=== PATIENT | female | born 1935 | race Caucasian/White ===

== ENCOUNTER → 2018-02-06 16:15 | Outpatient (CLI) | payer MEDICARE, SELFPAY | PROVIDERS: Family Provider Family Medicine; PCP Family Medicine; Visit Provider Dermatology | DX: L60.9 Nail disorder, unspecified (principal) | CPT/HCPCS: 87101; 87106 ==

== ENCOUNTER 2018-04-18 08:30 | Outpatient (RCR) | payer OTHER, SELFPAY ==
--- NOTE | 2018-03-10 08:10 | HP.OTEVAL ---
Patient's Visit Information SYEDA CHILD is a 82 year old F, referred to Occupational Therapy by Out of Town Doctor, with a diagnosis of Rupture of extensor tendon of right hand. Date of Evaluation: 03/09/18 Occupational Therapist: Brianda Miguel, OTR/Chavo, CHT - Subjective Subjective: This 82 year old female was seen for OT eval with dx of Rupture of extensor tendon fo right MF. PT states while in her living room she took a fall while sitting down on her recliner 2016. Pt states she worked with splinting her finger straight for over 12 weeks. with no correction of the tear. sx for DIP pinning was on January 25, 2018. And had pin removed on March 07, 2018. pt states she is wearing stack splint at night and with driving- - Pain right MF 7 Pain Intensity Range: 6, 9 - ROM PIP: Right MF 0/40 ROM Comments: all other digits right - Strength Strength Comments: deferred at this time. - Edema PIP: right MF 7.5 left MF 7.0 - Sensation Sensation Comments: denies - DASH-Disabilities of Arm, Shoulder& Hand DASH Sum: 99 - Goals Goal:100% adherence to protocol: Yes Goal:Daily scar massage when approriate: Yes Goal:ROM equal to unaffected hand: Yes Goal:Casino Operations Supervisor/Pinch strength at least 75% of unaffected hand: Yes Goal:No pain with affected hand use: Yes Goal:PIP Circumferences equal to unaffected hand: Yes Goal:Full use of affected hand in daily activities including: Yes - Rehabilitation General Assessment: Pt S/P right MF DIP pinning 01/25/17 with removal on 03/07/18. pt presents with mallet orthosis for daily use when out of her home. pt demo with sight swelling in MF and limited ROM limiting pts ind. with her basic ADLs and IADLS. pt would benefit from skilled OTR/L, CHT services 2x week for 4-6 weeks to assist pt in returning to her PLOF. Rehabilitation Potential: Good - Anticipated Interventions Anticipated Interventions: A/AAROM/PROM, Strengthening, Edema Control, Scar Care, Desensitization, Sensory Retraining, Modalities - Visit Plan Frequency: 2x /Week Duration: 4-6 Weeks TEXT: Thank you for the opportunity to evaluate your patient. For Medicare and Medicare HMO plans, please review the plan of care and approve it. It will need to be FAXED BACK to us at [phone] for Medicare purposes. Please let me know if there are questions or concerns regarding this plan of care. Physician Signature: Date:
--- NOTE | 2018-03-31 09:36 | HP.OTREVAL ---
Out of Town Doctor, It has been my pleasure to treat SYEDA CHILD over the last 7 visits for Rupture of extensor tendon of right hand. Please see the progress note below for an update on the occupational therapy plan of care! Subjective: pt states she is wearing her orthosis most of the time- and taking it off during ex. pt has concerns with her DIP not being straight- therapist ed. pt to not perfrom a forced fist at this time to cont working on ext. ex to gain increase motion- Objective/Function: -15 degrees of DIP ext a improvment from -20. *pt can active ext by 5 degrees -. pt has been ed- to use reverse blocking to increase ext- and use orthosis to decrease ext lag- and not to be performing a forced flex of DIP at this time- pt does need reinforcement with ex. pt has been given ex handout and pics with her own hand of positions of ex. pt demo ex well in session. Please re-eval pts ext. lag and advise as you feel therapy should progress Plan Frequency: 2x /Week Duration: 3 Weeks - 5 more visits approved via c9 Visits in this POC: pt has 5 more visits approved via C9 Plan: NO forced flex of DIP. reverse blocking to increase DIP ext- pt demo 5 degrees of active ext at DIP. passive to 0 Anticipated Interventions Anticipated Interventions: A/AAROM/PROM, Strengthening, Edema Control, Scar Care, Desensitization, Sensory Retraining, Modalities Please do not hesitate to contact me at [phone] by phone or if you have questions or concerns regarding this new plan of care! Sincerely, rBianda Miguel, OTR/L, CHT
--- NOTE | 2018-03-31 09:41 | OTREVAL_ITS ---
Out of Town Doctor, It has been my pleasure to treat SYEDA CHILD over the last 7 visits for Rupture of extensor tendon of right hand. Please see the progress note below for an update on the occupational therapy plan of care! Subjective: pt states she is wearing her orthosis most of the time- and taking it off during ex. pt has concerns with her DIP not being straight- therapist ed. pt to not perfrom a forced fist at this time to cont working on ext. ex to gain increase motion- Objective/Function: -15 degrees of DIP ext a improvment from -20. *pt can active ext by 5 degrees -. pt has been ed- to use reverse blocking to increase ext- and use orthosis to decrease ext lag- and not to be performing a forced flex of DIP at this time- pt does need reinforcement with ex. pt has been given ex handout and pics with her own hand of positions of ex. pt demo ex well in session. Please re-eval pts ext. lag and advise as you feel therapy should progress Plan Frequency: 2x /Week Duration: 3 Weeks - 5 more visits approved via c9 Visits in this POC: pt has 5 more visits approved via C9 Plan: NO forced flex of DIP. reverse blocking to increase DIP ext- pt demo 5 degrees of active ext at DIP. passive to 0 Anticipated Interventions Anticipated Interventions: A/AAROM/PROM, Strengthening, Edema Control, Scar Care , Desensitization, Sensory Retraining, Modalities Please do not hesitate to contact me at [phone] by phone or Fax: if you have questions or concerns regarding this new plan of care! Sincerely, Brianda Miguel, OTR/L, CHT
--- NOTE | 2018-04-13 08:00 | DT_ITS ---
This patient was seen during an EMR downtime April 10, 2018 - April 17, 2018. This patient may have a combination of paper and electronic documentation or all paper documentation. All documentation is viewable within the e-chart portion of [facility] for each patient visit.
--- NOTE | 2018-04-18 10:01 | HP.OTREVAL ---
Out of Town Doctor, It has been my pleasure to treat SYEDA CHILD over the last 12 visits for Rupture of extensor tendon of right hand. Please see the progress note below for an update on the occupational therapy plan of care! Subjective: pts visit 10 and 11 doc on paper due to electronic downtime procedure, the information from April through the April 16, 2018 was electronically scanned into the medical records. - pt states she is doing good- but does not like that her finger does not straighten - pt reports she is doing most all her BADLS ind. Therapist ed. pt on the risk of tendon repairs and ed. pt on the integrity of the tendon does affect healing and strength of the repair. pt did admit she did start gardening as soon as her pin was removed and following that she noticed her finger would not straighten all the way. Pt was compliant in using orthosis to provide support of DIP during gardening. pt demo understanding of flex ex and states she is back to playing her piano some. Objective/Function: PIP 0/90. DIP -20/55 this DIP lag has fluctuated from -10/-25 during the course of pts therapy- Pt was ed that with gains in flex she may have loss of the ext. pt demo understanding. pt demo with limited ability to extend DIP- follwoing extensor tendon repair- therapist rec'd K-tape to support DIP during functional use but pt does not want to use tape due as the adhesive pulls her skin-. ed. pt that even with tendon repairs. Plan Visits in this POC: 10/18 visits used- no further approved visits Plan: pt returns to for further evaluation Anticipated Interventions Anticipated Interventions: A/AAROM/PROM, Strengthening, Edema Control, Scar Care, Desensitization, Sensory Retraining, Modalities Please do not hesitate to contact me at [phone] by phone or if you have questions or concerns regarding this new plan of care! Sincerely, Brianda Miguel OTR/L, CHT
--- NOTE | 2018-04-18 10:12 | OTREVAL_ITS ---
Out of Town Doctor, It has been my pleasure to treat SYEDA CHILD over the last 12 visits for Rupture of extensor tendon of right hand. Please see the progress note below for an update on the occupational therapy plan of care! Subjective: pts visit 10 and 11 doc on paper due to electronic downtime procedure, the information from April through the April 16, 2018 was electronically scanned into the medical records. - pt states she is doing good- but does not like that her finger does not straighten - pt reports she is doing most all her BADLS ind. Therapist ed. pt on the risk of tendon repairs and ed. pt on the integrity of the tendon does affect healing and strength of the repair. pt did admit she did start gardening as soon as her pin was removed and following that she noticed her finger would not straighten all the way. Pt was compliant in using orthosis to provide support of DIP during gardening. pt demo understanding of flex ex and states she is back to playing her piano some. Objective/Function: PIP 0/90. DIP -20/55 this DIP lag has fluctuated from -10/ -25 during the course of pts therapy- Pt was ed that with gains in flex she may have loss of the ext. pt demo understanding. pt demo with limited ability to extend DIP- follwoing extensor tendon repair- therapist rec'd K-tape to support DIP during functional use but pt does not want to use tape due as the adhesive pulls her skin-. ed. pt that even with tendon repairs. Plan Visits in this POC: 10/18 visits used- no further approved visits Plan: pt returns to for further evaluation Anticipated Interventions Anticipated Interventions: A/AAROM/PROM, Strengthening, Edema Control, Scar Care , Desensitization, Sensory Retraining, Modalities Please do not hesitate to contact me at [phone] by phone or Fax: if you have questions or concerns regarding this new plan of care! Sincerely, Brianda Miguel OTR/L, CHT
--- NOTE | 2018-05-04 13:32 | HP.OTDCSUM_ITS ---
HP - OT D/C Summary It has been my pleasure to treat SYEDA CHILD under orders from Out of Town Doctor, for the diagnosis of Rupture of extensor tendon of right hand for a total of 12 visit(s). Please see the following information for a summary of their discharge status. - Overall Improvement % Improvement: 75 - Objective Objective/Function: PIP 0/90. DIP -20/55 this DIP lag has fluctuated from -10/ -25 during the course of pts therapy- Pt was ed that with gains in flex she may have loss of the ext. pt demo understanding. pt demo with limited ability to extend DIP- follwoing extensor tendon repair- therapist rec'd K-tape to support DIP during functional use but pt does not want to use tape due as the adhesive pulls her skin-. ed. pt that even with tendon repairs she will have scar tissue and possible limited ROM. pt demo understanding. - Goals Patient Goals: Regain Mobility, Decrease Pain, Improve Fine Motor Skills, Use Hand/Wrist/Arm Normally Again, Be More Independent in ADLS, Decrease Sensitivity Goal:100% adherence to protocol: Yes Goal:Daily scar massage when approriate: Yes Goal:ROM equal to unaffected hand: Yes Goal:Corporate Planner/Pinch strength at least 75% of unaffected hand: Yes Goal:No pain with affected hand use: Yes Goal:PIP Circumferences equal to unaffected hand: Yes Goal:Full use of affected hand in daily activities including: Yes - Plan Plan: pt returns to for further evaluation - D/C Information If there are questions or concerns regarding this patient's occupational therapy , please fell free to call me at [phone]. Thank you for the referral of this patient. Sincerely, Brianda Miguel, OTR/L, CHT
== END 2018-04-18 19:00 | disposition home or self-care (01) ==
LOC: OT 08:30
PROVIDERS: Family Provider Family Medicine; PCP Family Medicine
DX: S66.811D Strain of other specified muscles, fascia and tendons at wrist and hand level, right hand, subsequent encounter (principal)
CPT/HCPCS: 97110; 97140; 97166; 97168; 97530; 97762; 97763

== ENCOUNTER 2018-10-06 08:00 | Outpatient (RCR) | payer OTHER, MEDICARE, SELFPAY ==
--- NOTE | 2018-08-31 10:07 | HP.OTEVAL ---
Patient's Visit Information SYEDA CHILD is a 83 year old F, referred to Occupational Therapy by MARGUERITE GRIFFITH, with a diagnosis of Mallet finger of R finger. Date of Evaluation: 08/30/18 Occupational Therapist: Brianda Miguel, OTR/Chavo, CHT - Subjective Subjective: pt. arrives with mallet finger that developed from falling down in recliner after ankles gave out on her. Recently pt. retore tendon in 3rd digit and is still presenting with mallet finger. Pt has been seen in this facility for injury in the past- was D/C in April to return to her [employer] ex group. pt states she has not returned yet- due to pain in her knees- therapist encouraged to to start and utilize chair as needed to perform seated Ex for UB/LB- pt stated she needs to do so- pt c/o decrease easy writing, open jar lids, gardening tasks. - Pain R hand 0 - Objective Objective/Observation: mallet finger of R 3rd finger - ROM PIP: 0/90 DIP: -29/45 - Strength Shoulder: right 4/5 left 4+/5 Elbow: Right 4+/5 left 4+/5 Agricultural Lender: Right 25# left 15# Lateral Pinch: Right 12 # left 10# Tripod Pinch: Right 8# Left 9# Strength Comments: pt demo weak left environmental sciences professor /pinch more than right- this could be due to lack of use of bilateral hands for BADLs, meal prep tasks. therapist will encurage pt with HEP for increase functional strength- - Sensation Sensation Comments: patient demo difficulty with sensation, pt. able to feel 3.22 on R hand and 2.44 on L hand - DASH-Disabilities of Arm, Shoulder& Hand DASH Sum: 81 - Goals Goal:100% adherence to protocol: Yes Comment: Mallet finger Goal:ROM equal to unaffected hand: Yes Goal:No pain with affected hand use: Yes Goal:PIP Circumferences equal to unaffected hand: Yes Goal:Full use of affected hand in daily activities including: Yes Goal:Improvement in sensation documented by [place]-Soco: Yes Other Goal: pt will demo a increase in functional environmental sciences professor strength by 10# to increase pts ind with meal prep, and opening of jar lids by d/c - Rehabilitation General Assessment: Patient presents with mallet finger of R finger after recent over working of the R 3rd digit causing pt. to present with decreased strength, ROM, increased pain, decreased sensation, and decreased ability to complete BADL's and IADL's. Patient will benefit from OT services 2x/wk for 6 wks. Today OT provided PB to pt. to increase circulation and ROM and decrease pain. Following the PB, OT provided place and hold stretches at end range to increase ROM at PIP joint. OT provided green theraputty (moderate resistance) and handout to pt. and educated and instructed pt. about strengthening exercises that the pt. can complete at home. Rehabilitation Potential: Good - Anticipated Interventions Anticipated Interventions: A/AAROM/PROM, Strengthening, Triggerpoint Release, Modalities, Joint Protection/Energy Conservation, Ergonomic Education, Fine Motor Coord/Carlos, ADL Training, Education re Self Massage Techniques, Home Program - Visit Plan Frequency: 2x /Week Duration: 6 Weeks TEXT: Thank you for the opportunity to evaluate your patient. For Medicare and Medicare HMO plans, please review the plan of care and approve it. It will need to be FAXED BACK to us at [phone] for Medicare purposes. Please let me know if there are questions or concerns regarding this plan of care. Physician Signature: Date:
--- NOTE | 2018-08-31 10:16 | HP.OTEVAL ---
Patient's Visit Information SYEDA CHILD is a 83 year old F, referred to Occupational Therapy by MARGUERITE GRIFFITH, with a diagnosis of Mallet finger of R finger. Date of Evaluation: 08/30/18 Occupational Therapist: Brianda Miguel, OTR/Chavo, CHT - Subjective Subjective: pt. arrives with mallet finger that developed from falling down in recliner after ankles gave out on her. Recently pt. retore tendon in 3rd digit and is still presenting with mallet finger. Pt has been seen in this facility for injury in the past- was D/C in April to return to her [employer] ex group. pt states she has not returned yet- due to pain in her knees- therapist encouraged to to start and utilize chair as needed to perform seated Ex for UB/LB- pt stated she needs to do so- pt c/o decrease easy writing, open jar lids, gardening tasks. - Pain R hand 0 - Objective Objective/Observation: mallet finger of R 3rd finger - ROM PIP: 0/90 DIP: -29/45 - Strength Shoulder: right 4/5 left 4+/5 Elbow: Right 4+/5 left 4+/5 On Site Services Specialist: Right 25# left 15# Lateral Pinch: Right 12 # left 10# Tripod Pinch: Right 8# Left 9# Strength Comments: pt demo weak left filler shredder helper /pinch more than right- this could be due to lack of use of bilateral hands for BADLs, meal prep tasks. Therapist will encourage pt with HEP for increase functional strength- - Sensation Sensation Comments: patient demo difficulty with sensation, pt. able to feel 3.22 on R hand and 2.44 on L hand - DASH-Disabilities of Arm, Shoulder& Hand DASH Sum: 81 - Goals Goal:100% adherence to protocol: Yes Comment: Mallet finger Goal:ROM equal to unaffected hand: Yes Goal:No pain with affected hand use: Yes Goal:PIP Circumferences equal to unaffected hand: Yes Goal:Full use of affected hand in daily activities including: Yes Goal:Improvement in sensation documented by [place]-Soco: Yes Other Goal: pt will demo a increase in functional filler shredder helper strength by 10# to increase pts ind with meal prep, and opening of jar lids by d/c - Rehabilitation General Assessment: Patient presents with mallet finger of R finger after recent over working of the R 3rd digit causing pt. to present with decreased strength, ROM, increased pain, decreased sensation, and decreased ability to complete BADL's and IADL's. Patient will benefit from OT services 2x/wk for 6 wks. Today OT provided PB to pt. to increase circulation and ROM and decrease pain. Following the PB, OT provided place and hold stretches at end range to increase ROM at PIP joint. OT provided green theraputty (moderate resistance) and handout to pt. and educated and instructed pt. about strengthening exercises that the pt. can complete at home. Rehabilitation Potential: Good - Anticipated Interventions Anticipated Interventions: A/AAROM/PROM, Strengthening, Triggerpoint Release, Modalities, Joint Protection/Energy Conservation, Ergonomic Education, Fine Motor Coord/Carlos, ADL Training, Education re Self Massage Techniques, Home Program - Visit Plan Frequency: 2x /Week Duration: 6 Weeks TEXT: Thank you for the opportunity to evaluate your patient. For Medicare and Medicare HMO plans, please review the plan of care and approve it. It will need to be FAXED BACK to us at [phone] for Medicare purposes. Please let me know if there are questions or concerns regarding this plan of care. Physician Signature: Date:
--- NOTE | 2018-10-03 09:21 | HP.OTREVAL ---
MARGUERITE GRIFFITH, It has been my pleasure to treat SYEDA CHILD over the last 11 visits for Mallet finger of R finger. Please see the progress note below for an update on the occupational therapy plan of care! Subjective: pt. arrives with bruise on R hand and reports that she is going to MD later this week. pt. reports that overall she is feeling much better. Objective/Function: scientific diver strength 30# in R and 22# in L. lateral 14# in R and 9# in L. ROM 0/98 in PIP and -45/70 in DIP. Pt demo with incrase in both scientific diver strength- noted left , the unaffected hand is weaker than right. Pt doing well and reports increase strength. Pt demo good writing ability. pt ed. on use of gripper on pen with writing. pt indicated she does not have the patience to tolerate using it. Pt to be D/C at next visit Tuesday10/06/18 with HEP to cont. with PRE/ silver sneakers. ROM 0/98 in PIP and -45/70 in DIP. pt. reports that overall she is feeling better. Treatment supervised directly by Brianda Miguel OTR/L, CHT and doc. approved. Plan Visits in this POC: 12 Plan: cont BTE. paraffin. MT. End range stretching. UE strengthening Goals - Goals Other Goal: pt will demo a increase in functional scientific diver strength by 10# to increase pts ind with meal prep, and opening of jar lids by d/c Anticipated Interventions Anticipated Interventions: A/AAROM/PROM, Strengthening, Triggerpoint Release, Modalities, Joint Protection/Energy Conservation, Ergonomic Education, Fine Motor Coord/Carlos, ADL Training, Education re Self Massage Techniques, Home Program Please do not hesitate to contact me at [phone] by phone or if you have questions or concerns regarding this new plan of care! Sincerely, Brianda Miguel, OTR/L, CHT
--- NOTE | 2018-10-03 09:24 | OTREVAL_ITS ---
MARGUERITE GRIFFITH, It has been my pleasure to treat SYEDA CHILD over the last 11 visits for Mallet finger of R finger. Please see the progress note below for an update on the occupational therapy plan of care! Subjective: pt. arrives with bruise on R hand and reports that she is going to MD later this week. pt. reports that overall she is feeling much better. Objective/Function: title i director strength 30# in R and 22# in L. lateral 14# in R and 9# in L. ROM 0/98 in PIP and -45/70 in DIP. Pt demo with incrase in both title i director strength- noted left , the unaffected hand is weaker than right. Pt doing well and reports increase strength. Pt demo good writing ability. pt ed. on use of gripper on pen with writing. pt indicated she does not have the patience to tolerate using it. Pt to be D/C at next visit Tuesday10/06/18 with HEP to cont. with PRE/ silver sneakers. ROM 0/98 in PIP and -45/70 in DIP. pt. reports that overall she is feeling better. Treatment supervised directly by Brianda Miguel OTR/L, CHT and doc. approved. Plan Visits in this POC: 12 Plan: cont BTE. paraffin. MT. End range stretching. UE strengthening Goals - Goals Other Goal: pt will demo a increase in functional title i director strength by 10# to increase pts ind with meal prep, and opening of jar lids by d/c Anticipated Interventions Anticipated Interventions: A/AAROM/PROM, Strengthening, Triggerpoint Release, Modalities, Joint Protection/Energy Conservation, Ergonomic Education, Fine Motor Coord/Carlos, ADL Training, Education re Self Massage Techniques, Home Program Please do not hesitate to contact me at [phone] by phone or if you have questions or concerns regarding this new plan of care! Sincerely, Brianda Miguel, OTR/L, CHT
--- NOTE | 2018-10-06 10:46 | HP.OTDCSUM ---
HP - OT D/C Summary It has been my pleasure to treat SYEDA CHILD under orders from MARGUERITE GRIFFITH, for the diagnosis of Mallet finger of R finger for a total of 12 visit(s). Please see the following information for a summary of their discharge status. - Objective Objective/Function: camp housekeeper 21# in L and 30# in R. lateral 9# in L and 12# in R. tripod 9# in L and 10# in R. ROM. 0/90 in PIP. -40/61 in DIP. Treatment supervised directly by Brianda Miguel OTR/L, CHT and doc. approved. - Goals Patient Goals: Regain Strength, Decrease Pain, Use Hand/Wrist/Arm Normally Again, Increase ROM, Be More Independent in ADLS, Resume Hobbies Goal:100% adherence to protocol: Yes Goal:ROM equal to unaffected hand: Yes Goal:No pain with affected hand use: Yes Goal:PIP Circumferences equal to unaffected hand: Yes Goal:Full use of affected hand in daily activities including: Yes Goal:Improvement in sensation documented by [place]-Soco: Yes Other Goal: pt will demo a increase in functional camp housekeeper strength by 10# to increase pts ind with meal prep, and opening of jar lids by d/c - Plan Plan: cont BTE. paraffin. MT. End range stretching. UE strengthening - D/C Information Discharge Comments: Patient made progress throughout therapy process. pt. ROM and strength improved and pt. reported that she was able to complete more functional tasks. pt. does still have decreased ROM in the DIP joint, however, pt. is still able to complete functional tasks with this limitation. pt. educated about HEP and d/c with no further concerns at this time. If there are questions or concerns regarding this patient's occupational therapy, please fell free to call me at [phone]. Thank you for the referral of this patient. Sincerely, Brianda Miguel, OTR/L, CHT
== END 2018-10-06 19:00 | disposition home or self-care (01) ==
LOC: OT 08:00
PROVIDERS: Family Provider Family Medicine; PCP Family Medicine
DX: M20.011 Mallet finger of right finger(s) (principal)
CPT/HCPCS: 97110; 97140; 97165; 97530

== ENCOUNTER 2018-12-20 17:41 | Inpatient (IN) | payer MEDICARE, SELFPAY ==
[2018-12-20 17:43] VITALS: BP 176/81; PULSE 89; RESP 18; TEMP 37.7; O2SAT 97; BMI 24.4
[2018-12-20 18:19] VITALS: BP 186/101; PULSE 82; RESP 18; TEMP 37.7; O2SAT 96
--- NOTE | 2018-12-20 18:32 | EKG12_ITS ---
Test Reason : COUGH Blood Pressure : / mmHG Vent. Rate : 083 BPM Atrial Rate : 083 BPM P-R Int : 144 ms QRS Dur : 080 ms QT Int : 376 ms P-R-T Axes : 083 062 039 degrees QTc Int : 441 ms Normal sinus rhythm Septal infarct , age undetermined Abnormal ECG Confirmed by CHERI SHERMAN, PURA ([id number]), metropolitan editor ASHLEE JUNIOR ([id number] on 12/26/2018 11:20:49 AM Referred By: JOSE GODDARD Confirmed By:PURA ALONZO MD
[2018-12-20 18:47] LABS: Absolute Lymphocyte Count 0.69 X10^3/ul (0.83-4.51); Absolute Neutrophil Count 3.9 X10^3/uL (2.0-7.7); Basophil# 0.03 X10^3/uL; Basophil% 0.5 % (0-1); Eosinophil# 0.06 X10^3/uL; Hematocrit 39.3 % (37-47); Hemoglobin 12.2 g/dl (12.0-15.0); Lymphocyte # 0.69 X10^3/ul (4.0); Mean Corpuscular Hgb 27.7 pg (27.0-32.0); Mean Corpuscular Volume 89.1 fL (81-99); Mean Platelet Vol. 9.4 fl (6.2-12.0); Monocyte# 1.02 X10^3/uL; Monocyte% 17.7 % (0-10); Neutrophil # 3.94 X10^3/uL (2.7-7.7); Neutrophil % 68.5 % (47-70); Platelet Count 172 K/mm3 (150-450); RBC Distribution Width CV 13.8 % (11.6-14.6); RBC Distribution Width SD 44.2 fl (35.1-43.9); Red Blood Count 4.41 M/mm3 (4.2-5.4); White Blood Count 5.8 K/mm3 (4.4-11.0)
[2018-12-20] MEDS: Acetaminophen 325 MG Tablet 650 MG PO (18:48)
[2018-12-20] MEDS: 0.9% Normal Saline 1,000 ML 150 ML IV (18:50)
[2018-12-20 18:53] LABS: POSITIVE COUNT NO; POSITIVE DIFFERENTIAL NO; POSITIVE MORPHOLOGY NO
[2018-12-20 18:59] LABS: Anion Gap 11 (5-15); BUN 32 mg/dL (7-18); BUN/Creat Ratio 14.3 RATIO (10-20); Calcium,Total 8.5 mg/dL (8.5-10.1); Chloride 106 mmol/L (98-107); Creatinine, Serum 2.23 mg/dL (0.55-1.02); EST Glomerular Filtration Rate 22 mL/min (>60); Est Glom Filt Rate - Afr Amer 27 mL/min (>60); Estimated Creatinine Clearance 19.24 ml/min; Glucose 98 mg/dL (74-106); Sodium Level 141 mmol/L (136-145)
[2018-12-20 18:59] LABS: Mucous, Urine 0 SEEN /hpf (<or=2+); Red Blood Cells-Urine 0 SEEN /hpf (0-5)
[2018-12-20 19:00] VITALS: BP 172/75; PULSE 81; RESP 17; TEMP 36.8; O2SAT 97
[2018-12-20 19:04] LABS: Color, Urine Yellow (Yellow); Glucose, Dipstick Normal (Normal); Ketone-Dipstick Negative (Negative); Leukocyte Esterase-Dipstick 100 /ul (Negative); Nitrite-Dipstick Positive (Negative); Occult Blood-Urine 50 /ul (Negative); Protein-Dipstick 30 mg/dl (Negative); Urine Bilirubin Dipstick Negative (Negative); Urine Clarity Sl. Cloudy (Clear); Urine Urobilinogen Normal (Normal)
[2018-12-20 19:05] LABS: Lactic Acid 1.3 mmol/L (0.4-2.0)
[2018-12-20 19:13] LABS: Bacteria 1+ /hpf (None Seen); Squamous Epithelial Cells - UA 0-5 SEEN /hpf (5-10); White Blood Cells 10-25 SEEN /hpf (0-5)
[2018-12-20] MEDS: Gabapentin 600 MG Tablet PO (19:17)
--- NOTE | 2018-12-20 19:20 | RAD_ITS ---
STUDY: X-RAY CHEST REASON FOR EXAM: Female, 83 years old. Cough. TECHNIQUE: PA and lateral chest. COMPARISON: None. FINDINGS: The lungs are clear and expanded. There is no demonstrated pleural abnormality. Normal size heart. Normal mediastinum and arnulfo. Normal visualized pulmonary arteries. Normal visualized aortic arch and descending thoracic aorta. Normal visualized thoracic spine. Neurostimulator unit is noted, terminating at the T10 level. Calcification superior to the right greater tuberosity suggests calcific tendinitis. There is no demonstrated abnormality of the visualized soft tissue structures of the upper abdomen. RAD/Chest PA and Lateral IMPRESSION: 1. No acute process. 2. Question calcific tendinitis of the right shoulder. Electronically Signed: Rosa Maria Moreno MD at 19:47 EST Tel , Service support ,
[2018-12-20 20:21] VITALS: BP 159/70; PULSE 81; RESP 20; TEMP 36.9; O2SAT 97
[2018-12-20] MEDS: Ceftriaxone 1 GM/50 ML BAG IV (20:22)
--- NOTE | 2018-12-20 20:36 | PCM.HP.STD ---
Problem List (1) Viral syndrome Status: Acute (2) UTI (urinary tract infection) Status: Acute Qualifiers: Urinary tract infection type: acute cystitis Hematuria presence: without hematuria Qualified Code(s): N30.00 - Acute cystitis without hematuria (3) SHASHI (acute kidney injury) Status: Acute (4) Chronic kidney disease, stage 3 (moderate) Status: Chronic (5) Atherosclerosis of coronary artery of [place] heart without angina pectoris Status: Chronic Qualifiers: Coronary Disease-Associated Artery/Lesion type: [place] artery Qualified Code(s): I25.10 - Atherosclerotic heart disease of [place] coronary artery without angina pectoris Comment: 50% mid LAD per [facility] and FFR 04/2012 (6) Hyperlipidemia Status: Chronic Qualifiers: Hyperlipidemia type: pure hypercholesterolemia Qualified Code(s): E78.00 - Pure hypercholesterolemia, unspecified; E78.0 - Pure hypercholesterolemia (7) Hypertension Status: Chronic Qualifiers: Hypertension type: essential hypertension Qualified Code(s): I10 - Essential (primary) hypertension History of Present Illness Date of Admission: 12/20/18 Chief Complaint: Cough, weakness, fatigue The patient is a 83 y/o F w/ PMHx: CAD (mild), HTN, HLD, GERD, Chronic Pain Syndrome s/p Spinal cord stimulator who presents to the [facility] ED on 12/20/18 with history of ongoing upper respiratory symptoms including rhinorrhea, cough that is dry, arthralgias, myalgias times 2 days noted to have also fallen at home secondary to severity of her weakness requiring her son to help her to get up in addition to noting that she has been frequently having incontinence with her coughing bouts. Workup in the ED included T 100, heart rate 89, BP 176/81--> 159/70, respiratory rate 18, 97% on room air, CBC with W BC 5.8, hemoglobin 12.2, platelet 172 without market left shift but noted increased monocytes, BUN/creatinine 32/2.23 with baseline creatinine noted prior 1.6-had a 1.7, LA 1.3, UA concerning for possible UTI, urine culture pending per ED, blood culture x2 pending per ED, chest x-ray with no acute cardiopulmonary disease, EKG with no acute evidence of ischemia. 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 Past Medical History Past Medical History (Chronic Problems): Chronic Problems (Last Reviewed 08/10/18 @ 10:19 by Shubham Ann MD) Chronic kidney disease, stage 3 (moderate) (Chronic) Atherosclerosis of coronary artery of [place] heart without angina pectoris (Chronic) 50% mid LAD per [facility] and FFR 04/2012 Hyperlipidemia (Chronic) Hypertension (Chronic) Medical History: Medical History (Last Reviewed 08/10/18 @ 10:19 by Shubham Ann MD) Chronic kidney disease, stage 3 (moderate) (Chronic) N18.3 Atherosclerosis of coronary artery of [place] heart without angina pectoris (Chronic) I25.10 50% mid LAD per [facility] and FFR 04/2012 Hyperlipidemia (Chronic) E78.5 Hypertension (Chronic) I10 GERD (gastroesophageal reflux disease) K21.9 History of hysterectomy Z98.890, Z90.710 Reflex sympathetic dystrophy G90.50 spinal cord stimulator implant Allergies Gadolinium-MRI Contrast Medium [CONTRAST] Allergy (Verified 12/20/18 17:44) Hives Latex, Natural Rubber Allergy (Verified 12/20/18 17:44) Rash adhesive tape Adverse Reaction (Verified 12/20/18 17:44) Rash codeine Adverse Reaction (Verified 12/20/18 17:44) Other I SLEEP REAL GOOD tramadol [From Ultra] Adverse Reaction (Verified 12/20/18 17:44) Unknown Home Medications: Ambulatory Orders Medication Instructions Recorded Cholecalciferol (VIT D3) [Vitamin 1,000 unit PO DAILY@1400 11/29/14 D3] Gabapentin [Neurontin] 300 mg PO DAILY@1800 11/29/14 Dola-3 Fatty Acids/Fish Oil [Fish 1 cap PO DAILY@1400 11/29/14 Oil 1,000 mg Softgel] Simvastatin [Zocor] 20 mg PO QHS 11/29/14 Aspirin E.C. [Ecotrin] 81 mg PO QHS 12/20/18 Metoprolol Tartrate [Lopressor 25 mg PO BID 12/20/18 (beta adebayo)] Surgical History: Surgical History (Last Reviewed 08/10/18 @ 10:19 by Shubham Ann MD) History of left heart catheterization Onset Date: ~04/10/12 Z98.890 History of nasal septoplasty Z98.890 History of repair of rotator cuff Z98.890 History of tonsillectomy Z98.890, Z90.89 Hx of cholecystectomy Z98.890, Z90.49 ORIF left ankle ORIF right elbow Surgical History: hysterectomy, rotator cuff repair, total knee arthroplasty, tonsillectomy, - - Nasal septoplasty, spinal cord stimulator placement, right rotator cuff surgery, cholecystectomy, ORIF left ankle, ORIF right elbow, TKR, hysterectomy. 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 Review of Systems Constitutional: Reports: Anorexia, Malaise, Weakness, Fatigue. Denies: Chills, Fever, Weight Change HEENT: Reports: Post Nasal Drip, Sinus Congestion, Sinus Drainage, Sore Throat. Denies: Head Aches Cardiovascular: Denies: Chest Pain, Palpitations Respiratory: Reports: Cough, Shortness of breath upon exertion. Denies: Shortness of Breath, Shortness of breath at rest, Sputum production, Wheezing Gastrointestinal: Denies: Abdominal Pain, Nausea, Vomiting Genitourinary: Reports: Frequency, Incontinence. Denies: Dysuria Musculoskeletal: Reports: Back Pain, Joint Pain, Muscle pain. Denies: Joint Tenderness Skin: Denies: Rash, Wounds Neurological: Denies: Numbness, Tingling, Focal weakness Psychiatric: Denies: Anxiety, Depression, Homicidal Ideations, Suicidal Ideations Hematologic/ Lymphatic: Denies: Easy Bruising, Easy Bleeding VTE Information - Inpt Only VTE Present on Admission: No VTE Mechan Device Prophylaxis: SCD's VTE Pharm Prophylaxis ordered?: Yes Patient Problems: Active and Suspected Problems (Last Reviewed 08/10/18 @ 10:19 by Shubham Ann MD) Viral syndrome (Acute) UTI (urinary tract infection) (Acute) SHASHI (acute kidney injury) (Acute) Subjective: Seated upright in the ED bed, fatigued appearance, dry harsh coughing. Objective: Physical Examination: General: awake, alert, oriented x 3 and cooperative, seated upright in the ED bed in no apparent distress, fatigued appearing. Skin: normal color, turgor, no icterus, cyanosis. HEENT: AT/NC, EOMI, PERRLA, dry MM, no carotid bruits or JVD noted. Lungs: Diminished breath sounds bilateral bases, moderate effort, increased harsh dry coughing with increased effort, no rales, ronchi or wheezing. Heart: Regular rate and rhythm; no gallop, rub audible. Abdomen: soft, NTTP, ND, normal BS, no HSM. Extremities: no cyanosis, clubbing, or edema. Neurological: patient awake, alert, oriented x 3; cognitive function intact; pupils equally reactive to light and accomodation; cranial nerves II-XII grossly normal, moving all 4 extremities, no focal deficits, strength moderately to severely globally decreased secondary to acute presentation. Psychiatric: affect appears fatigued, no acute evidence of depressive or anxiety feelings. - Physical Exam Vital Signs Temp Pulse Resp BP Pulse Ox 98.4 F 81 20 H 159/70 H 97 12/20/18 20:21 12/20/18 20:21 12/20/18 20:21 12/20/18 20:21 12/20/18 20:21 Oxygen Delivery Method Room Air Weight: 156 lb Body Mass Index (BMI) 24.4 Laboratory Tests Past 24 Hrs 12/20/18 12/20/18 12/20/18 18:30 18:30 18:30 WBC 5.8 RBC 4.41 Hgb 12.2 Hct 39.3 MCV 89.1 MCH 27.7 MCHC 31.0 L RDW 13.8 RDW Differential 44.2 H Plt Count 172 MPV 9.4 Immature Gran % (Auto) 0.300 Neut % (Auto) 68.5 Lymph % (Auto) 12.0 L [place] % (Auto) 17.7 H Eos % (Auto) 1.0 Baso % (Auto) 0.5 Absolute Neuts (auto) 3.9 Absolute Lymphs (auto) 0.69 L Total Counted Not Reportable Sodium 141 Potassium 4.0 Chloride 106 Carbon Dioxide 24.0 Anion Gap 11 BUN 32 H Creatinine 2.23 H Estim Creat Clear Calc 19.24 Est GFR (MDRD) Af Amer 27 L Est GFR (MDRD) Non-Af 22 L BUN/Creatinine Ratio 14.3 Glucose 98 Lactic Acid 1.3 Calcium 8.5 Urine Color Urine Clarity Urine pH Ur Specific Ranger Urine Protein Urine Glucose (UA) Urine Ketones Urine Occult Blood Urine Nitrite Urine Bilirubin Urine Urobilinogen Ur Leukocyte Esterase Urine RBC Urine WBC Ur Squamous Epith Cells Urine Bacteria Urine Mucus 12/20/18 18:45 WBC RBC Hgb Hct MCV MCH MCHC RDW RDW Differential Plt Count MPV Immature Gran % (Auto) Neut % (Auto) Lymph % (Auto) [place] % (Auto) Eos % (Auto) Baso % (Auto) Absolute Neuts (auto) Absolute Lymphs (auto) Total Counted Sodium Potassium Chloride Carbon Dioxide Anion Gap BUN Creatinine Estim Creat Clear Calc Est GFR (MDRD) Af Amer Est GFR (MDRD) Non-Af BUN/Creatinine Ratio Glucose Lactic Acid Calcium Urine Color Yellow Urine Clarity Sl. Cloudy Urine pH 5.0 Ur Specific Ranger 1.010 Urine Protein 30 H Urine Glucose (UA) Normal Urine Ketones Negative Urine Occult Blood 50 H Urine Nitrite Positive H Urine Bilirubin Negative Urine Urobilinogen Normal Ur Leukocyte Esterase 100 H Urine RBC 0 SEEN Urine WBC 10-25 SEEN Ur Squamous Epith Cells 0-5 SEEN Urine Bacteria 1+ Urine Mucus 0 SEEN Assessment/Plan All Active Problems (Last Reviewed 08/10/18 @ 10:19 by Shubham Ann MD) Viral syndrome (Acute) UTI (urinary tract infection) (Acute) SHASHI (acute kidney injury) (Acute) History of abdominal pain (Resolved) History of nausea and vomiting (Resolved) Traumatic open wound of lower leg with delayed healing (Resolved) Ulcer of right lower extremity with fat layer exposed (Resolved) The patient is a 83 y/o F w/ PMHx: CAD (mild), HTN, HLD, GERD, Chronic Pain Syndrome s/p Spinal cord stimulator who presents to the [facility] ED on 12/20/18 with history of ongoing upper respiratory symptoms including rhinorrhea, cough that is dry, arthralgias, myalgias times 2 days noted to have also fallen at home secondary to severity of her weakness requiring her son to help her to get up in addition to noting that she has been frequently having incontinence with her coughing bouts. (1) General Malaise, Cough, General Debility, Myalgia, Arthralgia secondary to Suspected Acute Viral Syndrome: Workup in the ED included T 100, heart rate 89, BP 176/81--> 159/70, respiratory rate 18, 97% on room air, CBC with W BC 5.8, hemoglobin 12.2, platelet 172 without market left shift but noted increased monocytes, BUN/creatinine 32/2.23 with baseline creatinine noted prior 1.6-had a 1.7, LA 1.3, UA concerning for possible UTI, urine culture pending per ED, blood culture x2 pending per ED, chest x-ray with no acute cardiopulmonary disease, EKG with no acute evidence of ischemia. Will admit to [facility], maintain on oxygen with wean as tolerated, continue ATC duonebs, PRN albuterol, HOB, IS parameters w/ pending Bld cx x 2 from ED. Respiratory viral panel requested, if influenza positive will continue Tamiflu. PT, OT, CM consultation for discharge planning. (2) ? Acute Urinary Tract Infection: UA upon ED evaluation remarkable, pending UCx, continue IVFs, monitor I/Os, continue IV Rocephin w/ transition as able pending sensitivities and speciation or if unremarkable discontinue antibiotic therapies. (3) Acute kidney injury on CKD stage III: Secondary to acute presentation #1, decreased oral intake. Admission BUN/Cr 32/2.23, prior baseline creatinine noted to be 1.6-1.7. Will hydrate, hold nephrotoxic medications and repeat chemistry in AM. (4) CAD: Continue home aspirin, beta-adebayo, statin therapies. (5) Hypertension: Continue home regimen including metoprolol, PRN hydralazine. (6) Hyperlipidemia: Continue home statin regimen. (7) GERD: PPI. (8) Chronic Pain Syndrome: s/p Spinal cord stimulator, fall precautions as noted, PT, OT, CM consultation for discharge planning. (9) DVT Prophylaxis: SCDs, heparin. Code Visit Inpatient E&M: 76559 Init Hosp L3
--- NOTE | 2018-12-20 20:43 | HP.PCM_ITS ---
Problem List (1) Viral syndrome Status: Acute (2) UTI (urinary tract infection) Status: Acute Qualifiers: Urinary tract infection type: acute cystitis Hematuria presence: without hematuria Qualified Code(s): N30.00 - Acute cystitis without hematuria (3) SHASHI (acute kidney injury) Status: Acute (4) Chronic kidney disease, stage 3 (moderate) Status: Chronic (5) Atherosclerosis of coronary artery of [place] heart without angina pectoris Status: Chronic Qualifiers: Coronary Disease-Associated Artery/Lesion type: [place] artery Qualified Code(s): I25.10 - Atherosclerotic heart disease of [place] coronary artery without angina pectoris Comment: 50% mid LAD per [facility] and FFR 04/2012 (6) Hyperlipidemia Status: Chronic Qualifiers: Hyperlipidemia type: pure hypercholesterolemia Qualified Code(s): E78.00 - Pure hypercholesterolemia, unspecified; E78.0 - Pure hypercholesterolemia (7) Hypertension Status: Chronic Qualifiers: Hypertension type: essential hypertension Qualified Code(s): I10 - Essen tial (primary) hypertension History of Present Illness Date of Admission: 12/20/18 Chief Complaint: Cough, weakness, fatigue The patient is a 83 y/o F w/ PMHx: CAD (mild), HTN, HLD, GERD, Chronic Pain Syndrome s/p Spinal cord stimulator who presents to the [facility] ED on 12/20/18 with history of ongoing upper respiratory symptoms including rhinorrhea, cough that is dry, arthralgias, myalgias times 2 days noted to have also fallen at home secondary to severity of her weakness requiring her son to help her to get up in addition to noting that she has been frequently having incontinence with her coughing bouts. Workup in the ED included T 100, heart rate 89, BP 176/81--> 159/70, respiratory rate 18, 97% on room air, CBC with W BC 5.8, hemoglobin 12.2, platelet 172 without market left shift but noted increased monocytes, BUN/creatinine 32/2.23 with baseline creatinine noted prior 1.6-had a 1.7, LA 1.3, UA concerning for possible UTI, urine culture pending per ED, blood culture x2 pending per ED, chest x-ray with no acute cardiopulmonary disease, EKG with no acute evidence of ischemia. 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 Past Medical History Past Medical History (Chronic Problems): Chronic Problems (Last Reviewed 08/10/18 @ 10:19 by Shubham Ann MD) Chronic kidney disease, stage 3 (moderate) (Chronic) Atherosclerosis of coronary artery of [place] heart without angina pectoris (Chronic) 50% mid LAD per [facility] and FFR 04/2012 Hyperlipidemia (Chronic) Hypertension (Chronic) Medical History: Medical History (Last Reviewed 08/10/18 @ 10:19 by Shubham Ann MD) Chronic kidney disease, stage 3 (moderate) (Chronic) N18.3 Atherosclerosis of coronary artery of [place] heart without angina pectoris (Chronic) I25.10 50% mid LAD per [facility] and FFR 04/2012 Hyperlipidemia (Chronic) E78.5 Hypertension (Chronic) I10 GERD (gastroesophageal reflux disease) K21.9 History of hysterectomy Z98.890, Z90.710 Reflex sympathetic dystrophy G90.50 spinal cord stimulator implant Allergies Gadolinium-MRI Contrast Medium [CONTRAST] Allergy (Verified 12/20/18 17:44) Hives Latex, Natural Rubber Allergy (Verified 12/20/18 17:44) Rash adhesive tape Adverse Reaction (Verified 12/20/18 17:44) Rash codeine Adverse Reaction (Verified 12/20/18 17:44) Other I SLEEP REAL GOOD tramadol [From Ultra] Adverse Reaction (Verified 12/20/18 17:44) Unknown Home Medications: Ambulatory Orders Medication Instructions Recorded Cholecalciferol (VIT D3) [Vitamin 1,000 unit PO DAILY@1400 11/29/14 D3] Gabapentin [Neurontin] 300 mg PO DAILY@1800 11/29/14 [place]-3 Fatty Acids/Fish Oil [Fish 1 cap PO DAILY@1400 11/29/14 Oil 1,000 mg Softgel] Simvastatin [Zocor] 20 mg PO QHS 11/29/14 Aspirin E.C. [Ecotrin] 81 mg PO QHS 12/20/18 Metoprolol Tartrate [Lopressor 25 mg PO BID 12/20/18 (beta adebayo)] Surgical History: Surgical History (Last Reviewed 08/10/18 @ 10:19 by Shubham Ann MD) History of left heart catheterization Onset Date: ~04/10/12 Z98.890 History of nasal septoplasty Z98.890 History of repair of rotator cuff Z98.890 History of tonsillectomy Z98.890, Z90.89 Hx of cholecystectomy Z98.890, Z90.49 ORIF left ankle ORIF right elbow Surgical History: hysterectomy, rotator cuff repair, total knee arthroplasty, tonsillectomy, - - Nasal septoplasty, spinal cord stimulator placement, right rotator cuff surgery, cholecystectomy, ORIF left ankle, ORIF right elbow, TKR, hysterectomy. Psychiatric History: No pertinent psych hx [employer] History: No pertinent [employer] history Lives: Spouse/ Significant Other Smoking Status: Never smoker Tobacco Use: Non-smoker Alcohol: None Drugs: None - *Family History Paternal History Items: Cancer, Diabetes Maternal History Items: - - Patient denies any market maternal family history including diabetes, heart disease, cancer. Review of Systems Constitutional: Reports: Anorexia, Malaise, Weakness, Fatigue. Denies: Chills, Fever, Weight Change HEENT: Reports: Post Nasal Drip, Sinus Congestion, Sinus Drainage, Sore Throat. Denies: Head Aches Cardiovascular: Denies: Chest Pain, Palpitations Respiratory: Reports: Cough, Shortness of breath upon exertion. Denies: Shortness of Breath, Shortness of breath at rest, Sputum production, Wheezing Gastrointestinal: Denies: Abdominal Pain, Nausea, Vomiting Genitourinary: Reports: Frequency, Incontinence. Denies: Dysuria Musculoskeletal: Reports: Back Pain, Joint Pain, Muscle pain. Denies: Joint Tenderness Skin: Denies: Rash, Wounds Neurological: Denies: Numbness, Tingling, Focal weakness Psychiatric: Denies: Anxiety, Depression, Homicidal Ideations, Suicidal Ideations Hematologic/ Lymphatic: Denies: Easy Bruising, Easy Bleeding VTE Information - Inpt Only VTE Present on Admission: No VTE Mechan Device Prophylaxis: SCD's VTE Pharm Prophylaxis ordered?: Yes Patient Problems: Active and Suspected Problems (Last Reviewed 08/10/18 @ 10:19 by Shubham Ann MD) Viral syndrome (Acute) UTI (urinary tract infection) (Acute) SHASHI (acute kidney injury) (Acute) Subjective: Seated upright in the ED bed, fatigued appearance, dry harsh coughing. Objective: Physical Examination: General: awake, alert, oriented x 3 and cooperative, seated upright in the ED bed in no apparent distress, fatigued appearing. Skin: normal color, turgor, no icterus, cyanosis. HEENT: AT/NC, EOMI, PERRLA, dry MM, no carotid bruits or JVD noted. Lungs: Diminished breath sounds bilateral bases, moderate effort, increased harsh dry coughing with increased effort, no rales, ronchi or wheezing. Heart: Regular rate and rhythm; no gallop, rub audible. Abdomen: soft, NTTP, ND, normal BS, no HSM. Extremities: no cyanosis, clubbing, or edema. Neurological: patient awake, alert, oriented x 3; cognitive function intact; pupils equally reactive to light and accomodation; cranial nerves II-XII grossly normal, moving all 4 extremities, no focal deficits, strength moderately to severely globally decreased secondary to acute presentation. Psychiatric: affect appears fatigued, no acute evidence of depressive or anxiety feelings. - Physical Exam Vital Signs Temp Pulse Resp BP Pulse Ox 98.4 F 81 20 H 159/70 H 97 12/20/18 20:21 12/20/18 20:21 12/20/18 20:21 12/20/18 20:21 12/20/18 20:21 Oxygen Delivery Method Room Air Weight: 156 lb Body Mass Index (BMI) 24.4 Laboratory Tests Past 24 Hrs 12/20/18 12/20/18 12/20/18 18:30 18:30 18:30 WBC 5.8 RBC 4.41 Hgb 12.2 Hct 39.3 MCV 89.1 MCH 27.7 MCHC 31.0 L RDW 13.8 RDW Differential 44.2 H Plt Count 172 MPV 9.4 Immature Gran % (Auto) 0.300 Neut % (Auto) 68.5 Lymph % (Auto) 12.0 L [place] % (Auto) 17.7 H Eos % (Auto) 1.0 Baso % (Auto) 0.5 Absolute Neuts (auto) 3.9 Absolute Lymphs (auto) 0.69 L Total Counted Not Reportable Sodium 141 Potassium 4.0 Chloride 106 Carbon Dioxide 24.0 Anion Gap 11 BUN 32 H Creatinine 2.23 H Estim Creat Clear Calc 19.24 Est GFR (MDRD) Af Amer 27 L Est GFR (MDRD) Non-Af 22 L BUN/Creatinine Ratio 14.3 Glucose 98 Lactic Acid 1.3 Calcium 8.5 Urine Color Urine Clarity Urine pH Ur Specific [place] Urine Protein Urine Glucose (UA) Urine Ketones Urine Occult Blood Urine Nitrite Urine Bilirubin Urine Urobilinogen Ur Leukocyte Esterase Urine RBC Urine WBC Ur Squamous Epith Cells Urine Bacteria Urine Mucus 12/20/18 18:45 WBC RBC Hgb Hct MCV MCH MCHC RDW RDW Differential Plt Count MPV Immature Gran % (Auto) Neut % (Auto) Lymph % (Auto) [place] % (Auto) Eos % (Auto) Baso % (Auto) Absolute Neuts (auto) Absolute Lymphs (auto) Total Counted Sodium Potassium Chloride Carbon Dioxide Anion Gap BUN Creatinine Estim Creat Clear Calc Est GFR (MDRD) Af Amer Est GFR (MDRD) Non-Af BUN/Creatinine Ratio Glucose Lactic Acid Calcium Urine Color Yellow Urine Clarity Sl. Cloudy Urine pH 5.0 Ur Specific [place] 1.010 Urine Protein 30 H Urine Glucose (UA) Normal Urine Ketones Negative Urine Occult Blood 50 H Urine Nitrite Positive H Urine Bilirubin Negative Urine Urobilinogen Normal Ur Leukocyte Esterase 100 H Urine RBC 0 SEEN Urine WBC 10-25 SEEN Ur Squamous Epith Cells 0-5 SEEN Urine Bacteria 1+ Urine Mucus 0 SEEN Assessment/Plan All Active Problems (Last Reviewed 08/10/18 @ 10:19 by Shubham Ann MD) Viral syndrome (Acute) UTI (urinary tract infection) (Acute) SHASHI (acute kidney injury) (Acute) History of abdominal pain (Resolved) History of nausea and vomiting (Resolved) Traumatic open wound of lower leg with delayed healing (Resolved) Ulcer of right lower extremity with fat layer exposed (Resolved) The patient is a 83 y/o F w/ PMHx: CAD (mild), HTN, HLD, GERD, Chronic Pain Syndrome s/p Spinal cord stimulator who presents to the [facility] ED on 12/20/18 with history of ongoing upper respiratory symptoms including rhinorrhea, cough that is dry, arthralgias, myalgias times 2 days noted to have also fallen at home secondary to severity of her weakness requiring her son to help her to get up in addition to noting that she has been frequently having incontinence with her coughing bouts. (1) General Malaise, Cough, General Debility, Myalgia, Arthralgia secondary to Suspected Acute Viral Syndrome: Workup in the ED included T 100, heart rate 89, BP 176/81--> 159/70, respiratory rate 18, 97% on room air, CBC with W BC 5.8, hemoglobin 12.2, platelet 172 without market left shift but noted increased monocytes, BUN/creatinine 32/2.23 with baseline creatinine noted prior 1.6-had a 1.7, LA 1.3, UA concerning for possible UTI, urine culture pending per ED, blood culture x2 pending per ED, chest x-ray with no acute cardiopulmonary disease, EKG with no acute evidence of ischemia. Will admit to [facility], maintain on oxygen with wean as tolerated, continue ATC duonebs, PRN albuterol, HOB, IS parameters w/ pending Bld cx x 2 from ED. Respiratory viral panel requested, if influenza positive will continue Tamiflu. PT, OT, CM consultation for discharge planning. (2) ? Acute Urinary Tract Infection: UA upon ED evaluation remarkable, pending UCx, continue IVFs, monitor I/Os, continue IV Rocephin w/ transition as able pending sensitivities and speciation or if unremarkable discontinue antibiotic therapies. (3) Acute kidney injury on CKD stage III: Secondary to acute presentation #1, decreased oral intake. Admission BUN/Cr 32/2.23, prior baseline creatinine noted to be 1.6-1.7. Will hydrate, hold nephrotoxic medications and repeat chemistry in AM. (4) CAD: Continue home aspirin, beta-adebayo, statin therapies. (5) Hypertension: Continue home regimen including metoprolol, PRN hydralazine. (6) Hyperlipidemia: Continue home statin regimen. (7) GERD: PPI. (8) Chronic Pain Syndrome: s/p Spinal cord stimulator, fall precautions as noted, PT, OT, CM consultation for discharge planning. (9) DVT Prophylaxis: SCDs, heparin. Code Visit Inpatient E&M: 33839 Init Hosp L3
[2018-12-20] MEDS: Oseltamivir Phosphate 75 MG Capsule PO (20:53)
[2018-12-20 22:36] VITALS: BMI 24.3
[2018-12-20 22:49] LABS: Magnesium 2.1 mg/dL (1.6-2.6)
[2018-12-20 22:57] VITALS: BMI 24.3
[2018-12-20] MEDS: 0.9% Normal Saline 1,000 ML 100 ML IV (23:40)
[2018-12-20 23:41] VITALS: PULSE 85
[2018-12-20] MEDS: Metoprolol Tartrate 25 MG Tablet PO (23:41)
[2018-12-20] MEDS: Heparin Injection (Vial) 5,000 UNIT/ML VIAL 5000 UNIT SC (23:41)
[2018-12-20] MEDS: Atorvastatin Calcium 10 MG Tablet PO (23:42)
[2018-12-20] MEDS: Pantoprazole Sodium 20 MG Tablet PO (23:42)
[2018-12-20] MEDS: Aspirin E.C. 81 MG Tablet PO (23:43)
[2018-12-20] MEDS: guaiFENesin 600 MG Tablet PO (23:43)
[2018-12-21] VITALS (19 sets, daily range): BP systolic 135–201; BP diastolic 73–94; PULSE 76–124; RESP 16–20; TEMP 36.6–37.3; O2SAT 92–98
--- NOTE | 2018-12-21 01:54 | ED.VISSUMM ---
- ER Visit Summary Date of Service: 12/20/18 Chief Complaint: Cough and weakness History of Present Illness: The patient is a 83 F reports urinary frequency for the past 3 weeks. She reports cough and congestion for the past 2 days. She states she fell last night because of generalized weakness and she had to call her son to come pick her up. She apparently went to urgent care today where she was too weak to get up. Physical Examination: Blood pressure is 186/101, temperature 100.0, heart rate 82, respiratory rate 18, pulse ox 96% on room air. Patient sitting upright in bed. She is alert and talkative. Head neck examination is grossly unremarkable. Heart is regular rate and rhythm with 3/6 murmur. Lungs sounds are clear. Abdomen is soft nontender. Neuro exam reveals no focal deficits. Test Results: EKG is sinus 83 with no sign of ischemia. CBC is unremarkable. Chemistry studies reveal a BUN 32 and a creatinine 2.23. Urinalysis is positive for nitrites with 10-25 white cells and 1+ bacteria. Lactate is normal. Two-view chest x-ray shows no acute process. Emergency Department Course and Treatment: Patient was given IV fluids and Tylenol. She is given Rocephin for her cystitis and urine culture is sent. Blood cultures were drawn on arrival. With the patient having significant upper respiratory symptoms I suspect that she likely has influenza. She will be treated with Tamiflu as well. Treatment Plan: [] Disposition: Admit Impression: 1. Generalized weakness 2. Cystitis 3. Influenza This note was generated with [employer] dictation software. It may contain incorrect words, spelling, and punctuation that were not noted in review of the chart prior to signing ED Disposition - Plan for ED Patient: Disposition: Acute Care [facility]
[2018-12-21] MEDS: hydrALAZINE 20 MG/ML Vial 10 MG IV (02:18)
[2018-12-21] MEDS: Benzonatate 100 MG Capsule PO ×2 (02:21→09:24)
[2018-12-21] MEDS: 0.9% Normal Saline 1,000 ML 100 ML IV ×2 (06:33→15:24)
[2018-12-21 06:58] LABS: Absolute Lymphocyte Count 0.63 X10^3/ul (0.83-4.51); Absolute Neutrophil Count 4.1 X10^3/uL (2.0-7.7); Basophil# 0.02 X10^3/uL; Basophil% 0.4 % (0-1); Eosinophil# 0.01 X10^3/uL; Eosinophils% 0.2 % (0-5); Hematocrit 37.4 % (37-47); Hemoglobin 11.6 g/dl (12.0-15.0); Lymphocyte # 0.63 X10^3/ul (4.0); Lymphocyte % 11.3 % (19-41); Mean Corpuscular Hgb 27.8 pg (27.0-32.0); Mean Corpuscular Volume 89.5 fL (81-99); Mean Platelet Vol. 9.4 fl (6.2-12.0); Monocyte# 0.76 X10^3/uL; Monocyte% 13.6 % (0-10); Neutrophil # 4.14 X10^3/uL (2.7-7.7); Neutrophil % 74.3 % (47-70); Platelet Count 161 K/mm3 (150-450); RBC Distribution Width CV 14.1 % (11.6-14.6); RBC Distribution Width SD 46.2 fl (35.1-43.9); Red Blood Count 4.18 M/mm3 (4.2-5.4); White Blood Count 5.6 K/mm3 (4.4-11.0)
[2018-12-21 07:07] LABS: POSITIVE COUNT NO; POSITIVE DIFFERENTIAL NO; POSITIVE MORPHOLOGY NO
[2018-12-21 07:15] LABS: BUN 30 mg/dL (7-18); Creatinine, Serum 1.95 mg/dL (0.55-1.02); Glucose 101 mg/dL (74-106)
[2018-12-21 07:16] LABS: Anion Gap 8 (5-15); BUN/Creat Ratio 15.4 RATIO (10-20); Calcium,Total 7.8 mg/dL (8.5-10.1); Chloride 111 mmol/L (98-107); EST Glomerular Filtration Rate 26 mL/min (>60); Est Glom Filt Rate - Afr Amer 32 mL/min (>60); Potassium 3.9 mmol/L (3.5-5.1); Sodium Level 141 mmol/L (136-145)
[2018-12-21] MEDS: Ipratropium/Albuterol Sulfate 3 ML AMPUL.NEB INHALATION ×2 (07:20→19:14)
[2018-12-21] MEDS: guaiFENesin 600 MG Tablet PO ×2 (09:23→22:07)
[2018-12-21] MEDS: Heparin Injection (Vial) 5,000 UNIT/ML VIAL 5000 UNIT SC ×2 (09:23→22:06)
[2018-12-21] MEDS: Pantoprazole Sodium 20 MG Tablet PO ×2 (09:23→22:07)
[2018-12-21] MEDS: BENZOCAINE/MENTHOL 1 LOZENGE 2 LOZENGE MUCOUS MEM (09:24)
[2018-12-21] MEDS: Metoprolol Tartrate 25 MG Tablet PO ×2 (09:24→22:06)
--- NOTE | 2018-12-21 09:34 | PCM.PN.HOSP ---
Patient Problems: Active and Suspected Problems (Last Reviewed 08/10/18 @ 10:19 by Shubham Ann MD) Viral syndrome (Acute) UTI (urinary tract infection) (Acute) SHASHI (acute kidney injury) (Acute) Subjective: Patient is an 83-year-old lady with past medical history significant for chronic pain syndrome status post spinal cord stimulator who presented with progressive generalized weakness with falls, as well as upper respiratory tract symptoms. A suspicion of acute viral syndrome made admitted to regular nursing floor for further management. Also obtained on admission consistent with UTI Objective: GENERAL: cooperative but ill looking HEENT: Atraumatic; moist oral mucosa EYES; Anicteric, Normal Conjunctiva NECK; supple, normal thyroid, RESPIRATORY: Diminished to auscultation bilaterally, CARDIOVASCULAR: Regular S1 S2, no audible murmurs GI: soft, non-tender, normoactive bowel sounds, : No Renal angle tenderness; EXTREMITIES: No edema, no clubbing, no cyanosis. MUSCULOSKELETAL: No Joint Tenderness; NEURO: Awake; no lateralizing signs. SKIN: No Rash PSYCH; flat affect Vitals/I&O's: Vital Signs Temp Pulse Resp BP Pulse Ox 98.7 F 90 18 151/80 H 95 12/21/18 09:26 12/21/18 09:26 12/21/18 09:26 12/21/18 09:26 12/21/18 09:26 Oxygen Delivery Method Room Air Weight: 70.4 kg Body Mass Index (BMI) 24.3 Intake and Output for Last 24 Hours 12/19/18 12/20/18 12/21/18 23:59 23:59 23:59 Intake Total 1203 / 1203 Output Total 100 / 100 Balance -100 / -100 1203 / 1203 Laboratory Results 12/20/18 18:30: WBC 5.8, RBC 4.41, Hgb 12.2, Hct 39.3, MCV 89.1, MCH 27.7, MCHC 31.0 L, RDW 13.8, RDW Differential 44.2 H, Plt Count 172, MPV 9.4, Immature Gran % (Auto) 0.300, Neut % (Auto) 68.5, Lymph % (Auto) 12.0 L, [place] % (Auto) 17.7 H, Eos % (Auto) 1.0, Baso % (Auto) 0.5, Absolute Neuts (auto) 3.9, Absolute Lymphs (auto) 0.69 L, Total Counted Not Reportable 12/20/18 18:30: Sodium 141, Potassium 4.0, Chloride 106, Carbon Dioxide 24.0, Anion Gap 11, BUN 32 H, Creatinine 2.23 H, Estim Creat Clear Calc 19.24, Est GFR (MDRD) Af Amer 27 L, Est GFR (MDRD) Non-Af 22 L, BUN/Creatinine Ratio 14.3, Glucose 98, Calcium 8.5 12/20/18 18:30: Lactic Acid 1.3 12/20/18 18:30: Magnesium 2.1 12/20/18 18:45: Urine Color Yellow, Urine Clarity Sl. Cloudy, Urine pH 5.0, Ur Specific [place] 1.010, Urine Protein 30 H, Urine Glucose (UA) Normal, Urine Ketones Negative, Urine Occult Blood 50 H, Urine Nitrite Positive H, Urine Bilirubin Negative, Urine Urobilinogen Normal, Ur Leukocyte Esterase 100 H, Urine RBC 0 SEEN, Urine WBC 10-25 SEEN, Ur Squamous Epith Cells 0-5 SEEN, Urine Bacteria 1+, Urine Mucus 0 SEEN 12/21/18 06:38: WBC 5.6, RBC 4.18 L, Hgb 11.6 L, Hct 37.4, MCV 89.5, MCH 27.8, MCHC 31.0 L, RDW 14.1, RDW Differential 46.2 H, Plt Count 161, MPV 9.4, Immature Gran % (Auto) 0.200, Neut % (Auto) 74.3 H, Lymph % (Auto) 11.3 L, [place] % (Auto) 13.6 H, Eos % (Auto) 0.2, Baso % (Auto) 0.4, Absolute Neuts (auto) 4.1, Absolute Lymphs (auto) 0.63 L, Total Counted Not Reportable 12/21/18 06:38: Sodium 141, Potassium 3.9, Chloride 111 H, Carbon Dioxide 22.0, Anion Gap 8, BUN 30 H, Creatinine 1.95 H, Estim Creat Clear Calc 22.00, Est GFR (MDRD) Af Amer 32 L, Est GFR (MDRD) Non-Af 26 L, BUN/Creatinine Ratio 15.4, Glucose 101, Calcium 7.8 L Current Medications Acetaminophen (Tylenol) 650 mg PO Q6H PRN PRN PRN Reason: Non-cardiac pain (mod-severe) Hydrocodone Bitart/Acetaminophen ([place] 5mg-325mg) 1 - 2 tablet PO Q6H PRN PRN PRN Reason: Moderate-severe pain Al Hydroxide/Mg Hydroxide (Mylanta Ii) 30 ml PO Q6H PRN PRN PRN Reason: Gastric burning Albuterol Sulfate (Ventolin Aerosols) 2.5 mg INHALATION Q2H PRN PRN PRN Reason: dyspnea, wheezing Albuterol/Ipratropium (Duoneb) 3 ml INHALATION Q6HWA.RT [facility] Last Admin: 12/21/18 07:20 Dose: 3 ml Aspirin (Ecotrin) 81 mg PO QHS [facility] Last Admin: 12/20/18 23:43 Dose: 81 mg Atorvastatin Calcium (Lipitor) 10 mg PO QHS [facility] Last Admin: 12/20/18 23:42 Dose: 10 mg Benzonatate (Tessalon Perle) 100 mg PO Q4H PRN PRN PRN Reason: COUGH Last Admin: 12/21/18 09:24 Dose: 100 mg Gabapentin (Neurontin) 600 mg PO X1 ONE Stop: 12/21/18 18:34 Last Admin: 12/20/18 19:17 Dose: 600 mg Gabapentin (Neurontin) 300 mg PO DAILY@1800 [facility] Guaifenesin (Mucinex) 600 mg PO BID [facility] Last Admin: 12/21/18 09:23 Dose: 600 mg Heparin Sodium (Porcine) (Heparin Na) 5,000 unit SC Q12 [facility] Last Admin: 12/21/18 09:23 Dose: 5,000 unit Hydralazine HCl (Apresoline Iv) 10 mg IV Q4H PRN PRN PRN Reason: SBP > 160 Last Admin: 12/21/18 02:18 Dose: 10 mg Sodium Chloride () 1,000 mls @ 100 mls/hr IV .Q10H [facility] Last Admin: 12/21/18 06:33 Dose: 100 mls/hr Ceftriaxone Sodium (Rocephin) 1 gm in 50 mls @ 100 mls/hr IV Q24H [facility] Magnesium Hydroxide (Milk Of Magnesia) 30 ml PO DAILY PRN PRN PRN Reason: Constipation Metoprolol Tartrate (Lopressor (Beta Guillermo)) 25 mg PO BID [facility] Last Admin: 12/21/18 09:24 Dose: 25 mg Ondansetron HCl (Zofran) 4 mg IV Q8H PRN PRN PRN Reason: NAUSEA/VOMITING Pantoprazole Sodium (Protonix) 20 mg PO BID [facility] Last Admin: 12/21/18 09:23 Dose: 20 mg Sodium Chloride () 5 - 15 ml IV UD PRN PRN Reason: SALINE FLUSH Throat Lozenges (Cepacol Sore Throat Lozenge) 2 lozenge MUCOUS MEM Q2H PRN PRN PRN Reason: sore throat, cough Last Admin: 12/21/18 09:24 Dose: 1 lozenge Medical Necessity - Tobacco Use Smoking Status: Never smoker Tobacco Use: Non-smoker Assessment/Plan All Active Problems (Last Reviewed 08/10/18 @ 10:19 by Shubham Ann MD) Viral syndrome (Acute) UTI (urinary tract infection) (Acute) SHASHI (acute kidney injury) (Acute) History of abdominal pain (Resolved) History of nausea and vomiting (Resolved) Traumatic open wound of lower leg with delayed healing (Resolved) Ulcer of right lower extremity with fat layer exposed (Resolved) Patient is an 83-year-old lady with past medical history significant for chronic pain syndrome status post spinal cord stimulator who presented with progressive generalized weakness with falls, as well as upper respiratory tract symptoms. A suspicion of acute viral syndrome made admitted to regular nursing floor for further management. Also obtained on admission consistent with UTI 1. Acute viral syndrome admitted to regular nursing floor for symptomatic management pending results of acute respiratory panel to rule out influenza 2. Acute cystitis; started on Rocephin cultures sent with plans to adjust antibiotics based on culture result 3. Kidney disease stage III 4. Acute kidney injury baseline creatinine 1.7 patient kidney function on admission was 2.23 on IV fluids with subsequent monitoring of electrolyte 5. Chronic pain syndrome status post spinal cord stimulator 6. Hypertension-blood pressure controlled, home medications continued with dose adjustment as needed 7. Dyslipidemia-patient is on statin therapy, continued at home dose 8. GERD on PPI 9. DVT prophylaxis SC heparin Clinical Impression(s) from Imaging Studies Chest X-Ray 12/20/18 19:20 IMPRESSION: 1. No acute process. 2. Question calcific tendinitis of the right shoulder. Electronically Signed: Rosa Maria Moreno MD at 19:47 EST Tel , Service support , Active Medications Acetaminophen (Tylenol) 650 mg PO Q6H PRN PRN PRN Reason: Non-cardiac pain (mod-severe) Hydrocodone Bitart/Acetaminophen ([place] 5mg-325mg) 1 - 2 tablet PO Q6H PRN PRN PRN Reason: Moderate-severe pain Al Hydroxide/Mg Hydroxide (Mylanta Ii) 30 ml PO Q6H PRN PRN PRN Reason: Gastric burning Albuterol Sulfate (Ventolin Aerosols) 2.5 mg INHALATION Q2H PRN PRN PRN Reason: dyspnea, wheezing Albuterol/Ipratropium (Duoneb) 3 ml INHALATION Q6HWA.RT [facility] Last Admin: 12/21/18 07:20 Dose: 3 ml Aspirin (Ecotrin) 81 mg PO QHS [facility] Last Admin: 12/20/18 23:43 Dose: 81 mg Atorvastatin Calcium (Lipitor) 10 mg PO QHS [facility] Last Admin: 12/20/18 23:42 Dose: 10 mg Benzonatate (Tessalon Perle) 100 mg PO Q4H PRN PRN PRN Reason: COUGH Last Admin: 12/21/18 09:24 Dose: 100 mg Gabapentin (Neurontin) 600 mg PO X1 ONE Stop: 12/21/18 18:34 Last Admin: 12/20/18 19:17 Dose: 600 mg Gabapentin (Neurontin) 300 mg PO DAILY@1800 [facility] Guaifenesin (Mucinex) 600 mg PO BID [facility] Last Admin: 12/21/18 09:23 Dose: 600 mg Heparin Sodium (Porcine) (Heparin Na) 5,000 unit SC Q12 [facility] Last Admin: 12/21/18 09:23 Dose: 5,000 unit Hydralazine HCl (Apresoline Iv) 10 mg IV Q4H PRN PRN PRN Reason: SBP > 160 Last Admin: 12/21/18 02:18 Dose: 10 mg Sodium Chloride () 1,000 mls @ 100 mls/hr IV .Q10H [facility] Last Admin: 12/21/18 06:33 Dose: 100 mls/hr Ceftriaxone Sodium (Rocephin) 1 gm in 50 mls @ 100 mls/hr IV Q24H [facility] Magnesium Hydroxide (Milk Of Magnesia) 30 ml PO DAILY PRN PRN PRN Reason: Constipation Metoprolol Tartrate (Lopressor (Beta Guillermo)) 25 mg PO BID [facility] Last Admin: 12/21/18 09:24 Dose: 25 mg Ondansetron HCl (Zofran) 4 mg IV Q8H PRN PRN PRN Reason: NAUSEA/VOMITING Pantoprazole Sodium (Protonix) 20 mg PO BID [facility] Last Admin: 12/21/18 09:23 Dose: 20 mg Sodium Chloride () 5 - 15 ml IV UD PRN PRN Reason: SALINE FLUSH Throat Lozenges (Cepacol Sore Throat Lozenge) 2 lozenge MUCOUS MEM Q2H PRN PRN PRN Reason: sore throat, cough Last Admin: 12/21/18 09:24 Dose: 1 lozenge Code Visit Inpatient E&M: 02238 [facility] Hosp L3
--- NOTE | 2018-12-21 09:51 | PN_ITS ---
Patient Problems: Active and Suspected Problems (Last Reviewed 08/10/18 @ 10:19 by Shubham Ann MD) Viral syndrome (Acute) UTI (urinary tract infection) (Acute) SHASHI (acute kidney injury) (Acute) Subjective: Patient is an 83-year-old lady with past medical history significant for chronic pain syndrome status post spinal cord stimulator who presented with progressive generalized weakness with falls, as well as upper respiratory tract symptoms. A suspicion of acute viral syndrome made admitted to regular nursing floor for further management. Also obtained on admission consistent with UTI Objective: GENERAL: cooperative but ill looking HEENT: Atraumatic; moist oral mucosa EYES; Anicteric, Normal Conjunctiva NECK; supple, normal thyroid, RESPIRATORY: Diminished to auscultation bilaterally, CARDIOVASCULAR: Regular S1 S2, no audible murmurs GI: soft, non-tender, normoactive bowel sounds, : No Renal angle tenderness; EXTREMITIES: No edema, no clubbing, no cyanosis. MUSCULOSKELETAL: No Joint Tenderness; NEURO: Awake; no lateralizing signs. SKIN: No Rash PSYCH; flat affect Vitals/I&O's: Vital Signs Temp Pulse Resp BP Pulse Ox 98.7 F 90 18 151/80 H 95 12/21/18 09:26 12/21/18 09:26 12/21/18 09:26 12/21/18 09:26 12/21/18 09:26 Oxygen Delivery Method Room Air Weight: 70.4 kg Body Mass Index (BMI) 24.3 Intake and Output for Last 24 Hours 12/19/18 12/20/18 12/21/18 23:59 23:59 23:59 Intake Total 1203 / 1203 Output Total 100 / 100 Balance -100 / -100 1203 / 1203 Laboratory Results 12/20/18 18:30: WBC 5.8, RBC 4.41, Hgb 12.2, Hct 39.3, MCV 89.1, MCH 27.7, MCHC 31.0 L, RDW 13.8, RDW Differential 44.2 H, Plt Count 172, MPV 9.4, Immature Gran % (Auto) 0.300, Neut % (Auto) 68.5, Lymph % (Auto) 12.0 L, Sharkey % (Auto) 17.7 H, Eos % (Auto) 1.0, Baso % (Auto) 0.5, Absolute Neuts (auto) 3.9, Absolute Lymphs (auto) 0.69 L, Total Counted Not Reportable 12/20/18 18:30: Sodium 141, Potassium 4.0, Chloride 106, Carbon Dioxide 24.0, Anion Gap 11, BUN 32 H, Creatinine 2.23 H, Estim Creat Clear Calc 19.24, Est GFR (MDRD) Af Amer 27 L, Est GFR (MDRD) Non-Af 22 L, BUN/Creatinine Ratio 14.3, Glucose 98, Calcium 8.5 12/20/18 18:30: Lactic Acid 1.3 12/20/18 18:30: Magnesium 2.1 12/20/18 18:45: Urine Color Yellow, Urine Clarity Sl. Cloudy, Urine pH 5.0, Ur Specific [place] 1.010, Urine Protein 30 H, Urine Glucose (UA) Normal, Urine Ketones Negative, Urine Occult Blood 50 H, Urine Nitrite Positive H, Urine Bilirubin Negative, Urine Urobilinogen Normal, Ur Leukocyte Esterase 100 H, Urine RBC 0 SEEN, Urine WBC 10-25 SEEN, Ur Squamous Epith Cells 0-5 SEEN, Urine Bacteria 1+, Urine Mucus 0 SEEN 12/21/18 06:38: WBC 5.6, RBC 4.18 L, Hgb 11.6 L, Hct 37.4, MCV 89.5, MCH 27.8, MCHC 31.0 L, RDW 14.1, RDW Differential 46.2 H, Plt Count 161, MPV 9.4, Immature Gran % (Auto) 0.200, Neut % (Auto) 74.3 H, Lymph % (Auto) 11.3 L, Sharkey % (Auto) 13.6 H, Eos % (Auto) 0.2, Baso % (Auto) 0.4, Absolute Neuts (auto) 4.1, Absolute Lymphs (auto) 0.63 L, Total Counted Not Reportable 12/21/18 06:38: Sodium 141, Potassium 3.9, Chloride 111 H, Carbon Dioxide 22.0, Anion Gap 8, BUN 30 H, Creatinine 1.95 H, Estim Creat Clear Calc 22.00, Est GFR (MDRD) Af Amer 32 L, Est GFR (MDRD) Non-Af 26 L, BUN/Creatinine Ratio 15.4, Glucose 101, Calcium 7.8 L Current Medications Acetaminophen (Tylenol) 650 mg PO Q6H PRN PRN PRN Reason: Non-cardiac pain (mod-severe) Hydrocodone Bitart/Acetaminophen (Rodeo 5mg-325mg) 1 - 2 tablet PO Q6H PRN PRN PRN Reason: Moderate-severe pain Al Hydroxide/Mg Hydroxide (Mylanta Ii) 30 ml PO Q6H PRN PRN PRN Reason: Gastric burning Albuterol Sulfate (Ventolin Aerosols) 2.5 mg INHALATION Q2H PRN PRN PRN Reason: dyspnea, wheezing Albuterol/Ipratropium (Duoneb) 3 ml INHALATION Q6HWA.RT [facility] Last Admin: 12/21/18 07:20 Dose: 3 ml Aspirin (Ecotrin) 81 mg PO QHS [facility] Last Admin: 12/20/18 23:43 Dose: 81 mg Atorvastatin Calcium (Lipitor) 10 mg PO QHS [facility] Last Admin: 12/20/18 23:42 Dose: 10 mg Benzonatate (Tessalon Perle) 100 mg PO Q4H PRN PRN PRN Reason: COUGH Last Admin: 12/21/18 09:24 Dose: 100 mg Gabapentin (Neurontin) 600 mg PO X1 ONE Stop: 12/21/18 18:34 Last Admin: 12/20/18 19:17 Dose: 600 mg Gabapentin (Neurontin) 300 mg PO DAILY@1800 [facility] Guaifenesin (Mucinex) 600 mg PO BID [facility] Last Admin: 12/21/18 09:23 Dose: 600 mg Heparin Sodium (Porcine) (Heparin Na) 5,000 unit SC Q12 [facility] Last Admin: 12/21/18 09:23 Dose: 5,000 unit Hydralazine HCl (Apresoline Iv) 10 mg IV Q4H PRN PRN PRN Reason: SBP > 160 Last Admin: 12/21/18 02:18 Dose: 10 mg Sodium Chloride () 1,000 mls @ 100 mls/hr IV .Q10H [facility] Last Admin: 12/21/18 06:33 Dose: 100 mls/hr Ceftriaxone Sodium (Rocephin) 1 gm in 50 mls @ 100 mls/hr IV Q24H [facility] Magnesium Hydroxide (Milk Of Magnesia) 30 ml PO DAILY PRN PRN PRN Reason: Constipation Metoprolol Tartrate (Lopressor (Beta Guillermo)) 25 mg PO BID [facility] Last Admin: 12/21/18 09:24 Dose: 25 mg Ondansetron HCl (Zofran) 4 mg IV Q8H PRN PRN PRN Reason: NAUSEA/VOMITING Pantoprazole Sodium (Protonix) 20 mg PO BID [facility] Last Admin: 12/21/18 09:23 Dose: 20 mg Sodium Chloride () 5 - 15 ml IV UD PRN PRN Reason: SALINE FLUSH Throat Lozenges (Cepacol Sore Throat Lozenge) 2 lozenge MUCOUS MEM Q2H PRN PRN PRN Reason: sore throat, cough Last Admin: 12/21/18 09:24 Dose: 1 lozenge Medical Necessity - Tobacco Use Smoking Status: Never smoker Tobacco Use: Non-smoker Assessment/Plan All Active Problems (Last Reviewed 08/10/18 @ 10:19 by Shubham Ann MD) Viral syndrome (Acute) UTI (urinary tract infection) (Acute) SHASHI (acute kidney injury) (Acute) History of abdominal pain (Resolved) History of nausea and vomiting (Resolved) Traumatic open wound of lower leg with delayed healing (Resolved) Ulcer of right lower extremity with fat layer exposed (Resolved) Patient is an 83-year-old lady with past medical history significant for chronic pain syndrome status post spinal cord stimulator who presented with progressive generalized weakness with falls, as well as upper respiratory tract symptoms. A suspicion of acute viral syndrome made admitted to regular nursing floor for further management. Also obtained on admission consistent with UTI 1. Acute viral syndrome admitted to regular nursing floor for symptomatic management pending results of acute respiratory panel to rule out influenza 2. Acute cystitis; started on Rocephin cultures sent with plans to adjust antibiotics based on culture result 3. Kidney disease stage III 4. Acute kidney injury baseline creatinine 1.7 patient kidney function on admission was 2.23 on IV fluids with subsequent monitoring of electrolyte 5. Chronic pain syndrome status post spinal cord stimulator 6. Hypertension-blood pressure controlled, home medications continued with dose adjustment as needed 7. Dyslipidemia-patient is on statin therapy, continued at home dose 8. GERD on PPI 9. DVT prophylaxis SC heparin Clinical Impression(s) from Imaging Studies Chest X-Ray 12/20/18 19:20 IMPRESSION: 1. No acute process. 2. Question calcific tendinitis of the right shoulder. Electronically Signed: Rosa Maria Moreno MD at 19:47 EST Tel , Service support , Active Medications Acetaminophen (Tylenol) 650 mg PO Q6H PRN PRN PRN Reason: Non-cardiac pain (mod-severe) Hydrocodone Bitart/Acetaminophen (Rodeo 5mg-325mg) 1 - 2 tablet PO Q6H PRN PRN PRN Reason: Moderate-severe pain Al Hydroxide/Mg Hydroxide (Mylanta Ii) 30 ml PO Q6H PRN PRN PRN Reason: Gastric burning Albuterol Sulfate (Ventolin Aerosols) 2.5 mg INHALATION Q2H PRN PRN PRN Reason: dyspnea, wheezing Albuterol/Ipratropium (Duoneb) 3 ml INHALATION Q6HWA.RT [facility] Last Admin: 12/21/18 07:20 Dose: 3 ml Aspirin (Ecotrin) 81 mg PO QHS [facility] Last Admin: 12/20/18 23:43 Dose: 81 mg Atorvastatin Calcium (Lipitor) 10 mg PO QHS [facility] Last Admin: 12/20/18 23:42 Dose: 10 mg Benzonatate (Tessalon Perle) 100 mg PO Q4H PRN PRN PRN Reason: COUGH Last Admin: 12/21/18 09:24 Dose: 100 mg Gabapentin (Neurontin) 600 mg PO X1 ONE Stop: 12/21/18 18:34 Last Admin: 12/20/18 19:17 Dose: 600 mg Gabapentin (Neurontin) 300 mg PO DAILY@1800 [facility] Guaifenesin (Mucinex) 600 mg PO BID [facility] Last Admin: 12/21/18 09:23 Dose: 600 mg Heparin Sodium (Porcine) (Heparin Na) 5,000 unit SC Q12 [facility] Last Admin: 12/21/18 09:23 Dose: 5,000 unit Hydralazine HCl (Apresoline Iv) 10 mg IV Q4H PRN PRN PRN Reason: SBP > 160 Last Admin: 12/21/18 02:18 Dose: 10 mg Sodium Chloride () 1,000 mls @ 100 mls/hr IV .Q10H [facility] Last Admin: 12/21/18 06:33 Dose: 100 mls/hr Ceftriaxone Sodium (Rocephin) 1 gm in 50 mls @ 100 mls/hr IV Q24H [facility] Magnesium Hydroxide (Milk Of Magnesia) 30 ml PO DAILY PRN PRN PRN Reason: Constipation Metoprolol Tartrate (Lopressor (Beta Guillermo)) 25 mg PO BID [facility] Last Admin: 12/21/18 09:24 Dose: 25 mg Ondansetron HCl (Zofran) 4 mg IV Q8H PRN PRN PRN Reason: NAUSEA/VOMITING Pantoprazole Sodium (Protonix) 20 mg PO BID [facility] Last Admin: 12/21/18 09:23 Dose: 20 mg Sodium Chloride () 5 - 15 ml IV UD PRN PRN Reason: SALINE FLUSH Throat Lozenges (Cepacol Sore Throat Lozenge) 2 lozenge MUCOUS MEM Q2H PRN PRN PRN Reason: sore throat, cough Last Admin: 12/21/18 09:24 Dose: 1 lozenge Code Visit Inpatient E&M: [id number] [facility] Hosp L3
--- NOTE | 2018-12-21 10:15 | EKG12_ITS ---
Test Reason : Blood Pressure : / mmHG Vent. Rate : 076 BPM Atrial Rate : 076 BPM P-R Int : 140 ms QRS Dur : 072 ms QT Int : 392 ms P-R-T Axes : 091 073 045 degrees QTc Int : 441 ms Normal sinus rhythm Anteroseptal infarct , age undetermined Abnormal ECG When compared with ECG of 20-DEC-2018 18:42, MANUAL COMPARISON REQUIRED, DATA IS UNCONFIRMED Confirmed by CHERI SHERMAN, PURA ([id number]), news video editor ASHLEE JUNIOR ([id number]) on 12/22/2018 9:27:38 AM Referred By: JOHNATHAN Confirmed By:PURA ALONZO MD
[2018-12-21] MEDS: Oseltamivir Phosphate 30 MG Capsule PO (11:55)
--- NOTE | 2018-12-21 12:15 | CASEMGMT ---
JORGE KISER MANAGER STUDIO CM to room to meet with patient for initial transition planning/care coordination assessment. RN RASHEL introduced self and role at [facility] [place].? Pt voices understanding and consents to assessment at this time.? Pt resting in bed in no distress at this time.? Pt is A/O at this time and answers all questions appropriately.?? Care providers, pharmacy, and demographics verified/updated at this time. PCP: Reanna Specialists: Seth Grader Tender. Jayson, Wood Gang Sawyer Preferred Pharmacy: [facility] Insurance: [employer]. No copy of insurance card on file. Pt states she will ask her to bring in this evening. Prescription Benefit:? Yes Living Will/HPOA:? Has both LW and HCPOA, who is her , Talib. Copies not found on e-chart. Pt states will ask her to bring in this evening. Living Arrangements: Lives with her in a 2-story home. States she does not use the upstairs but does use the basement where the garage is and where there is a [id number]. States has a stair lift to go up and down to the basement. 3 stairs w/rails to get to lift. Transportation: Pt and . DME: ? has/uses the following DME:? Stair lift, Cane, lift chair, rails/grab bars, hand held shower, and medical alert button. also has a BSC, walker, and W/C that she has from needing in the past but does not use these anymore. Denies having oxygen or nebulizer. ?Pt states no need for further DME at this time.? HHC/SNF: Has been to [facility] in the past, stating it was many years ago. Pt states she wants to go home on discharge and does not want to go to a SNF. PT/OT flory pending. Discussed HHC for therapy and Out-pt therapy. Made aware that for insurance to cover HHC, that she must be homebound. Pt states she is unsure if she wants HHC or Out-pt therapy at this time. States if she would do Out-pt therapy, she would be interested in going to [facility], as she has went there in the past. Pt states if does HHC, she is not sure on what agency she would prefer. Given list of HHC in network with [employer]. Pt stated she would look over the list. She wishes to wait and see how well she progresses before deciding on discharge plan. CM to follow and any further discharge planning/needs.? Pt voices no further concerns/needs at this time.? Advised pt to ask for CM if any further questions/concerns/needs arise.? Voices understanding. PLAN: ?BLAZE EASTN RN CM
[2018-12-21] MEDS: Albuterol 2.5 MG/3 ML VIAL.NEB. INHALATION (15:12)
[2018-12-21] MEDS: Gabapentin 300 MG Capsule PO (18:07)
[2018-12-21] MEDS: Aspirin E.C. 81 MG Tablet PO (22:05)
[2018-12-21] MEDS: Ceftriaxone 1 GM/50 ML BAG IV (22:05)
[2018-12-21] MEDS: Atorvastatin Calcium 10 MG Tablet PO (22:06)
[2018-12-22] VITALS (14 sets, daily range): BP systolic 132–170; BP diastolic 66–75; PULSE 73–97; RESP 16–20; TEMP 36.5–37.1; O2SAT 94–100
[2018-12-22] MEDS: 0.9% Normal Saline 1,000 ML 100 ML IV ×2 (03:02→13:14)
[2018-12-22] MEDS: Ipratropium/Albuterol Sulfate 3 ML AMPUL.NEB INHALATION ×3 (07:08→19:41)
[2018-12-22] MEDS: Heparin Injection (Vial) 5,000 UNIT/ML VIAL 5000 UNIT SC ×2 (10:05→20:29)
[2018-12-22] MEDS: guaiFENesin 600 MG Tablet PO ×2 (10:06→20:28)
[2018-12-22] MEDS: Metoprolol Tartrate 25 MG Tablet PO ×2 (10:06→20:27)
--- NOTE | 2018-12-22 10:06 | PCM.PN.HOSP ---
Patient Problems: Active and Suspected Problems (Last Reviewed 08/10/18 @ 10:19 by Shubham Ann MD) Viral syndrome (Acute) UTI (urinary tract infection) (Acute) SHASHI (acute kidney injury) (Acute) Subjective: Patient seen still complains of feeling weak. Urine culture so far positive for gram-negative rods final identification and sensitivities pending Objective: GENERAL: cooperative HEENT: Atraumatic; moist oral mucosa EYES; Anicteric, Normal Conjunctiva NECK; supple, normal thyroid, RESPIRATORY: Diminished to auscultation bilaterally, CARDIOVASCULAR: Regular S1 S2, no audible murmurs GI: soft, non-tender, normoactive bowel sounds, : No Renal angle tenderness; EXTREMITIES: No edema, no clubbing, no cyanosis. MUSCULOSKELETAL: No Joint Tenderness; NEURO: Awake; no lateralizing signs. SKIN: No Rash PSYCH; flat affect Vitals/I&O's: Vital Signs Temp Pulse Resp BP Pulse Ox 98.4 F 73 16 132/68 H 95 12/22/18 03:38 12/22/18 07:06 12/22/18 07:06 12/22/18 03:38 12/22/18 08:29 Oxygen Delivery Method Room Air Weight: 70.4 kg Body Mass Index (BMI) 24.3 Intake and Output for Last 24 Hours 12/20/18 12/21/18 12/22/18 23:59 23:59 23:59 Intake Total 4374 / 4374 1658 / 1658 Output Total 100 / 100 1000 / 1000 200 / 200 Balance -100 / -100 3374 / 3374 1458 / 1458 Microbiology Past 72 Hours 12/21/18 00:00 Urine, Clean Catch Urine Culture - Preliminary GNR lactose casino host 12/20/18 21:37 Mucosa - Nasopharyngeal Respiratory Panel (PCR) - Final Influenza A (Subtype H1) Current Medications Acetaminophen (Tylenol) 650 mg PO Q6H PRN PRN PRN Reason: Non-cardiac pain (mod-severe) Hydrocodone Bitart/Acetaminophen ([place] 5mg-325mg) 1 - 2 tablet PO Q6H PRN PRN PRN Reason: Moderate-severe pain Al Hydroxide/Mg Hydroxide (Mylanta Ii) 30 ml PO Q6H PRN PRN PRN Reason: Gastric burning Albuterol Sulfate (Ventolin Aerosols) 2.5 mg INHALATION Q2H PRN PRN PRN Reason: dyspnea, wheezing Last Admin: 12/21/18 15:12 Dose: 2.5 mg Albuterol/Ipratropium (Duoneb) 3 ml INHALATION Q6HWA.RT [facility] Last Admin: 12/22/18 07:08 Dose: 3 ml Aspirin (Ecotrin) 81 mg PO QHS [facility] Last Admin: 12/21/18 22:05 Dose: 81 mg Atorvastatin Calcium (Lipitor) 10 mg PO QHS [facility] Last Admin: 12/21/18 22:06 Dose: 10 mg Benzonatate (Tessalon Perle) 100 mg PO Q4H PRN PRN PRN Reason: COUGH Last Admin: 12/21/18 09:24 Dose: 100 mg Gabapentin (Neurontin) 300 mg PO DAILY@1800 [facility] Last Admin: 12/21/18 18:07 Dose: 300 mg Guaifenesin (Mucinex) 600 mg PO BID [facility] Last Admin: 12/21/18 22:07 Dose: 600 mg Heparin Sodium (Porcine) (Heparin Na) 5,000 unit SC Q12 [facility] Last Admin: 12/21/18 22:06 Dose: 5,000 unit Hydralazine HCl (Apresoline Iv) 10 mg IV Q4H PRN PRN PRN Reason: SBP > 160 Last Admin: 12/21/18 02:18 Dose: 10 mg Sodium Chloride () 1,000 mls @ 100 mls/hr IV .Q10H [facility] Last Admin: 12/22/18 03:02 Dose: 100 mls/hr Ceftriaxone Sodium (Rocephin) 1 gm in 50 mls @ 100 mls/hr IV Q24H [facility] Last Admin: 12/21/18 22:05 Dose: 100 mls/hr Magnesium Hydroxide (Milk Of Magnesia) 30 ml PO DAILY PRN PRN PRN Reason: Constipation Metoprolol Tartrate (Lopressor (Beta Guillermo)) 25 mg PO BID [facility] Last Admin: 12/21/18 22:06 Dose: 25 mg Ondansetron HCl (Zofran) 4 mg IV Q8H PRN PRN PRN Reason: NAUSEA/VOMITING Oseltamivir Phosphate (Tamiflu) 30 mg PO DAILY [facility] Stop: 12/25/18 10:01 Last Admin: 12/21/18 11:55 Dose: 30 mg Pantoprazole Sodium (Protonix) 20 mg PO BID [facility] Last Admin: 12/21/18 22:07 Dose: 20 mg Sodium Chloride () 5 - 15 ml IV UD PRN PRN Reason: SALINE FLUSH Throat Lozenges (Cepacol Sore Throat Lozenge) 2 lozenge MUCOUS MEM Q2H PRN PRN PRN Reason: sore throat, cough Last Admin: 12/21/18 09:24 Dose: 1 lozenge Medical Necessity - Tobacco Use Smoking Status: Never smoker Tobacco Use: Non-smoker Assessment/Plan All Active Problems (Last Reviewed 08/10/18 @ 10:19 by Shubham Ann MD) Viral syndrome (Acute) UTI (urinary tract infection) (Acute) SHASHI (acute kidney injury) (Acute) History of abdominal pain (Resolved) History of nausea and vomiting (Resolved) Traumatic open wound of lower leg with delayed healing (Resolved) Ulcer of right lower extremity with fat layer exposed (Resolved) Patient is an 83-year-old lady with past medical history significant for chronic pain syndrome status post spinal cord stimulator who presented with progressive generalized weakness with falls, as well as upper respiratory tract symptoms. A suspicion of acute viral syndrome made admitted to regular nursing floor for further management. Also obtained on admission consistent with UTI 1. Acute viral syndrome admitted to regular nursing floor for symptomatic management pending results of acute respiratory panel to rule out influenza 2. Acute cystitis; started on Rocephin cultures sent with plans to adjust antibiotics based on culture result 3. Kidney disease stage III 4. Acute kidney injury baseline creatinine 1.7 patient kidney function on admission was 2.23 on IV fluids with subsequent monitoring of electrolyte 5. Chronic pain syndrome status post spinal cord stimulator 6. Hypertension-blood pressure controlled, home medications continued with dose adjustment as needed 7. Dyslipidemia-patient is on statin therapy, continued at home dose 8. GERD on PPI 9. DVT prophylaxis SC heparin Clinical Impression(s) from Imaging Studies Chest X-Ray 12/20/18 19:20 IMPRESSION: 1. No acute process. 2. Question calcific tendinitis of the right shoulder. Electronically Signed: Rosa Maria Moreno MD at 19:47 EST Tel , Service support , Active Medications Acetaminophen (Tylenol) 650 mg PO Q6H PRN PRN PRN Reason: Non-cardiac pain (mod-severe) Hydrocodone Bitart/Acetaminophen (Ibapah 5mg-325mg) 1 - 2 tablet PO Q6H PRN PRN PRN Reason: Moderate-severe pain Al Hydroxide/Mg Hydroxide (Mylanta Ii) 30 ml PO Q6H PRN PRN PRN Reason: Gastric burning Albuterol Sulfate (Ventolin Aerosols) 2.5 mg INHALATION Q2H PRN PRN PRN Reason: dyspnea, wheezing Albuterol/Ipratropium (Duoneb) 3 ml INHALATION Q6HWA.RT [facility] Last Admin: 12/21/18 07:20 Dose: 3 ml Aspirin (Ecotrin) 81 mg PO QHS [facility] Last Admin: 12/20/18 23:43 Dose: 81 mg Atorvastatin Calcium (Lipitor) 10 mg PO QHS [facility] Last Admin: 12/20/18 23:42 Dose: 10 mg Benzonatate (Tessalon Perle) 100 mg PO Q4H PRN PRN PRN Reason: COUGH Last Admin: 12/21/18 09:24 Dose: 100 mg Gabapentin (Neurontin) 600 mg PO X1 ONE Stop: 12/21/18 18:34 Last Admin: 12/20/18 19:17 Dose: 600 mg Gabapentin (Neurontin) 300 mg PO DAILY@1800 [facility] Guaifenesin (Mucinex) 600 mg PO BID [facility] Last Admin: 12/21/18 09:23 Dose: 600 mg Heparin Sodium (Porcine) (Heparin Na) 5,000 unit SC Q12 [facility] Last Admin: 12/21/18 09:23 Dose: 5,000 unit Hydralazine HCl (Apresoline Iv) 10 mg IV Q4H PRN PRN PRN Reason: SBP > 160 Last Admin: 12/21/18 02:18 Dose: 10 mg Sodium Chloride () 1,000 mls @ 100 mls/hr IV .Q10H [facility] Last Admin: 12/21/18 06:33 Dose: 100 mls/hr Ceftriaxone Sodium (Rocephin) 1 gm in 50 mls @ 100 mls/hr IV Q24H [facility] Magnesium Hydroxide (Milk Of Magnesia) 30 ml PO DAILY PRN PRN PRN Reason: Constipation Metoprolol Tartrate (Lopressor (Beta Guillermo)) 25 mg PO BID [facility] Last Admin: 12/21/18 09:24 Dose: 25 mg Ondansetron HCl (Zofran) 4 mg IV Q8H PRN PRN PRN Reason: NAUSEA/VOMITING Pantoprazole Sodium (Protonix) 20 mg PO BID [facility] Last Admin: 12/21/18 09:23 Dose: 20 mg Sodium Chloride () 5 - 15 ml IV UD PRN PRN Reason: SALINE FLUSH Throat Lozenges (Cepacol Sore Throat Lozenge) 2 lozenge MUCOUS MEM Q2H PRN PRN PRN Reason: sore throat, cough Last Admin: 12/21/18 09:24 Dose: 1 lozenge Code Visit Inpatient E&M: [id number] [facility] Hosp L2
[2018-12-22] MEDS: Pantoprazole Sodium 20 MG Tablet PO ×2 (10:07→20:28)
[2018-12-22] MEDS: Oseltamivir Phosphate 30 MG Capsule PO (10:07)
[2018-12-22] MEDS: Gabapentin 300 MG Capsule PO (18:10)
[2018-12-22] MEDS: Aspirin E.C. 81 MG Tablet PO (20:27)
[2018-12-22] MEDS: Atorvastatin Calcium 10 MG Tablet PO (20:32)
[2018-12-22] MEDS: Ceftriaxone 1 GM/50 ML BAG IV (21:30)
[2018-12-23] MEDS: 0.9% Normal Saline 1,000 ML 100 ML IV (00:13)
[2018-12-23 02:20] VITALS: BP 151/81; PULSE 79; RESP 18; TEMP 37.3; O2SAT 95
[2018-12-23 02:30] VITALS: PULSE 79; RESP 18; O2SAT 95
[2018-12-23] MEDS: Acetaminophen 325 MG Tablet 650 MG PO (02:31)
[2018-12-23 07:16] VITALS: PULSE 80; RESP 16; O2SAT 97
[2018-12-23] MEDS: Ipratropium/Albuterol Sulfate 3 ML AMPUL.NEB INHALATION (07:16)
--- NOTE | 2018-12-23 07:57 | DCINST_ITS ---
- Discharge Diagnoses Current Active Problems: Current Active and Chronic Problems (Last Reviewed 08/10/18 @ 10:19 by Shubham Ann MD) Viral syndrome (Acute) UTI (urinary tract infection) (Acute) SHASHI (acute kidney injury) (Acute) You will use the following diet at home:: No restrictions Your food should be the consistency of: Regular Discharge Activity: Return to Normal Activity Allergies/Adverse Reactions: Allergies Gadolinium-MRI Contrast Medium [CONTRAST] Allergy (Verified 12/20/18 17:44) Hives Latex, Natural Rubber Allergy (Verified 12/20/18 17:44) Rash adhesive tape Adverse Reaction (Verified 12/20/18 22:49) Rash rarely has any difficulties codeine Adverse Reaction (Verified 12/20/18 22:49) drowsy I SLEEP REAL GOOD tramadol [From Ultram] Adverse Reaction (Verified 12/20/18 17:44) Unknown Medications to take at Discharge Cholecalciferol (VIT D3) [Vitamin D3] 1,000 unit PO DAILY@1400 11/29/14 Gabapentin [Neurontin] 300 mg PO DAILY@1800 11/29/14 [place]-3 Fatty Acids/Fish Oil [Fish Oil 1,000 mg Softgel] 1 cap PO DAILY@1400 11/29/14 Simvastatin [Zocor] 20 mg PO QHS 11/29/14 Aspirin E.C. [Ecotrin] 81 mg PO QHS 12/20/18 Metoprolol Tartrate [Lopressor (beta adebayo)] 25 mg PO BID 12/20/18 Benzonatate [Tessalon Perle] 100 mg PO Q4H PRN PRN #30 capsule 12/23/18 Oseltamivir Phosphate [Tamiflu] 30 mg PO DAILY #6 capsule 12/23/18 hydrALAZINE [Apresoline] 25 mg PO BID #60 tablet 12/23/18 The following prescriptions were given: Benzonatate [Tessalon Perle] 100 mg PO Q4H PRN PRN #30 capsule PRN Reason: COUGH hydrALAZINE [Apresoline] 25 mg PO BID #60 tablet Oseltamivir Phosphate [Tamiflu] 30 mg PO DAILY #6 capsule Orders to be completed after discharge: Physical Therapy Evaluation Location: None Selected Primary Care Physician: Giovanni Forte MD [Primary Care Provider] - Please follow up with your Primary Care Physician in: in 5-7 days Test Results: Test results from this visit will be discussed in further detail at your follow- up appointment, if applicable. Proposed Discharge Date: 12/23/18
--- NOTE | 2018-12-23 07:57 | PCM.DC.SUM ---
Discharge Date and Diagnosis - Problem List Patient Problems: Active and Suspected Problems (Last Reviewed 08/10/18 @ 10:19 by Shubham Ann MD) Influenza A (Acute) Viral syndrome (Acute) UTI (urinary tract infection) (Acute) SHASHI (acute kidney injury) (Acute) Date of Admission: 12/20/18 Date of Discharge: 12/23/18 - Primary Discharge Diagnosis Active and Suspected Problems (Last Reviewed 08/10/18 @ 10:19 by Shubham Ann MD) Influenza A (Acute) Viral syndrome (Acute) UTI (urinary tract infection) (Acute) SHASHI (acute kidney injury) (Acute) - Secondary Discharge Diagnosis Chronic Problems (Last Reviewed 08/10/18 @ 10:19 by Shubham Ann MD) Chronic kidney disease, stage 3 (moderate) (Chronic) Atherosclerosis of coronary artery of [place] heart without angina pectoris (Chronic) 50% mid LAD per C and FFR 04/2012 Hyperlipidemia (Chronic) Hypertension (Chronic) Hospital Course and Treatment Imaging Results: Microbiology 12/21/18 00:00 Urine, Clean Catch Urine Culture - Final GNR lactose costume seamstress 12/20/18 21:37 Mucosa - Nasopharyngeal Respiratory Panel (PCR) - Final Influenza A (Subtype H1) Summary of Care Provided: Patient is an 83-year-old lady with past medical history significant for chronic pain syndrome status post spinal cord stimulator who presented with progressive generalized weakness with falls, as well as upper respiratory tract symptoms. A suspicion of acute viral syndrome made admitted to regular nursing floor for further management. Also obtained on admission consistent with UTI 1. Acute viral syndrome admitted to regular nursing floor for symptomatic management pending results of acute respiratory panel to rule out influenza and influenza as he came back positive for Influenza A (Subtype H1) patient was treated with Tamiflu 2. Acute cystitis; started on Rocephin cultures sent with plans to adjust antibiotics based on culture result urine cultures were positive for gram-negative rods with colonic counts less than thousand which was not clinically significant. 3. Kidney disease stage III 4. Acute kidney injury baseline creatinine 1.7 patient kidney function on admission was 2.23 on IV fluids with subsequent monitoring of electrolyte kidney function did improve. 5. Chronic pain syndrome status post spinal cord stimulator 6. Hypertension-blood pressure controlled, home medications continued with dose adjustment as needed Armando requested for Apresoline to be added to her antihypertensive regimen hydralazine 25 mg p.o. twice daily prescription was therefore written on discharge 7. Dyslipidemia-patient is on statin therapy, continued at home dose 8. GERD on PPI 9. DVT prophylaxis SC heparin Patient Problems: Active and Suspected Problems (Last Reviewed 08/10/18 @ 10:19 by Shubham Ann MD) Influenza A (Acute) Viral syndrome (Acute) UTI (urinary tract infection) (Acute) SHASHI (acute kidney injury) (Acute) Objective: GENERAL: cooperative HEENT: Atraumatic; moist oral mucosa EYES; Anicteric, Normal Conjunctiva NECK; supple, normal thyroid, RESPIRATORY: Diminished to auscultation bilaterally, CARDIOVASCULAR: Regular S1 S2, no audible murmurs GI: soft, non-tender, normoactive bowel sounds, : No Renal angle tenderness; EXTREMITIES: No edema, no clubbing, no cyanosis. MUSCULOSKELETAL: No Joint Tenderness; NEURO: Awake; no lateralizing signs. SKIN: No Rash - Physical Exam Vital Signs Temp Pulse Resp BP Pulse Ox 99.1 F 79 18 151/81 H 95 12/23/18 02:20 12/23/18 02:30 12/23/18 02:30 12/23/18 02:20 12/23/18 02:30 Oxygen Delivery Method Room Air Weight: 70.4 kg Body Mass Index (BMI) 24.3 Intake and Output for Last 24 Hours 12/21/18 12/22/18 12/23/18 23:59 23:59 23:59 Intake Total 4374 / 4374 3268 / 3268 759 / 759 Output Total 1000 / 1000 600 / 600 Balance 3374 / 3374 2668 / 2668 759 / 759 Microbiology Past 72 Hours 12/21/18 00:00 Urine Culture - Final Urine, Clean Catch GNR lactose costume seamstress 12/20/18 21:37 Respiratory Panel (PCR) - Final Mucosa - Nasopharyngeal Influenza A (Subtype H1) Discharge Activity: Return to Normal Activity Home Medications: Medications to take at Discharge Cholecalciferol (VIT D3) [Vitamin D3] 1,000 unit PO DAILY@1400 11/29/14 Gabapentin [Neurontin] 300 mg PO DAILY@1800 11/29/14 [place]-3 Fatty Acids/Fish Oil [Fish Oil 1,000 mg Softgel] 1 cap PO DAILY@1400 11/29/14 Simvastatin [Zocor] 20 mg PO QHS 11/29/14 Aspirin E.C. [Ecotrin] 81 mg PO QHS 12/20/18 Metoprolol Tartrate [Lopressor (beta adebayo)] 25 mg PO BID 12/20/18 Benzonatate [Tessalon Perle] 100 mg PO Q4H PRN PRN #30 capsule 12/23/18 Oseltamivir Phosphate [Tamiflu] 30 mg PO DAILY #6 capsule 12/23/18 hydrALAZINE [Apresoline] 25 mg PO BID #60 tablet 12/23/18 Following Prescrptions Were Given to Patient: Benzonatate [Tessalon Perle] 100 mg PO Q4H PRN PRN #30 capsule PRN Reason: COUGH hydrALAZINE [Apresoline] 25 mg PO BID #60 tablet Oseltamivir Phosphate [Tamiflu] 30 mg PO DAILY #6 capsule Other Amb Orders: Physical Therapy Evaluation Location: None Selected Primary Care Physician: Giovanni Forte MD [Primary Care Provider] - Please follow up with your Primary Care Physician in: in 5-7 days Disposition: Home Minutes spent on discharge:: 35 Medical Necessity - Tobacco Use Smoking Status: Never smoker Tobacco Use: Non-smoker Meaningful Use Info Meaningful Use Diagnoses (Choose all that apply): None applicable Code Visit Inpatient E&M: 26348 Disch Hosp
--- NOTE | 2018-12-23 08:01 | DS.PCM_ITS ---
Discharge Date and Diagnosis - Problem List Patient Problems: Active and Suspected Problems (Last Reviewed 08/10/18 @ 10:19 by Shubham Ann MD) Influenza A (Acute) Viral syndrome (Acute) UTI (urinary tract infection) (Acute) SHASHI (acute kidney injury) (Acute) Date of Admission: 12/20/18 Date of Discharge: 12/23/18 - Primary Discharge Diagnosis Active and Suspected Problems (Last Reviewed 08/10/18 @ 10:19 by Shubham Ann MD) Influenza A (Acute) Viral syndrome (Acute) UTI (urinary tract infection) (Acute) SHASHI (acute kidney injury) (Acute) - Secondary Discharge Diagnosis Chronic Problems (Last Reviewed 08/10/18 @ 10:19 by Shubham Ann MD) Chronic kidney disease, stage 3 (moderate) (Chronic) Atherosclerosis of coronary artery of [place] heart without angina pectoris (Chronic) 50% mid LAD per C and FFR 04/2012 Hyperlipidemia (Chronic) Hypertension (Chronic) Hospital Course and Treatment Imaging Results: Microbiology 12/21/18 00:00 Urine, Clean Catch Urine Culture - Final GNR lactose draftsperson 12/20/18 21:37 Mucosa - Nasopharyngeal Respiratory Panel (PCR) - Final Influenza A (Subtype H1) Summary of Care Provided: Patient is an 83-year-old lady with past medical history significant for chronic pain syndrome status post spinal cord stimulator who presented with progressive generalized weakness with falls, as well as upper respiratory tract symptoms. A suspicion of acute viral syndrome made admitted to regular nursing floor for further management. Also obtained on admission consistent with UTI 1. Acute viral syndrome admitted to regular nursing floor for symptomatic management pending results of acute respiratory panel to rule out influenza and influenza as he came back positive for Influenza A (Subtype H1) patient was treated with Tamiflu 2. Acute cystitis; started on Rocephin cultures sent with plans to adjust antibiotics based on culture result urine cultures were positive for gram- negative rods with colonic counts less than thousand which was not clinically significant. 3. Kidney disease stage III 4. Acute kidney injury baseline creatinine 1.7 patient kidney function on admission was 2.23 on IV fluids with subsequent monitoring of electrolyte kidney function did improve. 5. Chronic pain syndrome status post spinal cord stimulator 6. Hypertension-blood pressure controlled, home medications continued with dose adjustment as needed Armando requested for Apresoline to be added to her antihypertensive regimen hydralazine 25 mg p.o. twice daily prescription was therefore written on discharge 7. Dyslipidemia-patient is on statin therapy, continued at home dose 8. GERD on PPI 9. DVT prophylaxis SC heparin Patient Problems: Active and Suspected Problems (Last Reviewed 08/10/18 @ 10:19 by Shubham Ann MD) Influenza A (Acute) Viral syndrome (Acute) UTI (urinary tract infection) (Acute) SHASHI (acute kidney injury) (Acute) Objective: GENERAL: cooperative HEENT: Atraumatic; moist oral mucosa EYES; Anicteric, Normal Conjunctiva NECK; supple, normal thyroid, RESPIRATORY: Diminished to auscultation bilaterally, CARDIOVASCULAR: Regular S1 S2, no audible murmurs GI: soft, non-tender, normoactive bowel sounds, : No Renal angle tenderness; EXTREMITIES: No edema, no clubbing, no cyanosis. MUSCULOSKELETAL: No Joint Tenderness; NEURO: Awake; no lateralizing signs. SKIN: No Rash - Physical Exam Vital Signs Temp Pulse Resp BP Pulse Ox 99.1 F 79 18 151/81 H 95 12/23/18 02:20 12/23/18 02:30 12/23/18 02:30 12/23/18 02:20 12/23/18 02:30 Oxygen Delivery Method Room Air Weight: 70.4 kg Body Mass Index (BMI) 24.3 Intake and Output for Last 24 Hours 12/21/18 12/22/18 12/23/18 23:59 23:59 23:59 Intake Total 4374 / 4374 3268 / 3268 759 / 759 Output Total 1000 / 1000 600 / 600 Balance 3374 / 3374 2668 / 2668 759 / 759 Microbiology Past 72 Hours 12/21/18 00:00 Urine Culture - Final Urine, Clean Catch GNR lactose draftsperson 12/20/18 21:37 Respiratory Panel (PCR) - Final Mucosa - Nasopharyngeal Influenza A (Subtype H1) Discharge Activity: Return to Normal Activity Home Medications: Medications to take at Discharge Cholecalciferol (VIT D3) [Vitamin D3] 1,000 unit PO DAILY@1400 11/29/14 Gabapentin [Neurontin] 300 mg PO DAILY@1800 11/29/14 [place]-3 Fatty Acids/Fish Oil [Fish Oil 1,000 mg Softgel] 1 cap PO DAILY@1400 11/29/14 Simvastatin [Zocor] 20 mg PO QHS 11/29/14 Aspirin E.C. [Ecotrin] 81 mg PO QHS 12/20/18 Metoprolol Tartrate [Lopressor (beta adebayo)] 25 mg PO BID 12/20/18 Benzonatate [Tessalon Perle] 100 mg PO Q4H PRN PRN #30 capsule 12/23/18 Oseltamivir Phosphate [Tamiflu] 30 mg PO DAILY #6 capsule 12/23/18 hydrALAZINE [Apresoline] 25 mg PO BID #60 tablet 12/23/18 Following Prescrptions Were Given to Patient: Benzonatate [Tessalon Perle] 100 mg PO Q4H PRN PRN #30 capsule PRN Reason: COUGH hydrALAZINE [Apresoline] 25 mg PO BID #60 tablet Oseltamivir Phosphate [Tamiflu] 30 mg PO DAILY #6 capsule Other Amb Orders: Physical Therapy Evaluation Location: None Selected Primary Care Physician: Giovanni Forte MD [Primary Care Provider] - Please follow up with your Primary Care Physician in: in 5-7 days Disposition: Home Minutes spent on discharge:: 35 Medical Necessity - Tobacco Use Smoking Status: Never smoker Tobacco Use: Non-smoker Meaningful Use Info Meaningful Use Diagnoses (Choose all that apply): None applicable Code Visit Inpatient E&M: 16012 Disch Hosp
[2018-12-23 08:20] VITALS: BP 184/81; PULSE 84; RESP 18; TEMP 36.3; O2SAT 100
[2018-12-23 09:43] VITALS: PULSE 88
[2018-12-23] MEDS: Pantoprazole Sodium 20 MG Tablet PO (09:43)
[2018-12-23] MEDS: Metoprolol Tartrate 25 MG Tablet PO (09:43)
[2018-12-23] MEDS: guaiFENesin 600 MG Tablet PO (09:43)
[2018-12-23 09:45] VITALS: PULSE 88
[2018-12-23] MEDS: Oseltamivir Phosphate 30 MG Capsule PO (11:59)
--- NOTE | 2018-12-23 13:20 | NURSING ---
PATIENT LEFT VIA WHEELCHAIR W/MOSES DAILEY PRIOR TO D/C INSTRUCTION BEING DONE. MOSES DAILEY STATES SHE HANDED PAPERWORK TO HER PRIOR TO LEAVING THEN ROOM.
== END 2018-12-23 13:06 | disposition home or self-care (01) | DRG 194 ==
LOC: ED 18:44 → MS3 21:04
PROVIDERS: Admitting Provider Family Medicine; Emergency Provider Emergency Medicine; Family Provider Family Medicine; PCP Family Medicine; Visit Provider Internal Medicine
DX: J10.1 Influenza due to other identified influenza virus with other respiratory manifestations (principal); N17.9 Acute kidney failure, unspecified; N30.00 Acute cystitis without hematuria; I25.10 Atherosclerotic heart disease of native coronary artery without angina pectoris; E78.5 Hyperlipidemia, unspecified; K21.9 Gastro-esophageal reflux disease without esophagitis; G89.4 Chronic pain syndrome; N18.3 Chronic kidney disease, stage 3 (moderate); I12.9 Hypertensive chronic kidney disease with stage 1 through stage 4 chronic kidney disease, or unspecified chronic kidney disease; Z79.899 Other long term (current) drug therapy
CPT/HCPCS: 36415; 71046; 80048; 81001; 83605; 83735; 85025; 87040; 87086; 87088; 87633; 93005; 94640; 97162; 97166; 97535; 99284; J7030

== ENCOUNTER 2019-05-17 11:46 | Observation (INO) | payer MEDICARE, SELFPAY ==
[2019-05-17] VITALS (12 sets, daily range): BP systolic 109–188; BP diastolic 66–96; PULSE 65–115; RESP 16–20; TEMP 36.3–36.6; O2SAT 95–98; BMI 26.4; BMI 25.3; BMI 25.4
--- NOTE | 2019-05-17 12:29 | EKG12_ITS ---
Test Reason : AM EKG Blood Pressure : / mmHG Vent. Rate : 075 BPM Atrial Rate : 075 BPM P-R Int : 178 ms QRS Dur : 086 ms QT Int : 410 ms P-R-T Axes : 080 047 054 degrees QTc Int : 457 ms Normal sinus rhythm Septal infarct , age undetermined Abnormal ECG Confirmed by NATALIE SHERMAN, HUNTER ([id number]), editor magazine VALERIE YANES ([id number]) on 05/24/2019 10:27:11 AM Referred By: Nancy Christian Confirmed By:HUNTER ESTRADA MD
--- NOTE | 2019-05-17 12:31 | ED.DCSUM_ITS ---
History of Present Illness Chief Complaint: Syncope Informant: Patient Onset: Today - JPTA Context: Sudden Onset Timing: Lasts - 1-2 min, estimated Quality: syncope Current Severity: gone Associated Symptoms: prodromal lightheadedness only Narrative: Patient states she was at home and about to water some brown, she was standing outside and felt extremely lightheaded, so she sat on a nearby bench, and then does not remember anything until she woke up and her 's presence. She did not fall off of the bench, she slumped over and remained that way. She denies any other prodromal symptoms other than lightheadedness; she had no headache, lateralizing neurologic symptoms, chest discomfort, palpitations, nausea, neck pain, back pain. She states she sees Dr. Ann with cardiology but does not have any heart problems that she knows of. She takes medication for blood pressure but does not know what it is. She denies being on any anticoagulants. No recent illnesses, she has been eating and drinking well and denies any reason to be dehydrated. She states she feels well now and is asking for lunch. - Past Medical History (1) RSD lower limb Status: Chronic (2) Chronic kidney disease, stage 3 (moderate) Status: Chronic (3) Hyperlipidemia Status: Chronic (4) Hypertension Status: Chronic (5) Atherosclerotic heart disease of [place] coronary artery without angina pectoris Status: Acute Comment: 50% mid LAD per [facility] and FFR 04/2012 Past Medical History - Allergies and Home Meds Allergies/Adverse Reactions: Allergies Gadolinium-MRI Contrast Medium [CONTRAST] Allergy (Verified 05/17/19 11:57) Hives Latex, Natural Rubber Allergy (Verified 05/17/19 11:57) Rash adhesive tape Adverse Reaction (Verified 05/17/19 11:57) Rash rarely has any difficulties codeine Adverse Reaction (Verified 05/17/19 11:57) drowsy I SLEEP REAL GOOD tramadol [From Ultram] Adverse Reaction (Verified 05/17/19 11:57) Unknown Primary Care Physician: Giovanni Forte MD [Primary Care Provider] - Surgical History: hysterectomy, rotator cuff repair, total knee arthroplasty, tonsillectomy, - - Nasal septoplasty, spinal cord stimulator placement, right rotator cuff surgery, cholecystectomy, ORIF left ankle, ORIF right elbow, TKR, hysterectomy. Lives: Spouse/ Significant Other Smoking Status: Never smoker Alcohol: None - Family History Paternal Family History: Reports: Cancer, Diabetes Maternal Family History: Reports: - - Patient denies any market maternal family history including diabetes, heart disease, cancer. Review of Systems General: Denies: Chills, Fever, Sweats Eyes: Denies: Visual changes - bilaterally, Diplopia ENT: Denies: Rhinorrhea, Sore throat Cardiovascular: Denies: Chest pain, Palpitations Respiratory: Denies: Dyspnea, Cough, Dyspnea on exertion Gastrointestinal: Denies: Abdominal pain, Nausea, Vomiting, Diarrhea, Melena, Hematochezia Genitourinary: Denies: Dysuria, Hematuria, Frequency Musculoskeletal: Reports: Back pain - chronic low, mild, unchanged, Swelling - BLE, chronic, unchanged, Extremity Pain - BLE a/w RSD, unchanged and chronic Skin: Denies: Rash, Wounds Neurological: Reports: - - syncope. see HPI.. Denies: Headache, Weakness, Numbness Physical Exam Vital Signs/Narrative: Vital Signs Temp Pulse Resp BP Pulse Ox 05/17/19 11:53 97.3 F L 66 16 109/96 H 95 Inital Vital Signs reviewed: Yes General: Well nourished, Well developed, No Acute Distress Head: Normocephalic, Atraumatic Eyes: Perrl, EOMI ENT: Moist mucous membranes, No rhinorrhea Neck: Supple, Nontender Cardiovascular: Regular rate, Regular rhythm, Murmur - early systolic 2-3/6. Negative for: Tachycardia, Bradycardia Respiratory: No distress, CTA bilaterally, Chest nontender Abdomen: Soft, Nontender, Nondistended, Normal bowel sounds Back: Nontender, Normal Inspection Extremities: Nontender, Edema - 1+ BLE nonpitting, symmetric. Negative for: Calf Tenderness Skin: Normal color, No rash, No Trauma Neurological: Alert, Oriented x3, Cranial nerves II-XII grossly intact, Normal Strength, Normal Sensation Psychological: Normal affect, Normal Mood Diagnostic/Tx/Re-eval Laboratory Results 05/17/19 05/17/19 05/17/19 13:01 13:01 13:30 WBC 8.7 RBC 4.14 L Hgb 11.4 L Hct 36.9 L MCV 89.1 MCH 27.5 MCHC 30.9 L RDW 14.1 RDW Differential 45.3 H Plt Count 208 MPV 9.8 Immature Gran % (Auto) 0.200 Neut % (Auto) 78.8 H Lymph % (Auto) 13.[address] [place] % (Auto) 6.8 Eos % (Auto) 0.9 Baso % (Auto) 0.3 Absolute Neuts (auto) 6.8 Absolute Lymphs (auto) 1.13 Total Counted Not Reportable Sodium 142 Potassium 4.1 Chloride 108 H Carbon Dioxide 25.0 Anion Gap 9 BUN 31 H Creatinine 2.17 H Estim Creat Clear Calc 19.03 Est GFR (MDRD) Af Amer 28 L Est GFR (MDRD) Non-Af 23 L BUN/Creatinine Ratio 14.3 Glucose 99 Calcium 8.7 Troponin I < 0.015 Urine Color Yellow Urine Clarity Clear Urine pH 7.0 Ur Specific [place] 1.010 Urine Protein 15 H Urine Glucose (UA) Normal Urine Ketones Negative Urine Occult Blood Negative Urine Nitrite Negative Urine Bilirubin Negative Urine Urobilinogen Normal Ur Leukocyte Esterase Negative Urine RBC 0 SEEN Urine WBC 0 SEEN Ur Squamous Epith Cells 0-5 SEEN Urine Bacteria RARE Urine Mucus 0 SEEN - Rhythm Strip Rhythm Strip: Sinus Rhythm Rate: 62 Ectopy: None - EKG Initial EKG Interpretation: Sinus Rhythm, No Acute Injury Pattern, - - Q waves V1-2 Prior: Unchanged - Medical Decision Making Aside from chronic renal insufficiency, her work-up is negative. She had no recurrent symptoms while in the emergency department. According to some old records, she does have a history of mild coronary disease that has never required any intervention or unstable angina. She did not clinically have any unstable angina today, and her EKG is unremarkable. Her troponin returned negative. I think she should be observed for further evaluation. Discussed with hospitalist, patient is amenable. ED Disposition - Plan for ED Patient: Disposition: Acute Care Hospital [facility] Diagnosis: Syncope Referrals: Giovanni Forte MD [Primary Care Provider] -
[2019-05-17 13:23] LABS: Absolute Lymphocyte Count 1.13 X10^3/ul (0.83-4.51); Absolute Neutrophil Count 6.8 X10^3/uL (2.0-7.7); Basophil# 0.03 X10^3/uL; Basophil% 0.3 % (0-1); Eosinophil# 0.08 X10^3/uL; Eosinophils% 0.9 % (0-5); Hematocrit 36.9 % (37-47); Hemoglobin 11.4 g/dl (12.0-15.0); Lymphocyte # 1.13 X10^3/ul (4.0); Mean Corp Hgb Conc 30.9 g/gl (32-36); Mean Corpuscular Hgb 27.5 pg (27.0-32.0); Mean Corpuscular Volume 89.1 fL (81-99); Mean Platelet Vol. 9.8 fl (6.2-12.0); Monocyte# 0.59 X10^3/uL; Monocyte% 6.8 % (0-10); Neutrophil # 6.83 X10^3/uL (2.7-7.7); Neutrophil % 78.8 % (47-70); POSITIVE COUNT NO; POSITIVE DIFFERENTIAL NO; POSITIVE MORPHOLOGY NO; Platelet Count 208 K/mm3 (150-450); RBC Distribution Width CV 14.1 % (11.6-14.6); RBC Distribution Width SD 45.3 fl (35.1-43.9); Red Blood Count 4.14 M/mm3 (4.2-5.4); White Blood Count 8.7 K/mm3 (4.4-11.0)
[2019-05-17 13:33] LABS: Anion Gap 9 (5-15); BUN 31 mg/dL (7-18); BUN/Creat Ratio 14.3 RATIO (10-20); Calcium,Total 8.7 mg/dL (8.5-10.1); Chloride 108 mmol/L (98-107); Creatinine, Serum 2.17 mg/dL (0.55-1.02); EST Glomerular Filtration Rate 23 mL/min (>60); Est Glom Filt Rate - Afr Amer 28 mL/min (>60); Estimated Creatinine Clearance 19.03 ml/min; Glucose 99 mg/dL (74-106); Potassium 4.1 mmol/L (3.5-5.1); Sodium Level 142 mmol/L (136-145)
[2019-05-17 13:38] LABS: Mucous, Urine 0 SEEN /hpf (<or=2+); Red Blood Cells-Urine 0 SEEN /hpf (0-5); White Blood Cells 0 SEEN /hpf (0-5)
[2019-05-17 13:42] LABS: Color, Urine Yellow (Yellow); Glucose, Dipstick Normal (Normal); Ketone-Dipstick Negative (Negative); Leukocyte Esterase-Dipstick Negative /ul (Negative); Nitrite-Dipstick Negative (Negative); Occult Blood-Urine Negative /ul (Negative); Protein-Dipstick 15 mg/dl (Negative); Urine Bilirubin Dipstick Negative (Negative); Urine Clarity Clear (Clear); Urine Urobilinogen Normal (Normal)
[2019-05-17 13:50] LABS: Bacteria RARE /hpf (None Seen); Squamous Epithelial Cells - UA 0-5 SEEN /hpf (5-10)
--- NOTE | 2019-05-17 14:39 | PCM.HP.STD ---
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 (2) RSD lower limb Status: Chronic (3) Syncope Status: Acute (4) Chronic kidney disease, stage 3 (moderate) Status: Chronic (5) Atherosclerosis of coronary artery of [place] heart without angina pectoris Status: Chronic Qualifiers: Coronary Disease-Associated Artery/Lesion type: [place] artery Qualified Code(s): I25.10 - Atherosclerotic heart disease of [place] coronary artery without angina pectoris Comment: 50% mid LAD per [facility] and FFR 04/2012 (6) Hyperlipidemia Status: Chronic Qualifiers: Hyperlipidemia type: pure hypercholesterolemia Qualified Code(s): E78.00 - Pure hypercholesterolemia, unspecified; E78.0 - Pure hypercholesterolemia (7) Hypertension Status: Chronic Qualifiers: Hypertension type: essential hypertension Qualified Code(s): I10 - Essential (primary) hypertension History of Present Illness Date of Admission: 05/17/19 Chief Complaint: Syncope. The patient is a 83 year old F with past medical history as mentioned above presented to the emergency room because of syncope. Patient mentioned that she was in her guarding, watering her brown, felt very dizzy and lightheaded, went into her garage trying to sit in a stool and last thing she remembered that she was able to sit down and then she passed out. The came down to the garage and found her unconscious on the stool. Apart from being very lightheaded and dizzy, she denies any other prodromal symptoms. She denies chest pain, shortness of breath, palpitation, sweating, nausea or vomiting. She has a history of hypertension which has been under control with hydralazine and metoprolol. 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 She is a history of stage III chronic kidney disease and her kidney function has been stable. History of CAD with 50% LAD stenosis without history of cardiac interventions. In the emergency department, her vital signs were stable. Her orthostatic vitals were negative for orthostatic hypotension. Her routine blood work was remarkable for hemoglobin of 11.4, BUN of 31 and creatinine of 2.17 which are chronic. EKG revealed normal sinus rhythm, normal VT interval, normal QRS, normal QTC, no acute ischemic changes or cardiac arrhythmias. Troponin was negative. Urine analysis showed no evidence of infection. She is being admitted for syncope for evaluation. Past Medical History Past Medical History (Chronic Problems): Chronic Problems (Last Reviewed 08/10/18 @ 10:19 by Shubham Ann MD) Status post insertion of spinal cord stimulator (Chronic) RSD lower limb (Chronic) Chronic kidney disease, stage 3 (moderate) (Chronic) Atherosclerosis of coronary artery of [place] heart without angina pectoris (Chronic) 50% mid LAD per [facility] and FFR 04/2012 Hyperlipidemia (Chronic) Hypertension (Chronic) Medical History: Medical History (Last Reviewed 08/10/18 @ 10:19 by Suhbham Ann MD) Chronic kidney disease, stage 3 (moderate) (Chronic) N18.3 Atherosclerosis of coronary artery of [place] heart without angina pectoris (Chronic) I25.10 50% mid LAD per [facility] and FFR 04/2012 Hyperlipidemia (Chronic) E78.5 Hypertension (Chronic) I10 GERD (gastroesophageal reflux disease) K21.9 History of hysterectomy Z98.890, Z90.710 Reflex sympathetic dystrophy G90.50 spinal cord stimulator implant Allergies Gadolinium-MRI Contrast Medium [CONTRAST] Allergy (Verified 05/17/19 11:57) Hives Latex, Natural Rubber Allergy (Verified 05/17/19 11:57) Rash adhesive tape Adverse Reaction (Verified 05/17/19 11:57) Rash rarely has any difficulties codeine Adverse Reaction (Verified 05/17/19 11:57) drowsy I SLEEP REAL GOOD tramadol [From Ultram] Adverse Reaction (Verified 05/17/19 11:57) Unknown Home Medications: Ambulatory Orders Medication Instructions Recorded Cholecalciferol (VIT D3) [Vitamin 1,000 unit PO DAILY@1400 11/29/14 D3] Gabapentin [Neurontin] 300 mg PO DAILY@1800 11/29/14 [place]-3 Fatty Acids/Fish Oil [Fish 1 cap PO DAILY@1200 11/29/14 Oil 1,000 mg Softgel] Simvastatin [Zocor] 20 mg PO QHS 11/29/14 Aspirin E.C. [Ecotrin] 81 mg PO QHS 12/20/18 Metoprolol Tartrate [Lopressor 25 mg PO BID 12/20/18 (beta adebayo)] hydrALAZINE [Apresoline] 25 mg PO BID #60 tablet 12/23/18 Hydralazine HCl 5 mg PO BID 05/17/19 Surgical History: Surgical History (Last Reviewed 08/10/18 @ 10:19 by Shubham Ann MD) History of left heart catheterization Onset Date: ~04/10/12 Z98.890 History of nasal septoplasty Z98.890 History of repair of rotator cuff Z98.890 History of tonsillectomy Z98.890, Z90.89 Hx of cholecystectomy Z98.890, Z90.49 ORIF left ankle ORIF right elbow Surgical History: cholecystectomy, hysterectomy, rotator cuff repair, total knee arthroplasty, tonsillectomy, - - Nasal septoplasty, spinal cord stimulator placement, right rotator cuff surgery, cholecystectomy, ORIF left ankle, ORIF right elbow, TKR, hysterectomy. Psychiatric History: No pertinent psych hx [employer] History: No pertinent [employer] history Lives: Spouse/ Significant Other Smoking Status: Never smoker Alcohol: None Drugs: None - *Family History Paternal History Items: Cancer, Diabetes Maternal History Items: - - Patient denies any marked maternal family history including diabetes, heart disease, cancer. Review of Systems Constitutional: Denies: Anorexia, Chills, Fever, Weakness Eyes: Denies: Blurred vision, Double vision, Drainage, Redness HEENT: Denies: Difficulty Hearing, Ear Pain, Eye Pain, Nasal Congestion Cardiovascular: Reports: Light Headedness, Syncope. Denies: Chest Pain, Chest Pressure, Chest Tightness, Edema, Heaviness, Orthopnea, Palpitations, Paroxysmal Noc. Dyspnea Respiratory: Denies: Cough, Hemoptysis, Pleuritic Pain, Shortness of Breath, Sputum production, Wheezing Gastrointestinal: Denies: Abdominal Pain, Constipation, Diarrhea, Nausea, Vomiting Genitourinary: Denies: Dysuria, Frequency, Hematuria Musculoskeletal: Denies: Arm Pain, Back Pain, Foot Pain Skin: Denies: Dryness, Rash Neurological: Denies: Balance problems, Double vision, Change in Speech, Slurred speech, Confusion, Headaches, Incoordination, Numbness, Tingling Psychiatric: Denies: Anxiety, Depression Endocrine: Denies: Change in Body Habitus, Polydipsia, Polyuria VTE Information - Inpt Only VTE Present on Admission: No VTE Mechan Device Prophylaxis: None VTE Pharm Prophylaxis ordered?: Yes Patient Problems: Active and Suspected Problems (Last Reviewed 08/10/18 @ 10:19 by Shubham Ann MD) Syncope (Acute) - Physical Exam General: Alert, Oriented x3, Cooperative, No apparent distress HEENT: Atraumatic, PERRLA, EOMI, Normocephalic Oral: Moist Mucosa, No Gingival or Mucosal Lesions/ Ulcerations Neck: Supple, No JVD, Negative Carotid Bruits, Trachea Midline, Thyroid Normal Size and Texture Lungs: Clear to auscultation, Normal air movement, No rhonchi, No wheeze, No rales Cardiovascular: Regular rate, Regular Rhythm, Normal S1, Normal S2, PMI Normal, Murmur - Systolic murmur. Abdomen: Bowel Sounds Present, Soft, Non Tender, Non-Distended, No Hepato-splenomegaly Extremities: No clubbing, No cyanosis, No edema Skin: No rashes, No breakdown Lymphatic: No Cervical, Supraclavicular, or Inguinal Adenopathy Neurological: Cranial nerves II-XII grossly intact, Motor Exam 5/5 strength throughout Psych/Mental Status: Normal Affect, Appropriate, Alert and oriented to time, place, person, mood and affect Vital Signs Temp Pulse Resp BP Pulse Ox 97.3 F L 74 20 H 158/78 H 98 05/17/19 11:53 05/17/19 13:38 05/17/19 13:38 05/17/19 13:38 05/17/19 13:38 Oxygen Delivery Method Room Air Weight: 163 lb 9.328 oz Body Mass Index (BMI) 26.4 Laboratory Tests Past 24 Hrs 05/17/19 05/17/19 05/17/19 13:01 13:01 13:30 WBC 8.7 RBC 4.14 L Hgb 11.4 L Hct 36.9 L MCV 89.1 MCH 27.5 MCHC 30.9 L RDW 14.1 RDW Differential 45.3 H Plt Count 208 MPV 9.8 Immature Gran % (Auto) 0.200 Neut % (Auto) 78.8 H Lymph % (Auto) 13.0 L Gilchrist % (Auto) 6.8 Eos % (Auto) 0.9 Baso % (Auto) 0.3 Absolute Neuts (auto) 6.8 Absolute Lymphs (auto) 1.13 Total Counted Not Reportable Sodium 142 Potassium 4.1 Chloride 108 H Carbon Dioxide 25.0 Anion Gap 9 BUN 31 H Creatinine 2.17 H Estim Creat Clear Calc 19.03 Est GFR (MDRD) Af Amer 28 L Est GFR (MDRD) Non-Af 23 L BUN/Creatinine Ratio 14.3 Glucose 99 Calcium 8.7 Troponin I < 0.015 Urine Color Yellow Urine Clarity Clear Urine pH 7.0 Ur Specific [place] 1.010 Urine Protein 15 H Urine Glucose (UA) Normal Urine Ketones Negative Urine Occult Blood Negative Urine Nitrite Negative Urine Bilirubin Negative Urine Urobilinogen Normal Ur Leukocyte Esterase Negative Urine RBC 0 SEEN Urine WBC 0 SEEN Ur Squamous Epith Cells 0-5 SEEN Urine Bacteria RARE Urine Mucus 0 SEEN Assessment/Plan All Active Problems (Last Reviewed 08/10/18 @ 10:19 by Shubham Ann MD) Syncope (Acute) This is an 83 years old female patient presented to the emergency room because of syncope and she is being admitted for evaluation. #1 syncope: Unclear etiology. Patient mentioned that she was in the sun for some time this morning before she passed out but she is not dehydrated. Her EKG revealed normal sinus rhythm, no cardiac arrhythmias or acute ischemic changes. Her orthostatic vitals were unremarkable. She does have systolic murmur on physical examination. Plan: Admit to PCU for observation, cardiac monitoring, IV fluids, 2D echocardiogram, bilateral carotid Doppler, CT scan brain, repeat CBC and BMP tomorrow morning, PT OT evaluation and treatment. #2 hypertension: Initially, blood pressure was borderline and now became elevated. Plan to continue hydralazine and metoprolol. #3 CAD: Without prior interventions. EKG reviewed, no acute ischemic changes, troponin is negative. Continue aspirin and metoprolol as well as statins. #4 hyperlipidemia: Continue statins. #5 stage III chronic kidney disease: Baseline creatinine has been around 1.7 to 2 mg/dL. Admission creatinine is 2.17, close to baseline. Plan for IV fluids, repeat BMP tomorrow morning. #6 reflex sympathetic dystrophy of the bilateral lower extremities: Status post implanted spinal cord stimulator. Continue gabapentin, start Tylenol as needed. #7 DVT prophylaxis: Subcu heparin. This note was generated with [employer] dictation software. It may contain incorrect words, spelling, and punctuation that were not noted in checking the note before signing. Code Visit OBSV E&M: 15092 Initial observation care L3
--- NOTE | 2019-05-17 14:41 | CASEMGMT ---
RN CM Assessment Introduced role of RN CM to patient and pa;tient Talib at bedside.? Patient is alert, oriented and able?to participate in RN CM Assessment. ?Care providers, pharmacy, and demographics verified. Presentation: Patient at home about to water brown while standing outside became lightheaded, sat down at near by bench and had a syncopal episode- woke up to there. Admit Dx: Syncope Re-Admit: No, Inpt 12/20-12/23/18 for Viral Syndrome, SHASHI, UTI Barriers/Issues: None PCP: Giovanni Forte Specialists: Cardio- Dr Ann, Nephro- Dr Tyler Preferred Pharmacy: [facility] Insurance: [facility] Rx Benefit:?Yes LNOK: Talib Silveira LW/HPOA: Yes both, not on file at [facility]. HPOA- Talib Silveira Living Arrangements:?Lives with her in a 2 story home, does not use the upstairs, uses the basement where the garage is and where there is a walk in shower. Has a Stair lift to go up and down the basement. 3 stairs w/rails to get to lift. Has 4 steps to enter home through the Front and 4 steps through the back. ADL?s: Transportation: Patient and DME: Stair lift, Cane, Lift chair, rails/grab bars, hand held shower, and medical alert button. Also has but does not use: BSC, Walker, and WC. HHC: None SNF: Past [facility] Goal: Home, does not think will have any needs, denies questions/concerns. Aware CM remains available for any emerging needs. DC PLAN: Home with no anticipated needs identified at this time. FRED Stephens
--- NOTE | 2019-05-17 15:17 | CT_ITS ---
STUDY: CT BRAIN WITHOUT CONTRAST REASON FOR EXAM: Female, 83 years old. Syncope RADIATION DOSAGE (If Supplied By Facility): DLP = ( 779.24 ) mGycm TECHNIQUE: Transaxial CT imaging of the brain was performed without administration of intravenous contrast material. Individualized dose optimization techniques were used for this CT. COMPARISON: None. FINDINGS: There is no acute bleed or infarct. There are chronic ischemic and atrophic changes. The ventricles are normal in configuration. There is no hydrocephalus. The visualized paranasal sinuses are clear. The mastoid air cells are well aerated. There is no skull fracture. CT/Brain/Head without Contrast IMPRESSION: No acute intracranial abnormality. Chronic ischemic and atrophic changes. Electronically Signed: Jerry Alcantara, at 20:13 EDT Tel , Service support ,
--- NOTE | 2019-05-17 15:17 | ECHOD_ITS ---
Reason For Study: Syncope/Near Syncope Procedure This was a 2D Doppler, Color Flow transthoracic echocardiogram. Patient was unable to tolerate ultrasound probe in apical window, this resulted in some technically difficult images. Exam performed portable in patient room. Left Ventricle Normal LV size. Moderate concentric left ventricular hypertrophy. Left ventricular systolic function is normal. The estimated ejection fraction is 70 %. Stage 1 diastolic dysfunction. No regional wall motion abnormalities noted. Right Ventricle Normal RV size. Normal systolic function. Atria Normal left atrium. Normal right atrium. Mitral Valve Normal mitral valve. Tricuspid Valve Normal tricuspid valve. Aortic Valve Trisinus/trileaflet aortic valve. Mild focal aortic valve calcification. Pulmonic Valve Normal pulmonic valve. Great Vessels Normal aortic root. The pulmonary artery is normal size. Normal inferior vena cava. Pericardium/Pleural No pericardial effusion. MMode/2D Measurements & Calculations LVIDd: 3.1 cm IVSd: 1.6 cm LVOT diam: 2.0 cm LVIDs: 1.7 cm LVPWd: 1.4 cm LVOT area: 3.2 cm2 RVDd: 3.0 cm FS: 46.1 % Ao root diam: 3.6 cm LAV(MOD-sp4): 54.9 ml Aortic Valve Planimetry: 2.0 cm2 LA dimension: 3.2 cm LA A4 area: 17.5 cm2 RA A4 area: 12.6 cm2 Time Measurements MV dec time: 0.24 sec Doppler Measurements & Calculations MV E max toni: 76.0 cm/sec Lat Peak E' Toni: 5.1 cm/sec Med Peak E' Toni: 4.7 cm/sec MV A max toni: 105.7 cm/sec E/E' lat: 14.9 E/E' med: 16.1 MV E/A: 0.72 MV V2 max: 125.2 cm/sec MV P1/2t max toni: 104.0 cm/sec Ao V2 max: 157.9 cm/sec MV max P.3 mmHg MV P1/2t: 79.0 msec Ao max P.0 mmHg MV V2 mean: 69.1 cm/sec MV mean P.2 mmHg MV dec slope: 385.4 cm/sec2 GRISELDA(V,D): 2.0 cm2 MV V2 VTI: 32.9 cm MVA(P1/2t): 2.8 cm2 LV V1 max: 100.7 cm/sec LV V1 max P.1 mmHg Interpretation Summary Normal LV size. Moderate concentric left ventricular hypertrophy. Left ventricular systolic function is normal. The estimated ejection fraction is 70 %. Stage 1 diastolic dysfunction. Mild focal aortic valve calcification. Ordering Physician: Nancy Christian Referring Physician: Nancy Christian Performed By: Carmine Vegas RCS
--- NOTE | 2019-05-17 15:17 | CDU_ITS ---
Reason For Study: syncope. Rt. Velocities/BP Lt. Velocities/BP Prox CCA 65.6/13.4 cm/sec. Prox CCA 68.2/14.7 cm/sec. Mid CCA 64.3/13.4 cm/sec. Mid CCA 89.1/14.7 cm/sec. Dist CCA 61.7/10.8 cm/sec. Dist CCA 76.0/17.3 cm/sec. Prox ICA 53.9/12.1 cm/sec. Prox ICA 68.2/14.7 cm/sec. Mid ICA 64.3/14.7 cm/sec. Mid ICA 78.6/17.3 cm/sec. Dist ICA 64.3/17.3 cm/sec. Dist ICA 121.7/33.0 cm/sec. Rt. ICA/CCA = 1.0. Lt. ICA/CCA = 1.4. Prox ECA 108.6/5.6 cm/sec. Prox ECA 70.8/5.6 cm/sec. Rt. Vert. 42.1/9.5 cm/sec. Lt. Vert. 68.2/17.3 cm/sec. Right Extracranial There is intimal thickening but no significant atherosclerotic plaque noted in the right common carotid artery. There is heterogeneous, irregular atherosclerotic plaque noted in the right internal carotid artery. There is heterogeneous, irregular atherosclerotic plaque noted in the right external carotid artery. Antegrade flow is noted in the right vertebral artery. Left Extracranial There is heterogeneous, irregular atherosclerotic plaque noted in the left common carotid artery. There is heterogeneous, irregular atherosclerotic plaque noted in the left internal carotid artery. There is heterogeneous, irregular atherosclerotic plaque noted in the left external carotid artery. Antegrade flow is noted in the left vertebral artery. Procedure Carotid Duplex 53413. The exam was diagnostic. Exam performed portable in patient room. Interpretation Summary Irregular plague at the proximal right external and internal carotids. <50% stenosis right internal carotid <50% stenosis right external carotid Irregular heterogenous plague at the proximal left external and internal carotids <50% stenosis left internal carotid <50% stenosis left external carotid Patent and antegrade vertebrals bilaterally Ordering Physician: Nancy Christian Performed By: Jose Warren RVT
[2019-05-17] MEDS: Lactated Ringers 1,000 ML 100 ML IV (16:27)
[2019-05-17] MEDS: hydrALAZINE 10 MG Tablet 5 MG PO (16:30)
[2019-05-17] MEDS: hydrALAZINE 25 MG Tablet PO (16:30)
[2019-05-17] MEDS: Gabapentin 300 MG Capsule PO (17:38)
--- NOTE | 2019-05-17 21:21 | NURSING ---
PT STATES SHE CALLED AND CLARIFIED THAT SHE TAKES 1/2 OF A 10MG HYDRALAZINE TABLET BID. DR BREWER MADE AWARE.
--- NOTE | 2019-05-17 21:30 | EKG12_ITS ---
Test Reason : TACHYCARDIC Blood Pressure : / mmHG Vent. Rate : 114 BPM Atrial Rate : 114 BPM P-R Int : 154 ms QRS Dur : 076 ms QT Int : 330 ms P-R-T Axes : 064 046 024 degrees QTc Int : 454 ms Sinus tachycardia with Premature atrial complexes with Aberrant conduction Septal infarct , age undetermined Abnormal ECG Confirmed by NATALIE SHERMAN, HUNTER ([id number]), website/blog editor ASHLEE JUNIOR ([id number]) on 05/24/2019 1:39:22 PM Referred By: Nancy Christian Confirmed By:HUNTER ESTRADA MD
[2019-05-17] MEDS: Metoprolol Tartrate 25 MG Tablet PO (22:01)
[2019-05-17] MEDS: Atorvastatin Calcium 10 MG Tablet PO (22:01)
[2019-05-17] MEDS: Heparin Injection (Vial) 5,000 UNIT/ML VIAL 5000 UNIT SC (22:14)
[2019-05-17] MEDS: Aspirin E.C. 81 MG Tablet PO (22:15)
[2019-05-17 22:39] LABS: Magnesium 2.1 mg/dL (1.6-2.6)
[2019-05-18] VITALS (8 sets, daily range): BP systolic 139–163; BP diastolic 64–89; PULSE 67–80; RESP 16–18; TEMP 36.9–37; O2SAT 95–97
--- NOTE | 2019-05-18 05:55 | EKG12_ITS ---
Test Reason : SYNCOPE Blood Pressure : / mmHG Vent. Rate : 062 BPM Atrial Rate : 062 BPM P-R Int : 170 ms QRS Dur : 086 ms QT Int : 438 ms P-R-T Axes : 066 037 051 degrees QTc Int : 444 ms Normal sinus rhythm Septal infarct (cited on or before 20-DEC-2018) Abnormal ECG Confirmed by CHERI SHERMAN, PURA ([id number]), editor news VALERIE YANES ([id number]) on 05/18/2019 12:08:48 PM Referred By: Nancy Christian Confirmed By:PURA ALONZO MD
[2019-05-18] MEDS: Heparin Injection (Vial) 5,000 UNIT/ML VIAL 5000 UNIT SC (06:09)
[2019-05-18 06:13] LABS: Absolute Neutrophil Count 3.7 X10^3/uL (2.0-7.7); Basophil# 0.06 X10^3/uL; Eosinophil# 0.12 X10^3/uL; Hematocrit 34.4 % (37-47); Hemoglobin 10.6 g/dl (12.0-15.0); Lymphocyte % 26.8 % (19-41); Mean Corp Hgb Conc 30.8 g/gl (32-36); Mean Corpuscular Hgb 27.5 pg (27.0-32.0); Mean Corpuscular Volume 89.1 fL (81-99); Mean Platelet Vol. 9.3 fl (6.2-12.0); Monocyte% 8.4 % (0-10); Neutrophil # 3.67 X10^3/uL (2.7-7.7); Neutrophil % 61.6 % (47-70); POSITIVE COUNT NO; POSITIVE DIFFERENTIAL NO; POSITIVE MORPHOLOGY NO; Platelet Count 193 K/mm3 (150-450); RBC Distribution Width CV 14.2 % (11.6-14.6); RBC Distribution Width SD 46.4 fl (35.1-43.9); Red Blood Count 3.86 M/mm3 (4.2-5.4)
[2019-05-18 06:21] LABS: Anion Gap 4 (5-15); BUN 31 mg/dL (7-18); BUN/Creat Ratio 15.3 RATIO (10-20); Calcium,Total 8.4 mg/dL (8.5-10.1); Chloride 111 mmol/L (98-107); Creatinine, Serum 2.02 mg/dL (0.55-1.02); EST Glomerular Filtration Rate 25 mL/min (>60); Est Glom Filt Rate - Afr Amer 30 mL/min (>60); Estimated Creatinine Clearance 20.45 ml/min; Glucose 90 mg/dL (74-106); Potassium 4.2 mmol/L (3.5-5.1); Sodium Level 142 mmol/L (136-145)
[2019-05-18] MEDS: Metoprolol Tartrate 25 MG Tablet PO (08:56)
[2019-05-18] MEDS: hydrALAZINE 10 MG Tablet 5 MG PO (08:56)
--- NOTE | 2019-05-18 16:02 | DCINST_ITS ---
- Discharge Diagnoses Current Active Problems: Current Active and Chronic Problems (Last Reviewed 08/10/18 @ 10:19 by Shubham Ann MD) Status post insertion of spinal cord stimulator (Chronic) Syncope (Acute) You will use the following diet at home:: No restrictions Your food should be the consistency of: Regular Your liquids should be the consistency of: Regular/Thin Discharge Activity: Return to Normal Activity Weight Bearing Status: Full weight bearing Allergies/Adverse Reactions: Allergies Gadolinium-MRI Contrast Medium [CONTRAST] Allergy (Verified 05/17/19 11:57) Hives Latex, Natural Rubber Allergy (Verified 05/17/19 11:57) Rash codeine Adverse Reaction (Verified 05/17/19 11:57) drowsy I SLEEP REAL GOOD tramadol [From Ultra] Adverse Reaction (Verified 05/17/19 11:57) Unknown Medications to take at Discharge Cholecalciferol (VIT D3) [Vitamin D3] 1,000 unit PO DAILY@1400 11/29/14 Gabapentin [Neurontin] 300 mg PO DAILY@1800 11/29/14 [place]-3 Fatty Acids/Fish Oil [Fish Oil 1,000 mg Softgel] 1 cap PO DAILY@1200 11/29/14 Simvastatin [Zocor] 20 mg PO QHS 11/29/14 Aspirin E.C. [Ecotrin] 81 mg PO QHS 12/20/18 Metoprolol Tartrate [Lopressor (beta daebayo)] 25 mg PO BID 12/20/18 Hydralazine HCl 5 mg PO BID 05/17/19 Tamsulosin HCl [Flomax] 0.4 mg PO UD #60 cap.er.24h 05/18/19 Primary Care Physician: Giovanni Forte MD [Primary Care Provider] - Please follow up with your Primary Care Physician in: in 1-2 weeks Test Results: Test results from this visit will be discussed in further detail at your follow- up appointment, if applicable.
--- NOTE | 2019-05-20 08:56 | DS.PCM_ITS ---
Discharge Date and Diagnosis Date of Admission: 05/17/19 Date of Discharge: 05/18/19 - Primary Discharge Diagnosis #1 syncope-etiology unknown #2 atherosclerotic heart disease #3 kidney disease stage III #4 hyperlipidemia - Secondary Discharge Diagnosis Chronic Problems (Last Reviewed 08/10/18 @ 10:19 by Shubham Ann MD) Status post insertion of spinal cord stimulator (Chronic) RSD lower limb (Chronic) Chronic kidney disease, stage 3 (moderate) (Chronic) Atherosclerosis of coronary artery of [place] heart without angina pectoris (Chronic) 50% mid LAD per [facility] and FFR 04/2012 Hyperlipidemia (Chronic) Hypertension (Chronic) Hospital Course and Treatment Operations: None Procedures: 2-D Echocardiogram Summary of Care Provided: The patient is a 83 year old F who was seen in the emergency room at [facility] after suffering a presumed syncopal episode at home, patient was sitting on a bench outside her home in the heat and then does not remember anything to her woke her up. She was found slumped on the bench. Patient denies any urinary incontinence during the episode. Lab obtained in the emergency room showed an elevated creatinine however the patient has a history of chronic kidney disease stage III. Patient CBC was unremarkable except for hemoglobin of 11.4. EKG did not show any ischemic changes, patient was placed in observation status on PCU and troponins were cycled and these remain normal. She underwent an echocardiogram which showed no abnormality. On 05/18/2019, patient was seen and examined: On examination she appeared in good health and spirits. Vital signs as documented. Skin warm and dry and without overt rashes. Neck without JVD. Lungs clear. Heart exam notable for regular rhythm, normal sounds and absence of murmurs, rubs or gallops. Abdomen unremarkable and without evidence of organomegaly, masses, or abdominal aortic enlargement. Extremities nonedematous. Neuro: Cranial nerves II through XII are grossly intact, no focal motor deficits were noted, sensation to light touch and pinprick is intact. Psych: Patient is alert and oriented x3, she does not appear anxious or depressed On 05/18/2019, patient was seen and examined felt to be in stable condition for discharge home - Physical Exam Vital Signs Temp Pulse Resp BP Pulse Ox 98.5 F 76 16 157/64 H 97 05/18/19 15:50 05/18/19 15:50 05/18/19 15:50 05/18/19 15:50 05/18/19 15:50 Oxygen Delivery Method Room Air Weight: 71.3 kg Body Mass Index (BMI) 25.3 Intake and Output for Last 24 Hours 05/18/19 05/19/19 05/20/19 23:59 23:59 23:59 Intake Total 1367 / 1367 Balance 1367 / 1367 Discharge Activity: Return to Normal Activity Weight Bearing Status: Full weight bearing Home Medications: Medications to take at Discharge Cholecalciferol (VIT D3) [Vitamin D3] 1,000 unit PO DAILY@1400 11/29/14 Gabapentin [Neurontin] 300 mg PO DAILY@1800 11/29/14 [place]-3 Fatty Acids/Fish Oil [Fish Oil 1,000 mg Softgel] 1 cap PO DAILY@1200 11/29/14 Simvastatin [Zocor] 20 mg PO QHS 11/29/14 Aspirin E.C. [Ecotrin] 81 mg PO QHS 12/20/18 Metoprolol Tartrate [Lopressor (beta adebayo)] 25 mg PO BID 12/20/18 Hydralazine HCl 5 mg PO BID 05/17/19 Tamsulosin HCl [Flomax] 0.4 mg PO UD #60 cap.er.24h 05/18/19 Following Prescrptions Were Given to Patient: Tamsulosin HCl [Flomax] 0.4 mg PO UD #60 cap.er.24h Transmission Status: Received by [id number] Primary Care Physician: Giovanni Forte MD [Primary Care Provider] - Please follow up with your Primary Care Physician in: in 1-2 weeks Disposition: Home Minutes spent on discharge:: 31 Patient Condition:: Stable Medical Necessity - Tobacco Use Smoking Status: Never smoker Meaningful Use Info Meaningful Use Diagnoses (Choose all that apply): None applicable Code Visit OBSV E&M: 27347 Observation care discharge
== END 2019-05-18 16:07 | disposition home or self-care (01) ==
LOC: ED 12:40 → PCU 14:36
PROVIDERS: Internal Medicine; Admitting Provider Hospitalist; Emergency Provider Emergency Medicine; Family Provider Family Medicine; PCP Family Medicine; Referring Provider Hospitalist; Visit Provider Internal Medicine
DX: R55 Syncope and collapse (principal); I25.10 Atherosclerotic heart disease of native coronary artery without angina pectoris; E78.5 Hyperlipidemia, unspecified; I12.9 Hypertensive chronic kidney disease with stage 1 through stage 4 chronic kidney disease, or unspecified chronic kidney disease; K21.9 Gastro-esophageal reflux disease without esophagitis; N18.3 Chronic kidney disease, stage 3 (moderate); Z79.899 Other long term (current) drug therapy; Z79.82 Long term (current) use of aspirin; G90.523 Complex regional pain syndrome I of lower limb, bilateral
CPT/HCPCS: 36415; 70450; 80048; 81001; 83735; 84484; 85025; 93005; 93306; 93880; 96360; 96361; 96372; 99218; 99284; J7120; Q9957; A4216; G0378

== ENCOUNTER 2019-07-19 09:00 | Outpatient (RCR) | payer OTHER, SELFPAY ==
[2019-06-07 08:41] VITALS: BMI 24.9
--- NOTE | 2019-06-27 08:55 | HP.OTEVAL_ITS ---
Patient's Visit Information SYEDA CHILD is a 84 year old F, referred to Occupational Therapy by Pedro Roldan MD, with a diagnosis of right 5th metacarpal shaft fx/left thumb distal phalanx fx. Date of Evaluation: 06/26/19 Occupational Therapist: Brianda Miguel, NITZA/Chavo, CHT - Subjective Subjective: This 83-year-old female was seen for OT eval with dx with disp. fx shaft of right 5th metacarpal, displaced fx distal phalanx of left thumb April 14 due to fall- pt states she did not remember anything about to fall- just remembers standing and then waking up on the ground. Pt reports the squad transported her to the hospital, x rays taken, and pts right hand was soft casted until she was able to see Dr. Roldan on April 20. Dr. Roldan casted her until June 06 2019. Pt states she has been in and out of the hospital. pt states she did pass out on May 17, 2019 in her yard while watering plants. pt states she was then taken to the hospital- pt states this was due to dehydration. pt states she does not feel this has been a good summer with her fall and trips to the hospital. Currently pt reports having difficulty with writing and making a fist. pt is right handed - ADLs Dressing: Button shirt, Pants, Socks, Shoes, Earrings Fasteners: Tie shoes, Buttons, Zippers, Snaps, [place], Belt Eating: Use silverware, Cut food, Drink from glass Bathing: Handle washcloth & soap Kitchen: Chop with knife, Peel fruits & vegetables, Open jars, Open bottle caps, Lift gallon of milk, Pour from pitcher, Lift saucepan, Take dish out of oven, Load/unload lan administrator Miscellaneous: Open medication bottle, Handle money (change), Hold change - Pain right hand 0 Pain Intensity Range: 3 - Objective Objective/Observation: pt demo limited ability to form a right composite fist for ADLs and IADLs. - ROM ROM Comments: pt demo 2 away from composite fist. left composite is thight - Strength Animal Bounty Hunter: right 5# left 10# Lateral Pinch: right 10# left 8# Tripod Pinch: right 4# left 4# Strength Comments: pt demo weak right lastex thread winder strength - Quick DASH-Disab of Arm,Shoulder& Hand Quick DASH Score: 50.0000 - Hand/Wrist Evaluation Total Score of Pain & Functional Sections: 40 - Goals Goal:: Pt will demo a increase in right lastex thread winder strength by 10# to increase pts ind. with ADLS and IADLS by D/C. Goal:: Pt will demo a increase in right composite fist by 1.5 to increase her ability to hold a variety of different size objects by d/c Goal:: pt will report pain no greater than 1/10 with use of right hand with ADLs and IADLs by d/c - Rehabilitation General Assessment: Pt is currently 11 weeks from right 5th metacarpal fx/left thumb distal phaplanx fx. pt demo with limited right composite fist and a decrease in functional strength to perform ADLs and IADLS at IND. level. Pt would benefit from skilled OT services to return pts functional ROM/strength so pt can return to her PLOF with ADLs and IADLs. Today pt was provided with modality of heat and demo a increase in her composite fist- therapist ed. pt on AROM ex for digits and was given handout. pt demo. understanding of ex and agree to POC. Rehabilitation Potential: Excellent - Anticipated Interventions Anticipated Interventions: A/AAROM/PROM, Strengthening, Desensitization, Modalities, Orthoses, Joint Protection/Energy Conservation, Education re assistive Equipment - Visit Plan Frequency: 1-2x /Week Duration: 4 Weeks TEXT: Thank you for the opportunity to evaluate your patient. For Medicare and Medicare HMO plans, please review the plan of care and approve it. It will need to be FAXED BACK to us at [phone] for Medicare purposes. Please let me know if there are questions or concerns regarding this plan of care. Physician Signature : Date:
--- NOTE | 2019-07-19 10:04 | HP.OTDCSUM ---
HP - OT D/C Summary It has been my pleasure to treat SYEDA CHILD under orders from Pedro Roldan MD, for the diagnosis of right 5th metacarpal shaft fx/left thumb distal phalanx fx for a total of 8 visit(s). Please see the following information for a summary of their discharge status. - Overall Improvement % Improvement: 85 - Objective Objective/Function: right RF MCP flex 80 PIP 100. right LF MCP flex 75 PIP 100. right business banking representative strength 27# increase from 5# - Goals Patient Goals: Regain Mobility, Regain Strength, Decrease Pain, Decrease Swelling/Stiffness, Use Hand/Wrist/Arm Normally Again Goal:: Pt will demo a increase in right business banking representative strength by 10# to increase pts ind. with ADLS and IADLS by D/C. Goal:: Pt will demo a increase in right composite fist by 1.5 to increase her ability to hold a variety of different size objects by d/c Goal:: pt will report pain no greater than 1/10 with use of right hand with ADLs and IADLs by d/c - Plan Plan: d/c - D/C Information If there are questions or concerns regarding this patient's occupational therapy, please fell free to call me at [phone]. Thank you for the referral of this patient. Sincerely, Brianda Miguel, OTR/L, CHT
== END 2019-07-19 19:00 | disposition home or self-care (01) ==
LOC: OT 09:00
PROVIDERS: Family Provider Family Medicine; PCP Family Medicine; Referring Provider Orthopaedic Surgery; Visit Provider Orthopaedic Surgery
DX: S62.326D Displaced fracture of shaft of fifth metacarpal bone, right hand, subsequent encounter for fracture with routine healing (principal); S62.522D Displaced fracture of distal phalanx of left thumb, subsequent encounter for fracture with routine healing
CPT/HCPCS: 97110; 97140; 97166; 97530

== ENCOUNTER 2019-07-29 22:13 | Emergency (ER) | payer MEDICARE, SELFPAY ==
[2019-06-07 08:41] VITALS: BMI 24.9
[2019-07-29 22:14] VITALS: PULSE 90; RESP 21; TEMP 37.9; O2SAT 95; BMI 25.4
[2019-07-29 22:24] VITALS: BP 185/82
--- NOTE | 2019-07-29 22:52 | EKG12_ITS ---
Test Reason : WEAKNESS Blood Pressure : / mmHG Vent. Rate : 086 BPM Atrial Rate : 086 BPM P-R Int : 178 ms QRS Dur : 074 ms QT Int : 394 ms P-R-T Axes : 078 054 065 degrees QTc Int : 471 ms Suspect unspecified pacemaker failure Normal sinus rhythm Septal infarct (cited on or before 20-DEC-2018), age undetermined Abnormal ECG Confirmed by CHERI SHERMAN, PURA ([id number]), pictures editor MARY COLVIN ([id number]) on 07/30/2019 9:09:53 AM Referred By: MARCO Confirmed By:PURA ALONZO MD
--- NOTE | 2019-07-29 22:53 | RAD_ITS ---
STUDY: X-RAY CHEST REASON FOR EXAM: Female, 84 years old. Chronic swollen ankles. Shoulder pain and immobility for one week. Weakness and fever beginning today. TECHNIQUE: PA and lateral views of the chest. COMPARISON: December 20, 2018. FINDINGS: The lungs are clear and expanded. There is no demonstrated pleural abnormality. Normal size heart. Normal mediastinum and arnulfo. Normal visualized pulmonary arteries. There is atherosclerotic calcification of the aortic arch with tortuosity. There is evidence of a dorsal column stim date are again noted. There is degenerative osteoarthritis of the bilateral shoulders. There is no demonstrated abnormality of the visualized soft tissue structures of the upper abdomen. RAD/Chest 1 View (Portable) IMPRESSION: No acute cardiopulmonary disease or interval change. Electronically Signed: Westley Osorio DO at 23:23 EDT Tel [phone], Service support ,
--- NOTE | 2019-07-29 22:53 | RAD_ITS ---
STUDY: X-RAY - RIGHT SHOULDER REASON FOR EXAM: Female, 84 years old. Right shoulder pain. Unable to internally rotate shoulder. TECHNIQUE: 3 view(s) of the shoulder. COMPARISON: None. FINDINGS: There is moderate degenerative arthrosis of the glenohumeral articulation. There is degenerative arthrosis of the acromioclavicular joint without inferior osseous spur formation. Normal acromion. There is no acute fracture, dislocation or destructive osseous pathology. There are calcifications in the soft tissues overlying the greater tuberosity suggesting calcified bursitis versus calcified tendinopathy. The soft tissue structures are unremarkable. Normal visualized pulmonary apex. RAD/Shoulder min 2 Views IMPRESSION: Degenerative changes of the right shoulder. Electronically Signed: Westley Osorio DO at 23:24 EDT Tel [phone], Service support ,
--- NOTE | 2019-07-29 22:53 | ED.VIS.GEN ---
History of Present Illness Chief Complaint: Weakness Narrative: Patient is an 84-year-old female who presents with chief complaint of I could not get out of my chair. 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 [place] She was walking with a cane. This was about 2 weeks ago. Since that time she has had severe right shoulder pain. She was using her right hand to use the cane. She states today she was unable to get up out of the chair because she could not use her right arm to help lift her. She does not complain of any abnormal weakness. She has chronic pain and swelling in both legs. She denies any recent illness such as fevers or chills congestion runny nose sore throat cough chest pain shortness of breath abdominal pain vomiting diarrhea or any urinary symptoms. She was noted to have a temperature of 100.0 by EMS and temperature was 100.3 here but she had not known that she had a fever at home. Past Medical History - Allergies and Home Meds Allergies/Adverse Reactions: Allergies Gadolinium-MRI Contrast Medium [CONTRAST] Allergy (Verified 06/06/19 08:39) Hives Latex, Natural Rubber Allergy (Verified 06/06/19 08:39) Rash hydralazine Adverse Reaction (Intermediate, Verified 07/02/19 08:51) Swelling codeine Adverse Reaction (Verified 06/06/19 08:39) drowsy I SLEEP REAL GOOD tramadol [From Ultram] Adverse Reaction (Verified 06/06/19 08:39) Unknown Primary Care Physician: Giovanni Forte MD [Primary Care Provider] - Past Medical History: - - Hypertension, hyperlipidemia Surgical History: cholecystectomy, hysterectomy, rotator cuff repair, total knee arthroplasty, tonsillectomy, - - Nasal septoplasty, spinal cord stimulator placement, right rotator cuff surgery, cholecystectomy, ORIF left ankle, ORIF right elbow, TKR, hysterectomy. Smoking Status: Never smoker - Family History Maternal Family History: Reports: - - Patient denies any marked maternal family history including diabetes, heart disease, cancer. Paternal Family History: Reports: Cancer, Diabetes Review of Systems All systems negative except as indicated General: Reports: Fever Cardiovascular: Denies: Chest pain Respiratory: Denies: Dyspnea, Cough Gastrointestinal: Denies: Nausea, Vomiting Musculoskeletal: Reports: - - Right shoulder pain, bilateral ankle pain Physical Exam Vital Signs/Narrative: Vital Signs Temp Pulse Resp BP Pulse Ox 07/29/19 22:24 185/82 H 07/29/19 22:14 100.3 F H 90 21 H 95 Inital Vital Signs reviewed: Yes General: Well nourished Head: Normocephalic Eyes: EOMI ENT: Moist mucous membranes Neck: Supple Cardiovascular: - - Heart is regular rate and rhythm Respiratory: No distress, CTA bilaterally Abdomen: Soft, Nontender Extremities: - - Painful limited range of motion of the right shoulder, tenderness on the right shoulder, I do not appreciate significant soft tissue swelling there is no erythema the joint is not hot to the touch she is neurovascularly intact distally, patient has bilateral symmetric pedal edema she has easily palpable dorsalis pedis pulses with brisk capillary refill Skin: Normal color Neurological: Alert Psychological: Normal affect Diagnostic/Tx/Re-eval Impressions Chest X-Ray 07/29/19 22:53 IMPRESSION: No acute cardiopulmonary disease or interval change. Electronically Signed: Westley Osorio DO at 23:23 EDT Tel [phone], Service support , Shoulder X-Ray 07/29/19 22:53 IMPRESSION: Degenerative changes of the right shoulder. Electronically Signed: Westley Osorio DO at 23:24 EDT Tel [phone], Service support , 07/29/19 22:53 CXR [Chest 1 View (Portable)] [RAD] Stat Shoulder min 2 Views [RAD] Stat Laboratory Results 07/29/19 07/29/19 07/29/19 22:35 22:35 23:24 WBC 13.0 H RBC 4.12 L Hgb 11.5 L Hct 37.0 MCV 89.8 MCH 27.9 MCHC 31.1 L RDW Std Deviation 45.5 H RDW Coeff of Sonny 13.8 Plt Count 224 MPV 9.6 Immature Gran % (Auto) 0.300 Neut % (Auto) 87.7 H Lymph % (Auto) 7.3 L [place] % (Auto) 3.5 Eos % (Auto) 0.8 Baso % (Auto) 0.4 Absolute Neuts (auto) 11.4 H Absolute Lymphs (auto) 0.95 Nucleated RBC % 0 Differential Comment SCANNED Sodium 142 Potassium 4.0 Chloride 108 H Carbon Dioxide 24.0 Anion Gap 10 BUN 27 H Creatinine 2.06 H Estim Creat Clear Calc 20.48 Est GFR (MDRD) Af Amer 30 L Est GFR (MDRD) Non-Af 25 L BUN/Creatinine Ratio 13.1 Glucose 130 H Calcium 8.5 Urine Color Yellow Urine Clarity Clear Urine pH 6.5 Ur Specific [place] 1.010 Urine Protein 30 H Urine Glucose (UA) Normal Urine Ketones 5 H Urine Occult Blood 10 H Urine Nitrite Negative Urine Bilirubin Negative Urine Urobilinogen Normal Ur Leukocyte Esterase Negative Urine RBC 0 SEEN Urine WBC 0 SEEN Ur Squamous Epith Cells 0-5 SEEN Urine Bacteria 0 SEEN Urine Mucus 0 SEEN - Medical Decision Making Patient's work-up as above notable for white count of 13,000. However she has no clear source of bacterial infection. Skin was normal. Chest x-ray normal. Urine normal. She is not really symptomatic except for her right shoulder pain which was her main complaint. This does show degenerative changes. Although triage does weakness as clarified in her history she is not actually weak she just had trouble getting up out of the chair due to her right shoulder pain. She was able to get out of the bed on her own here and ambulate with a walker. She does have a walker at home. I advised that she follow-up with her primary care physician in regards to her right shoulder pain. She could benefit from therapy. We did provide a prescription for tramadol. She was advised that if symptoms did not improve she may need further outpatient work-up such as MRI but this is not indicated emergently. Patient is agreeable to this plan was discharged home. I did place a consult to social work. Notes that although the patient lists an allergy to Ultram she did not have an anaphylactic or true allergic reaction, just made her drowsy. She is willing to try it again. ED Disposition - Plan for ED Patient: Disposition: Home or Assisted Living Diagnosis: Shoulder pain, right Instructions: SHOULDER PAIN (Uncertain Cause) Prescriptions: traMADol [Ultram] 50 mg PO Q4H PRN PRN 3 Days #12 tab PRN Reason: Pain Prescription Printed Referrals: Giovanni Forte MD [Primary Care Provider] -
[2019-07-29 23:00] LABS: Absolute Lymphocyte Count 0.95 X10^3/uL (0.83-4.51); Absolute Neutrophil Count 11.4 X10^3/uL (2.0-7.7); Basophil# 0.05 X10^3/uL; Basophil% 0.4 % (0-1); Eosinophils% 0.8 % (0-5); Hemoglobin 11.5 g/dL (12.0-15.0); Lymphocyte # 0.95 X10^3/ul (4.0); Lymphocyte % 7.3 % (19-41); Mean Corp Hgb Conc 31.1 g/dL (32-36); Mean Corpuscular Hgb 27.9 pg (27.0-32.0); Mean Corpuscular Volume 89.8 fL (81-99); Mean Platelet Vol. 9.6 fl (6.2-12.0); Monocyte# 0.46 X10^3/uL; Monocyte% 3.5 % (0-10); NRBC Flagged by Analyzer 0 % (0-5); Neutrophil # 11.39 X10^3/uL (2.7-7.7); Neutrophil % 87.7 % (47-70); POSITIVE MORPHOLOGY YES; Platelet Count 224 K/mm3 (150-450); RBC Distribution Width CV 13.8 % (11.6-14.6); RBC Distribution Width SD 45.5 fl (35.1-43.9); Red Blood Count 4.12 M/mm3 (4.2-5.4)
[2019-07-29 23:04] LABS: Differential Indicated SCAN CRITERIA MET
[2019-07-29 23:13] LABS: Anion Gap 10 (5-15); BUN 27 mg/dL (7-18); BUN/Creat Ratio 13.1 RATIO (10-20); Calcium,Total 8.5 mg/dL (8.5-10.1); Chloride 108 mmol/L (98-107); Creatinine, Serum 2.06 mg/dL (0.55-1.02); EST Glomerular Filtration Rate 25 mL/min (>60); Est Glom Filt Rate - Afr Amer 30 mL/min (>60); Estimated Creatinine Clearance 20.48 ml/min; Glucose 130 mg/dL (74-106); Sodium Level 142 mmol/L (136-145)
[2019-07-29 23:28] LABS: Bacteria 0 SEEN /hpf (None Seen); Mucous, Urine 0 SEEN /hpf (<or=2+); Red Blood Cells-Urine 0 SEEN /hpf (0-5); White Blood Cells 0 SEEN /hpf (0-5)
[2019-07-29 23:28] LABS: Differential Comment SCANNED
[2019-07-29 23:30] LABS: Color, Urine Yellow (Yellow); Glucose, Dipstick Normal (Normal); Ketone-Dipstick 5 mg/dl (Negative); Leukocyte Esterase-Dipstick Negative /ul (Negative); Nitrite-Dipstick Negative (Negative); Occult Blood-Urine 10 /ul (Negative); Protein-Dipstick 30 mg/dl (Negative); Urine Bilirubin Dipstick Negative (Negative); Urine Clarity Clear (Clear); Urine Urobilinogen Normal (Normal); Urine pH 6.5 (5.0 - 8.0)
[2019-07-29] MEDS: Acetaminophen 500 MG Tablet 1000 MG PO (23:33)
[2019-07-29 23:38] LABS: Squamous Epithelial Cells - UA 0-5 SEEN /hpf (5-10)
[2019-07-30 00:31] VITALS: BP 169/80; PULSE 76; RESP 18; O2SAT 97
--- NOTE | 2019-07-30 00:51 | ED.RN ---
0031 PT WAS NOT HAPPY THAT SHE WAS NOT BEING ADMITTED, EMPATHY GIVEN.
== END 2019-07-30 00:30 | disposition home or self-care (01) ==
PROVIDERS: Emergency Provider Emergency Medicine; Family Provider Family Medicine; PCP Family Medicine
DX: M25.511 Pain in right shoulder (principal); I10 Essential (primary) hypertension; E78.5 Hyperlipidemia, unspecified; Z79.899 Other long term (current) drug therapy
CPT/HCPCS: 71045; 73030; 80048; 81001; 85025; 93005; 99285; A4216

== ENCOUNTER 2019-10-22 08:30 | Outpatient (RCR) | payer MEDICARE, SELFPAY ==
--- NOTE | 2019-09-26 09:30 | HP.PTEVAL_ITS ---
Patient's Visit Information SYEDA CHILD is a 84 year old F referred to Physical Therapy by Anton Charles MD with a diagnosis of OA B knees. Date of Evaluation: 09/26/19 Physical Therapist: FRANK Johnson - Visit Plan Frequency: 2x /Week Duration: 4 Weeks Plan: 2X/ week for 4 weeks to learn I hip and knee strengthening program, gait training, stretching, with I written out gym rountine with independent set up of equipment. - Subjective Findings: Pt reports that she started to have knee pain years ago. It has progressivly gotten worse. Pt got a L knee cortizone shot 09-20-19. She had one about 8 months ago and it did a lot more than what this shot has done. Her Dr said she has to use her cane at all times except when she forgets it. She has stair at home but does not use them because WC put in a stair lift for her. Because of he knees she has trouble getting up and out of the chairs, out of the shower, can't work out in the yard at all. Pt reports that her ankles are not as swollen today but she has ankle supports that she wears for the swelling and will go home and wear them until bed time. Pt sleeps in her powered tilt back chair. Pt has had PT for her knees before and it has helped. She has an exercise bike at home of some sort but can not remember the name of it. SHe does not use it at home like she wants to. She needs to make herself do it. - Pain R knee pain Pain Intensity (Out of 10): 3 L knee pain Pain Intensity (Out of 10): 6 - Objective Gait: pt walks with WBOS and increased stance time on the L LE with very little toe off and knee flexion with a single point cane. 36.4 B tib tuberosity B girth. L knee AROM: 130 degrees flexion and 0 degrees extesnion. R knee AROM 0 degrees extension and 128 degrees R knee flexion. LE MMT: Hip flex R 4-/5 and L 3+/5 B, Knee extension R 4-/5 and L 3+/5, R knee flexion 4-/5 and L knee flexion 3+/5, in supine hip abd 4/5 B and able to 3/4 normal ROM bridge, pt is able to heel raise and raise her toes about 1/4 normal range off the floor holding onto the palomares chair rail. Pt can not roll onto each side because of pain and pt is unable to get from supine to sit without mod A for trunk. To go from sit to supine she asked for help with her L leg (mod A) to get it up on the mat table. - Goals Goal 1:: I HEP and Silver sneakers gym rountine Goal Time Frame: 2-4 Weeks Goal 2:: Increase L knee strength by 1/2 muscle grade ( at time of the eval: LE MMT: Hip flex R 4-/5 and L 3+/5 B, Knee extension R 4-/5 and L 3+/5, R knee flexion 4-/5 and L knee flexion 3+/5, in supine hip abd 4/5 B and able to 3/4 normal ROM bridge, pt is able to heel raise and raise her toes about 1/4 normal range off the floor holding onto the palomares chair rail). Goal Time Frame: 2-4 Weeks Goal 3:: Decrease L knee pain to 3/10 with ADL's Goal Time Frame: 2-4 Weeks - Rehabilitation Potential Rehabilitation Potential: Good - Anticipated Interventions Patient/Client Instruction: Educate patient on: Condition For the Purpose of:: To decrease pain, To increase ROM, To improve nutrient delivery to tissue, To improve muscle performance and motor function, To improve ability to perform ADL's, To increase tolerance to activity/condition/position, To improve performance and independence with ADL's, To decrease level of supervision to perform tasks, To improve ability of physical actions for home/community/work/leisure, To improve gait and locomotor functions, To improve health of tissue, To increase flexibility/ROM Therapeutic Exercise to Include: Strength training, Gait and locomotor training, Passive ROM, Active ROM For the Purpose of:: To decrease pain, To decrease swelling/inflammation, To increase ROM, To improve nutrient delivery to tissue, To improve muscle performance and motor function, To improve ability to perform ADL's, To increase tolerance to activity/condition/position, To improve performance and independence with ADL's, To decrease level of supervision to perform tasks, To improve ability of physical actions for home/community/work/leisure, To improve gait and locomotor functions, To decrease soft tissue restriction, To increase flexibility/ROM Functional Training to Include: Gait training For the Purpose of:: To improve gait and locomotor functions, To improve safety with gait Thank you for the opportunity to evaluate your patient. For Medicare and Medicare HMO plans, please review the plan of care and approve it. It will need to be FAXED BACK to us at [phone] for Medicare purposes. For Medicare only, by signing this I certify the plan of care. Please let me know if there are questions or concerns regarding this plan of care. Physician Signature: Date:
--- NOTE | 2019-10-29 14:41 | HP.PTDCSUM_ITS ---
HP - PT D/C Summary It has been my pleasure to treat SYEDA CHILD under orders from Anton Charles MD, for the diagnosis of OA B knees for a total of 4 visit(s). Discharge Date: 10/29/19 Please see the following information for a summary of their discharge status. - Subjective Subjective: Pt states being quite sore in her Left quad muscle especially later that day and the next, I could hardly walk for two days. Feels the jump from 2 set to 3 sets of 10 was too much. Pt states 70% better overall. Wants to be done after today - feels the other 30% will just take time and compliance with indep gym exercise. - Pain R knee pain Pain Intensity (Out of 10): 0 L knee pain Pain Intensity (Out of 10): 0 - Overall Improvement % Improvement: 70 - Objective Objective/Function: Cont to review and demo exercise machines and progress indep log for pt. - Goals Goal 1:: I HEP and Silver [employer] gym rountine Goal Progress: Goal Met Goal 2:: Increase L knee strength by 1/2 muscle grade ( at time of the eval: LE MMT: Hip flex R 4-/5 and L 3+/5 B, Knee extension R 4-/5 and L 3+/5, R knee flexion 4-/5 and L knee flexion 3+/5, in supine hip abd 4/5 B and able to 3/4 normal ROM bridge, pt is able to heel raise and raise her toes about 1/4 normal range off the floor holding onto the palomares chair rail). Goal 3:: Decrease L knee pain to 3/10 with ADL's Goal Progress: Goal Met - Plan Plan: Pt wanted to d/c today - had pt fill out LEFS before leaving. - D/C Information Discharge Comments: DC PT to [facility] If there are questions or concerns regarding this patient's physical therapy, please feel free to call me at [phone]. Thank you for the referral of this patient. Sincerely, Rosina Vyas, MPT
== END 2019-10-22 19:00 | disposition home or self-care (01) ==
LOC: PT 08:30
PROVIDERS: Family Provider Family Medicine; PCP Family Medicine; Referring Provider Specialist; Visit Provider Specialist
DX: M17.0 Bilateral primary osteoarthritis of knee (principal)
CPT/HCPCS: 97110; 97162

== ENCOUNTER 2019-10-30 08:49 | Outpatient (RCR) | payer MEDICARE, SELFPAY ==
[2019-06-07 08:41] VITALS: BMI 24.9
== END 2019-10-30 08:49 | disposition home or self-care (01) ==
LOC: PT 08:49
PROVIDERS: Family Provider Family Medicine; PCP Family Medicine; Referring Provider Physician Assistant Surgical; Visit Provider Physician Assistant Surgical
DX: R69 Illness, unspecified (principal)

== ENCOUNTER → 2020-03-27 11:21 | Outpatient (CLI) | payer MEDICARE, SELFPAY ==
[2020-02-05 13:01] VITALS: BMI 23.5
[2020-03-27 15:38] LABS: Hematocrit 38.2 % (37-47); Hemoglobin 11.5 g/dL (12.0-15.0); Mean Corp Hgb Conc 30.1 g/dL (32-36); Mean Corpuscular Volume 92.9 fL (81-99); Mean Platelet Vol. 10.4 fl (6.2-12.0); Platelet Count 232 K/mm3 (150-450); RBC Distribution Width CV 13.9 % (11.6-14.6); RBC Distribution Width SD 47.5 fl (35.1-43.9); Red Blood Count 4.11 M/mm3 (4.2-5.4); White Blood Count 5.6 K/mm3 (4.4-11.0)
[2020-03-27 15:47] LABS: Anion Gap 6 (5-15); BUN 31 mg/dL (7-18); BUN/Creat Ratio 13.6 RATIO (10-20); Calcium,Total 8.5 mg/dL (8.5-10.1); Chloride 107 mmol/L (98-107); Creatinine, Serum 2.28 mg/dL (0.55-1.02); EST Glomerular Filtration Rate 22 mL/min (>60); Est Glom Filt Rate - Afr Amer 26 mL/min (>60); Glucose 84 mg/dL (74-106); Potassium 3.9 mmol/L (3.5-5.1); Sodium Level 140 mmol/L (136-145)
== END ==
PROVIDERS: PCP Family Medicine; Referring Provider Internal Medicine Cardiovascular Disease; Visit Provider Internal Medicine Cardiovascular Disease
DX: R55 Syncope and collapse (principal)
CPT/HCPCS: 36415; 80048; 85027

== ENCOUNTER 2020-04-04 10:13 | Day surgery (SDC) | payer MEDICARE, SELFPAY ==
[2020-02-05 13:01] VITALS: BMI 23.5
[2020-04-03 08:37] VITALS: BMI 23.5
--- NOTE | 2020-04-03 10:06 | HP.PCM_ITS ---
History and Physical Date of Admission: 04/04/20 History of Present Illness This is a 84-year-old female that presents here today to have a loop recorder placed. She has a history of minimal coronary artery disease, hypertension, hyperlipidemia and near syncope and syncope. She was originally scheduled to have a loop recorder placed and March for her near syncopal events however this was postponed due to her concerns over COVID. She does continue to have dizziness and would now like to have this placed. Intake Intake Visit Reasons: Amb Documentation Allergies Gadolinium-MRI Contrast Medium [CONTRAST] Allergy (Verified 04/03/20 10:01) Hives Latex, Natural Rubber Allergy (Verified 04/03/20 10:01) Rash hydralazine Adverse Reaction (Intermediate, Verified 04/03/20 10:01) Swelling amlodipine Adverse Reaction (Verified 04/03/20 10:01) dizziness codeine Adverse Reaction (Verified 04/03/20 10:01) drowsy tramadol [From Ultram] Adverse Reaction (Verified 04/03/20 10:01) Unknown Medications Cholecalciferol (VIT D3) [Vitamin D3] 1,000 unit PO DAILY@1400 11/29/14 [History Confirmed 04/03/20] Gabapentin [Neurontin] 300 mg PO DAILY@1800 11/29/14 [History Confirmed 04/03/20] [place]-3 Fatty Acids/Fish Oil [Fish Oil 1,000 mg Softgel] 1 cap PO DAILY@1200 11/29/14 [History Confirmed 04/03/20] Simvastatin [Zocor] 20 mg PO QHS 11/29/14 [History Confirmed 04/03/20] Aspirin E.C. [Ecotrin] 81 mg PO QHS 12/20/18 [History Confirmed 04/03/20] metoprolol tartrate 25 mg tablet 12.5 mg PO BID tab 03/21/20 [History Confirmed 04/03/20] [facility] Medical History Syncope (Acute) Atherosclerosis of coronary artery of [place] heart without angina pectoris (Chronic) Essential (primary) hypertension (Chronic) Hyperlipidemia (Chronic) Chronic kidney disease, stage 3 (moderate) (Chronic) GERD (gastroesophageal reflux disease) (Chronic) RSD lower limb (Chronic) Reflex sympathetic dystrophy (Chronic) Syncope (Resolved) Near syncope (Inactive) Surgical History History of hysterectomy (Chronic) History of left heart catheterization (Chronic 04/10/12) History of nasal septoplasty (Resolved) History of open reduction and internal fixation (ORIF) procedure (Resolved) History of repair of rotator cuff (Resolved) History of tonsillectomy (Resolved) Hx of cholecystectomy (Resolved) Status post insertion of spinal cord stimulator (Resolved) Social History Smoking Status: Never smoker ROS Const Const: Positive for fatigue; negative for weakness, fever(s) or headache(s) Eyes Eyes: Negative for blind spots, loss of peripheral vision or transient loss of vision ENT ENT: Positive for dizziness; negative for headache(s), tinnitus or Nosebleed/epistaxis Cardio Chest Pain: No Palpitations: No Edema: None Muscle aches with walking: None Resp Respiratory: Negative for SOB with activity, SOB at rest, SOB orthopnea\SOB lying down or Cough GI GI: Negative nausea, vomiting, heartburn or vomiting blood/hematemesis : Negative for hematuria Musc Musc: Negative for muscle aches/ myalgia Neuro Neuro: Positive for dizziness and near syncope; negative for lightheadedness, syncope, orthostatic symptoms, headache(s) or weakness Flavio Hematologic/Lymphatic: Negative for easy bleeding Endo Endo: Positive for fatigue Cardiology Exam Const Appearance: cooperative, healthy appearing, no acute distress, well developed and well groomed Nutritional Appearance: average body habitus and well nourished Orientation: alert, awake and oriented x3 Head Head: normal to inspection, normocephalic and atraumatic Ears: hearing grossly normal bilaterally and external ears normal Nose: external nose normal, nares normal, nasal mucous membranes and turbinates normal, septum normal, no nasal discharge Face and Sinus: face symmetric Mouth: oral mucosae normal, tongue normal, oropharynx normal and moist mucous membranes Teeth and gingiva: dentition normal Throat: posterior oropharynx normal, tonsils normal and uvula midline Eyes General: appearance normal, both eyes and all related structures Eyelids: eyelids normal Conjunctivae: conjunctivae normal Pupils: PERRL, normal by confrontation and accommodation normal EOM: EOM intact bilaterally Neck Neck: normal visual inspection, trachea midline and no JVD JVD: +5 Carotids: normal carotid upstroke and bounding pulses Chest Chest inspection: normal inspection of the chest, symmetric chest movement and normal respiratory effort Auscultation: Bilateral: Clear to Auscultation Cardio Palpation: normal PMI Rate: regular rate Rhythm: regular rhythm Heart sounds: S1 normal, S2 normal and normal, physiologic split S2; negative rub, gallop or murmur GI GI: normal to inspection, soft, no hepatosplenomegaly and bowel sounds present Neuro General: alert, awake, oriented x3, gait normal, moves all extremities and no focal sensory deficit Skin Skin: no rashes or lesions noted Extremities Lower Extremity Edema: +1: Bilateral Musculoskel Musculoskeletal: No joint tenderness Psych Psychological: normal affect Assessment & Plan 1. Essential hypertension I10 2. Atherosclerosis of [place] coronary artery of [place] heart without angina pectoris I25.10 50% mid LAD per [facility] and FFR 04/2012 3. Syncope R55 4. Pure hypercholesterolemia E78.00 With patient's continued concern over dizziness and near syncope she will proceed with a loop recorder. She will continue to follow-up in our office accordingly.
--- NOTE | 2020-04-04 12:09 | CL.IE_ITS ---
Patient: SYEDA CHILD Study Date: 04/04/2020 Performing: Shubham Ann MD : 1935 Age: 84 Gender: female PROCEDURES PERFORMED [id number] OF LOOP RECORDER INDICATIONS Syncope PROCEDURE DETAILS The patient was brought to the Catheterization Lab in the postabsorptive nonsedated state. Infor med consent was obtained prior to the procedure. Local anesthetic was given subcutaneously to the le ft upper chest area with Lidocaine 2%. Incision was made to the left upper chest. ICM Reveal LINQ was inserted into the pocket. Steri-strips applied to Lt chest area. The patient tolerated the procedur e well. Estimated Blood Loss: < 10 mls IMPLANTED / EX-PLANTED DEVICES IMPLANTED DEVICE(S): ICM Reveal LINQ - [employer] Agent: [employer], Model # [id number] Serial # [id number] DEVICE PARAMETERS CONCLUSIONS / RECOMMENDATIONS Device Conclusions: Successful implantation of a patient activated loop recorder. Device Recommendations: Follow up with Primary Care Physician PROCEDURE MEDICATIONS Oxygen: 2 L/min via nasal cannula Antibiotic given in appropriate timeframe. Ancef 2 Gm IV @ 04/04/2020 11:54:03 Signed By Shubham Ann MD On 04/04/2020 12:08:14 Shubham Ann MD
== END 2020-04-04 13:30 | disposition home or self-care (01) ==
LOC: CLSP 10:15
PROVIDERS: PCP Family Medicine; Referring Provider Internal Medicine Cardiovascular Disease; Visit Provider Internal Medicine Cardiovascular Disease
DX: R55 Syncope and collapse (principal); R42 Dizziness and giddiness; E78.5 Hyperlipidemia, unspecified; I25.10 Atherosclerotic heart disease of native coronary artery without angina pectoris; Z79.82 Long term (current) use of aspirin; Z79.899 Other long term (current) drug therapy; K21.9 Gastro-esophageal reflux disease without esophagitis; I12.9 Hypertensive chronic kidney disease with stage 1 through stage 4 chronic kidney disease, or unspecified chronic kidney disease; N18.3 Chronic kidney disease, stage 3 (moderate)
CPT/HCPCS: 33285; J7040

== ENCOUNTER → 2020-06-06 | Outpatient (CLI) | payer MEDICARE, SELFPAY ==
[2020-04-03 08:37] VITALS: BMI 23.5
== END | disposition home or self-care (01) ==
LOC: LAB 13:44
PROVIDERS: PCP Family Medicine; Referring Provider Nurse Practitioner Family; Visit Provider Nurse Practitioner Family
DX: I25.10 Atherosclerotic heart disease of native coronary artery without angina pectoris (principal); I12.9 Hypertensive chronic kidney disease with stage 1 through stage 4 chronic kidney disease, or unspecified chronic kidney disease; N18.3 Chronic kidney disease, stage 3 (moderate); R55 Syncope and collapse; R60.9 Edema, unspecified; M79.606 Pain in leg, unspecified

== ENCOUNTER 2020-08-27 09:17 | Observation (INO) | payer MEDICARE, SELFPAY ==
[2020-06-06 14:34] VITALS: BMI 23.5
[2020-08-27] VITALS (7 sets, daily range): BP systolic 147–169; BP diastolic 55–102; PULSE 70–87; RESP 17–18; TEMP 36.6–36.8; O2SAT 94–98; BMI 23.3; BMI 23.7
[2020-08-27] MEDS: Ondansetron 4 MG/2 ML Vial IV (10:19)
[2020-08-27] MEDS: Morphine 4 MG/ML Syringe IV (10:19)
[2020-08-27] MEDS: 0.9% Normal Saline 1,000 ML 1000 ML IV (10:19)
--- NOTE | 2020-08-27 10:26 | RAD_ITS ---
STUDY: X-RAY - PELVIS AND RIGHT HIP REASON FOR EXAM: Female, 85 years old. RIGHT GROIN PAIN X 2 DAYS. TECHNIQUE: 3 views of the pelvis and hip. COMPARISON: None. FINDINGS: There is a non-specific bowel gas pattern. A pain pump is seen overlying the right lower quadrant. There is narrowing with cortical sclerosis and osteophyte formation of the sacroiliac joint consistent with degenerative osteoarthritic changes. Normal bilateral superior and inferior pubic rami. Normal pubic symphysis. Normal bilateral ischial tuberosities. Normal visualized femoral head. Normal acetabulum. There is mild articular joint space narrowing of the hip. Spondylosis in the lower lumbar spine. RAD/HIP, UNI W/ Pelvis 2-3 Views IMPRESSION: Degenerative changes of the right hip as well as the sacroiliac joints and lower lumbar spine. Electronically Signed: Cristobal Hair, at 10:53 EDT , Service support ,
[2020-08-27 10:29] LABS: Absolute Lymphocyte Count 1.26 X10^3/uL (0.83-4.51); Absolute Neutrophil Count 8.1 X10^3/uL (2.0-7.7); Basophil# 0.06 X10^3/uL; Basophil% 0.6 % (0-1); Eosinophil# 0.02 X10^3/uL; Eosinophils% 0.2 % (0-5); Hematocrit 40.3 % (37-47); Hemoglobin 12.4 g/dL (12.0-15.0); Lymphocyte # 1.26 X10^3/ul (4.0); Lymphocyte % 12.2 % (19-41); Mean Corp Hgb Conc 30.8 g/dL (32-36); Mean Corpuscular Hgb 28.3 pg (27.0-32.0); Mean Platelet Vol. 9.2 fl (6.2-12.0); Monocyte# 0.95 X10^3/uL; Monocyte% 9.2 % (0-10); NRBC Flagged by Analyzer 0 % (0-5); Neutrophil # 8.05 X10^3/uL (2.7-7.7); Neutrophil % 77.5 % (47-70); Platelet Count 222 K/mm3 (150-450); RBC Distribution Width CV 13.5 % (11.6-14.6); RBC Distribution Width SD 45.7 fl (35.1-43.9); Red Blood Count 4.38 M/mm3 (4.2-5.4); White Blood Count 10.4 K/mm3 (4.4-11.0)
[2020-08-27 10:42] LABS: Anion Gap 6 (5-15); BUN 34 mg/dL (7-18); BUN/Creat Ratio 14.3 RATIO (10-20); Calcium,Total 9.5 mg/dL (8.5-10.1); Chloride 107 mmol/L (98-107); Creatinine, Serum 2.38 mg/dL (0.55-1.02); EST Glomerular Filtration Rate 21 mL/min (>60); Est Glom Filt Rate - Afr Amer 25 mL/min (>60); Estimated Creatinine Clearance 16.77 ml/min; Glucose 114 mg/dL (74-106); Potassium 4.1 mmol/L (3.5-5.1); Sodium Level 141 mmol/L (136-145)
[2020-08-27 11:28] LABS: Mucous, Urine 0 SEEN /hpf (<or=2+)
[2020-08-27 11:29] LABS: Color, Urine Yellow (Yellow); Glucose, Dipstick Normal (Normal); Ketone-Dipstick Negative (Negative); Leukocyte Esterase-Dipstick 500 /ul (Negative); Nitrite-Dipstick Negative (Negative); Occult Blood-Urine 25 /ul (Negative); Protein-Dipstick 30 mg/dl (Negative); Urine Bilirubin Dipstick Negative (Negative); Urine Clarity Sl. Cloudy (Clear); Urine Urobilinogen Normal (Normal)
[2020-08-27 11:40] LABS: Bacteria 2+ /hpf (None Seen); Red Blood Cells-Urine 0-5 SEEN /hpf (0-5); Squamous Epithelial Cells - UA 0-5 SEEN /hpf (5-10); White Blood Cells 25-50 SEEN /hpf (0-5)
--- NOTE | 2020-08-27 11:49 | ED.DCSUM_ITS ---
- ER Visit Summary Date of Service: 08/27/20 Chief Complaint: [Right groin pain and inability to ambulate] History of Present Illness: The patient is a 85 F [presents the emergency department with complaint of severe pain in her right groin that started 2 days ago. Patient denies any trauma. Patient states she cannot put any weight on it or walk today. Patient denies any injury or trauma. Patient denies any blood in her stool or urine. She denies any pain in her back. She does have history of hypertension, high cholesterol, syncope, and chronic kidney disease. Patient denies recent illness or exposures to anybody with COVID-19. Patient denies any weakness in the extremities. He denies dysuria although she does state that she has had some urinary frequency.] Physical Examination: [HEENT-PERRLA, EOMI. Cranial nerves II through XII grossly intact. TMs clear. Mucous membranes moist. No adenopathy. Cardiovascular-regular rate and rhythm without murmur or ectopy Lungs-clear to auscultation, chest wall stable without crepitus or subcu emphysema Abdomen-normoactive bowel sounds, soft, nontender, no rebound or rigidity, no peritoneal signs. Extremities-intact ?4, normal range of motion, normal pulses, atraumatic. Right groin-patient has diffuse tenderness palpation over the inguinal ligament on the right. There are no abscesses noted. There are no hernias noted. Patient has pain with range of motion at the right hip. Neurovascularly intact distally with normal sensation and normal pulses. Deep tendon reflexes are plus 2 out of 4 bilaterally at the patella and Achilles.] Test Results: [CBC with differential obtained showed a white of 10.9, hemoglobin 12, hematocrit 40, placed 222. Chemistries unremarkable. BUN 34 and creatinine 2.38. Urinalysis was significant for 500 excite esterase as well as 25-50 WBCs and +2 bacteria. Urine culture was sent and will be pending.] X- rays of the right hip and pelvis obtained showed no fractures only degenerative changes of the hip and lumbar spine. She had degenerative changes of the SI joints. Emergency Department Course and Treatment: [IV line established on arrival. Patient was medicated with morphine and Zofran for pain. Patient was started on Rocephin 1 g IV.] Treatment Plan: [Admit] Disposition: [Admit] Impression: [UTI Right groin pain-etiology uncertain Inability to ambulate secondary to pain] This note was generated with [employer] dictation software. It may contain incorrect words, spelling, and punctuation that were not noted in review of the chart prior to signing ED Disposition - Plan for ED Patient: Referrals: Giovanni Forte MD [Primary Care Provider] -
--- NOTE | 2020-08-27 11:52 | HP.PCM_ITS ---
Problem List (1) Right groin pain Status: Acute (2) Acute cystitis Status: Acute Qualifiers: Hematuria presence: without hematuria Qualified Code(s): N30.00 - Acute cystitis without hematuria (3) Atherosclerosis of coronary artery of [place] heart without angina pectoris Status: Chronic Qualifiers: Coronary Disease-Associated Artery/Lesion type: [place] artery Qualified Code(s): I25.10 - Atherosclerotic heart disease of [place] coronary artery without angina pectoris Comment: 50% mid LAD per [facility] and FFR 04/2012 (4) Essential (primary) hypertension Status: Chronic (5) Hyperlipidemia Status: Chronic Qualifiers: Hyperlipidemia type: pure hypercholesterolemia Qualified Code(s): E78.00 - Pure hypercholesterolemia, unspecified; E78.0 - Pure hypercholesterolemia (6) Chronic kidney disease, stage 3 (moderate) Status: Chronic History of Present Illness Date of Admission: 08/27/20 Chief Complaint: Right groin pain The patient is a 85 year old F who comorbidities who presented with right groin pain patient symptoms started 2 days prior to her admission. Patient denied any recent fall no trauma. Presented to the emergency department as a result of worsening symptoms. Extensive work-up in the ED was unremarkable except for her urinalysis which came back consistent with cystitis. On further questioning patient denied any subjective fever no chills no dysuria. Started on Rocephin after cultures have been obtained admitted to regular nursing floor for further management Past Medical History Past Medical History (Chronic Problems): Chronic Problems (Last Reviewed 08/27/20 @ 12:[address] Kwabena Henson MD) Atherosclerosis of coronary artery of [place] heart without angina pectoris (Chronic) 50% mid LAD per [facility] and FFR 04/2012 Essential (primary) hypertension (Chronic) Hyperlipidemia (Chronic) Chronic kidney disease, stage 3 (moderate) (Chronic) Medical History: Medical History (Last Reviewed 08/27/20 @ 12:[address] Kwabena Henson MD) Syncope (Inactive) R55 Atherosclerosis of coronary artery of [place] heart without angina pectoris (Chronic) I25.10 50% mid LAD per [facility] and FFR 04/2012 Essential (primary) hypertension (Chronic) I10 Hyperlipidemia (Chronic) E78.5 Chronic kidney disease, stage 3 (moderate) (Chronic) N18.3 GERD (gastroesophageal reflux disease) K21.9 RSD lower limb G90.529 Reflex sympathetic dystrophy G90.50 Syncope (Resolved) R55 Near syncope (Inactive) R55 Allergies Gadolinium-MRI Contrast Medium [CONTRAST] Allergy (Verified 08/27/20 09:20) Hives Latex, Natural Rubber Allergy (Verified 08/27/20 09:20) Rash hydralazine Adverse Reaction (Intermediate, Verified 08/27/20 09:20) Swelling amlodipine Adverse Reaction (Verified 08/27/20 09:20) dizziness codeine Adverse Reaction (Verified 08/27/20 09:20) drowsy I SLEEP REAL GOOD tramadol [From Ultra] Adverse Reaction (Verified 08/27/20 09:20) Unknown Home Medications: Ambulatory Orders Medication Instructions Recorded Cholecalciferol (VIT D3) [Vitamin 1,000 unit PO DAILY@1400 11/29/14 D3] Gabapentin [Neurontin] 300 mg PO DAILY@1800 11/29/14 [place]-3 Fatty Acids/Fish Oil [Fish 1 cap PO DAILY@1200 11/29/14 Oil 1,000 mg Softgel] Simvastatin [Zocor] 20 mg PO QHS 11/29/14 Aspirin E.C. [Ecotrin] 81 mg PO QHS 12/20/18 metoprolol tartrate 25 mg tablet 12.5 mg PO BID tab 03/21/20 alpha lipoic acid 200 mg capsule 200 mg PO DAILY 06/06/20 coenzyme Q10 100 mg capsule 100 mg PO BID cap 06/06/20 multivitamin 1 tab PO QAM 06/06/20 Surgical History: Surgical History (Last Reviewed 08/27/20 @ 12:[address] Kwabena Henson MD) History of loop recorder (Inactive) Onset Date: 04/04/20 Z98.890 History of hysterectomy Z98.890, Z90.710 History of left heart catheterization Onset Date: 04/10/12 Z98.890 History of nasal septoplasty Z98.890 History of open reduction and internal fixation (ORIF) procedure Z98.890 right elbow and left ankle History of repair of rotator cuff Z98.890 History of tonsillectomy Z98.890, Z90.89 Hx of cholecystectomy Z98.890, Z90.49 Status post insertion of spinal cord stimulator Z98.890 Surgical History: cholecystectomy, hysterectomy, rotator cuff repair, total knee arthroplasty, tonsillectomy, - - Nasal septoplasty, spinal cord stimulator franc cement, right rotator cuff surgery, cholecystectomy, ORIF left ankle, ORIF right elbow, TKR, hysterectomy. 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 Paternal History Items: Cancer, Diabetes Review of Systems Constitutional: Denies: Anorexia, Chills, Fever, Night Sweats, Weight Change HEENT: Denies: Head Aches, Sinus Congestion, Sinus Drainage Cardiovascular: Denies: Chest Pain, Orthopnea, Palpitations, Paroxysmal Noc. Dyspnea Respiratory: Denies: Cough, Shortness of breath at rest, Shortness of breath upon exertion, Sputum production Gastrointestinal: Denies: Abdominal Pain, Hematemesis, Hematochezia, Nausea, Melena, Vomiting Genitourinary: Denies: Dysuria, Frequency, Hematuria, Urgency Musculoskeletal: Reports: Joint Pain - Right groin pain. Denies: Joint Tenderness Skin: Denies: Rash Neurological: Denies: Focal weakness, Numbness, Tingling Psychiatric: Denies: Homicidal Ideations, Suicidal Ideations Hematologic/ Lymphatic: Denies: Easy Bruising, Easy Bleeding VTE Information - Inpt Only VTE Present on Admission: No VTE Mechan Device Prophylaxis: None VTE Pharm Prophylaxis ordered?: Yes Patient Problems: Active and Suspected Problems (Last Reviewed 08/27/20 @ 12:[address] Kwabena Henson MD) Right groin pain (Acute) Acute cystitis (Acute) Objective: GENERAL: cooperative HEENT: Atraumatic; EYES; Anicteric, Normal Conjunctiva NECK; supple, normal thyroid, RESPIRATORY: Diminished to auscultation CARDIOVASCULAR: Regular S1 S2, GI: soft, normoactive bowel sounds, : No Renal angle tenderness; EXTREMITIES: No edema, no clubbing, MUSCULOSKELETAL: no muscle waisting NEURO: Awake; no lateralizing signs. SKIN: No Rash PSYCH; Flat affect - Physical Exam Vitals/I&O's: Vital Signs Temp Pulse Resp BP Pulse Ox 98.1 F 70 17 147/102 H 97 08/27/20 09:20 08/27/20 09:20 08/27/20 09:20 08/27/20 09:20 08/27/20 09:20 Oxygen Delivery Method Room Air Weight: 65.771 kg Body Mass Index (BMI) 23.3 Laboratory Results 08/27/20 10:15: WBC 10.4, RBC 4.38, Hgb 12.4, Hct 40.3, MCV 92.0, MCH 28.3, MCHC 30.8 L, RDW Std Deviation 45.7 H, RDW Coeff of Sonny 13.5, Plt Count 222, MPV 9.2, Immature Gran % (Auto) 0.300, Neut % (Auto) 77.5 H, Lymph % (Auto) 12.2 L, [place] % (Auto) 9.2, Eos % (Auto) 0.2, Baso % (Auto) 0.6, Absolute Neuts (auto) 8.1 H, Absolute Lymphs (auto) 1.26, Nucleated RBC % 0 08/27/20 10:15: Sodium 141, Potassium 4.1, Chloride 107, Carbon Dioxide 28.0, Anion Gap 6, BUN 34 H, Creatinine 2.38 H, Estim Creat Clear Calc 16.77, Est GFR (MDRD) Af Amer 25 L, Est GFR (MDRD) Non-Af 21 L, BUN/Creatinine Ratio 14.3, Glucose 114 H, Calcium 9.5 08/27/20 11:15: Urine Color Yellow, Urine Clarity Sl. Cloudy, Urine pH 7.0, Ur Specific [place] 1.010, Urine Protein 30 H, Urine Glucose (UA) Normal, Urine Ketones Negative, Urine Occult Blood 25 H, Urine Nitrite Negative, Urine Biliru bin Negative, Urine Urobilinogen Normal, Ur Leukocyte Esterase 500 H, Urine RBC 0-5 SEEN, Urine WBC 25-50 SEEN, Ur Squamous Epith Cells 0-5 SEEN, Urine Bacteria 2+, Urine Mucus 0 SEEN Current Medications Sodium Chloride () 1,000 mls @ 15 mls/hr IV .Q48H SADE Ceftriaxone Sodium (Rocephin) 1 gm in 50 mls @ 100 mls/hr IV X1 ONE Stop: 08/27/20 12:18 Assessment/Plan All Active Problems (Last Reviewed 08/27/20 @ 12:[address] Kwabena Henson MD) Right groin pain (Acute) Acute cystitis (Acute) Syncope (Resolved) Patient is an 85-year-old lady presented with right groin pain. Found to have acute cystitis in addition 1. Right groin pain ?Imaging studies negative for any acute fracture do suspect musculoskeletal pain admitted to regular nursing floor for further management 2. Acute cystitis - started on Rocephin cultures sent with plans to adjust antibiotics based on culture result 3. Chronic kidney disease stage IV ?Baseline creatinine 2, was 2.28 on admission on IV fluid with subsequent monitoring of electrolyte 4. Hypertension - Blood pressure controlled, home medications continued with dose adjustment as needed 5. Dyslipidemia -Patient is on statin therapy, continued at home dose 6. GERD ?On PPI 7. Chronic pain syndrome (RSD) -status post spinal cord stimulator 8. Status post event loop recorder ?On account of recurrent syncopal episode 9. DVT prophylaxis ?On Lovenox dose adjusted for kidney function Advance planning; did discuss with the patient and family regarding advanced directives as well as CODE STATUS. Did explain the various scenarios involved ( FULL CODE, DNR CCA, DNR CCA with no intubation, and DNR CC and what each meant) patient elected full code with CPR and intubation if needed. Order was placed. Time spent on discussion 18 minutes. OBSV E&M: [id number] Initial observation care L3 Procedures: 72182 Advncd Care Plan 30 Min
--- NOTE | 2020-08-27 11:54 | NURSING ---
DR HERMELINDA JUNIOR
--- NOTE | 2020-08-27 12:02 | NURSING ---
MED SURG KITTOE INABILTIY TO AMBULATE, UTI, RT GROIN PAIN
[2020-08-27] MEDS: Ceftriaxone 1 GM/50 ML BAG IV (12:35)
[2020-08-27] MEDS: Gabapentin 300 MG Capsule PO (19:46)
[2020-08-27] MEDS: Metoprolol Tartrate 25 MG Tablet 12.5 MG PO (21:43)
[2020-08-27] MEDS: Aspirin E.C. 81 MG Tablet PO (21:45)
[2020-08-27] MEDS: Atorvastatin Calcium 10 MG Tablet PO (21:45)
[2020-08-28 02:50] VITALS: BP 142/53; PULSE 74; RESP 18; TEMP 36.7; O2SAT 95
[2020-08-28] MEDS: Enoxaparin 30 MG/0.3 ML Syringe SC (06:37)
[2020-08-28 07:13] LABS: Absolute Lymphocyte Count 1.35 X10^3/uL (0.83-4.51); Absolute Neutrophil Count 4.5 X10^3/uL (2.0-7.7); Basophil# 0.05 X10^3/uL; Basophil% 0.7 % (0-1); Eosinophil# 0.07 X10^3/uL; Hematocrit 32.9 % (37-47); Lymphocyte # 1.35 X10^3/ul (4.0); Lymphocyte % 19.9 % (19-41); Mean Corp Hgb Conc 30.4 g/dL (32-36); Mean Corpuscular Hgb 28.2 pg (27.0-32.0); Mean Corpuscular Volume 92.9 fL (81-99); Mean Platelet Vol. 9.4 fl (6.2-12.0); Monocyte# 0.75 X10^3/uL; NRBC Flagged by Analyzer 0 % (0-5); Neutrophil # 4.54 X10^3/uL (2.7-7.7); Platelet Count 194 K/mm3 (150-450); RBC Distribution Width CV 13.5 % (11.6-14.6); RBC Distribution Width SD 46.4 fl (35.1-43.9); Red Blood Count 3.54 M/mm3 (4.2-5.4); White Blood Count 6.8 K/mm3 (4.4-11.0)
[2020-08-28 07:39] LABS: Anion Gap 4 (5-15); BUN 31 mg/dL (7-18); BUN/Creat Ratio 14.1 RATIO (10-20); Calcium,Total 8.6 mg/dL (8.5-10.1); Chloride 110 mmol/L (98-107); EST Glomerular Filtration Rate 23 mL/min (>60); Est Glom Filt Rate - Afr Amer 27 mL/min (>60); Estimated Creatinine Clearance 18.14 ml/min; Glucose 85 mg/dL (74-106); Magnesium 2.4 mg/dL (1.6-2.6); Potassium 4.3 mmol/L (3.5-5.1); Sodium Level 140 mmol/L (136-145)
--- NOTE | 2020-08-28 07:46 | PCM.PN.HOSP ---
Patient Problems: Active and Suspected Problems (Last Reviewed 08/27/20 @ 12:[address] Kwabena Henson MD) Right groin pain (Acute) Acute cystitis (Acute) Reason for Visit: Right groin pain Acute cystitis Subjective: Patient is an 85-year-old lady admitted with progressive generalized weakness with significant right groin pain. Was found to have acute cystitis admitted to regular nursing floor where patient is currently being managed. Was started on antibiotics cultures have been sent. Objective: GENERAL: cooperative HEENT: Atraumatic; EYES; Anicteric, Normal Conjunctiva NECK; supple, normal thyroid, RESPIRATORY: Diminished to auscultation CARDIOVASCULAR: Regular S1 S2, GI: soft, normoactive bowel sounds, : No Renal angle tenderness; EXTREMITIES: No edema, no clubbing, MUSCULOSKELETAL: no muscle waisting NEURO: Awake; no lateralizing signs. SKIN: No Rash PSYCH; Flat affect Vitals/I&O's: Vital Signs Temp Pulse Resp BP Pulse Ox 98.1 F 74 18 142/53 H 95 08/28/20 02:50 08/28/20 02:50 08/28/20 02:50 08/28/20 02:50 08/28/20 02:50 Oxygen Delivery Method Room Air Weight: 66.7 kg Body Mass Index (BMI) 23.7 Intake and Output for Last 24 Hours 08/26/20 08/27/20 08/28/20 23:59 23:59 23:59 Intake Total 1150 / 1150 500 / 500 Output Total 360 / 360 Balance 1150 / 1150 140 / 140 Laboratory Results 08/27/20 10:15: WBC 10.4, RBC 4.38, Hgb 12.4, Hct 40.3, MCV 92.0, MCH 28.3, MCHC 30.8 L, RDW Std Deviation 45.7 H, RDW Coeff of Sonny 13.5, Plt Count 222, MPV 9.2, Immature Gran % (Auto) 0.300, Neut % (Auto) 77.5 H, Lymph % (Auto) 12.2 L, Rogers % (Auto) 9.2, Eos % (Auto) 0.2, Baso % (Auto) 0.6, Absolute Neuts (auto) 8.1 H, Absolute Lymphs (auto) 1.26, Nucleated RBC % 0 08/27/20 10:15: Sodium 141, Potassium 4.1, Chloride 107, Carbon Dioxide 28.0, Anion Gap 6, BUN 34 H, Creatinine 2.38 H, Estim Creat Clear Calc 16.77, Est GFR (MDRD) Af Amer 25 L, Est GFR (MDRD) Non-Af 21 L, BUN/Creatinine Ratio 14.3, Glucose 114 H, Calcium 9.5 08/27/20 11:15: Urine Color Yellow, Urine Clarity Sl. Cloudy, Urine pH 7.0, Ur Specific [place] 1.010, Urine Protein 30 H, Urine Glucose (UA) Normal, Urine Ketones Negative, Urine Occult Blood 25 H, Urine Nitrite Negative, Urine Bilirubin Negative, Urine Urobilinogen Normal, Ur Leukocyte Esterase 500 H, Urine RBC 0-5 SEEN, Urine WBC 25-50 SEEN, Ur Squamous Epith Cells 0-5 SEEN, Urine Bacteria 2+, Urine Mucus 0 SEEN 08/28/20 06:30: WBC 6.8, RBC 3.54 L, Hgb 10.0 L, Hct 32.9 L, MCV 92.9, MCH 28.2, MCHC 30.4 L, RDW Std Deviation 46.4 H, RDW Coeff of Sonny 13.5, Plt Count 194, MPV 9.4, Immature Gran % (Auto) 0.400, Neut % (Auto) 67.0, Lymph % (Auto) 19.9, [place] % (Auto) 11.0 H, Eos % (Auto) 1.0, Baso % (Auto) 0.7, Absolute Neuts (auto) 4.5, Absolute Lymphs (auto) 1.35, Nucleated RBC % 0 08/28/20 06:30: Sodium 140, Potassium 4.3, Chloride 110 H, Carbon Dioxide 26.0, Anion Gap 4 L, BUN 31 H, Creatinine 2.20 H, Estim Creat Clear Calc 18.14, Est GFR (MDRD) Af Amer 27 L, Est GFR (MDRD) Non-Af 23 L, BUN/Creatinine Ratio 14.1, Glucose 85, Calcium 8.6, Magnesium 2.4 Current Medications Acetaminophen (Acetaminophen 325 Mg Tablet) 650 mg PO Q6H PRN PRN PRN Reason: Pain Score 1-10/Temp > 100.7 F Al Hydroxide/Mg Hydroxide (Mag Hydrox/Al Hydrox/Simeth 30 Ml Udc) 30 ml PO Q6H PRN PRN PRN Reason: Gastric Burning Albuterol Sulfate (Albuterol 2.5 Mg/3 Ml Vial.Neb.) 2.5 mg INHALATION Q2H PRN PRN PRN Reason: Shortness of Breath/Wheezing Aspirin (Aspirin E.C. 81 Mg Tablet) 81 mg PO QHS [facility] Last Admin: 08/27/20 21:45 Dose: 81 mg Documented by: Atorvastatin Calcium (Atorvastatin Calcium 10 Mg Tablet) 10 mg PO QHS [facility] Last Admin: 08/27/20 21:45 Dose: 10 mg Documented by: Cholecalciferol (Cholecalciferol (Vit D3) 1,000 Unit (25mcg)) 1,000 unit PO DAILY@1400 [facility] Last Admin: 08/27/20 19:46 Dose: 1,000 unit Documented by: Enoxaparin Sodium (Enoxaparin 30 Mg/0.3 Ml Syringe) 30 mg SC DAILY@0600 [facility] Last Admin: 08/28/20 06:37 Dose: 30 mg Documented by: Gabapentin (Gabapentin 300 Mg Capsule) 300 mg PO DAILY@1800 [facility] Last Admin: 08/27/20 19:46 Dose: 300 mg Documented by: Guaifenesin (Guaifenesin 10 Ml Udc (200mg/10ml)) 20 ml PO Q4H PRN PRN PRN Reason: COUGH Sodium Chloride () 1,000 mls @ 15 mls/hr IV .Q48H [facility] Ceftriaxone Sodium (Rocephin) 1 gm in 50 mls @ 100 mls/hr IV Q24 [facility] Stop: 09/04/20 10:01 Melatonin (Melatonin 3 Mg Tablet) 3 mg PO QHS PRN PRN PRN Reason: INSOMNIA Metoprolol Tartrate (Metoprolol Tartrate 25 Mg Tablet) 12.5 mg PO BID [facility] Last Admin: 08/27/20 21:43 Dose: 12.5 mg Documented by: Morphine Sulfate (Morphine 4 Mg/Ml Syringe) 4 mg IV Q3H PRN PRN PRN Reason: Pain Score 6-10 Ondansetron HCl (Ondansetron 4 Mg/2 Ml Vial) 4 mg IV Q8H PRN PRN PRN Reason: NAUSEA/VOMITING Oxycodone HCl (Oxycodone 5 Mg Tablet) 10 mg PO Q4H PRN PRN PRN Reason: Pain Score 4-5 Senna/Docusate Sodium (Senna/Docusate Sodium 1 Tablet) 2 tablet PO BID PRN PRN PRN Reason: Constipation Sodium Chloride (0.9% Saline Lock 10 Ml Syringe) 10 - 40 ml IV UD PRN PRN Reason: SALINE FLUSH Medical Necessity - Tobacco Use Smoking Status: Never smoker Assessment/Plan All Active Problems (Last Reviewed 08/27/20 @ 12:[address] Kwabena Henson MD) Right groin pain (Acute) Acute cystitis (Acute) Syncope (Resolved) Patient is an 85-year-old lady presented with right groin pain. Found to have acute cystitis in addition 1. Right groin pain ?Imaging studies negative for any acute fracture do suspect musculoskeletal pain admitted to regular nursing floor for further management ?08/28/2020 requested for PT/OT eval and treatment and social services aide to assist with discharge planning 2. Acute cystitis - started on Rocephin cultures sent with plans to adjust antibiotics based on culture result -08/28/2020; culture results pending 3. Chronic kidney disease stage IV ?Baseline creatinine 2, was 2.28 on admission on IV fluid with subsequent monitoring of electrolyte 4. Hypertension - Blood pressure controlled, home medications continued with dose adjustment as needed 5. Dyslipidemia -Patient is on statin therapy, continued at home dose 6. GERD ?On PPI 7. Chronic pain syndrome (RSD) -status post spinal cord stimulator 8. Status post event loop recorder ?On account of recurrent syncopal episode 9. DVT prophylaxis ?On Lovenox dose adjusted for kidney function OBSV E&M: 16371 Initial observation care L3
[2020-08-28 08:42] VITALS: PULSE 85
[2020-08-28] MEDS: Metoprolol Tartrate 25 MG Tablet 12.5 MG PO ×2 (08:42→21:41)
[2020-08-28 08:45] VITALS: BP 131/56; PULSE 85; RESP 18; TEMP 36.9; O2SAT 97
[2020-08-28] MEDS: Ceftriaxone 1 GM/50 ML BAG IV (10:24)
[2020-08-28] MEDS: 0.9% Saline Lock 10 ML Syringe IV (10:24)
--- NOTE | 2020-08-28 14:03 | CHAPLAIN ---
Type of Pastoral Visit _x__ Initial Visit ___ Follow-up Visit ___ On-call Visit ___ General Patient Visit ___ Spiritual Assessment ___ Family Conference ___ Bereavement ___ Rapid Response ___ Code Blue ___ Other (describe below) Pastoral Care Referral From _x__ Patient ___ Family ___ Nurse ___ Physician ___ Fire Fighters Dispatcher ___ Production Posting Clerk ___ Other (describe below) Sacrament/Intervention _x__ Active listening ___ Anointing ___ Tenriism ___ Bereavement ___ Communion ___ Gabby exploration ___ ___ Life review _x__ Prayer ___ Reconciliation ___ Sacrament of Sick _x__ Supportive presence ___ Wedding ___ Other (describe below) Pastoral Comments
[2020-08-28 14:10] VITALS: BP 142/58; PULSE 72; RESP 16; TEMP 36.7; O2SAT 99
--- NOTE | 2020-08-28 15:50 | CASEMGMT ---
RN RASHEL Face to Face with patient for initial transition planning/care coordination assessment. RN CM introduced self and role at [facility]. Patient sitting in chair, alert and oriented. Patient willing to participate in assessment and is able to answer all questions appropriately. Care providers, pharmacy, and demographics verified. Patient wishes to discharge home with possible HHC at discharge. Patient states she has no further needs or concerns at this time. CM to follow for discharge planning needs that may arise. PCP: Reanna Specialists: Seth, sr. manager corporate communications; Jayson Timber Grader Preferred Pharmacy: [facility] Insurance: [employer] Prescription Benefit: yes Living Will/HPOA: yes, Talib Silveira LNOK: Living Arrangements: Patient lives with in a [place] with 9 steps to main level of home. Patient states she is independent at home. Transportation: self/ DME/HHC: Patient states she has cane, walker, wheelchair, grab bars, lift chair at home. Will monitor for need for HHC at discharge. Patient has previously been to [facility] in the past. Disposition Plan: Patient to discharge home with family support and follow-up plans in place. Will monitor for need for HHC at discharge. Misti NULL, RN, CM
[2020-08-28] MEDS: Gabapentin 300 MG Capsule PO (18:19)
[2020-08-28 20:28] VITALS: BP 173/64; PULSE 89; RESP 16; TEMP 36.9; O2SAT 97
[2020-08-28 21:41] VITALS: BP 173/64; PULSE 89
[2020-08-28] MEDS: Atorvastatin Calcium 10 MG Tablet PO (21:41)
[2020-08-28] MEDS: Aspirin E.C. 81 MG Tablet PO (21:41)
[2020-08-29] MEDS: Enoxaparin 30 MG/0.3 ML Syringe SC (06:08)
[2020-08-29 07:27] LABS: Absolute Lymphocyte Count 1.54 X10^3/uL (0.83-4.51); Absolute Neutrophil Count 4.6 X10^3/uL (2.0-7.7); Basophil# 0.05 X10^3/uL; Basophil% 0.7 % (0-1); Eosinophil# 0.13 X10^3/uL; Eosinophils% 1.8 % (0-5); Hematocrit 34.3 % (37-47); Hemoglobin 10.7 g/dL (12.0-15.0); Lymphocyte # 1.54 X10^3/ul (4.0); Lymphocyte % 21.5 % (19-41); Mean Corp Hgb Conc 31.2 g/dL (32-36); Mean Corpuscular Hgb 28.6 pg (27.0-32.0); Mean Corpuscular Volume 91.7 fL (81-99); Mean Platelet Vol. 9.1 fl (6.2-12.0); Monocyte# 0.77 X10^3/uL; Monocyte% 10.8 % (0-10); NRBC Flagged by Analyzer 0 % (0-5); Neutrophil # 4.64 X10^3/uL (2.7-7.7); Neutrophil % 64.9 % (47-70); Platelet Count 196 K/mm3 (150-450); RBC Distribution Width CV 13.5 % (11.6-14.6); RBC Distribution Width SD 45.4 fl (35.1-43.9); Red Blood Count 3.74 M/mm3 (4.2-5.4); White Blood Count 7.2 K/mm3 (4.4-11.0)
[2020-08-29 07:37] VITALS: BP 158/81; PULSE 82; RESP 16; TEMP 36.9; O2SAT 98
[2020-08-29 07:59] LABS: Anion Gap 5 (5-15); BUN 40 mg/dL (7-18); BUN/Creat Ratio 16.5 RATIO (10-20); Calcium,Total 8.3 mg/dL (8.5-10.1); Chloride 109 mmol/L (98-107); Creatinine, Serum 2.43 mg/dL (0.55-1.02); EST Glomerular Filtration Rate 20 mL/min (>60); Est Glom Filt Rate - Afr Amer 24 mL/min (>60); Estimated Creatinine Clearance 16.42 ml/min; Glucose 84 mg/dL (74-106); Sodium Level 140 mmol/L (136-145)
[2020-08-29 09:30] VITALS: BP 132/64; PULSE 55; RESP 24; TEMP 37.3; O2SAT 95
--- NOTE | 2020-08-29 09:30 | CASEMGMT ---
JORGE KISER updated by hospitalist and DIABETES TRAINER that patient is appropriate for SNF at discharge. JORGE KISER in to discuss discharge planning. RN RASHEL explained to patient concerns for patient going home and needed assistance with transfers. Son Mason and FAROOQ called patients cell phone in room while JORGE KISER was talking with patient. Malik and FAROOQ on speaker phone and explained options regarding SNF and HHC, along with therapy recommendations. Patient and family requesting list of SNF to review. RN RASHEL updated [place] Mccord regarding requet for SNF list.
--- NOTE | 2020-08-29 09:40 | CASEMGMT ---
Addendum entered by Misti Mccord 08/29/20 14:52: Pt's son and DIL was still on phone when this worker entered the room and were agreeable to pt staying at [facility] For therapy. Original Note: Social Work Note SW updated that pt may be agreeable to SNF placement at discharge. SW in to speak with pt. SW introduced self and role at [facility]. Pt is alert and orientated x3. SW provided pt with list of SNF that accept pt's insurance. Pt agreeable to [facility]. [place] placed a call to referral line and spoke to Sarina and provided referral. Sarina states she will review referral. Plan: TCU pending acceptance and pre-cert Misti Mccord ELECTROLYSIS OPERATOR, MEDICATION NURSE
[2020-08-29] MEDS: Ceftriaxone 1 GM/50 ML BAG IV (09:47)
[2020-08-29] MEDS: oxyCODONE 5 MG Tablet 10 MG PO (09:47)
[2020-08-29 09:48] VITALS: BP 158/81; PULSE 82
[2020-08-29] MEDS: Metoprolol Tartrate 25 MG Tablet 12.5 MG PO (09:48)
--- NOTE | 2020-08-29 10:39 | PN_ITS ---
Patient Problems: Active and Suspected Problems (Last Reviewed 08/27/20 @ 12:[address] Kwabena Henson MD) Right groin pain (Acute) Acute cystitis (Acute) Reason for Visit: Adult failure to thrive Acute cystitis of Subjective: Patient is an 85-year-old lady admitted with progressive generalized weakness wi th significant right groin pain. Was found to have acute cystitis admitted to regular nursing floor where patient is currently being managed. Was started on antibiotics cultures have been sent. Urine cultures came back positive for Enterobacter. Patient treated appropriately with Rocephin. Objective: GENERAL: cooperative HEENT: Atraumatic; EYES; Anicteric, Normal Conjunctiva NECK; supple, normal thyroid, RESPIRATORY: Diminished to auscultation CARDIOVASCULAR: Regular S1 S2, GI: soft, normoactive bowel sounds, : No Renal angle tenderness; EXTREMITIES: No edema, no clubbing, MUSCULOSKELETAL: no muscle waisting NEURO: Awake; no lateralizing signs. SKIN: No Rash PSYCH; Flat affect Vitals/I&O's: Vital Signs Temp Pulse Resp BP Pulse Ox 99.1 F 82 24 H 158/81 H 95 08/29/20 09:30 08/29/20 09:48 08/29/20 09:30 08/29/20 09:48 08/29/20 09:30 Oxygen Delivery Method Room Air Weight: 66.7 kg Body Mass Index (BMI) 23.7 Intake and Output for Last 24 Hours 08/27/20 08/28/20 08/29/20 23:59 23:59 23:59 Intake Total 1150 / 1150 1090 / 1090 400 / 400 Output Total 760 / 760 230 / 230 Balance 1150 / 1150 330 / 330 170 / 170 Microbiology Past 72 Hours 08/27/20 11:15 Urine, Clean Catch Urine Culture - Final Enterobacter aerogenes Laboratory Results 08/29/20 06:50: WBC 7.2, RBC 3.74 L, Hgb 10.7 L, Hct 34.3 L, MCV 91.7, MCH 28.6, MCHC 31.2 L, RDW Std Deviation 45.4 H, RDW Coeff of Sonny 13.5, Plt Count 196, MPV 9.1, Immature Gran % (Auto) 0.300, Neut % (Auto) 64.9, Lymph % (Auto) 21.5, [place] % (Auto) 10.8 H, Eos % (Auto) 1.8, Baso % (Auto) 0.7, Absolute Neuts (auto) 4.6, Absolute Lymphs (auto) 1.54, Nucleated RBC % 0 08/29/20 06:50: Sodium 140, Potassium 4.0, Chloride 109 H, Carbon Dioxide 26.0, Anion Gap 5, BUN 40 H, Creatinine 2.43 H, Estim Creat Clear Calc 16.42, Est GFR (MDRD) Af Amer 24 L, Est GFR (MDRD) Non-Af 20 L, BUN/Creatinine Ratio 16.5, Glucose 84, Calcium 8.3 L Current Medications Acetaminophen (Acetaminophen 325 Mg Tablet) 650 mg PO Q6H PRN PRN PRN Reason: Pain Score 1-10/Temp > 100.7 F Al Hydroxide/Mg Hydroxide (Mag Hydrox/Al Hydrox/Simeth 30 Ml Udc) 30 ml PO Q6H PRN PRN PRN Reason: Gastric Burning Albuterol Sulfate (Albuterol 2.5 Mg/3 Ml Vial.Neb.) 2.5 mg INHALATION Q2H PRN PRN PRN Reason: Shortness of Breath/Wheezing Aspirin (Aspirin E.C. 81 Mg Tablet) 81 mg PO QHS [facility] Last Admin: 08/28/20 21:41 Dose: 81 mg Documented by: Atorvastatin Calcium (Atorvastatin Calcium 10 Mg Tablet) 10 mg PO QHS [facility] Last Admin: 08/28/20 21:41 Dose: 10 mg Documented by: Cholecalciferol (Cholecalciferol (Vit D3) 1,000 Unit (25mcg)) 1,000 unit PO DAILY@1800 [facility] Last Admin: 08/28/20 18:19 Dose: 1,000 unit Documented by: Enoxaparin Sodium (Enoxaparin 30 Mg/0.3 Ml Syringe) 30 mg SC DAILY@0600 [facility] Last Admin: 08/29/20 06:08 Dose: 30 mg Documented by: Gabapentin (Gabapentin 300 Mg Capsule) 300 mg PO DAILY@1800 [facility] Last Admin: 08/28/20 18:19 Dose: 300 mg Documented by: Guaifenesin (Guaifenesin 10 Ml Udc (200mg/10ml)) 20 ml PO Q4H PRN PRN PRN Reason: COUGH Ceftriaxone Sodium (Rocephin) 1 gm in 50 mls @ 100 mls/hr IV Q24 [facility] Stop: 08/31/20 10:01 Last Admin: 08/29/20 09:47 Dose: 100 mls/hr Documented by: Sodium Chloride () 250 mls @ 15 mls/hr IV .[id number] PRN PRN Reason: Saline Flush Sodium Chloride () 250 mls @ 15 mls/hr IV .[id number] PRN PRN Reason: Additional IVPB Infusion Melatonin (Melatonin 3 Mg Tablet) 3 mg PO QHS PRN PRN PRN Reason: INSOMNIA Metoprolol Tartrate (Metoprolol Tartrate 25 Mg Tablet) 12.5 mg PO BID [facility] Last Admin: 08/29/20 09:48 Dose: 12.5 mg Documented by: Morphine Sulfate (Morphine 4 Mg/Ml Syringe) 4 mg IV Q3H PRN PRN PRN Reason: Pain Score 6-10 Ondansetron HCl (Ondansetron 4 Mg/2 Ml Vial) 4 mg IV Q8H PRN PRN PRN Reason: NAUSEA/VOMITING Oxycodone HCl (Oxycodone 5 Mg Tablet) 10 mg PO Q4H PRN PRN PRN Reason: Pain Score 4-5 Last Admin: 08/29/20 09:47 Dose: 10 mg Documented by: Senna/Docusate Sodium (Senna/Docusate Sodium 1 Tablet) 2 tablet PO BID PRN PRN PRN Reason: Constipation Sodium Chloride (0.9% Saline Lock 10 Ml Syringe) 10 - 40 ml IV UD PRN PRN Reason: SALINE FLUSH Last Admin: 08/28/20 10:24 Dose: 10 ml Documented by: STROKE Vital Signs/Narrative: Vital Signs Temp Pulse Resp BP Pulse Ox 08/29/20 09:48 82 158/81 H 08/29/20 09:30 99.1 F 55 L 24 H 132/64 H 95 08/29/20 07:37 98.5 F 82 16 158/81 H 98 Medical Necessity - Tobacco Use Smoking Status: Never smoker Assessment/Plan All Active Problems (Last Reviewed 08/27/20 @ 12:[address] Kwabena Henson MD) Right groin pain (Acute) Acute cystitis (Acute) Syncope (Resolved) Patient is an 85-year-old lady presented with right groin pain. Found to have acute cystitis in addition 1. Right groin pain ?Imaging studies negative for any acute fracture do suspect musculoskeletal pain admitted to regular nursing floor for further management ?08/28/2020 requested for PT/OT eval and treatment and social work program coordinator to assist with discharge planning line? ?08/29/2020 patient seen currently participating in physical therapy. [facility] coordinator cardiopulmonary services assisting with disposition. Plan is for patient to be transferred to the transitional care unit pending insurance precertification. 2. Acute cystitis with Enterobacter - started on Rocephin cultures sent with plans to adjust antibiotics based on culture result -08/28/2020; culture results pending - Urine cultures came back positive for Enterobacter. Patient treated appropriately with Rocephin. 3. Chronic kidney disease stage IV ?Baseline creatinine 2, was 2.28 on admission on IV fluid with subsequent monitoring of electrolyte 4. Hypertension - Blood pressure controlled, home medications continued with dose adjustment as needed 5. Dyslipidemia -Patient is on statin therapy, continued at home dose 6. GERD ?On PPI 7. Chronic pain syndrome (RSD) -status post spinal cord stimulator 8. Status post event loop recorder ?On account of recurrent syncopal episode 9. DVT prophylaxis ?On Lovenox dose adjusted for kidney function Inpatient E&M: 51734 Subs Hosp L2 OBSV E&M: 23653 Subsequent observation care L2
--- NOTE | 2020-08-29 11:00 | CASEMGMT ---
RN CM NOTE: To room at this time to review MORAN w/pt. in room visiting. Introduced self and role of RN CM. Reviewed MORAN form with pt/ and questions answered. Form signed by pt, copy made and placed on chart, and original given to pt. They deny having other questions at this time. Instructed to ask for RN CM if any further questions arise. They voice understanding. Elkin NULL RN CM
[2020-08-29 13:34] VITALS: BP 164/79; PULSE 77; RESP 20; TEMP 36.3; O2SAT 95
--- NOTE | 2020-08-29 13:55 | PCM.TXEXTCAR ---
- Diet 08/27/20 13:09 Diet: Regular - General Food consistency:: Regular Liquid Consistency:: Regular/Thin - Routine Orders/Code Status Code Status: Full Code - Therapies Physical Therapy: Eval and Treat Occupational Therapy: Eval and Treat - Problem/Diagnosis (1) Right groin pain Status: Acute (2) Acute cystitis Status: Acute (3) Atherosclerosis of coronary artery of [place] heart without angina pectoris Status: Chronic Comment: 50% mid LAD per LHC and FFR 04/2012 (4) Essential (primary) hypertension Status: Chronic (5) Hyperlipidemia Status: Chronic (6) Chronic kidney disease, stage 3 (moderate) Status: Chronic - Allergies/Procedures Done in Hospital Allergies/Adverse Reactions: Allergies Gadolinium-MRI Contrast Medium [CONTRAST] Allergy (Verified 08/27/20 09:20) Hives Latex, Natural Rubber Allergy (Verified 08/27/20 09:20) Rash hydralazine Adverse Reaction (Intermediate, Verified 08/27/20 09:20) Swelling amlodipine Adverse Reaction (Verified 08/27/20 09:20) dizziness codeine Adverse Reaction (Verified 08/27/20 09:20) drowsy I SLEEP REAL GOOD tramadol [From Ultram] Adverse Reaction (Verified 08/27/20 09:20) Unknown - Type of Care/Length of Stay Estimated LOS: Convalescent Care Less Than 30 days Type of Care Needed: Skilled Rehab Potential: Good Prognosis: Good - Additional Orders/Day of Discharge Day of Discharge: 08/29/20 - Follow Up Care Primary Care Physician: Giovanni Forte MD [Primary Care Provider] -
--- NOTE | 2020-08-29 13:57 | PCM.DC.SUM ---
Discharge Date and Diagnosis - Problem List Patient Problems: Active and Suspected Problems (Last Reviewed 08/27/20 @ 12:[address] Kwabena Henson MD) Right groin pain (Acute) Acute cystitis (Acute) Date of Admission: 08/27/20 Date of Discharge: 08/29/20 - Primary Discharge Diagnosis Acute Problems: Active Problems (Last Reviewed 08/27/20 @ 12:[address] Kwabena Henson MD) Right groin pain (Acute) Acute cystitis (Acute) - Secondary Discharge Diagnosis Chronic Problems: Chronic Problems (Last Reviewed 08/27/20 @ 12:[address] Kwabena Henson MD) Atherosclerosis of coronary artery of [place] heart without angina pectoris (Chronic) 50% mid LAD per C and FFR 04/2012 Essential (primary) hypertension (Chronic) Hyperlipidemia (Chronic) Chronic kidney disease, stage 3 (moderate) (Chronic) Hospital Course and Treatment Imaging Results: Clinical Impression(s) from Imaging Studies Hip/Pelvis X-Ray 08/27/20 10:26 IMPRESSION: Degenerative changes of the right hip as well as the sacroiliac joints and lower lumbar spine. Electronically Signed: Cristobal Reginaldo, at 10:53 EDT , Service support , Operations: None Summary of Care Provided: Patient is an 85-year-old lady presented with right groin pain. Found to have acute cystitis in addition 1. Right groin pain ?Imaging studies negative for any acute fracture do suspect musculoskeletal pain admitted to regular nursing floor for further management ?08/28/2020 requested for PT/OT eval and treatment and business services clerk to assist with discharge planning line? ?08/29/2020 patient seen currently participating in physical therapy. She [facility]. business services sales representative assisting with disposition. Patient to be transferred to the transitional care unit once insurance precertification was obtained 2. Acute cystitis with Enterobacter - started on Rocephin cultures sent with plans to adjust antibiotics based on culture result -08/28/2020; culture results pending - Urine cultures came back positive for Enterobacter. Patient treated appropriately with Rocephin. 3. Chronic kidney disease stage IV ?Baseline creatinine 2, was 2.28 on admission on IV fluid with subsequent monitoring of electrolyte 4. Hypertension - Blood pressure controlled, home medications continued with dose adjustment as needed 5. Dyslipidemia -Patient is on statin therapy, continued at home dose 6. GERD ?On PPI 7. Chronic pain syndrome (RSD) -status post spinal cord stimulator 8. Status post event loop recorder ?On account of recurrent syncopal episode 9. DVT prophylaxis ?On Lovenox dose adjusted for kidney function Patient Problems: Active and Suspected Problems (Last Reviewed 08/27/20 @ 12:[address] Kwabena Henson MD) Right groin pain (Acute) Acute cystitis (Acute) Objective: GENERAL: cooperative HEENT: Atraumatic; EYES; Anicteric, Normal Conjunctiva NECK; supple, normal thyroid, RESPIRATORY: Diminished to auscultation CARDIOVASCULAR: Regular S1 S2, GI: soft, normoactive bowel sounds, : No Renal angle tenderness; EXTREMITIES: No edema, no clubbing, MUSCULOSKELETAL: no muscle waisting NEURO: Awake; no lateralizing signs. SKIN: No Rash PSYCH; Flat affect - Physical Exam Vitals/I&O's: Vital Signs Temp Pulse Resp BP Pulse Ox 97.4 F L 77 20 H 164/79 H 95 08/29/20 13:34 08/29/20 13:34 08/29/20 13:34 08/29/20 13:34 08/29/20 13:34 Oxygen Delivery Method Room Air Weight: 66.7 kg Body Mass Index (BMI) 23.7 Intake and Output for Last 24 Hours 08/27/20 08/28/20 08/29/20 23:59 23:59 23:59 Intake Total 1150 / 1150 1090 / 1090 450 / 450 Output Total 760 / 760 230 / 230 Balance 1150 / 1150 330 / 330 220 / 220 Microbiology Past 72 Hours 08/27/20 11:15 Urine, Clean Catch Urine Culture - Final Enterobacter aerogenes Laboratory Results 08/29/20 06:50: WBC 7.2, RBC 3.74 L, Hgb 10.7 L, Hct 34.3 L, MCV 91.7, MCH 28.6, MCHC 31.2 L, RDW Std Deviation 45.4 H, RDW Coeff of Sonny 13.5, Plt Count 196, MPV 9.1, Immature Gran % (Auto) 0.300, Neut % (Auto) 64.9, Lymph % (Auto) 21.5, [place] % (Auto) 10.8 H, Eos % (Auto) 1.8, Baso % (Auto) 0.7, Absolute Neuts (auto) 4.6, Absolute Lymphs (auto) 1.54, Nucleated RBC % 0 08/29/20 06:50: Sodium 140, Potassium 4.0, Chloride 109 H, Carbon Dioxide 26.0, Anion Gap 5, BUN 40 H, Creatinine 2.43 H, Estim Creat Clear Calc 16.42, Est GFR (MDRD) Af Amer 24 L, Est GFR (MDRD) Non-Af 20 L, BUN/Creatinine Ratio 16.5, Glucose 84, Calcium 8.3 L 08/29/20 11:00: COVID-19 (RONIT) Pending Current Medications Acetaminophen (Acetaminophen 325 Mg Tablet) 650 mg PO Q6H PRN PRN PRN Reason: Pain Score 1-10/Temp > 100.7 F Al Hydroxide/Mg Hydroxide (Mag Hydrox/Al Hydrox/Simeth 30 Ml Udc) 30 ml PO Q6H PRN PRN PRN Reason: Gastric Burning Albuterol Sulfate (Albuterol 2.5 Mg/3 Ml Vial.Neb.) 2.5 mg INHALATION Q2H PRN PRN PRN Reason: Shortness of Breath/Wheezing Aspirin (Aspirin E.C. 81 Mg Tablet) 81 mg PO QHS [facility] Last Admin: 08/28/20 21:41 Dose: 81 mg Documented by: Atorvastatin Calcium (Atorvastatin Calcium 10 Mg Tablet) 10 mg PO QHS [facility] Last Admin: 08/28/20 21:41 Dose: 10 mg Documented by: Cholecalciferol (Cholecalciferol (Vit D3) 1,000 Unit (25mcg)) 1,000 unit PO DAILY@1800 [facility] Last Admin: 08/28/20 18:19 Dose: 1,000 unit Documented by: Enoxaparin Sodium (Enoxaparin 30 Mg/0.3 Ml Syringe) 30 mg SC DAILY@0600 [facility] Last Admin: 08/29/20 06:08 Dose: 30 mg Documented by: Gabapentin (Gabapentin 300 Mg Capsule) 300 mg PO DAILY@1800 [facility] Last Admin: 08/28/20 18:19 Dose: 300 mg Documented by: Guaifenesin (Guaifenesin 10 Ml Udc (200mg/10ml)) 20 ml PO Q4H PRN PRN PRN Reason: COUGH Ceftriaxone Sodium (Rocephin) 1 gm in 50 mls @ 100 mls/hr IV Q24 [facility] Stop: 08/31/20 10:01 Last Infusion: 08/29/20 10:20 Dose: Infused Documented by: Sodium Chloride () 250 mls @ 15 mls/hr IV .[id number] PRN PRN Reason: Saline Flush Sodium Chloride () 250 mls @ 15 mls/hr IV .[id number] PRN PRN Reason: Additional IVPB Infusion Melatonin (Melatonin 3 Mg Tablet) 3 mg PO QHS PRN PRN PRN Reason: INSOMNIA Metoprolol Tartrate (Metoprolol Tartrate 25 Mg Tablet) 12.5 mg PO BID [facility] Last Admin: 08/29/20 09:48 Dose: 12.5 mg Documented by: Morphine Sulfate (Morphine 4 Mg/Ml Syringe) 4 mg IV Q3H PRN PRN PRN Reason: Pain Score 6-10 Ondansetron HCl (Ondansetron 4 Mg/2 Ml Vial) 4 mg IV Q8H PRN PRN PRN Reason: NAUSEA/VOMITING Oxycodone HCl (Oxycodone 5 Mg Tablet) 10 mg PO Q4H PRN PRN PRN Reason: Pain Score 4-5 Last Admin: 08/29/20 09:47 Dose: 10 mg Documented by: Senna/Docusate Sodium (Senna/Docusate Sodium 1 Tablet) 2 tablet PO BID PRN PRN PRN Reason: Constipation Sodium Chloride (0.9% Saline Lock 10 Ml Syringe) 10 - 40 ml IV UD PRN PRN Reason: SALINE FLUSH Last Admin: 08/28/20 10:24 Dose: 10 ml Documented by: Discharge Diet: No Restrictions Discharge Activity: Return to Normal Activity Home Medications: Medications to take at Discharge Cholecalciferol (VIT D3) [Vitamin D3] 1,000 unit PO DAILY@1400 11/29/14 Gabapentin [Neurontin] 300 mg PO DAILY@1800 11/29/14 [place]-3 Fatty Acids/Fish Oil [Fish Oil 1,000 mg Softgel] 1 cap PO DAILY@1200 11/29/14 Simvastatin [Zocor] 20 mg PO QHS 11/29/14 Aspirin E.C. [Ecotrin] 81 mg PO QHS 12/20/18 metoprolol tartrate 25 mg tablet 12.5 mg PO BID tab 03/21/20 alpha lipoic acid 200 mg capsule 200 mg PO DAILY 06/06/20 coenzyme Q10 100 mg capsule 100 mg PO BID cap 06/06/20 multivitamin 1 tab PO QAM 06/06/20 Acetaminophen [Tylenol Tablet] 650 mg PO Q6H PRN PRN tab 08/29/20 Guaifenesin [Robitussin] 20 ml PO Q4H PRN PRN udc 08/29/20 Mag Hydrox/Al Hydrox/Simeth [Mylanta II] 30 ml PO Q6H PRN PRN udc 08/29/20 Melatonin 3 mg PO QHS PRN PRN tab 08/29/20 Senna/Docusate Sodium [Senokot-S] 2 tab PO BID PRN PRN tab 08/29/20 Primary Care Physician: Giovanni Forte MD [Primary Care Provider] - Please follow up with your Primary Care Physician in: in 2-4 weeks Disposition: Senior Living facility Minutes spent on discharge:: 35 Patient Condition:: Stable Medical Necessity - Tobacco Use Smoking Status: Never smoker Meaningful Use Info Meaningful Use Diagnoses (Choose all that apply): None applicable OBSV E&M: 68560 Observation care discharge
--- NOTE | 2020-08-29 14:50 | CASEMGMT ---
Social Work Note SW received message from Sarina in TCU stating pre-cert has been obtained and pt can discharge today. [place] updated RN CM who updated physician. Discharge is in for pt. SW in to speak with pt and updated pt on approval and discharge to TCU today. Pt states understanding. Pt states she will call her to update him. NJ placed a call to Sarina in TCU and informed her pt will be discharged to TCU today. Plan: TCU today Misti Mccord [employer]ESM[employer] HEL[employer], [employer]
[2020-08-29 16:07] VITALS: BP 154/58; PULSE 74; RESP 18; TEMP 37.2; O2SAT 98
== END 2020-08-29 16:55 | disposition skilled nursing facility (03) ==
LOC: ED 11:02 → MS3 08-28 06:28
PROVIDERS: Admitting Provider Internal Medicine; Emergency Provider Emergency Medicine; PCP Family Medicine; Referring Provider Internal Medicine; Visit Provider Internal Medicine
DX: N30.01 Acute cystitis with hematuria (principal); E78.00 Pure hypercholesterolemia, unspecified; N18.4 Chronic kidney disease, stage 4 (severe); I12.9 Hypertensive chronic kidney disease with stage 1 through stage 4 chronic kidney disease, or unspecified chronic kidney disease; Z79.899 Other long term (current) drug therapy; Z79.82 Long term (current) use of aspirin; R10.31 Right lower quadrant pain; I25.10 Atherosclerotic heart disease of native coronary artery without angina pectoris; E78.5 Hyperlipidemia, unspecified; K21.9 Gastro-esophageal reflux disease without esophagitis; G90.50 Complex regional pain syndrome I, unspecified
CPT/HCPCS: 36415; 73502; 80048; 81001; 83735; 85025; 87077; 87086; 87088; 87186; 87635; 96365; 96366; 96375; 97110; 97116; 97162; 97166; 97530; 99218; 99251; 99285; J7030; A4216; G0378; G0463; J2405; U0002

== ENCOUNTER 2020-08-29 17:20 | Inpatient (IN) | payer MEDICARE, SELFPAY ==
[2020-08-27 13:09] VITALS: BMI 23.7
[2020-08-29 17:43] VITALS: BP 185/84; PULSE 82; PULSE 85; RESP 18; TEMP 36.6; O2SAT 98; BMI 23.3
--- NOTE | 2020-08-29 19:05 | HP.PCM_ITS ---
Problem List (1) Debility Status: Acute (2) Low back pain Status: Acute (3) Acute kidney injury Status: Acute (4) Urinary tract infection Status: Acute (5) Hypertension Status: Chronic (6) Chronic kidney disease Status: Chronic (7) Coronary artery disease Status: Chronic (8) Vitamin D deficiency Status: Chronic (9) Neuropathic pain Status: Chronic (10) Right groin pain Status: Acute (11) Syncope Status: Chronic (12) Hyperlipidemia Status: Chronic Qualifiers: History of Present Illness Date of Admission: 08/29/20 Chief Complaint: Here for rehabilitation, strengthening, prior to discharge home with . 08/27/20 The patient is a 85 year old Female with below past medical history presented to [facility] Emergency Department with right groin pain, inability to ambulate. 08/27/20 X-ray pelvis, right hip, right hip arthritis, sacroiliac joint arthritis, lower spine arthritis, no fracture, no dislocation. Severe right groin pain x 2 days, no trauma, no falls. CBCD okay, BMP okay, Cr 2.38. UA consistent with urinary tract infection, urine culture pending. IV Morphine, IV Zofran for pain. Rocephin 1GM IV for urinary tract infection. 08/27/20 Admit to Hospital. Rocephin IV for urinary tract infection. IV fluids for acute kidney injury. 08/28/20 PT/OT. 08/29/20 PT/OT for TCU. Enterobacter urinary tract infection treated with Rocephin. 08/29/20 Admit to TCU with debility, here for rehabilitation, strengthening, prior to discharge home with . Past Medical History Past Medical History (Chronic Problems): Chronic Problems (Last Reviewed 08/27/20 @ 12:[address] Kwabena Henson MD) Hypertension (Chronic) Chronic kidney disease (Chronic) Coronary artery disease (Chronic) Vitamin D deficiency (Chronic) Neuropathic pain (Chronic) Syncope (Chronic) Atherosclerosis of coronary artery of [place] heart without angina pectoris (Chronic) 50% mid LAD per LHC and FFR 04/2012 Essential (primary) hypertension (Chronic) Hyperlipidemia (Chronic) Chronic kidney disease, stage 3 (moderate) (Chronic) Medical History: Medical History (Last Reviewed 08/27/20 @ 12:[address] Kwabena Henson MD) Syncope (Chronic) R55 Atherosclerosis of coronary artery of [place] heart without angina pectoris (Chronic) I25.10 50% mid LAD per LHC and FFR 04/2012 Essential (primary) hypertension (Chronic) I10 Hyperlipidemia (Chronic) E78.5 Chronic kidney disease, stage 3 (moderate) (Chronic) N18.3 GERD (gastroesophageal reflux disease) K21.9 RSD lower limb G90.529 Reflex sympathetic dystrophy G90.50 Syncope (Resolved) R55 Near syncope (Inactive) R55 Allergies Gadolinium-MRI Contrast Medium [CONTRAST] Allergy (Verified 08/27/20 09:20) Hives Latex, Natural Rubber Allergy (Verified 08/27/20 09:20) Rash hydralazine Adverse Reaction (Intermediate, Verified 08/27/20 09:20) Swelling amlodipine Adverse Reaction (Verified 08/27/20 09:20) dizziness codeine Adverse Reaction (Verified 08/27/20 09:20) drowsy I SLEEP REAL GOOD tramadol [From Ultram] Adverse Reaction (Verified 08/27/20 09:20) Unknown Home Medications: Ambulatory Orders Medication Instructions Recorded Cholecalciferol (VIT D3) [Vitamin 1,000 unit PO DAILY@1400 11/29/14 D3] Gabapentin [Neurontin] 300 mg PO DAILY@1800 11/29/14 [place]-3 Fatty Acids/Fish Oil [Fish 1 cap PO DAILY@1200 11/29/14 Oil 1,000 mg Softgel] Simvastatin [Zocor] 20 mg PO QHS 11/29/14 Aspirin E.C. [Ecotrin] 81 mg PO QHS 12/20/18 metoprolol tartrate 25 mg tablet 12.5 mg PO BID tab 03/21/20 alpha lipoic acid 200 mg capsule 200 mg PO DAILY 06/06/20 coenzyme Q10 100 mg capsule 100 mg PO BID cap 06/06/20 multivitamin 1 tab PO QAM 06/06/20 Acetaminophen [Tylenol Tablet] 650 mg PO Q6H PRN PRN tab 08/29/20 Guaifenesin [Robitussin] 20 ml PO Q4H PRN PRN udc 08/29/20 Mag Hydrox/Al Hydrox/Simeth 30 ml PO Q6H PRN PRN udc 08/29/20 [Mylanta II] Melatonin 3 mg PO QHS PRN PRN tab 08/29/20 Senna/Docusate Sodium [Senokot-S] 2 tab PO BID PRN PRN tab 08/29/20 Surgical History: Surgical History (Last Reviewed 08/27/20 @ 12:[address] Kwabena Henson MD) History of loop recorder (Inactive) Onset Date: 04/04/20 Z98.890 History of hysterectomy Z98.890, Z90.710 History of left heart catheterization Onset Date: 04/10/12 Z98.890 History of nasal septoplasty Z98.890 History of open reduction and internal fixation (ORIF) procedure Z98.890 right elbow and left ankle History of repair of rotator cuff Z98.890 History of tonsillectomy Z98.890, Z90.89 Hx of cholecystectomy Z98.890, Z90.49 Status post insertion of spinal cord stimulator Z98.890 Surgical History: cholecystectomy, hysterectomy, rotator cuff repair, total knee arthroplasty, tonsillectomy, - - Nasal septoplasty, spinal cord stimulator placement, right rotator cuff surgery, ORIF left ankle, ORIF right elbow. 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 Paternal History Items: Cancer, Diabetes Review of Systems Constitutional: Denies: Chills, Fever, Weight Change HEENT: Denies: Head Aches, Sinus Congestion, Sinus Drainage Cardiovascular: Denies: Chest Pain, Palpitations Respiratory: Denies: Cough, Shortness of breath at rest, Sputum production Gastrointestinal: Denies: Abdominal Pain, Nausea, Vomiting Genitourinary: Denies: Dysuria Musculoskeletal: Denies: Joint Pain, Joint Tenderness Skin: Denies: Rash, Wounds Neurological: Denies: Numbness, Tingling, Focal weakness Psychiatric: Denies: Anxiety, Depression, Homicidal Ideations, Suicidal Ideations Hematologic/ Lymphatic: Denies: Easy Bruising, Easy Bleeding VTE Information - Inpt Only VTE Present on Admission: No VTE Mechan Device Prophylaxis: Knee High DIANNE Hose VTE Pharm Prophylaxis ordered?: Yes Patient Problems: Active and Suspected Problems (Last Reviewed 08/27/20 @ 12:[address] Kwabena Henson MD) Right groin pain (Acute) Debility (Acute) Low back pain (Acute) Acute kidney injury (Acute) Urinary tract infection (Acute) - Physical Exam Vitals/I&O's: Vital Signs Temp Pulse Resp BP Pulse Ox 97.9 F 85 18 185/84 H 98 08/29/20 17:43 08/29/20 17:43 08/29/20 17:43 08/29/20 17:43 08/29/20 17:43 Oxygen Delivery Method Room Air Weight: 67.585 kg Body Mass Index (BMI) 23.3 General: Alert, Oriented x3, Cooperative HEENT: Atraumatic, PERRLA, EOMI, Normocephalic Neck: Supple, No JVD, Negative Carotid Bruits Lungs: Clear to auscultation, Normal air movement Cardiovascular: Regular rate, No murmurs Abdomen: Bowel Sounds Present, Soft, Non Tender Extremities: No edema, Capillary Refill Less than 3 Seconds Skin: No rashes, No breakdown Musculoskeletal: No Tenderness to Palpation of Joints or Extremities Neurological: Cranial nerves II-XII grossly intact Psych/Mental Status: Normal Affect, Appropriate Assessment/Plan All Active Problems (Last Reviewed 08/27/20 @ 12:[address] Kwabena Henson MD) Right groin pain (Acute) Acute cystitis (Acute) Debility (Acute) Low back pain (Acute) Acute kidney injury (Acute) Urinary tract infection (Acute) Syncope (Resolved) 85 year old female with below past medical history hospitalized for intractable right groin pain, complicated by enterobacter urinary tract infection, admitted to TCU with debility, here for rehabilitation, strengthening, prior to discharge home with . * Debility - PT/OT. * Pain - Tylenol 1000MG Q6H PRN pain (1-3), Oxycodone 2.5MG Q4H PRN pain (4-10). * Bowel - Miralax 17GM daily, Senna/colace 1 tablets BID, MOM 30ML daily PRN, Dulcolax 10MG [place] daily PRN. * Adult immunization - Administer Prevnar 13, Pneumovax 23, Fluzone as appropriate. * DVT prophylaxis - Lovenox 30MG SC daily. * Vitamin D deficiency - D3 1000IU daily. * Neuropathic pain - Gabapentin 300MG daily. * Hyperlipidemia - Simvastatin 20MG QHS, Fish Oil 1000MG daily, Coenzyme Q10 100MG BID. * Coronary Artery Disease - Metoprolol 12.5MG BID, Aspirin 81MG daily. * Nutrition - MVI daily. * Cough - Robitussin 20ML Q4H PRN. * Insomnia - Melatonin 3MG QHS PRN. * Right groin pain - CT pelvis to rule out occult fracture.
[2020-08-29] MEDS: Aspirin E.C. 81 MG Tablet PO (23:30)
[2020-08-29] MEDS: Atorvastatin Calcium 20 MG Tablet PO (23:30)
[2020-08-30] MEDS: Polyethylene Glycol 3350 17 GM PACKET PO (06:28)
[2020-08-30] MEDS: Senna/Docusate Sodium 1 Tablet PO ×2 (06:29→17:51)
[2020-08-30 06:46] VITALS: BP 162/76; PULSE 78; RESP 18; TEMP 36.5; O2SAT 96
[2020-08-30 06:47] VITALS: BP 162/76; PULSE 78
[2020-08-30] MEDS: Metoprolol Tartrate 25 MG Tablet 12.5 MG PO ×2 (06:47→17:50)
[2020-08-30 08:39] LABS: Absolute Lymphocyte Count 1.62 X10^3/uL (0.83-4.51); Absolute Neutrophil Count 5.5 X10^3/uL (2.0-7.7); Basophil# 0.08 X10^3/uL; Eosinophil# 0.12 X10^3/uL; Eosinophils% 1.5 % (0-5); Hematocrit 37.4 % (37-47); Hemoglobin 11.4 g/dL (12.0-15.0); Lymphocyte # 1.62 X10^3/ul (4.0); Lymphocyte % 20.1 % (19-41); Mean Corp Hgb Conc 30.5 g/dL (32-36); Mean Corpuscular Volume 91.9 fL (81-99); Mean Platelet Vol. 9.2 fl (6.2-12.0); Monocyte# 0.72 X10^3/uL; Monocyte% 8.9 % (0-10); NRBC Flagged by Analyzer 0 % (0-5); Neutrophil % 68.1 % (47-70); Platelet Count 240 K/mm3 (150-450); RBC Distribution Width CV 13.3 % (11.6-14.6); RBC Distribution Width SD 45.3 fl (35.1-43.9); Red Blood Count 4.07 M/mm3 (4.2-5.4); White Blood Count 8.1 K/mm3 (4.4-11.0)
[2020-08-30 09:06] LABS: Anion Gap 6 (5-15); BUN 40 mg/dL (7-18); BUN/Creat Ratio 16.1 RATIO (10-20); Calcium,Total 9.1 mg/dL (8.5-10.1); Chloride 109 mmol/L (98-107); Creatinine, Serum 2.48 mg/dL (0.55-1.02); EST Glomerular Filtration Rate 20 mL/min (>60); Est Glom Filt Rate - Afr Amer 24 mL/min (>60); Estimated Creatinine Clearance 16.71 ml/min; Glucose 100 mg/dL (74-106); Potassium 4.2 mmol/L (3.5-5.1); Sodium Level 140 mmol/L (136-145)
[2020-08-30] MEDS: Tuberculin,Purif.prot.deriv. 50 TU/ML Vial 5 ML ID (11:17)
--- NOTE | 2020-08-30 12:08 | NURSING ---
Notified resident and her , Talib, of COVID Outbreak Status. Son, Mason's mailbox was full, unable to leave message.
--- NOTE | 2020-08-30 12:32 | NURSING ---
Mason Gan, notified of COVID Outbreak status.
[2020-08-30 14:25] VITALS: BP 160/77; PULSE 78; RESP 17; TEMP 36.6; O2SAT 98
[2020-08-30 17:18] LABS: Probe Check PASS; Specimen Processing Control PASS
[2020-08-30 17:50] VITALS: BP 160/77; PULSE 78
[2020-08-30] MEDS: Gabapentin 300 MG Capsule PO (17:51)
[2020-08-30] MEDS: Atorvastatin Calcium 20 MG Tablet PO (21:30)
[2020-08-30] MEDS: Aspirin E.C. 81 MG Tablet PO (21:30)
[2020-08-30 21:35] VITALS: PULSE 88; RESP 16; O2SAT 96
--- NOTE | 2020-08-31 00:39 | NURSING ---
Addendum entered by Leidy Harris 08/31/20 06:21: Patient had a large hard bowel movement given routine bowel medication this am. Original Note: Patient c/o not having a bowel movement in three days and that she has been taking prune juice. The nurse assisted patient to the toilet and notice that patient was straining while on the toilet she states, it's right there. Noted bowel was there hard and pressure on rectal area. This nurse made Rn aware and got a order for soap liliana enema . Patient was only able to hold 500 ml out of 1000 ml not effective only liquid when put on beside commode.
[2020-08-31 05:29] VITALS: BP 179/84; PULSE 78; RESP 16; TEMP 36.8; O2SAT 98
[2020-08-31 05:38] VITALS: BP 179/84; PULSE 78
[2020-08-31] MEDS: Polyethylene Glycol 3350 17 GM PACKET PO (05:38)
[2020-08-31] MEDS: Metoprolol Tartrate 25 MG Tablet 12.5 MG PO ×2 (05:38→17:23)
[2020-08-31] MEDS: Senna/Docusate Sodium 1 Tablet PO ×2 (05:38→17:24)
[2020-08-31 10:00] VITALS: PULSE 80; RESP 16; O2SAT 96
[2020-08-31 13:27] VITALS: BP 150/77; PULSE 92; RESP 16; TEMP 36.6; O2SAT 94
--- NOTE | 2020-08-31 13:36 | NURSING ---
Pt asking if she can leave on Tuesday. Explained she would have to talk to therapy and social work tomorrow.
[2020-08-31 17:23] VITALS: BP 150/77; PULSE 92
[2020-08-31] MEDS: Gabapentin 300 MG Capsule PO (17:24)
[2020-08-31] MEDS: Aspirin E.C. 81 MG Tablet PO (22:04)
[2020-08-31] MEDS: Atorvastatin Calcium 20 MG Tablet PO (22:04)
[2020-09-01] MEDS: Senna/Docusate Sodium 1 Tablet PO ×2 (06:14→17:10)
[2020-09-01 06:15] VITALS: BP 161/88; PULSE 80
[2020-09-01] MEDS: Metoprolol Tartrate 25 MG Tablet 12.5 MG PO ×2 (06:15→17:09)
[2020-09-01] MEDS: Polyethylene Glycol 3350 17 GM PACKET PO (06:16)
[2020-09-01 06:17] VITALS: RESP 16; TEMP 36.9; O2SAT 97
--- NOTE | 2020-09-01 11:17 | PHA.CONS_ITS ---
<Ariela Curtis M - Last Filed: 09/01/20 11:17> Progress Note - Pharmacy Subjective: TCU ADMISSION Objective: Allergies Gadolinium-MRI Contrast Medium [CONTRAST] Allergy (Verified 08/27/20 09:20) Hives Latex, Natural Rubber Allergy (Verified 08/27/20 09:20) Rash hydralazine Adverse Reaction (Intermediate, Verified 08/27/20 09:20) Swelling amlodipine Adverse Reaction (Verified 08/27/20 09:20) dizziness codeine Adverse Reaction (Verified 08/27/20 09:20) drowsy I SLEEP REAL GOOD tramadol [From [facility]] Adverse Reaction (Verified 08/27/20 09:20) Unknown Current Medications Generic Name Dose Route Start Last Admin Trade Name Freq PRN Reason Stop Dose Admin Acetaminophen 1,000 mg 08/29/20 19:32 Acetaminophen 500 Mg Tablet PO Q6H PRN PRN Pain Score 1-3 Aspirin 81 mg 08/29/20 22:00 08/31/20 22:04 Aspirin E.C. 81 Mg Tablet PO 81 mg QHS SADE Administration Atorvastatin Calcium 20 mg 08/29/20 22:00 08/31/20 22:04 Atorvastatin Calcium 20 Mg Tablet PO 20 mg QHS SADE Administration Bisacodyl 10 mg 08/29/20 19:26 Bisacodyl 10 Mg Suppository RECTAL DAILY PRN Constipation Cholecalciferol 1,000 unit 08/31/20 17:00 08/31/20 17:24 Cholecalciferol (Vit D3) 1,000 Unit (25mcg) PO 1,000 unit DAILY@1700 SADE Administration Gabapentin 300 mg 08/30/20 18:00 08/31/20 17:24 Gabapentin 300 Mg Capsule PO 300 mg DAILY@1800 SADE Administration Guaifenesin 20 ml 08/29/20 19:15 Guaifenesin 10 Ml Udc (200mg/10ml) PO Q4H PRN PRN COUGH Magnesium Hydroxide 30 ml 08/29/20 19:26 Magnesium Hydroxide 30 Ml Udc PO DAILY PRN Constipation Melatonin 3 mg 08/29/20 19:15 Melatonin 3 Mg Tablet PO QHS PRN PRN INSOMNIA Metoprolol Tartrate 12.5 mg 08/30/20 06:00 09/01/20 06:15 Metoprolol Tartrate 25 Mg Tablet PO 12.5 mg BID SADE Administration Oxycodone HCl 2.5 mg 08/29/20 19:25 Oxycodone 5 Mg Tablet PO Q4H PRN PRN Pain Score 4-10 Polyethylene Glycol 17 gm 08/30/20 06:00 09/01/20 06:16 Polyethylene Glycol 3350 17 Gm Packet PO 17 gm DAILY SADE Administration Senna/Docusate Sodium 1 tablet 08/30/20 06:00 09/01/20 06:14 Senna/Docusate Sodium 1 Tablet PO 1 tablet BID SADE Administration Tuberculin PPD 5 tu 09/06/20 10:00 Tuberculin,Purif.Prot.Deriv. 50 Tu/Ml Vial ID 09/06/20 10:01 X1 ONE Problem List (Last Reviewed 08/27/20 @ 12:[address] Kwabena Henson MD) Right groin pain (Acute) Debility (Acute) Low back pain (Acute) Acute kidney injury (Acute) Urinary tract infection (Acute) Hypertension (Chronic) Chronic kidney disease (Chronic) Coronary artery disease (Chronic) Vitamin D deficiency (Chronic) Neuropathic pain (Chronic) Syncope (Chronic) Hyperlipidemia (Chronic) Vital Signs Temp Pulse Resp BP Pulse Ox 98.4 F 80 16 161/88 H 97 09/01/20 06:17 09/01/20 06:15 09/01/20 06:17 09/01/20 06:15 09/01/20 06:17 Oxygen Delivery Method Room Air Weight: 65.816 kg Body Mass Index (BMI) 23.3 Sodium 140 mmol/L (136-145) 08/30/20 08:17 Potassium 4.2 mmol/L (3.5-5.1) 08/30/20 08:17 Chloride 109 mmol/L (98-107) H 08/30/20 08:17 Carbon Dioxide 25.0 mmol/L (21.0-32.0) 08/30/20 08:17 Anion Gap 6 (5-15) 08/30/20 08:17 BUN 40 mg/dL (7-18) H 08/30/20 08:17 Creatinine 2.48 mg/dL (0.55-1.02) H 08/30/20 08:17 Est GFR (MDRD) Af Amer 24 mL/min (>60) L 08/30/20 08:17 Est GFR (MDRD) Non-Af 20 mL/min (>60) L 08/30/20 08:17 BUN/Creatinine Ratio 16.1 RATIO (-20) 08/30/20 08:17 Glucose 100 mg/dL (74-106) 08/30/20 08:17 Assessment/Plan: 1. Pain: Tylenol 1000mg PO Q6h PRN Pain 1-3/10, Oxycodone 2.5mg PO Q4h PRN Pain 4-10/10. Please continue to monitor for increased/decreased pain, PRN medication usage. 2. CAD: Aspirin 81mg PO Daily, Lipitor 20mg PO QHS, Lopressor 12.5mg PO BID. Please continue to monitor BP, pulse, S/S bleeding/bruising, Lipid panel annually or sooner if clinically indicated. 3. Neuropathic Pain: Gabapentin 300mg PO Daily. Please continue to monitor for improvement in symptoms, renal function. 4. Cough: Robitussin 20mL PO Q4h PRN. Please continue to monitor for improvement in symptoms with use, PRN medication usage. 5. Insomnia: Melatonin 3mg PO QHS PRN insomnia. Please continue to monitor for medication effectiveness, PRN medication usage. Can consider giving medication at least 2 hrs prior to bedtime if medication effectiveness not optimal. 6. General Wellness: Cholecalciferol 1000 unit PO Daily. Please continue to monitor. Psychotropic Medications: None Unnecessary Medications: None Bowel Regimen: Miralax 17g PO Daily, Senna/Docusate 1 tab PO BID, Dulcolax 10mg CT Daily PRN, Milk of Magnesia 30mL PO Daily PRN. Please continue to monitor for increased/decreased constipation and/or diarrhea. Date of Note:: 09/01/20 - Provider Comments Provider responsibility: Provider responsible to enter orders to implement recommendations <Chapito Verde Chi - Last Filed: 09/01/20 15:09> Progress Note - Pharmacy Subjective: [] Objective: Allergies Gadolinium-MRI Contrast Medium [CONTRAST] Allergy (Verified 08/27/20 09:20) Hives Latex, Natural Rubber Allergy (Verified 08/27/20 09:20) Rash hydralazine Adverse Reaction (Intermediate, Verified 08/27/20 09:20) Swelling amlodipine Adverse Reaction (Verified 08/27/20 09:20) dizziness codeine Adverse Reaction (Verified 08/27/20 09:20) drowsy I SLEEP REAL GOOD tramadol [From [facility]] Adverse Reaction (Verified 08/27/20 09:20) Unknown Current Medications Generic Name Dose Route Start Last Admin Trade Name Freq PRN Reason Stop Dose Admin Acetaminophen 1,000 mg 08/29/20 19:32 Acetaminophen 500 Mg Tablet PO Q6H PRN PRN Pain Score 1-3 Aspirin 81 mg 08/29/20 22:00 08/31/20 22:04 Aspirin E.C. 81 Mg Tablet PO 81 mg QHS SADE Administration Atorvastatin Calcium 20 mg 08/29/20 22:00 08/31/20 22:04 Atorvastatin Calcium 20 Mg Tablet PO 20 mg QHS SADE Administration Bisacodyl 10 mg 08/29/20 19:26 Bisacodyl 10 Mg Suppository RECTAL DAILY PRN Constipation Cholecalciferol 1,000 unit 08/31/20 17:00 08/31/20 17:24 Cholecalciferol (Vit D3) 1,000 Unit (25mcg) PO 1,000 unit DAILY@1700 [facility] Administration Gabapentin 300 mg 08/30/20 18:00 08/31/20 17:24 Gabapentin 300 Mg Capsule PO 300 mg DAILY@1800 [facility] Administration Guaifenesin 20 ml 08/29/20 19:15 Guaifenesin 10 Ml Udc (200mg/10ml) PO Q4H PRN PRN COUGH Magnesium Hydroxide 30 ml 08/29/20 19:26 Magnesium Hydroxide 30 Ml Udc PO DAILY PRN Constipation Melatonin 3 mg 08/29/20 19:15 Melatonin 3 Mg Tablet PO QHS PRN PRN INSOMNIA Metoprolol Tartrate 12.5 mg 08/30/20 06:00 09/01/20 06:15 Metoprolol Tartrate 25 Mg Tablet PO 12.5 mg BID SADE Administration Oxycodone HCl 2.5 mg 08/29/20 19:25 Oxycodone 5 Mg Tablet PO Q4H PRN PRN Pain Score 4-10 Polyethylene Glycol 17 gm 08/30/20 06:00 09/01/20 06:16 Polyethylene Glycol 3350 17 Gm Packet PO 17 gm DAILY SADE Administration Senna/Docusate Sodium 1 tablet 08/30/20 06:00 09/01/20 06:14 Senna/Docusate Sodium 1 Tablet PO 1 tablet BID SADE Administration Tuberculin PPD 5 tu 09/06/20 10:00 Tuberculin,Purif.Prot.Deriv. 50 Tu/Ml Vial ID 09/06/20 10:01 X1 ONE Problem List (Last Reviewed 08/27/20 @ 12:[address] Kwabena Henson MD) Right groin pain (Acute) Debility (Acute) Low back pain (Acute) Acute kidney injury (Acute) Urinary tract infection (Acute) Hypertension (Chronic) Chronic kidney disease (Chronic) Coronary artery disease (Chronic) Vitamin D deficiency (Chronic) Neuropathic pain (Chronic) Syncope (Chronic) Hyperlipidemia (Chronic) Vital Signs Temp Pulse Resp BP Pulse Ox 97.9 F 76 16 141/72 H 97 09/01/20 14:08 09/01/20 14:08 09/01/20 14:08 09/01/20 14:08 09/01/20 14:08 Oxygen Delivery Method Room Air Weight: 65.816 kg Body Mass Index (BMI) 23.3 Sodium 140 mmol/L (136-145) 08/30/20 08:17 Potassium 4.2 mmol/L (3.5-5.1) 08/30/20 08:17 Chloride 109 mmol/L (98-107) H 08/30/20 08:17 Carbon Dioxide 25.0 mmol/L (21.0-32.0) 08/30/20 08:17 Anion Gap 6 (5-15) 08/30/20 08:17 BUN 40 mg/dL (7-18) H 08/30/20 08:17 Creatinine 2.48 mg/dL (0.55-1.02) H 08/30/20 08:17 Est GFR (MDRD) Af Amer 24 mL/min (>60) L 08/30/20 08:17 Est GFR (MDRD) Non-Af 20 mL/min (>60) L 08/30/20 08:17 BUN/Creatinine Ratio 16.1 RATIO (10-20) 08/30/20 08:17 Glucose 100 mg/dL (74-106) 08/30/20 08:17 Assessment/Plan: Psychotropic Medications: Unnecessary Medications: Bowel Regimen: - Provider Comments Provider responsibility: Provider responsible to enter orders to implement recommendations Provider Comments to Recommendations by Pharmacy: Agree
[2020-09-01 14:08] VITALS: BP 141/72; PULSE 76; RESP 16; TEMP 36.6; O2SAT 97
--- NOTE | 2020-09-01 15:29 | NURSING ---
PT STATED TO THIS NURSE THAT HER REMINDED HER THAT SHE IS TO HAVE NO SALT. THIS NURSE TRIED CALLING WITH NO ANSWER. WILL TRY LATER. REPORTED TO RN.
--- NOTE | 2020-09-01 16:46 | CASEMGMT ---
Social Work Met with pt for initial assessment. Discussed code status with pt. Pt confirmed full code. MOLST form reviewed and placed in chart. Promise Sibley, DEHYDRATION UNIT OPERATOR HORTICULTURAL THERAPIST
[2020-09-01 17:09] VITALS: BP 141/72; PULSE 76
[2020-09-01] MEDS: Gabapentin 300 MG Capsule PO (17:09)
--- NOTE | 2020-09-01 17:18 | NURSING ---
SonMason, notified of negative COVID results.
[2020-09-01] MEDS: Atorvastatin Calcium 20 MG Tablet PO (21:22)
[2020-09-01] MEDS: Aspirin E.C. 81 MG Tablet PO (21:22)
[2020-09-01 22:55] VITALS: PULSE 76; RESP 16; O2SAT 97
[2020-09-02] MEDS: Acetaminophen 500 MG Tablet 1000 MG PO (00:07)
[2020-09-02 06:31] VITALS: BP 169/73; PULSE 74
[2020-09-02] MEDS: Senna/Docusate Sodium 1 Tablet PO ×2 (06:31→17:15)
[2020-09-02] MEDS: Metoprolol Tartrate 25 MG Tablet 12.5 MG PO (06:31)
[2020-09-02 06:33] VITALS: RESP 16; TEMP 36.3; O2SAT 97
[2020-09-02 10:00] VITALS: PULSE 74; RESP 18; O2SAT 98
[2020-09-02 14:20] VITALS: BP 137/76; PULSE 78; RESP 16; TEMP 35.8; O2SAT 98
--- NOTE | 2020-09-02 15:37 | NURSING ---
Resident and spouse, Talib, notified of staff meber positive for COVID-19.
--- NOTE | 2020-09-02 16:21 | CHAPLAIN ---
Type of Pastoral Visit _x__ Initial Visit ___ Follow-up Visit ___ On-call Visit ___ General Patient Visit ___ Spiritual Assessment ___ Family Conference ___ Bereavement ___ Rapid Response ___ Code Blue ___ Other (describe below) Pastoral Care Referral From _x__ Patient ___ Family _x__ Nurse ___ Physician ___ Child Care Lead Teacher ___ [place] Manager ___ Other (describe below) Sacrament/Intervention _x__ Active listening ___ Anointing ___ Restorationist ___ Bereavement ___ Communion _x__ Gabby exploration ___ _x__ Life review _x__ Prayer ___ Reconciliation ___ Sacrament of Sick _x__ Supportive presence ___ Wedding ___ Other (describe below) Pastoral Comments patient says she is scared at the thought of dying from COVID and not seeing my grandchildren and family again; calm presence, focus on the positive and on gabby, assurance of best protocols given to pt; pt requests a phone call to notify her beater out leveling machine of her desire for a phone conversation for support; pt is negative of COVID but expresses her fears; pt is calmer after visit
[2020-09-02 17:15] VITALS: BP 137/76; PULSE 78
[2020-09-02] MEDS: Metoprolol Tartrate 25 MG Tablet PO (17:15)
[2020-09-02] MEDS: Gabapentin 300 MG Capsule PO (17:15)
--- NOTE | 2020-09-02 18:35 | NURSING ---
talked to pt and he stated he wanted pt on a low salt diet. rn aware.
[2020-09-02] MEDS: Atorvastatin Calcium 20 MG Tablet PO (21:53)
[2020-09-02] MEDS: Aspirin E.C. 81 MG Tablet PO (21:53)
--- NOTE | 2020-09-02 23:44 | NURSING ---
Pt getting around real well tonight, up walking to restroom, and was able to adjust her pillows herself and place one under her feet without help. Pt improving well and becoming more independent.
[2020-09-03 05:00] VITALS: BP 177/77; PULSE 73; RESP 18; TEMP 36.5; O2SAT 96
[2020-09-03 05:27] VITALS: BP 177/77; PULSE 73
[2020-09-03] MEDS: Metoprolol Tartrate 25 MG Tablet PO ×2 (05:27→17:39)
[2020-09-03] MEDS: Senna/Docusate Sodium 1 Tablet PO ×2 (05:27→17:39)
--- NOTE | 2020-09-03 11:41 | CASEMGMT ---
Social Work IDT met with patient and via conference call for care plan meeting. Discussed patient's progress in therapy. Pt is SBA for bed mobility, tx, and ambulating at 50 ft with FWW. Pt needs encouragement to increase participating. Pt is using #2 wts for LE exercises and needs to improve activity tolerance. Pt is CGA for grooming, SBA for bathing, Flaquito fr UE dressing, modA for LE dressing, SBA for toileting. Pt is out of isolation 09/12. Explained [facility] insurance with NRD 09/04 and continued stay is not guaranteed. Pt has 3 steps to enter and can provide light assistance. Will continue to follow. Promise Sibley, DANAE SEED SPECIALIST
[2020-09-03 14:22] VITALS: BP 118/72; PULSE 80; RESP 16; TEMP 36.4; O2SAT 95
[2020-09-03 17:39] VITALS: PULSE 80
[2020-09-03] MEDS: Gabapentin 300 MG Capsule PO (17:39)
[2020-09-03] MEDS: Atorvastatin Calcium 20 MG Tablet PO (22:11)
[2020-09-03] MEDS: Aspirin E.C. 81 MG Tablet PO (22:11)
[2020-09-03 22:14] VITALS: PULSE 78; RESP 16; O2SAT 97
[2020-09-04 05:00] VITALS: BP 169/73; PULSE 78; RESP 16; TEMP 36.8; O2SAT 94
[2020-09-04 05:48] VITALS: BP 169/73; PULSE 78
[2020-09-04] MEDS: Polyethylene Glycol 3350 17 GM PACKET PO (05:48)
[2020-09-04] MEDS: Metoprolol Tartrate 25 MG Tablet PO ×2 (05:48→17:12)
[2020-09-04] MEDS: Senna/Docusate Sodium 1 Tablet PO (05:49)
[2020-09-04 10:00] VITALS: PULSE 79; RESP 16; O2SAT 95
[2020-09-04 13:32] VITALS: BP 146/80; PULSE 85; RESP 18; TEMP 36.3; O2SAT 97
[2020-09-04 17:12] VITALS: PULSE 85
[2020-09-04] MEDS: Gabapentin 300 MG Capsule PO (17:12)
[2020-09-04] MEDS: Atorvastatin Calcium 20 MG Tablet PO (22:16)
[2020-09-04] MEDS: Aspirin E.C. 81 MG Tablet PO (22:16)
[2020-09-05 05:00] VITALS: BP 156/85; PULSE 80; RESP 16; TEMP 36.6; O2SAT 98
[2020-09-05 05:49] VITALS: BP 156/85; PULSE 80
[2020-09-05] MEDS: Metoprolol Tartrate 25 MG Tablet PO ×2 (05:49→17:12)
--- NOTE | 2020-09-05 11:45 | CASEMGMT ---
Social Work Insurance issued LCD 09/08, [place] 09/09. Spoke with pt, explained appeal rights. Pt agreeable to DC home with . Pt agreeable to [facility] PT/OT. Referral made. No DME needs. to transport Plan: DC home with 09/09, [facility] PT/OT DANAE MolinaW
--- NOTE | 2020-09-05 13:37 | DCINST_ITS ---
- Discharge Diagnoses Current Active Problems: Current Active and Chronic Problems (Last Reviewed 08/27/20 @ 12:[address] Kwabena Henson MD) Right groin pain (Acute) Debility (Acute) Low back pain (Acute) Acute kidney injury (Acute) Urinary tract infection (Acute) Hypertension (Chronic) Chronic kidney disease (Chronic) Coronary artery disease (Chronic) Vitamin D deficiency (Chronic) Neuropathic pain (Chronic) Syncope (Chronic) Hyperlipidemia (Chronic) You will use the following diet at home:: No restrictions, Regular Your food should be the consistency of: Regular Your liquids should be the consistency of: Regular/Thin Discharge Activity: Return to Normal Activity, May Shower, Use Walker Weight Bearing Status: Weight bearing as tolerated Call your doctor if you observe: Fever of 101 or Higher, Inability to urinate, Inability to have a bowel movement, Shortness of breath, Chest pain, Uncontrolled pain Allergies/Adverse Reactions: Allergies Gadolinium-MRI Contrast Medium [CONTRAST] Allergy (Verified 08/27/20 09:20) Hives Latex, Natural Rubber Allergy (Verified 08/27/20 09:20) Rash hydralazine Adverse Reaction (Intermediate, Verified 08/27/20 09:20) Swelling amlodipine Adverse Reaction (Verified 08/27/20 09:20) dizziness codeine Adverse Reaction (Verified 08/27/20 09:20) drowsy I SLEEP REAL GOOD tramadol [From [facility]] Adverse Reaction (Verified 08/27/20 09:20) Unknown Medications to take at Discharge Cholecalciferol (VIT D3) [Vitamin D3] 1,000 unit PO DAILY@1400 11/29/14 Gabapentin [Neurontin] 300 mg PO DAILY@1800 11/29/14 [place]-3 Fatty Acids/Fish Oil [Fish Oil 1,000 mg Softgel] 1 cap PO DAILY@1200 11/29/14 Simvastatin [Zocor] 20 mg PO QHS 11/29/14 Aspirin E.C. [Ecotrin] 81 mg PO QHS 12/20/18 metoprolol tartrate 25 mg tablet 12.5 mg PO BID tab 03/21/20 alpha lipoic acid 200 mg capsule 200 mg PO DAILY 06/06/20 coenzyme Q10 100 mg capsule 100 mg PO BID cap 06/06/20 multivitamin 1 tab PO QAM 06/06/20 Acetaminophen [Tylenol] 1,000 mg PO Q6H PRN PRN tablet 09/05/20 Primary Care Physician: Giovanni Forte MD [Primary Care Provider] - Please follow up with your Primary Care Physician in: 1 week. Test Results: Test results from this visit will be discussed in further detail at your follow- up appointment, if applicable. Proposed Discharge Date: 09/09/20
--- NOTE | 2020-09-05 13:39 | PCM.DC.SUM ---
Discharge Date and Diagnosis - Problem List Patient Problems: Active and Suspected Problems (Last Reviewed 08/27/20 @ 12:[address] Kwabena Henson MD) Right groin pain (Acute) Debility (Acute) Low back pain (Acute) Acute kidney injury (Acute) Urinary tract infection (Acute) Date of Admission: 08/29/20 Date of Discharge: 09/09/20 - Primary Discharge Diagnosis Acute Problems: Active Problems (Last Reviewed 08/27/20 @ 12:[address] Kwabena Henson MD) Right groin pain (Acute) Debility (Acute) Low back pain (Acute) Acute kidney injury (Acute) Urinary tract infection (Acute) - Secondary Discharge Diagnosis Chronic Problems: Chronic Problems (Last Reviewed 08/27/20 @ 12:[address] Kwabena Henson MD) Hypertension (Chronic) Chronic kidney disease (Chronic) Coronary artery disease (Chronic) Vitamin D deficiency (Chronic) Neuropathic pain (Chronic) Syncope (Chronic) Atherosclerosis of coronary artery of [place] heart without angina pectoris (Chronic) 50% mid LAD per LHC and FFR 04/2012 Essential (primary) hypertension (Chronic) Hyperlipidemia (Chronic) Chronic kidney disease, stage 3 (moderate) (Chronic) Hospital Course and Treatment Imaging Results: 08/30/20 00:08 Diet: Regular - General Food consistency:: Regular Liquid Consistency:: Regular/Thin Is pt able to select menu?: Yes Diet Comments: low sodium diet Operations: None Procedures: None Summary of Care Provided: The patient is a 85 year old Female with below past medical history hospitalized for intractable right groin pain, complicated by enterobacter urinary tract infection, admitted to TCU with debility, here for rehabilitation, strengthening, prior to discharge home with . On TCU, CT pelvis NEGATIVE for fracture. Discharge home with , [facility] PT/OT. Patient Problems: Active and Suspected Problems (Last Reviewed 08/27/20 @ 12:[address] Kwabena Henson MD) Right groin pain (Acute) Debility (Acute) Low back pain (Acute) Acute kidney injury (Acute) Urinary tract infection (Acute) - Physical Exam Vitals/I&O's: Vital Signs Temp Pulse Resp BP Pulse Ox 97.8 F 80 16 156/85 H 98 09/05/20 05:00 09/05/20 05:49 09/05/20 05:00 09/05/20 05:49 09/05/20 05:00 Oxygen Delivery Method Room Air Weight: 66.338 kg Body Mass Index (BMI) 23.3 Intake and Output for Last 24 Hours 09/03/20 09/04/20 09/05/20 23:59 23:59 23:59 Intake Total 740 / 740 360 / 360 360 / 360 Balance 740 / 740 360 / 360 360 / 360 Current Medications Acetaminophen (Acetaminophen 500 Mg Tablet) 1,000 mg PO Q6H PRN PRN PRN Reason: Pain Score 1-3 Last Admin: 09/02/20 00:07 Dose: 1,000 mg Documented by: Aspirin (Aspirin E.C. 81 Mg Tablet) 81 mg PO QHS [facility] Last Admin: 09/04/20 22:16 Dose: 81 mg Documented by: Atorvastatin Calcium (Atorvastatin Calcium 20 Mg Tablet) 20 mg PO QHS [facility] Last Admin: 09/04/20 22:16 Dose: 20 mg Documented by: Bisacodyl (Bisacodyl 10 Mg Suppository) 10 mg RECTAL DAILY PRN PRN Reason: Constipation Cholecalciferol (Cholecalciferol (Vit D3) 1,000 Unit (25mcg)) 1,000 unit PO DAILY@1700 [facility] Last Admin: 09/04/20 17:12 Dose: 1,000 unit Documented by: Gabapentin (Gabapentin 300 Mg Capsule) 300 mg PO DAILY@1800 [facility] Last Admin: 09/04/20 17:12 Dose: 300 mg Documented by: Guaifenesin (Guaifenesin 10 Ml Udc (200mg/10ml)) 20 ml PO Q4H PRN PRN PRN Reason: COUGH Magnesium Hydroxide (Magnesium Hydroxide 30 Ml Udc) 30 ml PO DAILY PRN PRN Reason: Constipation Melatonin (Melatonin 3 Mg Tablet) 3 mg PO QHS PRN PRN PRN Reason: INSOMNIA Metoprolol Tartrate (Metoprolol Tartrate 25 Mg Tablet) 25 mg PO BID [facility] Last Admin: 09/05/20 05:49 Dose: 25 mg Documented by: Oxycodone HCl (Oxycodone 5 Mg Tablet) 2.5 mg PO Q4H PRN PRN PRN Reason: Pain Score 4-10 Polyethylene Glycol (Polyethylene Glycol 3350 17 Gm Packet) 17 gm PO DAILY [facility] Last Admin: 09/05/20 05:49 Dose: Not Given Documented by: Senna/Docusate Sodium (Senna/Docusate Sodium 1 Tablet) 1 tablet PO BID SADE Last Admin: 09/05/20 05:50 Dose: Not Given Documented by: Tuberculin PPD (Tuberculin,Purif.Prot.Deriv. 50 Tu/Ml Vial) 5 tu ID [id number] ONE Stop: 09/06/20 10:01 Discharge Diet: No Restrictions Discharge Activity: Return to Normal Activity, May Shower, Use Walker Weight Bearing Status: Weight bearing as tolerated Call your doctor if you observe: Fever of 101 or Higher, Inability to urinate, Inability to have a bowel movement, Shortness of breath, Chest pain, Uncontrolled pain Home Medications: Medications to take at Discharge Cholecalciferol (VIT D3) [Vitamin D3] 1,000 unit PO DAILY@1400 11/29/14 Gabapentin [Neurontin] 300 mg PO DAILY@1800 11/29/14 [place]-3 Fatty Acids/Fish Oil [Fish Oil 1,000 mg Softgel] 1 cap PO DAILY@1200 11/29/14 Simvastatin [Zocor] 20 mg PO QHS 11/29/14 Aspirin E.C. [Ecotrin] 81 mg PO QHS 12/20/18 metoprolol tartrate 25 mg tablet 12.5 mg PO BID tab 03/21/20 alpha lipoic acid 200 mg capsule 200 mg PO DAILY 06/06/20 coenzyme Q10 100 mg capsule 100 mg PO BID cap 06/06/20 multivitamin 1 tab PO QAM 06/06/20 Acetaminophen [Tylenol] 1,000 mg PO Q6H PRN PRN tablet 09/05/20 Primary Care Physician: Giovanni Forte MD [Primary Care Provider] - Please follow up with your Primary Care Physician in: 1 week. Disposition: Home with Home Health Minutes spent on discharge:: 35 Patient Condition:: Stable Medical Necessity - Tobacco Use Smoking Status: Never smoker Tobacco Use: Non-smoker Meaningful Use Info Meaningful Use Diagnoses (Choose all that apply): None applicable
[2020-09-05 13:48] VITALS: BP 144/82; PULSE 75; RESP 16; TEMP 36.1; O2SAT 93
[2020-09-05 17:12] VITALS: PULSE 75
[2020-09-05] MEDS: Gabapentin 300 MG Capsule PO (17:12)
[2020-09-05] MEDS: Senna/Docusate Sodium 1 Tablet PO (17:12)
[2020-09-05] MEDS: Atorvastatin Calcium 20 MG Tablet PO (21:05)
[2020-09-05] MEDS: Aspirin E.C. 81 MG Tablet PO (21:05)
[2020-09-05 21:08] VITALS: PULSE 84; RESP 14
[2020-09-06 01:57] VITALS: BP 167/71; PULSE 72; RESP 16; TEMP 36.1; O2SAT 96
[2020-09-06 04:54] VITALS: BP 167/71; PULSE 72
[2020-09-06] MEDS: Metoprolol Tartrate 25 MG Tablet PO ×2 (04:54→17:11)
[2020-09-06] MEDS: Senna/Docusate Sodium 1 Tablet PO (04:54)
[2020-09-06 09:18] LABS: Absolute Lymphocyte Count 1.81 X10^3/uL (0.83-4.51); Absolute Neutrophil Count 4.6 X10^3/uL (2.0-7.7); Basophil# 0.07 X10^3/uL; Eosinophil# 0.21 X10^3/uL; Hematocrit 37.6 % (37-47); Hemoglobin 11.3 g/dL (12.0-15.0); Lymphocyte # 1.81 X10^3/ul (4.0); Lymphocyte % 25.5 % (19-41); Mean Corp Hgb Conc 30.1 g/dL (32-36); Mean Corpuscular Volume 93.3 fL (81-99); Mean Platelet Vol. 9.2 fl (6.2-12.0); Monocyte# 0.45 X10^3/uL; Monocyte% 6.3 % (0-10); NRBC Flagged by Analyzer 0 % (0-5); Neutrophil # 4.55 X10^3/uL (2.7-7.7); Neutrophil % 63.9 % (47-70); Platelet Count 313 K/mm3 (150-450); RBC Distribution Width CV 13.2 % (11.6-14.6); RBC Distribution Width SD 45.4 fl (35.1-43.9); Red Blood Count 4.03 M/mm3 (4.2-5.4); White Blood Count 7.1 K/mm3 (4.4-11.0)
[2020-09-06 09:35] LABS: Anion Gap 5 (5-15); BUN 36 mg/dL (7-18); BUN/Creat Ratio 15.6 RATIO (10-20); Calcium,Total 8.9 mg/dL (8.5-10.1); Chloride 109 mmol/L (98-107); Creatinine, Serum 2.31 mg/dL (0.55-1.02); EST Glomerular Filtration Rate 21 mL/min (>60); Est Glom Filt Rate - Afr Amer 26 mL/min (>60); Estimated Creatinine Clearance 17.94 ml/min; Glucose 129 mg/dL (74-106); Potassium 3.9 mmol/L (3.5-5.1); Sodium Level 141 mmol/L (136-145)
[2020-09-06 09:50] VITALS: PULSE 71; RESP 18; O2SAT 97
[2020-09-06] MEDS: Acetaminophen 500 MG Tablet 1000 MG PO (09:58)
[2020-09-06] MEDS: Tuberculin,Purif.prot.deriv. 50 TU/ML Vial 5 ML ID (10:32)
[2020-09-06 14:49] VITALS: BP 114/58; PULSE 89; RESP 17; TEMP 36.6; O2SAT 97
[2020-09-06] MEDS: Gabapentin 300 MG Capsule PO (17:10)
[2020-09-06 17:11] VITALS: BP 114/58; PULSE 89
[2020-09-06] MEDS: Atorvastatin Calcium 20 MG Tablet PO (22:47)
[2020-09-06] MEDS: Aspirin E.C. 81 MG Tablet PO (22:47)
[2020-09-07 05:00] VITALS: BP 149/73; PULSE 70; RESP 18; TEMP 36.6; O2SAT 94
[2020-09-07 06:27] VITALS: BP 149/73; PULSE 70
[2020-09-07] MEDS: Metoprolol Tartrate 25 MG Tablet PO ×2 (06:27→17:09)
[2020-09-07] MEDS: Senna/Docusate Sodium 1 Tablet PO (06:27)
[2020-09-07 13:36] VITALS: BP 151/80; PULSE 80; RESP 18; TEMP 36.3; O2SAT 98
[2020-09-07 17:09] VITALS: BP 151/80; PULSE 80
[2020-09-07] MEDS: Gabapentin 300 MG Capsule PO (17:09)
[2020-09-07] MEDS: Aspirin E.C. 81 MG Tablet PO (21:03)
[2020-09-07] MEDS: Atorvastatin Calcium 20 MG Tablet PO (21:03)
[2020-09-08 05:00] VITALS: BP 151/78; PULSE 70; RESP 18; TEMP 36.5; O2SAT 96
[2020-09-08 05:55] VITALS: BP 151/78; PULSE 70
[2020-09-08] MEDS: Metoprolol Tartrate 25 MG Tablet PO ×2 (05:55→17:15)
[2020-09-08 10:00] VITALS: PULSE 72; RESP 16; O2SAT 99
--- NOTE | 2020-09-08 11:06 | NURSING ---
Dr. Ann's office was called and f/u appointment from loop recorder placement scheduled on 10/01/20 at 1:30pm, pt updated on new appointment
[2020-09-08 13:33] VITALS: BP 156/72; PULSE 72; RESP 16; TEMP 35.8; O2SAT 98
[2020-09-08 17:15] VITALS: PULSE 72
[2020-09-08] MEDS: Gabapentin 300 MG Capsule PO (17:15)
[2020-09-08] MEDS: Senna/Docusate Sodium 1 Tablet PO (17:16)
[2020-09-08] MEDS: Aspirin E.C. 81 MG Tablet PO (21:37)
[2020-09-08] MEDS: Atorvastatin Calcium 20 MG Tablet PO (21:37)
[2020-09-09 05:00] VITALS: BP 165/87; PULSE 73; RESP 18; TEMP 36.5; O2SAT 95
[2020-09-09 06:27] VITALS: BP 165/87; PULSE 73
[2020-09-09] MEDS: Metoprolol Tartrate 25 MG Tablet PO (06:27)
[2020-09-09 09:56] VITALS: PULSE 71; RESP 18; O2SAT 96
[2020-09-09 10:13] VITALS: BP 150/67; PULSE 71; RESP 18; TEMP 36.2; O2SAT 96
[2020-09-09 13:00] VITALS: BP 152/88; PULSE 74; RESP 18; TEMP 36.4; O2SAT 96
--- NOTE | 2020-09-11 12:31 | MDS.RN ---
Information for the mds was obtained from review of the clinical record, interview of resident, staff, and direct observation of resident's care.
== END 2020-09-09 11:45 | disposition home health service (06) | DRG 690 ==
PROVIDERS: Admitting Provider Family Medicine Geriatric Medicine; PCP Family Medicine; Visit Provider Family Medicine Geriatric Medicine
DX: N30.00 Acute cystitis without hematuria (principal); B96.89 Other specified bacterial agents as the cause of diseases classified elsewhere; E55.9 Vitamin D deficiency, unspecified; I25.10 Atherosclerotic heart disease of native coronary artery without angina pectoris; E78.5 Hyperlipidemia, unspecified; N18.30 Chronic kidney disease, stage 3 unspecified; I12.9 Hypertensive chronic kidney disease with stage 1 through stage 4 chronic kidney disease, or unspecified chronic kidney disease; K21.9 Gastro-esophageal reflux disease without esophagitis
CPT/HCPCS: 36415; 80048; 85025; 87426; 87635; 97110; 97116; 97162; 97165; 97530; 97535; 97802; U0002

== ENCOUNTER → 2020-08-30 | Outpatient (CLI) | payer MEDICARE, SELFPAY ==
[2020-08-29 17:43] VITALS: BMI 23.3
--- NOTE | 2020-08-30 04:15 | CT_ITS ---
STUDY: CT PELVIS WITHOUT CONTRAST REASON FOR EXAM: Female, 85 years old. RIGHT GROIN PAIN. R/O OCCULT FRACTURE. NO KNOWN INJURY RADIATION DOSAGE (If Supplied By Facility): CTDIvol = ( 24.17 ) mGy, DLP = ( 748.34 ) mGycm TECHNIQUE: Transaxial imaging of the pelvis was performed without oral contrast, and without intravenous administration of contrast material. Individualized dose optimization techniques were used for this CT. COMPARISON: None. FINDINGS: Normal urinary bladder. Normal visualized small intestine. There are multiple colonic diverticula of the sigmoid colon consistent with chronic diverticulosis. There is no pelvic fluid. There is no pelvic mass lesion or lymphadenopathy. Normal visualized pelvic arteries. Normal abdominal wall. Normal osseous structures. CT/Pelvis without IV Contrast IMPRESSION: No pelvic fracture. Electronically Signed: Logan Jamil MD at 9:29 EDT Tel , Service support ,
== END | disposition home or self-care (01) ==
LOC: CT 04:16
PROVIDERS: PCP Family Medicine; Visit Provider Family Medicine Geriatric Medicine
DX: R10.2 Pelvic and perineal pain (principal)
CPT/HCPCS: 72192

== ENCOUNTER 2020-10-11 12:05 | Emergency (ER) | payer MEDICARE, SELFPAY ==
[2020-08-29 17:43] VITALS: BMI 23.3
[2020-10-11 12:05] VITALS: BP 189/85; PULSE 61; RESP 16; TEMP 36.5; O2SAT 94; BMI 23.8
--- NOTE | 2020-10-11 12:40 | RAD_ITS ---
STUDY: X-RAY - THORACIC SPINE REASON FOR EXAM: Female, 85 years old. BILAT SHOULDER PAIN. HX FALL TECHNIQUE: 3 view(s) of the thoracic spine were obtained. COMPARISON: None. FINDINGS: There is an increase in the normal thoracic kyphosis. There is no substantial scoliosis. Normal thoracic vertebrae and endplates. There are calcifications of the disc at multiple levels. Pain management wires are seen in the spinal canal entering at the level of T12-L1 and extends to the level of T9-T10. RAD/Thoracic Spine 3 Views IMPRESSION: Degenerative changes as described above. Electronically Signed: David Christianson MD at 14:01 EST Tel , Service support ,
--- NOTE | 2020-10-11 12:40 | RAD_ITS ---
STUDY: X-RAY - PELVIS REASON FOR EXAM: Female, 85 years old. RT HIP/BUTTOCK PAIN. HX FALL TECHNIQUE: One view of the pelvis was obtained. COMPARISON: None. FINDINGS: There is a non-specific bowel gas pattern. Normal visualized soft tissue structures. Degenerative changes in the lower lumbar spine. Demineralization of the osseous structures. Normal bilateral iliac wings, sacroiliac joints and visualized sacrum. Normal visualized bilateral superior and inferior pubic rami. Normal pubic symphysis. Normal ischial tuberosities. Normal visualized right femoral head. Normal right acetabulum. Normal right hip joint. Normal visualized left femoral head. Normal left acetabulum. Normal left hip joint. RAD/Pelvis 1 or 2 Views IMPRESSION: No demonstrated acute fracture. Electronically Signed: David Christianson MD at 14:00 EST Tel , Service support ,
--- NOTE | 2020-10-11 12:40 | ED.VIS.FALL ---
History of Present Illness Chief Complaint: Fall Informant: Patient Occurred: Days - 5 Mechanism/Context: Same level fall, Lightheadedness Quality of Pain: Aching Current Severity: Moderate Maximum Severity: Severe Worsened by: sitting Relieved by: anything other than sitting Associated Symptoms: Negative for: Parasthesias, Weakness, Loss of function, Inability to ambulate, Loss of consciousness, Amnesia Narrative: Patient became a little lightheaded 5 days ago while in her kitchen cooking, causing her to fall to the floor. She fell onto her buttock, and then fell back to her head against the floor. There was no loss of consciousness, she has had no headaches, vomiting, confusion or other mental status changes, or peripheral neurologic symptoms. She takes a baby aspirin a day but no anticoagulants, and this occurred 5 days ago. She states it was early in the morning, she makes it a rule to not drink any fluids after 6 PM every day so that she is not up urinating all night, and she had not had any liquids that morning yet and felt like she was probably just dehydrated. She has had no episodes of lightheadedness or any other systemic symptoms since then, nor any other falls but came to have her buttock evaluated because the pain is not getting better. She also states that she fell she thinks she torqued her back a little, and she has been having some mild pain in the middle of her back as well. No neck pain. She went to urgent care prior to this, but they did not do any x-rays and sent her here because of the fact that she hit her head. - Past Medical History (1) Atherosclerosis of coronary artery of [place] heart without angina pectoris Status: Chronic Comment: 50% mid LAD per C and FFR 04/2012 (2) Chronic kidney disease Status: Chronic (3) Essential (primary) hypertension Status: Chronic (4) Hyperlipidemia Status: Chronic (5) Neuropathic pain Status: Chronic (6) History of loop recorder Status: Inactive Past Medical History - Allergies and Home Meds Allergies/Adverse Reactions: Allergies Gadolinium-MRI Contrast Medium [CONTRAST] Allergy (Verified 10/11/20 12:09) Hives Latex, Natural Rubber Allergy (Verified 10/11/20 12:09) Rash hydralazine Adverse Reaction (Intermediate, Verified 10/11/20 12:09) Swelling amlodipine Adverse Reaction (Verified 10/11/20 12:09) dizziness codeine Adverse Reaction (Verified 10/11/20 12:09) drowsy I SLEEP REAL GOOD tramadol [From [facility]] Adverse Reaction (Verified 10/11/20 12:09) Unknown Primary Care Physician: Giovanni Forte MD [Primary Care Provider] - Surgical History: cholecystectomy, hysterectomy, rotator cuff repair, total knee arthroplasty, tonsillectomy, - - Nasal septoplasty, spinal cord stimulator placement, right rotator cuff surgery, ORIF left ankle, ORIF right elbow. Lives: Alone Smoking Status: Never smoker - Family History Maternal Family History: Reports: - - Patient denies any marked maternal family history including diabetes, heart disease, cancer. Paternal Family History: Reports: Cancer, Diabetes Review of Systems General: Denies: Chills, Fever, Sweats Eyes: Denies: Visual changes - bilaterally, Diplopia ENT: Denies: Rhinorrhea, Sore throat Cardiovascular: Denies: Chest pain, Palpitations Respiratory: Denies: Dyspnea, Cough, Dyspnea on exertion Gastrointestinal: Denies: Abdominal pain, Nausea, Vomiting, Diarrhea, Melena, Hematochezia Genitourinary: Denies: Dysuria, Hematuria, Frequency Musculoskeletal: Reports: Back pain - mild, middle, Extremity Pain - R buttock, no groin pain. Denies: Neck pain Skin: Denies: Rash, Wounds Neurological: Denies: Headache, Weakness, Numbness Physical Exam Vital Signs/Narrative: Vital Signs Temp Pulse Resp BP Pulse Ox 10/11/20 12:05 97.7 F L 61 16 189/85 H 94 Inital Vital Signs reviewed: Yes General: Well nourished, Well developed, - - Appearing no distress, conversational Head: Normocephalic, Atraumatic, Tenderness - Very mild, high occipital scalp, no signs of trauma, no palpable step-off, crepitance, depression, or skull fracture. No hematoma or contusion visible. Eyes: Perrl, EOMI ENT: TM's clear, No hemotympanum or drainage, No trauma Neck: Nontender, Full ROM. Negative for: Spinal Tenderness Cardiovascular: Regular rate, Regular rhythm, No murmurs Respiratory: No distress, CTA bilaterally, Chest nontender Abdomen: Soft, Nontender, Nondistended, Normal bowel sounds Back: Spinal Tenderness - Mild throughout upper and mid thoracic spine only. No lumbosacral tenderness. No step-off or signs of injury. Extremeties: Full range of motion throughout all 4 extremities including internal/external rotation of the right hip which does not provide any groin pain. Tender in the right ischial tuberosity. No other bony pelvis tenderness. No pain with AP compression of the pelvis and with lateral compression of the pelvis. SI joints nontender. Skin: Normal color, No rash, No Trauma Neurological: Alert, Oriented x3, Cranial nerves II-XII grossly intact, Normal Strength, Normal Sensation, Normal Gait Psychological: Normal affect, Normal Mood Diagnostic/Tx/Re-eval Clinical Impression(s) from Imaging Studies Pelvis X-Ray 10/11/20 12:40 IMPRESSION: No demonstrated acute fracture. Electronically Signed: David Christianson MD at 14:00 EST Tel , Service support , Thoracic Spine X-Ray 10/11/20 12:40 IMPRESSION: Degenerative changes as described above. Electronically Signed: David Christianson MD at 14:01 EST Tel , Service support , - Medical Decision Making Given that this patient has had no symptoms of a head/brain injury has a normal neurologic exam, and she has basically had a 5-day observation period since her minor head injury, I do not think she needs a CT of the head. I discussed this with her and she is in agreement. X-rays of the thoracic spine and the pelvis were obtained. They show no acute fracture. My suspicion is that she has contusion involving the ischial tuberosity. Supportive care and using pain as her guide is recommended. I offered a prescription for analgesics but she states that Tylenol will be fine for her which she has been using at home. Given instructions and follow-up. ED Disposition - Plan for ED Patient: Disposition: Home or Assisted Living Diagnosis: Orthostatic lightheadedness, Accidental fall, Contusion of buttock, Acute thoracic myofascial strain Instructions: ED Coccyx or Sacrum Contusion, ED Thoracic Spine Strain Referrals: Giovanni Forte MD [Primary Care Provider] - 1 Week if not improving
--- NOTE | 2020-10-11 15:22 | ED.RN ---
DISCHARGE INSTRUCTIONS GIVEN TO AND REVIEWED WITH PATIENT, PATIENT DENIES QUESTIONS OR CONCERNS AND VOICES UNDERSTANDING OF DISCHARGE INSTRUCTIONS. PT TO WAITING ROOM VIA WHEELCHAIR.
== END 2020-10-11 15:23 | disposition home or self-care (01) ==
PROVIDERS: Emergency Provider Emergency Medicine; PCP Family Medicine
DX: R42 Dizziness and giddiness (principal); S30.0XXA Contusion of lower back and pelvis, initial encounter; S29.012A Strain of muscle and tendon of back wall of thorax, initial encounter; I25.10 Atherosclerotic heart disease of native coronary artery without angina pectoris; I12.9 Hypertensive chronic kidney disease with stage 1 through stage 4 chronic kidney disease, or unspecified chronic kidney disease; N18.9 Chronic kidney disease, unspecified; E78.5 Hyperlipidemia, unspecified; Z79.899 Other long term (current) drug therapy; W18.30XA Fall on same level, unspecified, initial encounter; Y93.G3 Activity, cooking and baking; Y92.000 Kitchen of unspecified non-institutional (private) residence as the place of occurrence of the external cause; Y99.8 Other external cause status
CPT/HCPCS: 72072; 72170; 99282

== ENCOUNTER 2020-12-04 10:01 | Outpatient (RCR) | payer MEDICARE, SELFPAY | END 2020-12-04 23:59 | LOC: IMMUN 10:01 | PROVIDERS: PCP Family Medicine; Visit Provider Family Medicine | DX: Z23 Encounter for immunization (principal) | CPT/HCPCS: 0011A; 0012A; 91301 ==

== ENCOUNTER 2021-08-26 12:00 | Outpatient (RCR) | payer MEDICARE, SELFPAY ==
[2021-05-26 10:13] VITALS: BMI 23.6
--- NOTE | 2021-06-22 17:45 | HP.PTEVAL ---
Patient's Visit Information SYEDA CHILD is a 85 year old F referred to Physical Therapy by Gary Mendez PA-C with a diagnosis of R TKA 04/09/21. Date of Evaluation: 06/22/21 Physical Therapist: Sam Leal, PT, ATC - Visit Plan Frequency: 2-3x /Week Duration: 4-6 Weeks Plan: R knee PROM/mobs, stretching and strengthening, core stab wx's, gait training, balance and proprio, and HEP - Subjective DOS: 06/09/21. Pt reports she had a R TKA performed at that time. Pt reports she had r knee pain chronically prior to having it replaced. Pt reports she has 3 stairs into her house, and 4 stairs on the deck. Pt reports she negotiates them one step at a time. Pt reports sleep difficulty secondary to pain. Pt reports she likes to go on walks, but is unable to at this time secondary to her pain. 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 Pt notes she fell down stairs while at work which resulted in major damage to B LE's. No tingling or numbness in LE's at this time. No PMHx of R knee surgery. Pt reports her biggest complaint at this time is her level of pain. Pt reports 7/10 pain at rest, 10/10 pain at worst. Pt reports she has not been doing her HEP very often since surgery. - Pain R Knee Pain Intensity (Out of 10): 7 Pain Intensity Range: 10 - Objective Neuro: B LE sensation is WNL to light touch. Girth at joint line: R= 41, L= 35 cm. ROM: L knee 0-5-120, R knee 0-25-95. MMT: L knee flex= 14.6, ext= 10.8. R knee flex= 5/5, ext= 6.6. Gait: Pt is able to ambulate approximately 20 feet until needing to rest. - Goals Goal 1:: Decrease R knee pain x 50% to aid with sleep Goal Time Frame: 4-6 Weeks Goal 2:: Increase R knee ROM x 30 degrees to aid with restoring a more normalized gait pattern Goal 3:: Increase R knee strength x 10#F to aid with stair negotiation Goal Time Frame: 4-6 Weeks Goal 4:: I with HEP Goal Time Frame: 4-6 Weeks - Rehabilitation Potential Physical Therapy Diagnosis: Pt has R knee pain, weakness, and limited ROM secondary to R TKA Rehabilitation Potential: Good - Anticipated Interventions Patient/Client Instruction: Educate patient on: Condition, Plan of Care For the Purpose of:: To improve self management Therapeutic Exercise to Include: Strength training, Endurance training, Balance training, Flexibilty training, Gait and locomotor training, Passive ROM, Active ROM, Dynamic Lumbar Stabilization For the Purpose of:: To decrease pain, To increase ROM, To improve muscle performance and motor function Cryotherapy (ice pack, ice massage): Yes For the Purpose of:: To decrease pain Thank you for the opportunity to evaluate your patient. For Medicare and Medicare HMO plans, please review the plan of care and approve it. It will need to be FAXED BACK to us at [phone] for Medicare purposes. For Medicare only, by signing this I certify the plan of care. Please let me know if there are questions or concerns regarding this plan of care. Physician Signature: Date:
--- NOTE | 2021-07-24 09:04 | HP.PTREVAL_ITS ---
Gary Mendez PA-C, It has been my pleasure to treat SYEDA CHILD over the last 12 visits for R TKA 04/09/21. Please see the progress note below for an update on the physical therapy plan of care! Subjective: Pt reports she is still in a lot of pain Objective/Function: R knee pain ranges from 4-8/10. R knee ROM: 0-16-100. R kn ee MMT: flex= 10.7, ext= 9.1 #F. Pt is still lacking functional ROM and strength at this time. Plan Plan: Attempt to get further PT visits approved to focus on ROM and strengthening Balance/Gait/Functional tests - Balance/Special Test Scores Lower Extremity Functional Score: 15 Goals Goal 1:: Decrease R knee pain x 50% to aid with sleep Goal Time Frame: 4-6 Weeks Goal Progress: Not Progressing Goal 2:: Increase R knee ROM x 30 degrees to aid with restoring a more normalized gait pattern Goal Progress: Progressing Goal 3:: Increase R knee strength x 10#F to aid with stair negotiation Goal Time Frame: 4-6 Weeks Goal Progress: Progressing Goal 4:: I with HEP Goal Time Frame: 4-6 Weeks Goal Progress: Progressing Anticipated Interventions Patient/Client Instruction: Educate patient on: Condition, Plan of Care For the Purpose of:: To improve self management Therapeutic Exercise to Include: Strength training, Endurance training, Balance training, Flexibilty training, Gait and locomotor training, Passive ROM, Active ROM, Dynamic Lumbar Stabilization For the Purpose of:: To decrease pain, To increase ROM, To improve muscle performance and motor function Cryotherapy (ice pack, ice massage): Yes For the Purpose of:: To decrease pain Please do not hesitate to contact me at [phone] by phone or if you have questions or concerns regarding this new plan of care! Sincerely, Sam Leal, PT, ATC
--- NOTE | 2021-08-03 18:04 | HP.PTREVAL_ITS ---
Gary Mendez PA-C, It has been my pleasure to treat SYEDA CHILD over the last 18 visits for R TKA 04/09/21. Please see the progress note below for an update on the physical therapy plan of care! Subjective: Pt reports she continues to experience pain in R knee. 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 Objective/Function: Pt reports R knee pain 4/10, still increases to 10/10 at worst. R knee MMT: ext= 11, flex= 12. R knee ROM: 0-15-117 degrees. Pt is progressing well toward Rx goals but would benefit from further PT to focus on ROM, strengthening, and gait activity Plan Plan: Attempt to get 12 more PT visits approved Balance/Gait/Functional tests - Balance/Special Test Scores Lower Extremity Functional Score: 25 Goals Goal 1:: Decrease R knee pain x 50% to aid with sleep Goal Time Frame: 4-6 Weeks Goal Progress: Progressing Goal 2:: Increase R knee ROM x 30 degrees to aid with restoring a more normalized gait pattern Goal Progress: Progressing Goal 3:: Increase R knee strength x 10#F to aid with stair negotiation Goal Time Frame: 4-6 Weeks Goal Progress: Progressing Goal 4:: I with HEP Goal Time Frame: 4-6 Weeks Goal Progress: Progressing Anticipated Interventions Patient/Client Instruction: Educate patient on: Condition, Plan of Care For the Purpose of:: To improve self management Therapeutic Exercise to Include: Strength training, Endurance training, Balance training, Flexibilty training, Gait and locomotor training, Passive ROM, Active ROM, Dynamic Lumbar Stabilization For the Purpose of:: To decrease pain, To increase ROM, To improve muscle performance and motor function Cryotherapy (ice pack, ice massage): Yes For the Purpose of:: To decrease pain Please do not hesitate to contact me at [phone] by phone or Fax: if you have questions or concerns regarding this new plan of care! Sincerely, Sam Leal, PT, ATC
--- NOTE | 2021-08-26 13:41 | HP.PTEVAL ---
Patient's Visit Information SYEDA CHILD is a 86 year old F referred to Physical Therapy by Gary Mendez PA-C with a diagnosis of R TKA 04/09/21. Date of Evaluation: 06/22/21 Physical Therapist: Sam Leal, PT, ATC - Visit Plan Frequency: 2-3x /Week Duration: 4-6 Weeks Plan: Discharge - Subjective DOS: 06/09/21. Pt reports she had a R TKA performed at that time. Pt reports she had r knee pain chronically prior to having it replaced. Pt reports she has 3 stairs into her house, and 4 stairs on the deck. Pt reports she negotiates them one step at a time. Pt reports sleep difficulty secondary to pain. Pt reports she likes to go on walks, but is unable to at this time secondary to her pain. 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 Pt notes she fell down stairs while at work which resulted in major damage to B LE's. No tingling or numbness in LE's at this time. No PMHx of R knee surgery. Pt reports her biggest complaint at this time is her level of pain. Pt reports 7/10 pain at rest, 10/10 pain at worst. Pt reports she has not been doing her HEP very often since surgery. - Pain R Knee Pain Intensity (Out of 10): 0 Pain Intensity Range: 10 Comment: no sharp pains, sore and hot - Objective Neuro: B LE sensation is WNL to light touch. Girth at joint line: R= 41, L= 35 cm. ROM: L knee 0-5-120, R knee 0-25-95. MMT: L knee flex= 14.6, ext= 10.8. R knee flex= 5/5, ext= 6.6. Gait: Pt is able to ambulate approximately 20 feet until needing to rest. - Balance/Special Test Scores Lower Extremity Functional Score: 35 - Goals Goal 1:: Decrease R knee pain x 50% to aid with sleep Goal Time Frame: 4-6 Weeks Goal 2:: Increase R knee ROM x 30 degrees to aid with restoring a more normalized gait pattern Goal 3:: Increase R knee strength x 10#F to aid with stair negotiation Goal Time Frame: 4-6 Weeks Goal 4:: I with HEP Goal Time Frame: 4-6 Weeks - Rehabilitation Potential Physical Therapy Diagnosis: Pt has R knee pain, weakness, and limited ROM secondary to R TKA Rehabilitation Potential: Good - Anticipated Interventions Patient/Client Instruction: Educate patient on: Condition, Plan of Care For the Purpose of:: To improve self management Therapeutic Exercise to Include: Strength training, Endurance training, Balance training, Flexibilty training, Gait and locomotor training, Passive ROM, Active ROM, Dynamic Lumbar Stabilization For the Purpose of:: To decrease pain, To increase ROM, To improve muscle performance and motor function Cryotherapy (ice pack, ice massage): Yes For the Purpose of:: To decrease pain Thank you for the opportunity to evaluate your patient. For Medicare and Medicare HMO plans, please review the plan of care and approve it. It will need to be FAXED BACK to us at [phone] for Medicare purposes. For Medicare only, by signing this I certify the plan of care. Please let me know if there are questions or concerns regarding this plan of care. Physician Signature: Date:
--- NOTE | 2021-08-26 13:57 | HP.PTDCSUM ---
It has been my pleasure to treat SYEDA CHILD referred by Gary Mendez PA-C, with the diagnosis of R TKA 04/09/21 for a total of 22 visit(s). Discharge Date: Please see the following information for a summary of their discharge status. Subjective: Pt is ready for discharge. No pain this date R Knee Pain Intensity (Out of 10): 0 % Improvement: 92 Objective/Function: R knee pain 0/10 this date. R knee ROM: 0-4-130. R knee MMT: flex= 13, ext= 17. Pt is I with gym routine. TU.42. Rx goals achieved Goal 1:: Decrease R knee pain x 50% to aid with sleep Goal Progress: Goal Met Goal 2:: Increase R knee ROM x 30 degrees to aid with restoring a more normalized gait pattern Goal Progress: Goal Met Goal 3:: Increase R knee strength x 10#F to aid with stair negotiation Goal Progress: Goal Met Goal 4:: I with HEP Goal Progress: Goal Met Plan: Discharge If there are questions or concerns regarding this patient's physical therapy, please feel free to call me at [phone]. Thank you for the referral of this patient. Sincerely, Sam Leal, PT, ATC Balance/Gait/Functional tests - Balance/Special Test Scores Lower Extremity Functional Score: 35
== END 2021-08-26 15:08 | disposition home or self-care (01) ==
LOC: PT 12:00
PROVIDERS: PCP Family Medicine; Referring Provider Physician Assistant Surgical; Visit Provider Physician Assistant Surgical
DX: Z47.1 Aftercare following joint replacement surgery (principal); M17.11 Unilateral primary osteoarthritis, right knee; Z96.651 Presence of right artificial knee joint
CPT/HCPCS: 97110; 97140; 97161; 97164

== ENCOUNTER 2021-12-23 10:04 | Observation (INO) | payer MEDICARE, SELFPAY ==
[2021-12-23] VITALS (7 sets, daily range): BP systolic 141–188; BP diastolic 67–106; PULSE 71–115; RESP 16–18; TEMP 35.4–36.8; O2SAT 95–99; BMI 18.3
--- NOTE | 2021-12-23 10:21 | EKG12_ITS ---
Test Reason : WEAKNESS Blood Pressure : / mmHG Vent. Rate : 098 BPM Atrial Rate : 098 BPM P-R Int : 172 ms QRS Dur : 086 ms QT Int : 366 ms P-R-T Axes : 076 046 061 degrees QTc Int : 467 ms Normal sinus rhythm Left ventricular hypertrophy with repolarization abnormality Abnormal ECG Confirmed by GORGE SHERMAN, BELEN ([id number]), editor managing director MARY COLVIN ([id number]) on 12/24/2021 10:20:51 A M Referred By: MIKAYLA Confirmed By:MILKA PENNINGTON MD
--- NOTE | 2021-12-23 10:25 | EDS_ITS ---
HPI History of Present Illness Chief Complaint: Weakness Informant: patient and family Narrative Narrative: Patient presents with generalized weakness, failure to thrive and weight loss. Patient was doing well until she had a right knee replacement in June. Ever since then she seems to have not recovered. She has lost about 35 pounds. She was on Aricept for dementia but this was stopped 1 or so weeks ago and her symptoms and appetite have not improved. She had an outpatient MRI of the head about 2 months ago which evidently showed no acute process. She reportedly had a CAT scan yesterday that showed some obstruction that would need a colonoscopy. Patient does have constipation but is not having abdominal pain. She is able to eat but evidently has no appetite. She has been treated with depression meds but this is not helped her appetite. She was sent in here today because they are not able to get into a [facility] and she just keeps losing weight and she is getting weaker and weaker. She lives at home with the . Nothing they have done have made her symptoms better or worse. She has no reported history of cancer. [facility] Medical History Atherosclerosis of coronary artery of hughes heart without angina pectoris Chronic kidney disease Chronic kidney disease, stage 3 (moderate) Debility Essential (primary) hypertension GERD (gastroesophageal reflux disease) Hyperlipidemia Near syncope Neuropathic pain Reflex sympathetic dystrophy RSD lower limb Syncope Vitamin D deficiency Home Medications cholecalciferol (vitamin D3) 1,000 unit PO DAILY@1400 11/29/14 [History Last Taken 05/16/19] simvastatin 20 mg PO QHS 11/29/14 [History Last Taken 05/15/19] metoprolol tartrate 25 mg tablet 12.5 mg PO BID tab 03/21/20 [History Last Taken 04/04/20] coenzyme Q10 100 mg capsule 100 mg PO BID cap 06/06/20 [History Last Taken Unknown] multivitamin 1 tab PO QAM 06/06/20 [History Last Taken Unknown] losartan 50 mg tablet 50 mg PO DAILY #90 tab 05/26/21 [Rx Last Taken Unknown] ascorbic acid (vitamin C) 500 mg PO DAILY 12/23/21 [History Last Taken 12/22/21] ferrous sulfate 325 mg PO DAILY 12/23/21 [History Last Taken 12/22/21] sertraline 50 mg PO DAILY 12/23/21 [History Last Taken 12/22/21] Allergy/AdvReac Type Severity Reaction Status Date / Time Gadolinium-MRI Contrast Allergy Hives Verified 12/23/21 10:05 Medium [CONTRAST] Latex, Natural Rubber Allergy Rash Verified 12/23/21 10:05 hydralazine AdvReac Intermediate Swelling Verified 12/23/21 10:05 amlodipine AdvReac dizziness Verified 12/23/21 10:05 codeine AdvReac drowsy Verified 12/23/21 10:05 tramadol [From Ultram] AdvReac Unknown Verified 12/23/21 10:05 Surgical History History of hysterectomy History of left heart catheterization (04/10/12) History of loop recorder (04/04/20) History of nasal septoplasty History of open reduction and internal fixation (ORIF) procedure History of repair of rotator cuff History of tonsillectomy Hx of cholecystectomy Status post insertion of spinal cord stimulator Social History Smoking Status: Never smoker ROS ROS ED Constitutional Constitutional ED: Reports weight loss; Denies chills, fever(s) or subjective Eyes Eyes: Denies blurry vision ENT ENT ED: Denies rhinorrhea or sore throat Cardiovascular Cardiovascular: Denies chest pain or palpitations Respiratory/Chest Respiratory/Chest: Denies cough or dyspnea Gastrointestinal Gastrointestinal: Reports constipation; Denies abdominal pain, diarrhea, melena, nausea or vomiting Genitourinary Genitourinary ED: Denies dysuria Musculoskeletal Musculoskeletal: Denies myalgias Integumentary Denies rash Neurologic Neurologic: Denies headache(s) Psychiatric Psychiatric: Reports depression Endocrine Endocrinology: Denies polydipsia or polyuria Allergic/Immunologic Allergic/Immunologic ED: Denies mouth swelling or urticaria EXAM Physical Exam Const Vital Signs: 12/23/21 10:06 12/23/21 10:54 12/23/21 12:20 Temperature 95.8 F L Temperature Source Temporal Pulse Rate 115 H 91 75 Respiratory Rate 16 18 18 Blood Pressure 141/76 H 184/90 H Blood Pressure Mean 97 121 Pulse Ox 98 97 97 Oxygen Delivery Method Room Air Room Air Room Air Positive cachectic General Appearance ED: cachectic; Negative for cyanotic or diaphoretic Nutritional Appearance: cachectic HEENT Reports dry mucous membranes HEENT Narrative: Mildly dry mucous membranes. Negative for trauma Mouth ED: Yes dry mucous membranes Mouth: dry mucous membranes Eyes General Eye ED: Negative for pale conjunctiva or scleral icterus Neck no lymphadenopathy, supple and no JVD Chest Wall inspection of chest normal Resp normal respiratory effort Cardio regular rate and regular rhythm GI normal to inspection, nondistended, normoactive bowel sounds and non-tender Palpation: soft Back/Spine no CVA tenderness Extremity normal to inspection Extremity Narrative: Well-healed right total knee scar. Overall thinning and muscular loss throughout extremities. Neuro Sensorium / Orientation: alert Psych Psych Narrative: Mildly flat affect. Skin no rashes or lesions noted MDM MDM MDM Narrative Medical decision making narrative: Blood work showed relatively normal CBC. Electrolytes showed baseline kidney dysfunction. Magnesium was okay. Calcium is good. However, liver function tests were all elevated. Patient does now state that she has been itching for about a week and this may be causing that. I do not see any jaundice or icterus however. She is not having abdominal pain. She just had a CAT scan yesterday that showed no marked biliary area changes. Urine showed 10-25 white cells but no nitrites. Patient is not having symptoms of UTI. We will send a culture. However, I doubt she has had a UTI for months causing her symptoms. I did discuss the case with her primary physician Dr. Forte. Evidently the concern is that she is getting worse. Per her family her weight loss is really accelerated in the last couple months. This might even be contributing to some of the liver function test abnormalities. Sounds like she is not eating much at all. There is no history of cancers. The son thinks that she may be on Zoloft although we cannot find that as a med. Evidently this patient's is 89 and somewhat frail and is really to the point he cannot care for her at home. She is evidently getting much weaker now. Therefore the plan is to get her in [facility] to evaluate these elevated liver function test as well as work on possible placement. I did talk with social work. I also discussed the case with hospitalist. Lab Data Attestation: I reviewed the patient's lab results. Labs: Laboratory Results - last 24 hr 12/23/21 12/23/21 12/23/21 10:47 10:47 10:47 WBC 7.2 RBC 4.22 Hgb 12.1 Hct 39.2 MCV 92.9 MCH 28.7 MCHC 30.9 L RDW Std Deviation 47.5 H RDW Coeff of Sonny 14.0 Plt Count 241 MPV 10.4 Immature Gran % (Auto) 0.400 Neut % (Auto) 77.4 H Lymph % (Auto) 12.5 L [place] % (Auto) 8.1 Eos % (Auto) 0.6 Baso % (Auto) 1.0 Absolute Neuts (auto) 5.6 Absolute Lymphs (auto) 0.90 Nucleated RBC % 0 Sodium 139 Potassium 4.2 Chloride 106 Carbon Dioxide 26.0 Anion Gap 7 BUN 43 H Creatinine 2.49 H Estim Creat Clear Calc 13.65 Est GFR (MDRD) Af Amer 24 L Est GFR (MDRD) Non-Af 20 L BUN/Creatinine Ratio 17.3 Glucose 104 Calcium 9.3 Magnesium 2.4 Total Bilirubin 1.80 H AST 202 H ALT 324 H Alkaline Phosphatase 295 H Troponin I High Sens 28 Total Protein 6.8 Albumin 3.0 L Globulin 3.8 Albumin/Globulin Ratio 0.8 L Urine Color Urine Clarity Urine pH Ur Specific Adona Urine Protein Urine Glucose (UA) Urine Ketones Urine Occult Blood Urine Nitrite Urine Bilirubin Urine Urobilinogen Ur Leukocyte Esterase Urine RBC Urine WBC Ur Squamous Epith Cells Urine Bacteria Urine Mucus 12/23/21 12:15 WBC RBC Hgb Hct MCV MCH MCHC RDW Std Deviation RDW Coeff of Sonny Plt Count MPV Immature Gran % (Auto) Neut % (Auto) Lymph % (Auto) [place] % (Auto) Eos % (Auto) Baso % (Auto) Absolute Neuts (auto) Absolute Lymphs (auto) Nucleated RBC % Sodium Potassium Chloride Carbon Dioxide Anion Gap BUN Creatinine Estim Creat Clear Calc Est GFR (MDRD) Af Amer Est GFR (MDRD) Non-Af BUN/Creatinine Ratio Glucose Calcium Magnesium Total Bilirubin AST ALT Alkaline Phosphatase Troponin I High Sens Total Protein Albumin Globulin Albumin/Globulin Ratio Urine Color Yellow Urine Clarity Sl. Cloudy Urine pH 6.0 Ur Specific Adona 1.020 Urine Protein 30 H Urine Glucose (UA) Normal Urine Ketones Negative Urine Occult Blood Negative Urine Nitrite Negative Urine Bilirubin Negative Urine Urobilinogen Normal Ur Leukocyte Esterase 100 H Urine RBC 0 SEEN Urine WBC 10-25 SEEN Ur Squamous Epith Cells 0-5 SEEN Urine Bacteria 1+ Urine Mucus 0 SEEN Radiography Diagnostic Testing: Clinical Impression(s) from Imaging Studies Chest X-Ray 12/23/21 11:05 IMPRESSION: Hyperinflation. Decreased bronchovascular markings suggestive of a emphysematous change. No acute abnormality is seen. Electronically Signed: Cristobal Hair MD at 11:53 EST Reading Location ID and State: [facility] / [place] , Service support , Discharge Plan Triage Chief Complaint: Weakness ED Provider: Hawk Amaya Dx/Rx/DC Orders Clinical Impression: Adult failure to thrive, Abnormal weight loss, Elevated liver function tests Primary Care Provider: Giovanni Forte Disposition Disposition: Acute Care Hospital [facility]
--- NOTE | 2021-12-23 11:05 | RAD_ITS ---
STUDY: X-RAY CHEST REASON FOR EXAM: Female, 86 years old. ? Pneumonia TECHNIQUE: Single AP portable view of the chest. COMPARISON: Comparison is made with prior study dated 07/29/2019. FINDINGS: EKG electrodes are seen. There is hyperinflation of the lungs consistent with chronic obstructive lung disease (COPD). There is no demonstrated pleural abnormality. Normal size heart. A loop recorder device is seen overlying the left heart shadow. Electrodes from a TENS unit are seen with the tip at the T8-T9 level. Normal mediastinum and arnulfo. There is prominence of the pulmonary hilar arteries without peripheral pulmonary vascular congestion, suggesting pulmonary hypertension. There is atherosclerotic calcification of the aortic arch with tortuosity. There are degenerative changes of the visualized thoracic spine. Normal visualized ribs, clavicles, and shoulders. There is no demonstrated abnormality of the visualized soft tissue structures of the upper abdomen. RAD/Chest 1 View (Portable) IMPRESSION: Hyperinflation. Decreased bronchovascular markings suggestive of a emphysematous change. No acute abnormality is seen. Electronically Signed: Cristobal Hair MD at 11:53 EST ,
[2021-12-23 11:06] LABS: Absolute Neutrophil Count 5.6 X10^3/uL (2.0-7.7); Basophil# 0.07 X10^3/uL; Eosinophil# 0.04 X10^3/uL; Eosinophils% 0.6 % (0-5); Hematocrit 39.2 % (37-47); Hemoglobin 12.1 g/dL (12.0-15.0); Lymphocyte % 12.5 % (19-41); Mean Corp Hgb Conc 30.9 g/dL (32-36); Mean Corpuscular Hgb 28.7 pg (27.0-32.0); Mean Corpuscular Volume 92.9 fL (81-99); Mean Platelet Vol. 10.4 fl (6.2-12.0); Monocyte# 0.58 X10^3/uL; Monocyte% 8.1 % (0-10); NRBC Flagged by Analyzer 0 % (0-5); Neutrophil # 5.58 X10^3/uL (2.7-7.7); Neutrophil % 77.4 % (47-70); Platelet Count 241 K/mm3 (150-450); RBC Distribution Width SD 47.5 fl (35.1-43.9); Red Blood Count 4.22 M/mm3 (4.2-5.4); White Blood Count 7.2 K/mm3 (4.4-11.0)
[2021-12-23 11:25] LABS: ALB/GLOB Ratio 0.8 RATIO (0.9-2.4); AST(SGOT) 202 U/L (15-37); Alanine Aminotransfer ALT/SGPT 324 U/L (13-56); Alkaline Phosphatase 295 U/L (45-117); Anion Gap 7 (5-15); BUN 43 mg/dL (7-18); BUN/Creat Ratio 17.3 RATIO (10-20); Calcium,Total 9.3 mg/dL (8.5-10.1); Chloride 106 mmol/L (98-107); Creatinine, Serum 2.49 mg/dL (0.55-1.02); EST Glomerular Filtration Rate 20 mL/min (>60); Est Glom Filt Rate - Afr Amer 24 mL/min (>60); Estimated Creatinine Clearance 13.65 ml/min; Globulin 3.8 g/dL (2.2-4.2); Glucose 104 mg/dL (74-106); Potassium 4.2 mmol/L (3.5-5.1); Protein, Total 6.8 g/dL (6.4-8.2); Sodium Level 139 mmol/L (136-145); Troponin-I HS 28 pg/mL (3.0-54.0)
--- NOTE | 2021-12-23 12:15 | CM.ED ---
Social Work Consult: care home placement Referral source: Dr. Amaya Met with patient and patient son, Waqar in room. Introduced self and 7th grade social studies teacher role. Patient agreeable to speak with this 7th grade social studies teacher and provided permission for this 7th grade social studies teacher to speak openly with Waqar present. Waqar reports to have been working on getting patient transitioned to [facility] under skilled services and to believe that patient has been accepted. Waqar reports that patient typically lives at home with spouse. 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 Waqar reports that patient has not been eating and is having a hard time getting needs met in the community. Waqar and patient agreeable to this 7th grade social studies teacher contacting [facility] to see about options for patient. Telephone call to [facility], Anmol. Anmol confirms to be aware of patient and to just need to start pre-cert. This 7th grade social studies teacher clarifying with Anmol that patient is currently in the ER and not admitted to the hospital. Anmol reports that patient will need to be admitted in order to be able to start pre-cert. Collaborating with Dr. Amaya and Waqar. Waqar concerned about patient returning to home. Dr. Amaya believes that patient will qualify for admission due to failure to thrive and then work on placement to [facility]. Waqar and patient agreeable to plan. Social work to continue to follow. Toñito FINK, SAMMY
[2021-12-23 12:25] LABS: Mucous, Urine 0 SEEN /hpf (<or=2+); Red Blood Cells-Urine 0 SEEN /hpf (0-5)
[2021-12-23 12:28] LABS: Color, Urine Yellow (Yellow); Glucose, Dipstick Normal (Normal); Ketone-Dipstick Negative (Negative); Leukocyte Esterase-Dipstick 100 /ul (Negative); Nitrite-Dipstick Negative (Negative); Occult Blood-Urine Negative /ul (Negative); Protein-Dipstick 30 mg/dl (Negative); Urine Bilirubin Dipstick Negative (Negative); Urine Clarity Sl. Cloudy (Clear); Urine Urobilinogen Normal (Normal)
[2021-12-23 12:37] LABS: Bacteria 1+ /hpf (None Seen); Squamous Epithelial Cells - UA 0-5 SEEN /hpf (5-10); White Blood Cells 10-25 SEEN /hpf (0-5)
--- NOTE | 2021-12-23 13:20 | CHAPLAIN ---
Type of Pastoral Visit ___ Initial Visit ___ Follow-up Visit ___ On-call Visit ___ General Patient Visit ___ Spiritual Assessment ___ Family Conference ___ Bereavement ___ Rapid Response ___ Code Blue _x__ Other (describe below) Pastoral Care Referral From ___ Patient _x__ Family ___ Nurse ___ Physician ___ Expander Machine Operator ___ Bus Attendant ___ Other (describe below) Sacrament/Intervention _x__ Active listening ___ Anointing ___ Hinduism ___ Bereavement ___ Communion ___ Gabby exploration ___ ___ Life review _x__ Prayer ___ Reconciliation ___ Sacrament of Sick _x__ Supportive presence ___ Wedding ___ Other (describe below) Pastoral Comments clergy called in to request visit as family called her; rim fire charger operator recommended no visit until determined plan of action as patient may not be admitted; saw patient and her son and offered support; sat with and prayed for patient; returned call to clergy for answer
--- NOTE | 2021-12-23 13:52 | NURSING ---
303 OBS DAVID FAILURE TO THRIVE, ELEVATED LIVER FUNCTION TESTS
[2021-12-23 14:09] LABS: Magnesium 2.4 mg/dL (1.6-2.6)
--- NOTE | 2021-12-23 14:25 | PCM.HP.STD ---
[facility] - General General Date of Admission: 12/23/21 Date of Service: 12/23/21 Chief Complaint: Loss of weight about 37 pounds in 6 months. Loss of appetite. HPI Narrative SYEDA CHILD, is a 86 F with multiple comorbidities as mentioned below including coronary artery disease came to ED for further care to thrive, weight loss and generalized weakness. Patient accompanied with his son in the ER and history taken from both patient and his son. She was doing fine until neurosurgery on postoperative she did not had good appetite and lost about 18 pounds MayJune 2021. During that time, patient lost her very keen close relative and felt loss of appetite and sadness and continue to have low intake, loss of weight and less energy. Currently she weighs 113 pounds. As per the son, she sleeps most of the time of the day and night, less motivation and energy. Patient herself denies sadness or depression, melancholy and loss of pleasure in pursuing her hobby that is watching TV. She complains of mild epigastric pain on my palpation. She has low amount of stool output probably due to low intake as per the son but denies major constipation. No burning micturition, or new lower Intratect symptoms or fever. No chest pain or shortness of breath. Patient denies history of smoking or chronic alcohol does not have history of chronic lung disease/emphysema. Vitals in the ER reviewed blood pressure is high 188/106. Labs reviewed and as mentioned in assessment and plan. Patient also had MRI brain, CT chest, abdomen and pelvis as an outpatient and mentioned in assessment plan [facility] Medical History Atherosclerosis of coronary artery of [place] heart without angina pectoris Chronic kidney disease Chronic kidney disease, stage 3 (moderate) Chronic pain Debility Dementia Depression Essential (primary) hypertension GERD (gastroesophageal reflux disease) High cholesterol Hyperlipidemia Hypertension Kidney disease Near syncope Neuropathic pain Non-smoker Reflex sympathetic dystrophy RSD lower limb Syncope Vitamin D deficiency Wears hearing aid in both ears Home Medications cholecalciferol (vitamin D3) 1,000 unit PO DAILY@1400 11/29/14 [History Last Taken 12/22/21] simvastatin 20 mg PO QHS 11/29/14 [History Last Taken 12/22/21] metoprolol tartrate 25 mg tablet 12.5 mg PO BID tab 03/21/20 [History Last Taken 12/22/21] coenzyme Q10 100 mg capsule 100 mg PO BID cap 06/06/20 [History Last Taken 12/22/21] multivitamin 1 tab PO QAM 06/06/20 [History Last Taken 12/22/21] losartan 50 mg tablet 50 mg PO DAILY #90 tab 05/26/21 [Rx Last Taken 12/22/21] ascorbic acid (vitamin C) 500 mg PO DAILY 12/23/21 [History Last Taken 12/22/21] ferrous sulfate 325 mg PO DAILY 12/23/21 [History Last Taken 12/22/21] sertraline 50 mg PO DAILY 12/23/21 [History Last Taken 12/22/21] Allergy/AdvReac Type Severity Reaction Status Date / Time Gadolinium-MRI Contrast Allergy Hives Verified 12/23/21 10:05 Medium [CONTRAST] Latex, Natural Rubber Allergy Rash Verified 12/23/21 10:05 hydralazine AdvReac Intermediate Swelling Verified 12/23/21 10:05 amlodipine AdvReac dizziness Verified 12/23/21 10:05 codeine AdvReac drowsy Verified 12/23/21 10:05 tramadol [From Ultram] AdvReac Unknown Verified 12/23/21 10:05 Surgical History History of hysterectomy History of left heart catheterization (04/10/12) History of loop recorder (04/04/20) History of nasal septoplasty History of open reduction and internal fixation (ORIF) procedure History of repair of rotator cuff History of tonsillectomy Hx of cholecystectomy Status post insertion of spinal cord stimulator Social History Smoking Status: Never smoker ROS ROS Narrative Constitutional: Reports fatigue and weakness, loss of weight, loss of appetite admission HPI HEENT: Reports systems reviewed and no addt'l complaints, except as documented Respiratory/Chest: Denies chest pain, shortness of breath at rest or with exertion Gastrointestinal: Denies coffee ground emesis, hematemesis or vomiting Genitourinary: Denies burning urination or new urinary tract symptoms Musculoskeletal: Mild joint pain in knees. Status post spinal cord stimulator and right TKA. Neurologic: Denies seizure-like activity skin: No ulcer. No rash Endocrinology: Reports systems reviewed and no addt'l complaints, except as documented Hematologic/Lymphatic: Reports systems reviewed and no addt'l complaints, except as documented Rest 14 ROS are negative except as mentioned in HPI Vital Signs Vital Signs Vital Signs: 12/23/21 10:06 12/23/21 10:54 12/23/21 12:20 Temperature 95.8 F L Temperature Source Temporal Pulse Rate 115 H 91 75 Respiratory Rate 16 18 18 Blood Pressure 141/76 H 184/90 H Blood Pressure Mean 97 121 Pulse Ox 98 97 97 Oxygen Delivery Method Room Air Room Air Room Air 12/23/21 13:43 12/23/21 13:50 Temperature 97.7 F L Temperature Source Oral Pulse Rate 71 71 Respiratory Rate 18 18 Blood Pressure 188/106 H 188/106 H Blood Pressure Mean 133 133 Pulse Ox 97 97 Oxygen Delivery Method Room Air Room Air Weight Weight: 113 lb 5.082 oz Body Mass Index (BMI) 18.3 Physical Exam Narrative General: Alert, Oriented x3, Cooperative HEENT: Atraumatic, PERRLA, EOMI, Normocephalic Oral: No Gingival or Mucosal Lesions/ Ulcerations Neck: Supple, No JVD, Negative Carotid Bruits Lungs: Air entry diminished in bilateral lung bases. No crepitation/rhonchi Cardiovascular: Regular rate, Regular Rhythm, Normal S1, Normal S2, No murmurs Abdomen: Bowel Sounds Present, Soft, Non Tender, Non-Distended : No renal angle tenderness. No suprapubic tenderness. Extremities: No edema, Capillary Refill Less than 3 Seconds Skin: No rashes, No breakdown Musculoskeletal: Filed chronic right knee tenderness. Status post right total knee arthroplasty. Neurological: Cranial nerves II-XII grossly intact, DTR 2+/4 and Symmetrical, Neuro grossly intact Psych/Mental Status: Flat affect, looks depressed. Results Lab / Micro Data Result Diagrams: 12/23/21 10:47 12/23/21 10:47 Labs: Laboratory Results - last 24 hr 12/23/21 10:47: WBC 7.2, RBC 4.22, Hgb 12.1, Hct 39.2, MCV 92.9, MCH 28.7, MCHC 30.9 L, RDW Std Deviation 47.5 H, RDW Coeff of Sonny 14.0, Plt Count 241, MPV 10.4, Immature Gran % (Auto) 0.400, Neut % (Auto) 77.4 H, Lymph % (Auto) 12.5 L, [place] % (Auto) 8.1, Eos % (Auto) 0.6, Baso % (Auto) 1.0, Absolute Neuts (auto) 5.6, Absolute Lymphs (auto) 0.90, Nucleated RBC % 0 12/23/21 10:47: Sodium 139, Potassium 4.2, Chloride 106, Carbon Dioxide 26.0, Anion Gap 7, BUN 43 H, Creatinine 2.49 H, Estim Creat Clear Calc 13.65, Est GFR (MDRD) Af Amer 24 L, Est GFR (MDRD) Non-Af 20 L, BUN/Creatinine Ratio 17.3, Glucose 104, Calcium 9.3, Total Bilirubin 1.80 H, AST 202 H, ALT 324 H, Alkaline Phosphatase 295 H, Troponin I High Sens 28, Total Protein 6.8, Albumin 3.0 L, Globulin 3.8, Albumin/Globulin Ratio 0.8 L 12/23/21 10:47: Magnesium 2.4 12/23/21 12:15: Urine Color Yellow, Urine Clarity Sl. Cloudy, Urine pH 6.0, Ur Specific [place] 1.020, Urine Protein 30 H, Urine Glucose (UA) Normal, Urine Ketones Negative, Urine Occult Blood Negative, Urine Nitrite Negative, Urine Bilirubin Negative, Urine Urobilinogen Normal, Ur Leukocyte Esterase 100 H, Urine RBC 0 SEEN, Urine WBC 10-25 SEEN, Ur Squamous Epith Cells 0-5 SEEN, Urine Bacteria 1+, Urine Mucus 0 SEEN Radiology Impression Chest X-Ray 12/23/21 11:05 IMPRESSION: Hyperinflation. Decreased bronchovascular markings suggestive of a emphysematous change. No acute abnormality is seen. Electronically Signed: Cristobal Hair MD at 11:53 EST , Charges/Coding Visit Charges OBSV E&M: 79134 Initial observation care L3 Procedures Hospitalists Procedures: 73411 Advncd Care Plan 30 Min Assessment & Plan Plan Detail Health Concerns: reflex enteric dystrophy1. Adult failure to thrive, generalized weakness, loss of weight, loss of appetite, exact etiology unclear: Patient is being admitted to [facility] floor. Clinisync reviewed patient had CT chest, abdomen and pelvis without contrast on December 21, 2021 reported incidental solid 6 to 8 mm solitary nodule in left lower lobe. No lymph nodes/lymphadenopathy in supraclavicular axillary mediastinal or hilar region. d CT abdomen and pelvis without contrast which reported unremarkable liver. No biliary dilatation. GB not seen, status post cholecystectomy, no splenomegaly. No acute process within abdomen or pelvis. Incidental left renal cyst. Mild colonic diverticulosis without evidence of diverticulitis. Extensive atherosclerotic changes of abdominal aorta and branching vessels. Degenerative bony changes. MRI brain in October 27, 2021 reported no evidence of acute intracranial process or intracranial mass. Moderate cerebral volume loss most pronounced in the temporal lobes. Patient never had EGD. Probably had colonoscopy long time ago may be more than 20 years, patient does not recall. Denies 12.1/39%. Normal platelet count. GI consult for EGD/colonoscopy. PT and OT ordered. Business Instructor consult. If organic causes ruled out patient might have depression and dementia as reported in MRI brain with bilateral temporal lobes volume loss. Patient son amenable for SNF placement if needed 2. Coronary artery disease without angina: Patient had LHC on April 2012 reported 50% mid LAD and FFR done which did not require PCI. Patient follows Dr. Ann last seen in May 2021 as preop for knee surgery 3. Elevated liver chemistry, hyperbilirubinemia and transaminases: Patient does not have right upper quadrant pain, abdominal distention, ascites and no clinical jaundice. TB 1.8, ALT 324, AST 202. Alkaline phosphatase 295. GGTP ordered. Right upper quadrant sonogram ordered. GI is already consulted. 4. Chronic normocytic normochromic anemia: Patient is on ferrous sulfate and continued 5. Hypertension, dyslipidemia: Blood pressure is high. On hydralazine 10 mg IV q. 6 hourly pain for systolic blood pressure more than 180. Home medication continued 6. Chronic kidney disease stage IV: Patient used to follow Dr. Alonso before [facility] more than 2 years ago. Creatinine clearance is between 15 to 20 mL/min 2 years. Creatinine is 2.49 on baseline. Her creatinine fluctuates between 2.2-2.5. 7. Multiple other comorbidities which include sympathetic dystrophy, history of syncope, neuropathic pain, GERD: Home medication reconciliation done Total time of the visit including total time spent in counseling or coordination of care, (more than 50% of the total time, spent in obtaining medical information from nurses and other ancillary care providers,explaining to the patient about labs, imaging, diagnosis and management), consulted, review of labs and imaging is 45 minutes. Living will/advanced directive/end of life care: Patient does have living will or advanced directive. Currently patient's is power of giving officer for health but his son wants to change on insulin. Son wants to give Fair chance of all possible evaluation for loss of weight and wants to pursue full code. After discussion of benefits/risks procedures involved with full code, DNR CC arrest and DNR CC, the patient and his son opted for full code. Patient does want artificial life support including intubation, tube feed, ventilator and/chest compression, central venous catheter, vasopressor and DC shock if needed Total time spent in [id number] encounter in discussion of advanced directive 16 minutes.
[2021-12-23] MEDS: Losartan Potassium 50 MG Tablet PO (17:32)
--- NOTE | 2021-12-23 19:09 | EX.PCM.CON.G ---
HPI Consult Data Date of Consult: 12/23/21 HPI Narrative HPI Narrative: SYEDA RAYA presents from home with progressive weight loss. She has been having generalized weakness and Abdominal pain, as per the patient. She does suffer from dementia and is on Aricept. Patient Presents was doing well until she had a right knee replacement in June. Ever since then she seems to have not recovered. She has lost about 35 pounds. She was on Aricept for dementia but this was stopped 1 or so weeks ago and her symptoms and appetite have not improved. She had an outpatient MRI of the head about 2 months ago which evidently showed no acute process. She reportedly had a CAT scan yesterday that showed some obstruction that would need a colonoscopy. Patient does have constipation but is not having abdominal pain. She is able to eat but evidently has no appetite. She has been treated with depression medications but this is not helped her appetite. She was sent in here today because they are not able to get into a residential and she just keeps losing weight and she is getting weaker and weaker. She lives at home with the . Nothing they have done have made her symptoms better or worse. She has no reported history of cancer.is a 86 F who presents [facility] Medical History Atherosclerosis of coronary artery of [place] heart without angina pectoris Chronic kidney disease Chronic kidney disease, stage 3 (moderate) Chronic pain Debility Dementia Depression Essential (primary) hypertension GERD (gastroesophageal reflux disease) High cholesterol Hyperlipidemia Hypertension Kidney disease Near syncope Neuropathic pain Non-smoker Reflex sympathetic dystrophy RSD lower limb Syncope Vitamin D deficiency Wears hearing aid in both ears Home Medications cholecalciferol (vitamin D3) 1,000 unit PO DAILY@1400 11/29/14 [History Last Taken 12/22/21] simvastatin 20 mg PO QHS 11/29/14 [History Last Taken 12/22/21] metoprolol tartrate 25 mg tablet 12.5 mg PO BID tab 03/21/20 [History Last Taken 12/22/21] coenzyme Q10 100 mg capsule 100 mg PO BID cap 06/06/20 [History Last Taken 12/22/21] multivitamin 1 tab PO QAM 06/06/20 [History Last Taken 12/22/21] losartan 50 mg tablet 50 mg PO DAILY #90 tab 05/26/21 [Rx Last Taken 12/22/21] ascorbic acid (vitamin C) 500 mg PO DAILY 12/23/21 [History Last Taken 12/22/21] ferrous sulfate 325 mg PO DAILY 12/23/21 [History Last Taken 12/22/21] sertraline 50 mg PO DAILY 12/23/21 [History Last Taken 12/22/21] Allergy/AdvReac Type Severity Reaction Status Date / Time Gadolinium-MRI Contrast Allergy Hives Verified 12/23/21 10:05 Medium [CONTRAST] Latex, Natural Rubber Allergy Rash Verified 12/23/21 10:05 hydralazine AdvReac Intermediate Swelling Verified 12/23/21 10:05 amlodipine AdvReac dizziness Verified 12/23/21 10:05 codeine AdvReac drowsy Verified 12/23/21 10:05 tramadol [From Ultram] AdvReac Unknown Verified 12/23/21 10:05 Surgical History History of hysterectomy History of left heart catheterization (04/10/12) History of loop recorder (04/04/20) History of nasal septoplasty History of open reduction and internal fixation (ORIF) procedure History of repair of rotator cuff History of tonsillectomy Hx of cholecystectomy Status post insertion of spinal cord stimulator Social History Smoking Status: Never smoker ROS Gastrointestinal Gastrointestinal: Reports abdominal pain and constipation Physical Exam Const alert General Appearance: cooperative Orientation / Consciousness: oriented to person HEENT hearing grossly normal bilaterally Head and Scalp: normal to inspection Face and Sinus: face symmetric Nose: external nose normal Mouth: oral and palatal mucosa normal Eyes conjunctivae normal General Eye: normal appearance of both eyes Neck full ROM General: normal visual inspection Lymph Lymphatic: no lymphadenopathy noted Chest inspection of chest normal and palpation of chest normal Chest: symmetrical chest wall rise Resp normal respiratory effort Effort and Inspection: able to speak in complete sentences Cardio regular rate GI non-distended Percussion: normal to percussion Rectal Exam: deferred Neuro Speech: speech normal Gait (Neuro): normal gait Medical Records Data Medical Nutrition Assessment Dietitian: Malnutrition Criteria Met Start: 12/23/21 17:01 Freq: Status: Active Protocol: Document 12/23/21 17:01 RMA (Rec: 12/23/21 17:01 RMA [id number]) Nutrition Malnutrition Evidence of Malnutrition Exists Yes Malnutrition (severe): Acute Illness/Injury Evidenced By Suboptimal Energy Intake ( Severe),Weight Loss (Severe), Physical Changes (Severe) Clinical Problem Acute Disease or Injury Related Malnutrition Etiology Severe protein-calorie malnutrition in the context of acute illness/FTT related to inadequate oral intake Signs/Symptoms as evidenced by severe muscle and fat wasting in the face, orbitals, clavicle, neck, arms and legs; ~24% wt loss x 12 months, ~19% wt loss x 4-6 months, BMI 18.3 and ongoing poor PO meeting less than 50% estimated nutrition needs x past 6-12 months Status Active Problem Recommendation Dietitian Recommendations/Changes Continue liberalized regular diet as ordered. Will add [place] Instant Breakfast with whole milk TID at meals (no chocolate flavor) . Will add ensure pudding BID w/ lunch and dinner--only vanilla. May need to consider TF support for protein/energy repletion if PO remains poor and inadequate. Lab / Micro Data Result Diagrams: 12/23/21 10:47 12/23/21 10:47 Labs: Laboratory Results - last 24 hr 12/23/21 10:47: WBC 7.2, RBC 4.22, Hgb 12.1, Hct 39.2, MCV 92.9, MCH 28.7, MCHC 30.9 L, RDW Std Deviation 47.5 H, RDW Coeff of Sonny 14.0, Plt Count 241, MPV 10.4, Immature Gran % (Auto) 0.400, Neut % (Auto) 77.4 H, Lymph % (Auto) 12.5 L, Real % (Auto) 8.1, Eos % (Auto) 0.6, Baso % (Auto) 1.0, Absolute Neuts (auto) 5.6, Absolute Lymphs (auto) 0.90, Nucleated RBC % 0 12/23/21 10:47: Sodium 139, Potassium 4.2, Chloride 106, Carbon Dioxide 26.0, Anion Gap 7, BUN 43 H, Creatinine 2.49 H, Estim Creat Clear Calc 13.65, Est GFR (MDRD) Af Amer 24 L, Est GFR (MDRD) Non-Af 20 L, BUN/Creatinine Ratio 17.3, Glucose 104, Calcium 9.3, Total Bilirubin 1.80 H, AST 202 H, ALT 324 H, Alkaline Phosphatase 295 H, Troponin I High Sens 28, Total Protein 6.8, Albumin 3.0 L, Globulin 3.8, Albumin/Globulin Ratio 0.8 L 12/23/21 10:47: Magnesium 2.4 12/23/21 12:15: Urine Color Yellow, Urine Clarity Sl. Cloudy, Urine pH 6.0, Ur Specific [place] 1.020, Urine Protein 30 H, Urine Glucose (UA) Normal, Urine Ketones Negative, Urine Occult Blood Negative, Urine Nitrite Negative, Urine Bilirubin Negative, Urine Urobilinogen Normal, Ur Leukocyte Esterase 100 H, Urine RBC 0 SEEN, Urine WBC 10-25 SEEN, Ur Squamous Epith Cells 0-5 SEEN, Urine Bacteria 1+, Urine Mucus 0 SEEN Radiology Impression Chest X-Ray 12/23/21 11:05 IMPRESSION: Hyperinflation. Decreased bronchovascular markings suggestive of a emphysematous change. No acute abnormality is seen. Electronically Signed: Cristobal Hair MD at 11:53 EST , Assessment & Plan Assessment/Plan (1) Abnormal weight loss: PLAN: The differential diagnosis of weight loss in a patient with an abnormality in the colon would be colon cancer. She should undergo colonoscopy evaluate condition of the lower GI tract. Her power of erisa attorney who is her son wants her to have this test done and he was explained alternatives, risk, benefits including not withstanding bleeding, infection, sepsis, perforation, need for emergent surgery . She should also undergo upper endoscopy for full evaluation of her GI tract in the setting of abnormal liver enzymes that could be metastatic disease. She will have an ASA of 3. 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 She is high risk for choledocholithiasis due to rapid weight loss. I will order an ultrasound to evaluate the right upper quadrant. Charges/Coding Visit Charges Inpatient E&M: 05356 Init Hosp L3
[2021-12-23] MEDS: Bisacodyl 5 MG Tablet 20 MG PO (20:26)
[2021-12-23] MEDS: Hydrocortisone 2.5% Crm 1 APPLIC TOPICAL (20:27)
[2021-12-23] MEDS: Metoprolol Tartrate 25 MG Tablet 12.5 MG PO (20:28)
[2021-12-23] MEDS: Atorvastatin Calcium 10 MG Tablet PO (20:29)
[2021-12-23] MEDS: Heparin Injection (Vial) 5,000 UNIT/ML VIAL 5000 UNIT SC (20:30)
[2021-12-23] MEDS: Polyethylene Glycol 3350 BOWEL PREP PO (20:40)
[2021-12-24 03:19] VITALS: BP 150/66; PULSE 96; RESP 18; TEMP 36.9; O2SAT 96
--- NOTE | 2021-12-24 05:55 | US_ITS ---
STUDY: ABDOMINAL ULTRASOUND - RIGHT UPPER QUADRANT REASON FOR VISIT: Female, 86 years old Elevated LFT TECHNIQUE: Ultrasound evaluation of the right upper quadrant was performed with real-time and static chaves-scale imaging. TECHNICAL QUALITY: Adequate. COMPARISON: None. FINDINGS: Liver: The liver measures 13.6 cm. There is increased echogenicity consistent with fatty infiltration. The bile ducts are within normal limits. There is hepatic color flow. The direction of portal flow is hepatopetal. There is no demonstrated mass lesion. Gallbladder: The patient is status post cholecystectomy. Common Bile Duct (C.B.D.): The common bile duct measures 2.9 mm. Pancreas: Normal size of the head, body and tail of the pancreas. There is normal echogenicity of the pancreas. There is no demonstrated pancreatic mass or cyst. Right Kidney: There is atrophy of the right kidney. The right kidney measures 7.6 cm x 3.5 cm x 3.4 cm. There is thinning of the renal cortex. The right cortex measures 0.5 cm. There is no demonstrated renal mass or cyst. There is no right hydronephrosis. US/Abdomen Limited IMPRESSION: Status post cholecystectomy. Right renal atrophy. Electronically Signed: Cristobal Hair MD at 15:24 EST ,
[2021-12-24 06:37] LABS: Absolute Lymphocyte Count 0.97 X10^3/uL (0.83-4.51); Absolute Neutrophil Count 4.7 X10^3/uL (2.0-7.7); Basophil# 0.06 X10^3/uL; Basophil% 0.9 % (0-1); Eosinophil# 0.05 X10^3/uL; Eosinophils% 0.8 % (0-5); Hematocrit 33.7 % (37-47); Hemoglobin 10.8 g/dL (12.0-15.0); Lymphocyte # 0.97 X10^3/ul (0.83-4.51); Lymphocyte % 14.6 % (19-41); Mean Corpuscular Hgb 28.8 pg (27.0-32.0); Mean Corpuscular Volume 89.9 fL (81-99); Mean Platelet Vol. 10.5 fl (6.2-12.0); Monocyte# 0.81 X10^3/uL; Monocyte% 12.2 % (0-10); NRBC Flagged by Analyzer 0 % (0-5); Neutrophil # 4.74 X10^3/uL (2.7-7.7); Platelet Count 244 K/mm3 (150-450); RBC Distribution Width CV 13.9 % (11.6-14.6); RBC Distribution Width SD 45.9 fl (35.1-43.9); Red Blood Count 3.75 M/mm3 (4.2-5.4); White Blood Count 6.7 K/mm3 (4.4-11.0)
[2021-12-24 07:18] LABS: ALB/GLOB Ratio 0.8 RATIO (0.9-2.4); AST(SGOT) 156 U/L (15-37); Alanine Aminotransfer ALT/SGPT 259 U/L (13-56); Albumin, Serum 2.6 g/dL (3.2-5.0); Alkaline Phosphatase 261 U/L (45-117); Anion Gap 8 (5-15); BUN 33 mg/dL (7-18); Calcium,Total 8.7 mg/dL (8.5-10.1); Chloride 109 mmol/L (98-107); Creatinine, Serum 2.06 mg/dL (0.55-1.02); EST Glomerular Filtration Rate 24 mL/min (>60); Est Glom Filt Rate - Afr Amer 30 mL/min (>60); Globulin 3.2 g/dL (2.2-4.2); Glucose 92 mg/dL (74-106); Potassium 3.2 mmol/L (3.5-5.1); Protein, Total 5.8 g/dL (6.4-8.2); Sodium Level 139 mmol/L (136-145); Thyroid Stim Hormone (TSH) 0.75 uIU/mL (0.358-3.74)
[2021-12-24 07:30] VITALS: O2SAT 95
--- NOTE | 2021-12-24 08:00 | CASEMGMT ---
Addendum entered by Lucia Richardson 12/24/21 15:16: Spoke with Carly at [facility], pt has PT only. TC to Ariela clinical manager [employer]. She states pt triggered the PHQ-2 scale for [employer] to follow but there is no documented follow up for this. She was not aware pt was pursuing [facility] placement or weight loss. She is aware that pt will dc to SNF. Original Note: Message left with intake Carly at [facility] as it is noted pt is current with PT. Will inquire if pt had any other services and notify plan for SNF at dc.
[2021-12-24 08:08] VITALS: BP 151/79; PULSE 92; RESP 16; TEMP 37; O2SAT 97
[2021-12-24 08:56] VITALS: PULSE 92
[2021-12-24] MEDS: Losartan Potassium 50 MG Tablet PO (08:56)
[2021-12-24] MEDS: Metoprolol Tartrate 25 MG Tablet 12.5 MG PO ×2 (08:56→20:24)
[2021-12-24] MEDS: Acetaminophen 325 MG Tablet 650 MG PO (08:56)
[2021-12-24] MEDS: Sertraline 50 MG Tablet PO (08:57)
[2021-12-24] MEDS: Ascorbic Acid 500 MG Tablet PO (08:57)
[2021-12-24] MEDS: Multivitamins,Therapeutic Tablet 1 TABLET PO (08:57)
--- NOTE | 2021-12-24 09:11 | PN.HOSP_ITS ---
Subjective Subjective Patient planes of itching all over. She tells me that she is 60 years old and that she was born in 1936. She is 86 years old when I brought that up to her she said that she got the numbers mixed up from 85-58. Better reminder that she is 86 years old. She was asking about her dentures and how they are very old and the teeth on her dentures are very worn down. Objective Data Objective Data Reviewed image reports from [facility] 12/21/2021 * CT the abdomen pelvis showed no acute process within the abdomen or pelvis. Cortical atrophy of the kidneys. Probable left renal cyst. Mild colonic diverticulosis without evidence of diverticulitis. Extensive atherosclerotic changes of the abdominal aorta and branching vessels. Bony degenerative changes. * CT chest without IV contrast: Pulmonary nodularity and vascular disease. No other acute process. October 27, 2021 * MRI of the brain without contrast: No acute intracranial process. Chronic intracranial process with patchy areas of FLAIR hyperintensity in the pe riventricular and subcortical white matter that are nonspecific and likely related with moderate chronic small vessel ischemic changes. Noted progression since 2013. 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 Vital Signs: Vital Signs Temp Pulse Resp BP Pulse Ox 37.0 C 92 16 151/79 H 97 12/24/21 08:08 12/24/21 08:56 12/24/21 08:08 12/24/21 08:08 12/24/21 08:08 Oxygen Delivery Method Room Air Weight: 50.8 kg Body Mass Index (BMI) 18.3 Intake & Output: Intake and Output for Last 24 Hours 12/22/21 12/23/21 12/24/21 23:59 23:59 23:59 Intake Total 650 / 650 Balance 650 / 650 Medical Nutrition Assessment Dietitian: Malnutrition Criteria Met Start: 12/23/21 17:01 Freq: Status: Active Protocol: Document 12/23/21 17:01 RMA (Rec: 12/23/21 17:01 RMA [id number]) Nutrition Malnutrition Evidence of Malnutrition Exists Yes Malnutrition (severe): Acute Illness/Injury Evidenced By Suboptimal Energy Intake ( Severe),Weight Loss (Severe), Physical Changes (Severe) Clinical Problem Acute Disease or Injury Related Malnutrition Etiology Severe protein-calorie malnutrition in the context of acute illness/FTT related to inadequate oral intake Signs/Symptoms as evidenced by severe muscle and fat wasting in the face, orbitals, clavicle, neck, arms and legs; ~24% wt loss x 12 months, ~19% wt loss x 4-6 months, BMI 18.3 and ongoing poor PO meeting less than 50% estimated nutrition needs x past 6-12 months Status Active Problem Recommendation Dietitian Recommendations/Changes Continue liberalized regular diet as ordered. Will add [place] Instant Breakfast with whole milk TID at meals (no chocolate flavor) . Will add ensure pudding BID w/ lunch and dinner--only vanilla. May need to consider TF support for protein/energy repletion if PO remains poor and inadequate. Lab / Micro Data Result Diagrams: 12/24/21 05:25 12/24/21 05:25 Labs: Laboratory Results - last 24 hr 12/23/21 10:47: WBC 7.2, RBC 4.22, Hgb 12.1, Hct 39.2, MCV 92.9, MCH 28.7, MCHC 30.9 L, RDW Std Deviation 47.5 H, RDW Coeff of Sonny 14.0, Plt Count 241, MPV 10.4, Immature Gran % (Auto) 0.400, Neut % (Auto) 77.4 H, Lymph % (Auto) 12.5 L, [place] % (Auto) 8.1, Eos % (Auto) 0.6, Baso % (Auto) 1.0, Absolute Neuts (auto) 5.6, Absolute Lymphs (auto) 0.90, Nucleated RBC % 0 12/23/21 10:47: Sodium 139, Potassium 4.2, Chloride 106, Carbon Dioxide 26.0, Anion Gap 7, BUN 43 H, Creatinine 2.49 H, Estim Creat Clear Calc 13.65, Est GFR (MDRD) Af Amer 24 L, Est GFR (MDRD) Non-Af 20 L, BUN/Creatinine Ratio 17.3, Glucose 104, Calcium 9.3, Total Bilirubin 1.80 H, AST 202 H, ALT 324 H, Alkaline Phosphatase 295 H, Troponin I High Sens 28, Total Protein 6.8, Albumin 3.0 L, Globulin 3.8, Albumin/Globulin Ratio 0.8 L 12/23/21 10:47: Magnesium 2.4 12/23/21 12:15: Urine Color Yellow, Urine Clarity Sl. Cloudy, Urine pH 6.0, Ur Specific [place] 1.020, Urine Protein 30 H, Urine Glucose (UA) Normal, Urine Ketones Negative, Urine Occult Blood Negative, Urine Nitrite Negative, Urine Bilirubin Negative, Urine Urobilinogen Normal, Ur Leukocyte Esterase 100 H, Urine RBC 0 SEEN, Urine WBC 10-25 SEEN, Ur Squamous Epith Cells 0-5 SEEN, Urine Bacteria 1+, Urine Mucus 0 SEEN 12/24/21 05:25: WBC 6.7, RBC 3.75 L, Hgb 10.8 L, Hct 33.7 L, MCV 89.9, MCH 28.8, MCHC 32.0, RDW Std Deviation 45.9 H, RDW Coeff of Sonny 13.9, Plt Count 244, MPV 10.5, Immature Gran % (Auto) 0.500, Neut % (Auto) 71.0 H, Lymph % (Auto) 14.6 L, [place] % (Auto) 12.2 H, Eos % (Auto) 0.8, Baso % (Auto) 0.9, Absolute Neuts (auto) 4.7, Absolute Lymphs (auto) 0.97, Nucleated RBC % 0 12/24/21 05:25: Sodium 139, Potassium 3.2 L, Chloride 109 H, Carbon Dioxide 22.0, Anion Gap 8, BUN 33 H, Creatinine 2.06 H, Estim Creat Clear Calc 16.30, Est GFR (MDRD) Af Amer 30 L, Est GFR (MDRD) Non-Af 24 L, BUN/Creatinine Ratio 16.0, Glucose 92, Calcium 8.7, Total Bilirubin 1.40 H, AST 156 H, ALT 259 H, Al kaline Phosphatase 261 H, Total Protein 5.8 L, Albumin 2.6 L, Globulin 3.2, Albumin/Globulin Ratio 0.8 L, TSH 0.75 Radiography Diagnostic Testing: Radiology Impression Chest X-Ray 12/23/21 11:05 IMPRESSION: Hyperinflation. Decreased bronchovascular markings suggestive of a emphysematous change. No acute abnormality is seen. Electronically Signed: Cristobal Hair MD at 11:53 EST , Objective Objective Data: 12/23/21 10:06 12/23/21 10:54 12/23/21 12:20 Temperature 35.4 C L Temperature Source Temporal Pulse Rate 115 H 91 75 Respiratory Rate 16 18 18 Respiratory Effort Respiratory Depth Respiratory Pattern Blood Pressure 141/76 H 184/90 H Blood Pressure Mean 97 121 Blood Pressure Source Blood Pressure Position Blood Pressure Location Pulse Ox 98 97 97 Oxygen Delivery Method Room Air Room Air Room Air 12/23/21 13:43 12/23/21 13:50 12/23/21 15:13 Temperature 36.5 C L Temperature Source Oral Pulse Rate 71 71 Respiratory Rate 18 18 Respiratory Effort Normal Respiratory Depth Normal Respiratory Pattern Normal Blood Pressure 188/106 H 188/106 H Blood Pressure Mean 133 133 Blood Pressure Source Blood Pressure Position Blood Pressure Location Pulse Ox 97 97 Oxygen Delivery Method Room Air Room Air Room Air 12/23/21 15:27 12/23/21 15:32 12/23/21 20:28 Temperature 36.5 C L 36.8 C Temperature Source Oral Oral Pulse Rate 73 79 Respiratory Rate 16 18 Respiratory Effort Respiratory Depth Respiratory Pattern Blood Pressure 174/68 H 162/67 H Blood Pressure Mean 103 98 Blood Pressure Source Monitor Monitor Blood Pressure Position Semi-Fowlers Semi-Fowlers Blood Pressure Location Right Arm Right Arm Pulse Ox 99 95 Oxygen Delivery Method Room Air Room Air Room Air 12/24/21 03:19 12/24/21 07:30 12/24/21 08:08 Temperature 36.9 C 37.0 C Temperature Source Oral Oral Pulse Rate 96 92 Respiratory Rate 18 16 Respiratory Effort Respiratory Depth Respiratory Pattern Blood Pressure 150/66 H 151/79 H Blood Pressure Mean 94 103 Blood Pressure Source Monitor Monitor Blood Pressure Position Semi-Fowlers Semi-Fowlers Blood Pressure Location Right Arm Right Arm Pulse Ox 96 95 97 Oxygen Delivery Method Room Air Room Air Room Air 12/24/21 08:56 Temperature Temperature Source Pulse Rate 92 Respiratory Rate Respiratory Effort Respiratory Depth Respiratory Pattern Blood Pressure Blood Pressure Mean Blood Pressure Source Blood Pressure Position Blood Pressure Location Pulse Ox Oxygen Delivery Method Weight: 50.8 kg Vital Signs Temp Pulse Resp BP Pulse Ox 12/24/21 08:56 92 12/24/21 08:08 37.0 C 92 16 151/79 H 97 12/24/21 07:30 95 12/24/21 03:19 36.9 C 96 18 150/66 H 96 12/23/21 20:28 36.8 C 79 18 162/67 H 95 12/23/21 15:27 36.5 C L 73 16 174/68 H 99 12/23/21 13:50 36.5 C L 71 18 188/106 H 97 12/23/21 13:43 71 18 188/106 H 97 12/23/21 12:20 75 18 184/90 H 97 12/23/21 10:54 91 18 97 12/23/21 10:06 35.4 C L 115 H 16 141/76 H 98 Lab tests last 48H 12/23/21 12/23/21 12/23/21 10:47 10:47 10:47 WBC 7.2 RBC 4.22 Hgb 12.1 Hct 39.2 MCV 92.9 MCH 28.7 MCHC 30.9 L RDW Std Deviation 47.5 H RDW Coeff of Sonny 14.0 Plt Count 241 MPV 10.4 Immature Gran % (Auto) 0.400 Neut % (Auto) 77.4 H Lymph % (Auto) 12.5 L [place] % (Auto) 8.1 Eos % (Auto) 0.6 Baso % (Auto) 1.0 Absolute Neuts (auto) 5.6 Absolute Lymphs (auto) 0.90 Nucleated RBC % 0 Sodium 139 Potassium 4.2 Chloride 106 Carbon Dioxide 26.0 Anion Gap 7 BUN 43 H Creatinine 2.49 H Estim Creat Clear Calc 13.65 Est GFR (MDRD) Af Amer 24 L Est GFR (MDRD) Non-Af 20 L BUN/Creatinine Ratio 17.3 Glucose 104 Calcium 9.3 Magnesium 2.4 Total Bilirubin 1.80 H AST 202 H ALT 324 H Alkaline Phosphatase 295 H Troponin I High Sens 28 Total Protein 6.8 Albumin 3.0 L Globulin 3.8 Albumin/Globulin Ratio 0.8 L TSH Urine Color Urine Clarity Urine pH Ur Specific [place] Urine Protein Urine Glucose (UA) Urine Ketones Urine Occult Blood Urine Nitrite Urine Bilirubin Urine Urobilinogen Ur Leukocyte Esterase Urine RBC Urine WBC Ur Squamous Epith Cells Urine Bacteria Urine Mucus 12/23/21 12/24/21 12/24/21 12:15 05:25 05:25 WBC 6.7 RBC 3.75 L Hgb 10.8 L Hct 33.7 L MCV 89.9 MCH 28.8 MCHC 32.0 RDW Std Deviation 45.9 H RDW Coeff of Sonny 13.9 Plt Count 244 MPV 10.5 Immature Gran % (Auto) 0.500 Neut % (Auto) 71.0 H Lymph % (Auto) 14.6 L [place] % (Auto) 12.2 H Eos % (Auto) 0.8 Baso % (Auto) 0.9 Absolute Neuts (auto) 4.7 Absolute Lymphs (auto) 0.97 Nucleated RBC % 0 Sodium 139 Potassium 3.2 L Chloride 109 H Carbon Dioxide 22.0 Anion Gap 8 BUN 33 H Creatinine 2.06 H Estim Creat Clear Calc 16.30 Est GFR (MDRD) Af Amer 30 L Est GFR (MDRD) Non-Af 24 L BUN/Creatinine Ratio 16.0 Glucose 92 Calcium 8.7 Magnesium Total Bilirubin 1.40 H AST 156 H ALT 259 H Alkaline Phosphatase 261 H Troponin I High Sens Total Protein 5.8 L Albumin 2.6 L Globulin 3.2 Albumin/Globulin Ratio 0.8 L TSH 0.75 Urine Color Yellow Urine Clarity Sl. Cloudy Urine pH 6.0 Ur Specific [place] 1.020 Urine Protein 30 H Urine Glucose (UA) Normal Urine Ketones Negative Urine Occult Blood Negative Urine Nitrite Negative Urine Bilirubin Negative Urine Urobilinogen Normal Ur Leukocyte Esterase 100 H Urine RBC 0 SEEN Urine WBC 10-25 SEEN Ur Squamous Epith Cells 0-5 SEEN Urine Bacteria 1+ Urine Mucus 0 SEEN Physical Exam Const Constitutional Narrative: Confused. Afebrile. Itching. HEENT head/scalp atraumatic Head and Scalp: normocephalic Eyes Eyes Narrative: Icterus Resp normal respiratory effort, no retractions, no use of accessory muscles and clear to auscultation bilaterally Cardio regular rate, regular rhythm, S1 normal heart sound and S2 normal heart sound GI normal to inspection, nondistended, normoactive bowel sounds and soft to palpation GI Narrative: Hyperactive bowel sounds Extremity normal to inspection Neuro Sensorium / Orientation: awake and alert Assessment & Plan Assessment/Plan (1) Cholestatic hepatitis: (2) Adult failure to thrive: (3) Abnormal weight loss: (4) Elevated liver function tests: (5) Metabolic encephalopathy: PLAN: 1. Acute hepatitis Etiology unclear Ultrasound pending CAT scan from December 21 showed no obvious etiology. Has a cholestatic picture with elevated bilirubin. But transaminases are also elevated If ultrasound is negative for any intrabiliary issues and possibly metastatic disease, would recommend further studies including an acute viral hepatitis panel and may be an autoimmune work-up as well. Gastroenterology following 2. Weight loss Patient thinks but is unsure if she has had a colonoscopy before Endoscopy pending 3. 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 Unclear about her baseline but with the abnormal liver test we will check an ammonia level 4. Chronic kidney disease stage IV Creatinine appears to be at baseline Avoid nephrotoxic agents 5. Pruritus Suspect related with the hyperbilirubinemia Patient has new excoriations throughout and is constantly itching during encounter. We will add diphenhydramine but at a low dose to mitigate issues with encephalopathy 6. VTE prophylaxis with subcu heparin Charges/Coding Visit Charges Inpatient E&M: 47909 Subs Hosp L3
[2021-12-24] MEDS: Magnesium Citrate 300 ML PO ×2 (10:40→20:20)
--- NOTE | 2021-12-24 11:14 | NURSING ---
patient refusing mag citrate at 1115. patient only took in approx 120mL. will continue to monitor and encourage more intake.
--- NOTE | 2021-12-24 11:59 | CASEMGMT ---
Addendum entered by Misti Mccord 12/24/21 13:20: [place] faxed referral to [facility]. Original Note: Social Work Note SW placed a call to Paulino at [facility] and left message that pt is on MedSurg 3 and that this worker will fax over referral once PT/OT works with pt. 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
--- NOTE | 2021-12-24 12:35 | CASEMGMT ---
RN RASHEL NOTE: Intro role of CM to patient and MORAN form explained re: Observation status for treatment of generalized weakness. Explained hospitalization will be paid per her insurance policy for Outpatient billing and condition will continue to be evaluated for Inpt necessity. Also let pt know that [facility] sends paper in the billing packet with their phone number if questions arise. Discussed Pharmacy section of MORAN form and self administered medication guideline. Pt verbalizes understanding and does not have further questions. Form signed, copy made and placed in chart, and original given to pt. Elkin NULL RN CM
[2021-12-24] MEDS: Cholecalciferol (VIT D3) 25 MCG TABLET (1,000 UNITS) PO (17:35)
[2021-12-24] MEDS: Ferrous Sulfate 325 MG Tablet PO (17:35)
--- NOTE | 2021-12-24 18:00 | CASEMGMT ---
Social Work Note SW placed a call to Yolis at [facility]. [facility] is able to accept pt and pre-cert has been started. Plan: [facility] pending pre-cert Misti Mccord MSW, SERVICE ATTENDANT [place]
--- NOTE | 2021-12-24 18:00 | PCM.PROGNOTE ---
Subjective Subjective Denies any complaints. She he was likely down for colonoscopy today. Objective Data Objective Data Vital Signs: Vital Signs Temp Pulse Resp BP Pulse Ox 98.6 F 92 16 151/79 H 97 12/24/21 08:08 12/24/21 08:56 12/24/21 08:08 12/24/21 08:08 12/24/21 08:08 Oxygen Delivery Method Room Air Weight: 111 lb 15.917 oz Body Mass Index (BMI) 18.3 Intake & Output: Intake and Output for Last 24 Hours 12/22/21 12/23/21 12/24/21 23:59 23:59 23:59 Intake Total 650 / 650 Balance 650 / 650 Medical Nutrition Assessment Dietitian: Malnutrition Criteria Met Start: 12/23/21 17:01 Freq: Status: Active Protocol: Document 12/23/21 17:01 RMA (Rec: 12/23/21 17:01 RMA [id number]) Nutrition Malnutrition Evidence of Malnutrition Exists Yes Malnutrition (severe): Acute Illness/Injury Evidenced By Suboptimal Energy Intake ( Severe),Weight Loss (Severe), Physical Changes (Severe) Clinical Problem Acute Disease or Injury Related Malnutrition Etiology Severe protein-calorie malnutrition in the context of acute illness/FTT related to inadequate oral intake Signs/Symptoms as evidenced by severe muscle and fat wasting in the face, orbitals, clavicle, neck, arms and legs; ~24% wt loss x 12 months, ~19% wt loss x 4-6 months, BMI 18.3 and ongoing poor PO meeting less than 50% estimated nutrition needs x past 6-12 months Status Active Problem Recommendation Dietitian Recommendations/Changes Continue liberalized regular diet as ordered. Will add [place] Instant Breakfast with whole milk TID at meals (no chocolate flavor) . Will add ensure pudding BID w/ lunch and dinner--only vanilla. May need to consider TF support for protein/energy repletion if PO remains poor and inadequate. Lab / Micro Data Result Diagrams: 12/24/21 05:25 12/24/21 05:25 Labs: Laboratory Results - last 24 hr 12/24/21 05:25: WBC 6.7, RBC 3.75 L, Hgb 10.8 L, Hct 33.7 L, MCV 89.9, MCH 28.8, MCHC 32.0, RDW Std Deviation 45.9 H, RDW Coeff of Sonny 13.9, Plt Count 244, MPV 10.5, Immature Gran % (Auto) 0.500, Neut % (Auto) 71.0 H, Lymph % (Auto) 14.6 L, [place] % (Auto) 12.2 H, Eos % (Auto) 0.8, Baso % (Auto) 0.9, Absolute Neuts (auto) 4.7, Absolute Lymphs (auto) 0.97, Nucleated RBC % 0 12/24/21 05:25: Sodium 139, Potassium 3.2 L, Chloride 109 H, Carbon Dioxide 22.0, Anion Gap 8, BUN 33 H, Creatinine 2.06 H, Estim Creat Clear Calc 16.30, Est GFR (MDRD) Af Amer 30 L, Est GFR (MDRD) Non-Af 24 L, BUN/Creatinine Ratio 16.0, Glucose 92, Calcium 8.7, Total Bilirubin 1.40 H, AST 156 H, ALT 259 H, Alkaline Phosphatase 261 H, Total Protein 5.8 L, Albumin 2.6 L, Globulin 3.2, Albumin/Globulin Ratio 0.8 L, TSH 0.75 12/24/21 14:30: Ammonia 18.0 Radiography Diagnostic Testing: Radiology Impression Abdomen Ultrasound 12/24/21 05:55 IMPRESSION: Status post cholecystectomy. Right renal atrophy. Electronically Signed: Cristobal Hair MD at 15:24 EST , Physical Exam Const alert General Appearance: cooperative Orientation / Consciousness: oriented to person HEENT hearing grossly normal bilaterally Head and Scalp: normal to inspection Face and Sinus: face symmetric Nose: external nose normal Mouth: oral and palatal mucosa normal Eyes conjunctivae normal General Eye: normal appearance of both eyes Neck full ROM General: normal visual inspection Lymph Lymphatic: no lymphadenopathy noted Chest inspection of chest normal and palpation of chest normal Chest: symmetrical chest wall rise Resp normal respiratory effort Effort and Inspection: able to speak in complete sentences Cardio regular rate GI non-distended Percussion: normal to percussion Rectal Exam: deferred Neuro Speech: speech normal Gait (Neuro): normal gait Assessment & Plan Assessment/Plan (1) Cholestatic hepatitis: PLAN: Liver: The liver measures 13.6 cm. There is increased echogenicity consistent with fatty infiltration. The bile ducts are within normal limits. There is hepatic color flow. The direction of portal flow is hepatopetal. There is no demonstrated mass lesion. Gallbladder: The patient is status post cholecystectomy. Common Bile Duct (C.B.D.): The common bile duct measures 2.9 mm. Pancreas: Normal size of the head, body and tail of the pancreas. There is normal echogenicity of the pancreas. There is no demonstrated pancreatic mass or cyst. Her common bile duct is normal and she has a normal size liver. I do not see any signs of chronic liver disease that would cause her biochemical profile. Differential diagnosis would be chronic hepatitis secondary to autoimmune hepatitis, primary bili cirrhosis, primary sclerosing cholangitis as these are all disease that affected liver parenchyma and may not show up on ultrasound. I will repeat her LFTs tonight and if there is still elevated she may need MRCP to look for intrinsic liver disease along with biochemical work-up for chronic hepatitis. (2) Metabolic encephalopathy: PLAN: Encephalopathy secondary to dementia and dehydration. (3) Abnormal weight loss: PLAN: Abnormal weight loss in the setting of abnormal CT scan that showed a possible colonic mass. She will need to be cleaned out for colonoscopy as well as possible so we can fully evaluate her GI tract. Charges/Coding Visit Charges Inpatient E&M: 03863 Subs Hosp L3
[2021-12-24 20:24] VITALS: BP 184/82; PULSE 88; RESP 20; TEMP 36.9; O2SAT 97
[2021-12-24] MEDS: Atorvastatin Calcium 10 MG Tablet PO (20:24)
[2021-12-24] MEDS: Ondansetron 4 MG/2 ML Vial IV (20:33)
[2021-12-24 22:37] VITALS: BP 187/86; PULSE 78
[2021-12-24] MEDS: Enalaprilat 1.25 MG/ML Vial IV (22:37)
[2021-12-25] VITALS (14 sets, daily range): BP systolic 140–201; BP diastolic 62–101; PULSE 64–93; RESP 16–18; TEMP 36.6–37.2; O2SAT 95–100
--- NOTE | 2021-12-25 | COLBX_PTH ---
PATIENT: SYEDA CHILD LOC: MS3 U#:[id number] AGE/SX: 86/F [place] [facility] [place]: Dr. Meek Yates DO : 1935 BED: 1 DIS: 12/26/2021 SPEC #: [id number] RECD: 12/25/21 19:40 STATUS: LAITH RERayo #: [id number] RL: 12/25/21 00:[address]: Naeem Euceda DEPT: SURGICAL PATHOLOGY RECD BY: Ry Dumont ENTERED: 12/28/21 11:10 SP TYPE: COLON BX OTHR DR: DO Dr. Caleb Rodriguez MD Dr. William Lago, MD Tissues: Duodenum, NOS Procedures: Surgery Specimen Level IV Comments: @ Ordering doctor for SUIV edited from to @ by RGOOD at 12/29/21 0807 @ Submitting doctor edited from to @ by RGOOD at 12/29/21806 HEADER OPERATION: Colonoscopy, EGD ([facility] [place]) PRE-OP DIAGNOSIS: Cholestatic hepatitis TISSUE SUBMITTED: Duodenum biopsy MICROSCOPIC DIAGNOSIS Duodenum, biopsy: Acute duodenitis with focal mucosal ulceration. AM:krystyna 12/29/2021 MICROSCOPIC DESCRIPTION Slides are reviewed. GROSS DESCRIPTION Received in fixative is one container labeled with the patient's name and designated duodenum biopsy. The specimen consists of two irregular fragments of light lugo soft tissue that in aggregate measure 0.6 x 0.3 x 0.1 cm. The specimen is totally submitted in one cassette. / SJ:krystyna 12/28/2021 TC:2 CPT: 09949
[2021-12-25] MEDS: Magnesium Citrate 300 ML PO (02:34)
[2021-12-25] MEDS: Metoprolol Tartrate 5 MG/5 ML Vial IV (03:20)
[2021-12-25 05:43] LABS: Absolute Lymphocyte Count 0.81 X10^3/uL (0.83-4.51); Absolute Neutrophil Count 5.9 X10^3/uL (2.0-7.7); Basophil# 0.08 X10^3/uL; Eosinophil# 0.02 X10^3/uL; Eosinophils% 0.3 % (0-5); Hematocrit 45.1 % (37-47); Hemoglobin 12.6 g/dL (12.0-15.0); Lymphocyte # 0.81 X10^3/ul (0.83-4.51); Lymphocyte % 10.6 % (19-41); Mean Corp Hgb Conc 27.9 g/dL (32-36); Mean Corpuscular Hgb 28.6 pg (27.0-32.0); Mean Corpuscular Volume 102.5 fL (81-99); Mean Platelet Vol. 9.5 fl (6.2-12.0); Monocyte# 0.81 X10^3/uL; Monocyte% 10.6 % (0-10); NRBC Flagged by Analyzer 0 % (0-5); Neutrophil # 5.91 X10^3/uL (2.7-7.7); Neutrophil % 77.2 % (47-70); Platelet Count 249 K/mm3 (150-450); RBC Distribution Width SD 53.3 fl (35.1-43.9); White Blood Count 7.7 K/mm3 (4.4-11.0)
[2021-12-25 06:02] LABS: International Normalized Ratio 0.9
[2021-12-25] MEDS: Enalaprilat 1.25 MG/ML Vial IV (06:10)
[2021-12-25] MEDS: Metoprolol Tartrate 25 MG Tablet PO ×2 (06:23→22:29)
[2021-12-25 06:33] LABS: ALB/GLOB Ratio 0.8 RATIO (0.9-2.4); AST(SGOT) 178 U/L (15-37); Alanine Aminotransfer ALT/SGPT 296 U/L (13-56); Alkaline Phosphatase 313 U/L (45-117); Anion Gap 8 (5-15); BUN 30 mg/dL (7-18); BUN/Creat Ratio 13.6 RATIO (10-20); Calcium,Total 9.8 mg/dL (8.5-10.1); Chloride 114 mmol/L (98-107); Creatinine, Serum 2.21 mg/dL (0.55-1.02); EST Glomerular Filtration Rate 23 mL/min (>60); Est Glom Filt Rate - Afr Amer 27 mL/min (>60); Estimated Creatinine Clearance 15.14 ml/min; Glucose 90 mg/dL (74-106); Potassium 3.4 mmol/L (3.5-5.1); Sodium Level 140 mmol/L (136-145)
--- NOTE | 2021-12-25 09:23 | PN.HOSP_ITS ---
Subjective Subjective Itching better. Using hydrocortisone cream. Objective Data Objective Data Vital Signs: Vital Signs Temp Pulse Resp BP Pulse Ox 36.8 C 64 16 165/72 H 95 12/25/21 08:36 12/25/21 08:36 12/25/21 08:36 12/25/21 08:36 12/25/21 08:36 Oxygen Delivery Method Room Air Weight: 50.6 kg Body Mass Index (BMI) 18.3 Intake & Output: Intake and Output for Last 24 Hours 12/23/21 12/24/21 12/25/21 23:59 23:59 23:59 Intake Total 650 / 650 200 / 200 Balance 650 / 650 200 / 200 Medical Nutrition Assessment Dietitian: Malnutrition Criteria Met Start: 12/23/21 17:01 Freq: Status: Active Protocol: Document 12/23/21 17:01 RMA (Rec: 12/23/21 17:01 RMA [id number]) Nutrition Malnutrition Evidence of Malnutrition Exists Yes Malnutrition (severe): Acute Illness/Injury Evidenced By Suboptimal Energy Intake ( Severe),Weight Loss (Severe), Physical Changes (Severe) Clinical Problem Acute Disease or Injury Related Malnutrition Etiology Severe protein-calorie malnutrition in the context of acute illness/FTT related to inadequate oral intake Signs/Symptoms as evidenced by severe muscle and fat wasting in the face, orbitals, clavicle, neck, arms and legs; ~24% wt loss x 12 months, ~19% wt loss x 4-6 months, BMI 18.3 and ongoing poor PO meeting less than 50% estimated nutrition needs x past 6-12 months Status Active Problem Recommendation Dietitian Recommendations/Changes Continue liberalized regular diet as ordered. Will add [place] Instant Breakfast with whole milk TID at meals (no chocolate flavor) . Will add ensure pudding BID w/ lunch and dinner--only vanilla. May need to consider TF support for protein/energy repletion if PO remains poor and inadequate. Lab / Micro Data Result Diagrams: 12/25/21 05:25 12/25/21 05:25 Labs: Laboratory Results - last 24 hr 12/24/21 14:30: Ammonia 18.0 12/25/21 05:25: WBC 7.7, RBC 4.40, Hgb 12.6, Hct 45.1, MCV 102.5 H D, MCH 28.6, MCHC 27.9 L D, RDW Std Deviation 53.3 H, RDW Coeff of Sonny 14.0, Plt Count 249, MPV 9.5, Immature Gran % (Auto) 0.300, Neut % (Auto) 77.2 H, Lymph % (Auto) 10.6 L, [place] % (Auto) 10.6 H, Eos % (Auto) 0.3, Baso % (Auto) 1.0, Absolute Neuts (auto) 5.9, Absolute Lymphs (auto) 0.81 L, Nucleated RBC % 0 12/25/21 05:25: PT 12.0, INR 0.9 12/25/21 05:25: Sodium 140, Potassium 3.4 L, Chloride 114 H, Carbon Dioxide 18.0 L, Anion Gap 8, BUN 30 H, Creatinine 2.21 H, Estim Creat Clear Calc 15.14, Est GFR (MDRD) Af Amer 27 L, Est GFR (MDRD) Non-Af 23 L, BUN/Creatinine Ratio 13.6, Glucose 90, Calcium 9.8, Total Bilirubin 1.40 H, AST 178 H, ALT 296 H, Alkaline Phosphatase 313 H, Total Protein 7.0, Albumin 3.0 L, Globulin 4.0, Albumin/Globulin Ratio 0.8 L Radiography Diagnostic Testing: Radiology Impression Abdomen Ultrasound 12/24/21 05:55 IMPRESSION: Status post cholecystectomy. Right renal atrophy. Electronically Signed: Cristobal Hair MD at 15:24 EST Reading Location ID and State: [address] [place] [address] , Service support , Physical Exam Const no apparent distress Orientation / Consciousness: confused Resp normal respiratory effort, no retractions, no use of accessory muscles and clear to auscultation bilaterally Cardio regular rate, regular rhythm, S1 normal heart sound and S2 normal heart sound GI normal to inspection, nondistended, normoactive bowel sounds, soft to palpation, non-tender and non-distended Extremity normal to inspection and full ROM Neuro Sensorium / Orientation: awake Assessment & Plan Assessment/Plan (1) Cholestatic hepatitis: (2) Adult failure to thrive: (3) Abnormal weight loss: (4) Elevated liver function tests: (5) Metabolic encephalopathy: PLAN: 1. Acute hepatitis Etiology unclear Ultrasound unremarkable CAT scan from December 21 showed no obvious etiology. Has a cholestatic picture with elevated bilirubin. But transaminases are also elevated Gastroenterology following Check MRCP, acute hepatitis profile 2. Weight loss Patient thinks but is unsure if she has had a colonoscopy before Endoscopy pending 3. 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 Unclear about her baseline ammonia improved 4. Chronic kidney disease stage IV Creatinine appears to be at baseline Avoid nephrotoxic agents 5. Pruritus Improved. Hydrocortisone topic helping Suspect related with the hyperbilirubinemia Patient has new excoriations throughout and is constantly itching during encounter. We will add diphenhydramine but at a low dose to mitigate issues with encephalop athy 6. VTE prophylaxis with subcu heparin Charges/Coding Visit Charges Inpatient E&M: 31637 Subs Hosp L2
--- NOTE | 2021-12-25 09:45 | CASEMGMT ---
Social Work Note SW received call from Paulino at [facility] stating pre-cert is still pending. [place] did ask OT to evaluate pt soon this morning as evaluation is needed for pre-cert. Plan: [facility] pending pre-cert Misti Mccord ELECTRIC SEALING MACHINE OPERATOR, SALES PROFESSIONAL BILINGUAL
[2021-12-25] MEDS: Potassium Chloride Oral Tablet 20 MEQ 40 MEQ PO (10:34)
--- NOTE | 2021-12-25 12:59 | CASEMGMT ---
Social Work Note SW reviewed chart. Pt with history of Depression and is on Sertraline. SW in to speak with pt and introduced self and role at [facility]. Pt is alert and orientated x3 - somewhat time. Pt knew the year 2021 but states it is September. SW informed pt that pre-cert for [facility] is still pending. SW asked pt about history of depression. Pt states well with all this stuff going on you would be depressed too. SW provided support to pt. SW asked pt about any Mental Health treatment. Pt denied and then states I am not depressed. Pt states that she is very frustrated with [facility] and states she was supposed to have a surgery this morning and it got moved to this evening. Pt states I have't been able to eat or drink anything. Pt states I am dying and then states I am about to kill someone. Pt becoming more frustrated and upset. SW explained that pt probably cannot eat due to the procedure/surgery that she is getting today. Pt denied any suicidal/homicidal thoughts/plans/ideations then states you can leave. [place] explained to pt that this worker is just trying to provide support to pt. Pt again states you can leave. NJ faxed updated clinicals to [facility]. Plan: [facility] pending pre-cert Misti Mccord HYPO SPLASHER, MANAGER OF DATA
--- NOTE | 2021-12-25 16:30 | CASEMGMT ---
Social Work Note For continuity of care, this worker placed a call to pt's son Waqar. [place] updated Waqar that pre-cert is still pending. Waqar with many questions regarding insurance and SNF. SW answered questions. SW informed Waqar that if pre-cert is not obtained today, pt will likely be at [facility] through the weekend. Waqar states understanding. NJ received call from Paulino stating pre-cert is still pending. NJ provided Paulino with MS3 number in the event pre-cert is obtained. PAS/RR completed. NJ placed Green Sheet, transport forms, PAS/RR, PAS/RR results, and COVID tool on the chart in the event pre-cert is obtained. Pt will need COVID test on day of discharge. Plan: [facility] Misti Mccord MSW, ASSISTANT RESEARCH SCIENTIST
[2021-12-25] MEDS: Lactated Ringers 1,000 ML 15 ML IV (17:09)
--- NOTE | 2021-12-25 19:04 | OP.CCLET_ITS ---
07/26/2022 Giovanni Forte Re : Upper GI endoscopy procedure for Elli Silveira Dear Reanna This procedure was performed on Saturday, December 25, 2021. My impressions and recommendations are as follows: Impressions : - Normal esophagus. - Hematin (altered blood/kelsvu-gagjia-lrqi material) in the stomach. - Multiple non-bleeding duodenal ulcers with no stigmata of bleeding. Biopsied. Recommendations : - Written discharge instructions were provided to the patient. - The signs and symptoms of potential delayed complications were discussed with the patient. - Patient has a contact number available for emergencies. - Return to normal activities tomorrow. - Resume previous diet. - Continue present medications. - Await pathology results. - Repeat upper endoscopy in 1 year for surveillance based on pathology results. - Return to GI clinic. My findings are described in the full procedure note, which is enclosed. If I can be of further assistance, please feel free to contact me at . Sincerely, Naeem Euceda, 12/25/2021 7:04:05 PM This report has been signed electronically.
--- NOTE | 2021-12-25 19:04 | OP.EGD_ITS ---
Patient Name: Elli Silveira Procedure Date: 12/25/2021 6:14 PM Date of : 1935 Age: 86 Procedure: Upper GI endoscopy Indications: Epigastric abdominal pain, Iron deficiency anemia Providers: Naeem Euceda DO Medicines: See the Anesthesia note for documentation of the administered medications Patient Profile: This is an 86 year old female. Refer to note in patient chart for documentation of history and physical. Patient has symptoms. Complications: No immediate complications. Procedure: Pre-Anesthesia Assessment: - Prior to the procedure, a History and Physical was performed, and patient medications and allergies were reviewed. The risks and benefits of the procedure and the sedation options and risks were discussed with the patient. All questions were answered and informed consent was obtained. Patient identification and proposed procedure were verified by the physician in the pre-procedure area. Mental Status Examination: alert and oriented. Airway Examination: normal oropharyngeal airway and neck mobility. Respiratory Examination: clear to auscultation. CV Examination: normal. Prophylactic Antibiotics: The patient does not require prophylactic antibiotics. Prior Anticoagulants: The patient has taken no previous anticoagulant or antiplatelet agents. After reviewing the risks and benefits, the patient was deemed in satisfactory condition to undergo the procedure. The anesthesia plan was to use moderate sedation / analgesia (conscious sedation). Immediately prior to administration of medications, the patient was re-assessed for adequacy to receive sedatives. The heart rate, respiratory rate, oxygen saturations, blood pressure, adequacy of pulmonary ventilation, and response to care were monitored throughout the procedure. The physical status of the patient was re-assessed after the procedure. After obtaining informed consent, the endoscope was passed under direct vision. Throughout the procedure, the patient's blood pressure, pulse, and oxygen saturations were monitored continuously. The colonoscope was introduced through the mouth, and advanced to the second part of duodenum. The upper GI endoscopy was accomplished without difficulty. The patient tolerated the procedure well. Moderate Sedation: Moderate (conscious) sedation was administered by the endoscopy nurse and supervised by the endoscopist. The following parameters were monitored: oxygen saturation, heart rate, blood pressure, and response to care. Total physician intraservice time was 15 minutes. Scope In: 6:30:55 PM Scope Out: 6:37:05 PM Total Procedure Duration Time 0 hours 6 minutes 9 seconds Findings: The examined esophagus was normal. Hematin (altered blood/wbjpry-gvlnrt-khdy material) was found in the stomach. Six non-bleeding linear duodenal ulcers with no stigmata of bleeding were found in the duodenal bulb. The largest lesion was 2 mm in largest dimension. Biopsies were taken with a cold forceps for histology. Verification of patient identification for the specimen was done. Estimated blood loss was minimal. Impression: - Normal esophagus. - Hematin (altered blood/ohipxy-xmqije-xikg material) in the stomach. - Multiple non-bleeding duodenal ulcers with no stigmata of bleeding. Biopsied. Recommendation: - Written discharge instructions were provided to the patient. - The signs and symptoms of potential delayed complications were discussed with the patient. - Patient has a contact number available for emergencies. - Return to normal activities tomorrow. - Resume previous diet. - Continue present medications. - Await pathology results. - Repeat upper endoscopy in 1 year for surveillance based on pathology results. - Return to GI clinic. Procedure Code(s): --- Professional --- 40885, Esophagogastroduodenoscopy, flexible, transoral; with biopsy, single or multiple 93810, 59, Moderate sedation services provided by the same physician or other qualified health animal daycare provider performing the diagnostic or therapeutic service that the sedation supports, requiring the presence of an independent trained observer to assist in the monitoring of the patient's level of consciousness and physiological status; initial 15 minutes of intraservice time, patient age 5 years or older CPT copyright 2017 [employer]. All rights reserved. The codes documented in this report are preliminary and upon aquatics director review may be revised to meet current compliance requirements. Naeem Euceda DO 12/25/2021 7:04:05 PM This report has been signed electronically. Number of Addenda: 1 Note Initiated On: 12/25/2021 6:14 PM Addendum Number: 1 Addendum Date: 07/26/2022 6:41:48 AM MAC was used for sedation during this procedure. Naeem Euceda DO 07/26/2022 6:41:52 AM This report has been signed electronically.
--- NOTE | 2021-12-25 19:07 | OP.COLON_ITS ---
Patient Name: Elli Silveira Procedure Date: 12/25/2021 6:37 PM Date of : 1935 Age: 86 Procedure: Colonoscopy Indications: Iron deficiency anemia, Abnormal CT of the GI tract Providers: Naeem Euceda DO Medicines: See the Anesthesia note for documentation of the administered medications Patient Profile: This is an 86 year old female. Refer to note in patient chart for documentation of history and physical. Patient has symptoms. Last Colonoscopy: date unknown. Unable to locate last colonoscopy report. Complications: No immediate complications. Procedure: Pre-Anesthesia Assessment: - Prior to the procedure, a History and Physical was performed, and patient medications and allergies were reviewed. The risks and benefits of the procedure and the sedation options and risks were discussed with the patient. All questions were answered and informed consent was obtained. Patient identification and proposed procedure were verified by the physician in the pre-procedure area. Mental Status Examination: alert and oriented. Airway Examination: normal oropharyngeal airway and neck mobility. Respiratory Examination: clear to auscultation. CV Examination: normal. Prophylactic Antibiotics: The patient does not require prophylactic antibiotics. Prior Anticoagulants: The patient has taken no previous anticoagulant or antiplatelet agents. After reviewing the risks and benefits, the patient was deemed in satisfactory condition to undergo the procedure. The anesthesia plan was to use moderate sedation / analgesia (conscious sedation). Immediately prior to administration of medications, the patient was re-assessed for adequacy to receive sedatives. The heart rate, respiratory rate, oxygen saturations, blood pressure, adequacy of pulmonary ventilation, and response to care were monitored throughout the procedure. The physical status of the patient was re-assessed after the procedure. After I obtained informed consent, the scope was passed under direct vision. Throughout the procedure, the patient's blood pressure, pulse, and oxygen saturations were monitored continuously. The colonoscope was introduced through the anus and advanced to the cecum, identified by appendiceal orifice and ileocecal valve. The colonoscopy was performed without difficulty. The patient tolerated the procedure well. The quality of the bowel preparation was fair. Moderate Sedation: Moderate (conscious) sedation was administered by the endoscopy nurse and supervised by the endoscopist. The following parameters were monitored: oxygen saturation, heart rate, blood pressure, and response to care. Total physician intraservice time was 15 minutes. Scope In: 6:39:24 PM Scope Withdrawal Time 0 hours 5 minutes 23 seconds Scope Out: 6:56:16 PM Total Procedure Duration Time 0 hours 16 minutes 52 seconds Findings: The perianal and digital rectal examinations were normal. Multiple small and large-mouthed diverticula were found in the recto-sigmoid colon, sigmoid colon and descending colon. There was narrowing of the colon in association with the diverticular opening. Hemorrhoids were found on perianal exam. Impression: - Preparation of the colon was fair. - Severe diverticulosis in the recto-sigmoid colon, in the sigmoid colon and in the descending colon. There was narrowing of the colon in association with the diverticular opening. - No specimens collected. Recommendation: - Return patient to hospital cho for ongoing care. - Resume previous diet. - Continue present medications. - Await pathology results. - No repeat colonoscopy due to current age (66 years or older). Procedure Code(s): --- Professional --- 49853, Colonoscopy, flexible; diagnostic, including collection of specimen(s) by brushing or washing, when performed (separate procedure) 40623, 59, Moderate sedation services provided by the same physician or other qualified health veterinarian laboratory animal care performing the diagnostic or therapeutic service that the sedation supports, requiring the presence of an independent trained observer to assist in the monitoring of the patient's level of consciousness and physiological status; initial 15 minutes of intraservice time, patient age 5 years or older CPT copyright 2017 [employer]. All rights reserved. The codes documented in this report are preliminary and upon molded goods embossing press operator review may be revised to meet current compliance requirements. Naeem Euceda DO 12/25/2021 7:06:58 PM This report has been signed electronically. Number of Addenda: 1 Note Initiated On: 12/25/2021 6:37 PM Addendum Number: 1 Addendum Date: 07/26/2022 6:42:00 AM MAC was used for sedation during this procedure. Naeem Euceda DO 07/26/2022 6:42:04 AM This report has been signed electronically.
--- NOTE | 2021-12-25 19:07 | OP.CCLET_ITS ---
07/26/2022 Giovanni Forte Re : Colonoscopy procedure for Elli Silveira Dear Reanna This procedure was performed on Saturday, December 25, 2021. My impressions and recommendations are as follows: Impressions : - Preparation of the colon was fair. - Severe diverticulosis in the recto-sigmoid colon, in the sigmoid colon and in the descending colon. There was narrowing of the colon in association with the diverticular opening. - No specimens collected. Recommendations : - Return patient to hospital cho for ongoing care. - Resume previous diet. - Continue present medications. - Await pathology results. - No repeat colonoscopy due to current age (66 years or older). My findings are described in the full procedure note, which is enclosed. If I can be of further assistance, please feel free to contact me at . Sincerely, Naeem Euceda, 12/25/2021 7:06:58 PM This report has been signed electronically.
[2021-12-25] MEDS: Atorvastatin Calcium 10 MG Tablet PO (22:30)
[2021-12-26 03:29] VITALS: BP 156/69; PULSE 75; RESP 18; TEMP 36.7; O2SAT 95
[2021-12-26 06:59] LABS: ALB/GLOB Ratio 0.8 RATIO (0.9-2.4); AST(SGOT) 143 U/L (15-37); Alanine Aminotransfer ALT/SGPT 255 U/L (13-56); Albumin, Serum 2.8 g/dL (3.2-5.0); Alkaline Phosphatase 271 U/L (45-117); Anion Gap 8 (5-15); BUN 37 mg/dL (7-18); BUN/Creat Ratio 15.9 RATIO (10-20); Chloride 110 mmol/L (98-107); Creatinine, Serum 2.33 mg/dL (0.55-1.02); EST Glomerular Filtration Rate 21 mL/min (>60); Est Glom Filt Rate - Afr Amer 26 mL/min (>60); Estimated Creatinine Clearance 14.33 ml/min; Globulin 3.6 g/dL (2.2-4.2); Glucose 110 mg/dL (74-106); Potassium 3.8 mmol/L (3.5-5.1); Protein, Total 6.4 g/dL (6.4-8.2); Sodium Level 139 mmol/L (136-145)
[2021-12-26 10:12] VITALS: BP 118/52; PULSE 93; RESP 18; TEMP 36.7; O2SAT 98
[2021-12-26] MEDS: Ascorbic Acid 500 MG Tablet PO (10:26)
[2021-12-26] MEDS: Multivitamins,Therapeutic Tablet 1 TABLET PO (10:26)
[2021-12-26 10:27] VITALS: BP 118/52; PULSE 93
[2021-12-26] MEDS: Metoprolol Tartrate 25 MG Tablet PO (10:27)
[2021-12-26] MEDS: Sertraline 50 MG Tablet PO (10:27)
[2021-12-26] MEDS: Heparin Injection (Vial) 5,000 UNIT/ML VIAL 5000 UNIT SC (10:27)
--- NOTE | 2021-12-26 11:34 | PN.HOSP_ITS ---
Subjective Subjective No abdominal pain. Objective Data Objective Data Vital Signs: Vital Signs Temp Pulse Resp BP Pulse Ox 36.7 C 93 18 118/52 L 98 12/26/21 10:12 12/26/21 10:27 12/26/21 10:12 12/26/21 10:27 12/26/21 10:12 Oxygen Delivery Method Room Air Weight: 50.5 kg Body Mass Index (BMI) 18.3 Intake & Output: Intake and Output for Last 24 Hours 12/24/21 12/25/21 12/26/21 23:59 23:59 23:59 Intake Total 310 / 310 110 / 110 Balance 310 / 310 110 / 110 Medical Nutrition Assessment Dietitian: Malnutrition Criteria Met Start: 12/23/21 17:0 1 Freq: Status: Active Protocol: Document 12/23/21 17:01 RMA (Rec: 12/23/21 17:01 RMA [id number]) Nutrition Malnutrition Evidence of Malnutrition Exists Yes Malnutrition (severe): Acute Illness/Injury Evidenced By Suboptimal Energy Intake ( Severe),Weight Loss (Severe), Physical Changes (Severe) Clinical Problem Acute Disease or Injury Related Malnutrition Etiology Severe protein-calorie malnutrition in the context of acute illness/FTT related to inadequate oral intake Signs/Symptoms as evidenced by severe muscle and fat wasting in the face, orbitals, clavicle, neck, arms and legs; ~24% wt loss x 12 months, ~19% wt loss x 4-6 months, BMI 18.3 and ongoing poor PO meeting less than 50% estimated nutrition needs x past 6-12 months Status Active Problem Recommendation Dietitian Recommendations/Changes Continue liberalized regular diet as ordered. Will add [place] Instant Breakfast with whole milk TID at meals (no chocolate flavor) . Will add ensure pudding BID w/ lunch and dinner--only vanilla. May need to consider TF support for protein/energy repletion if PO remains poor and inadequate. Lab / Micro Data Result Diagrams: 12/25/21 05:25 12/26/21 04:49 Labs: Laboratory Results - last 24 hr 12/26/21 04:49: Sodium 139, Potassium 3.8, Chloride 110 H, Carbon Dioxide 21.0, Anion Gap 8, BUN 37 H, Creatinine 2.33 H, Estim Creat Clear Calc 14.33, Est GFR (MDRD) Af Amer 26 L, Est GFR (MDRD) Non-Af 21 L, BUN/Creatinine Ratio 15.9, Glucose 110 H, Calcium 9.0, Total Bilirubin 1.10 H, AST 143 H, ALT 255 H, Alkaline Phosphatase 271 H, Total Protein 6.4, Albumin 2.8 L, Globulin 3.6, Albumin/Globulin Ratio 0.8 L Micro: Microbiology 12/23/21 12:15 Urine, Clean Catch Urine Culture - Final Mixed Gram Positive Organisms Physical Exam Const alert and no apparent distress Resp normal respiratory effort, no retractions, no use of accessory muscles and clear to auscultation bilaterally Cardio regular rate, regular rhythm, S1 normal heart sound and S2 normal heart sound GI normal to inspection, nondistended, normoactive bowel sounds, soft to palpation, non-tender and non-distended Extremity normal to inspection Assessment & Plan Assessment/Plan (1) Cholestatic hepatitis: (2) Adult failure to thrive: (3) Abnormal weight loss: (4) Elevated liver function tests: (5) Metabolic encephalopathy: PLAN: 1. Acute hepatitis Etiology unclear Ultrasound unremarkable CAT scan from December 21 showed no obvious etiology. Has a cholestatic picture with elevated bilirubin. But transaminases are also elevated Gastroenterology following acute hepatitis profile results pending MRCP unable to be performed as pt has a loop recorder 2. Duodenal ulcers on pantoprazole 3. 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 Unclear about her baseline ammonia normal 4. Chronic kidney disease stage IV Creatinine appears to be at baseline Avoid nephrotoxic agents 5. Pruritus Improved. Hydrocortisone topic helping Suspect related with the hyperbilirubinemia Patient has new excoriations throughout and is constantly itching during encounter. We will add diphenhydramine but at a low dose to mitigate issues with encephalopathy 6. VTE prophylaxis with subcu heparin 7. Discharge planning: pending. Awaiting on precertification. Plan is for [facility], hopefully 12/28/2021. Charges/Coding Visit Charges Inpatient E&M: 39260 Subs Hosp L2
[2021-12-26 12:08] LABS: HEPATITIS B SURFACE AG Negative (Negative); Hepatitis A IgM Antibody Negative (Negative); Hepatitis B Core AB IgM Negative (Negative)
[2021-12-26 12:27] VITALS: BP 128/63; PULSE 65; RESP 18; TEMP 36.2; O2SAT 98
[2021-12-26] MEDS: Ferrous Sulfate 325 MG Tablet PO (12:31)
[2021-12-26] MEDS: Cholecalciferol (VIT D3) 25 MCG TABLET (1,000 UNITS) PO (14:37)
[2021-12-26 15:13] VITALS: BP 109/62; PULSE 75; RESP 18; TEMP 36.8; O2SAT 98
[2021-12-26 15:20] LABS: Hep C Antibodies <0.1 s/co ratio (0.0-0.9)
--- NOTE | 2021-12-26 17:39 | CM.ED ---
Addendum entered by Inez Alexander 12/26/21 21:34: NJ called Dieter and advised patient is scheduled to return to [facility] at 20:30 today. Inez BLISS Addendum entered by Inez Alexander 12/26/21 20:19: Patient will be transported to [facility] by [facility] at 20:30. Inez BLISS Addendum entered by Inez Benjamin 12/26/21 17:55: NJ received call from Paulino. She said that she called the unit at 5am today stating that precert was obtained. Patient can go to [facility] but this content writer will need to speak to staff regarding if the MD will discharge the patient. Patient will be going to the [place], [address]. The phone number for [address] is [phone] [address]. NJ called Izabela Ferguson RN. She reports that she will speak to MD to see if patient is able to be discharged. NJ received call from Phyllis. MD will discharge patient. NJ provided Phyllis with name of the [address] ([address] [place]) that patient is going to and the fax number for patient's orders to be faxed to ([phone]). Advised covid test is needed. NJ called Dieter and advised that patient will be coming over tonight. RN will call reports to [facility] and hopefully at time of report transport time will be obtained and secured. NJ asked Dieter if any additional information is needed and she said no. NJ remains available if needs arise. Inezarin TrujilloBenjamin CONSULTING IT ARCHITECTNathalia BLISS Original Note: At 17:15 NJ received a call from izabela Ferguson RN on [employer]. Phyllis said that she thought that senior drupal developer had said that precert was obtained. NJ was not aware of this as the handoff said that [facility] would call the unit but no other information was provided to this content writer by [employer]. NJ called Salbador and left voice mail message inquiring if precert was obtained. NJ then called [facility] [address] and the nurse said tht they have no idea about precert and that this content writer needs to call admission, which this content writer had already done. NJ updated izabela Ferguson RN that precert had been obtained. Plan: [facility] when precert is approved Inez FINK RUTHY
--- NOTE | 2021-12-26 17:52 | TREXTCAR_ITS ---
Diet 12/25/21 19:49 Diet: Regular - General Type of Dietary Supplement:: [place]/CIB (no flash) Is pt able to select menu?: No Diet Comments: CIB/whole milk TID strawberry first or vanilla next; van ES pud w/L&D Routine Orders/Code Status Routine Lab Work: CBC (weekly and PRN) and BMP (weekly and PRN) Code Status: Full Code Therapies Weight Bearing: Full weight bearing Physical Therapy: Eval and Treat Occupational Therapy: Eval and Treat Problem/Diagnosis (1) Cholestatic hepatitis: Status: Acute (2) Adult failure to thrive: Status: Acute (3) Abnormal weight loss: Status: Acute (4) Elevated liver function tests: Status: Acute (5) Metabolic encephalopathy: Status: Acute Allergies/Procedures Done in Hospital Allergies Gadolinium-MRI Contrast Medium [CONTRAST] Allergy (Verified 12/23/21 10:05) Hives Latex, Natural Rubber Allergy (Verified 12/23/21 10:05) Rash hydralazine Adverse Reaction (Intermediate, Verified 12/23/21 10:05) Swelling amlodipine Adverse Reaction (Verified 12/23/21 10:05) dizziness codeine Adverse Reaction (Verified 12/23/21 10:05) drowsy I SLEEP REAL GOOD tramadol [From Ultram] Adverse Reaction (Verified 12/23/21 10:05) Unknown Procedures: Colonoscopy and EGD Type of Care/Length of Stay Estimated LOS: Convalescent Care Less Than 30 days Type of Care Needed: Skilled Rehab Potential: Fair Prognosis: Fair Additional Orders/Day of Discharge Day of Discharge: 12/26/21 Dietary and Speech Recommendations Dietitian Recommendations/Changes: Continue liberalized regular diet as ordered. Will add [place] Instant Breakfast with whole milk TID at meals (no chocolate flavor). Will add ensure pudding BID w/ lunch and dinner--only vanilla. May need to consider TF support for protein/energy repletion if PO remains poor and inadequate. Discharge Plan Admission Admit Date/Time: 12/23/21 13:36 Primary Reason for Your Visit: weight loss Attending Provider: Meek Yates Primary Care Provider: Giovanni Forte Discharge Orders/Prescriptions Prescriptions: New diphenhydramine HCl [Banophen] 25 mg Capsule 25 mg PO TID PRN PRN (Reason: Itching) Qty: 0 RF: 0 ferrous sulfate [FeroSul] 325 mg (65 mg iron) Tablet 325 mg PO QODAY@1200 Qty: 0 RF: 0 hydrocortisone 2.5 % Cream 1 applic topical BID PRN PRN (Reason: Itching) Qty: 0 RF: 0 pantoprazole [Protonix] [address] for susp in packet 40 mg PO BID Qty: 30 RF: 0 amlodipine 2.5 mg tablet 2.5 mg PO DAILY Qty: 30 RF: 0 Continued losartan 50 mg tablet 50 mg PO DAILY Qty: 90 RF: 3 cholecalciferol (vitamin D3) 1,000 UNIT tablet 1,000 unit PO DAILY@1400 RF: 0 ascorbic acid (vitamin C) 500 mg Capsule, Extended Release 500 mg PO DAILY RF: 0 sertraline 50 mg tablet 50 mg PO DAILY RF: 0 metoprolol tartrate 25 mg tablet 12.5 mg PO BID RF: 0 multivitamin [Daily Multi-Vitamin] Tablet 1 tab PO QAM RF: 0 Discontinued simvastatin 20 MG tablet 20 mg PO QHS RF: 0 ferrous sulfate 325 mg (65 mg iron) Tablet 325 mg PO DAILY RF: 0 coenzyme Q10 [Co Q-10] 100 mg capsule 100 mg PO BID RF: 0 Referrals / Follow Up: Giovanni Forte MD [Primary Care Provider] - Disposition Disposition (needs filled in before D/C Order can be placed): [facility] Facility
--- NOTE | 2021-12-26 18:01 | PCM.DC.SUM ---
Providers Date of Admission: 12/23/21 Primary Care Physician: Dr. Giovanni Forte MD Consultations 12/23/21 16:42 Consult: Gastroenterology Routine Consulting Provider: Rishabh Gastroenterology Reason for Consult: LOSS OF WEIGHT, ELEVATED LFT EMERGENT Consult: No MD Notified: Yes Date Notified: 12/23/21 Time Notified: 16:42 Method of Notification: Text Reason For Visit: LOSS OF WEIGHT Diagnosis Discharge Diagnosis (1) Cholestatic hepatitis: Status: Acute Code(s): K75.89 - Other specified inflammatory liver diseases (2) Adult failure to thrive: Status: Acute Code(s): R62.7 - Adult failure to thrive (3) Abnormal weight loss: Status: Acute Code(s): R63.4 - Abnormal weight loss (4) Elevated liver function tests: Status: Acute Code(s): R79.89 - Other specified abnormal findings of blood chemistry (5) Metabolic encephalopathy: Status: Acute Code(s): G93.41 - Metabolic encephalopathy Medications at Discharge Home Medications cholecalciferol (vitamin D3) 1,000 unit PO DAILY@1400 11/29/14 metoprolol tartrate 25 mg tablet 12.5 mg PO BID tab 03/21/20 multivitamin 1 tab PO QAM 06/06/20 losartan 50 mg tablet 50 mg PO DAILY #90 tab 05/26/21 ascorbic acid (vitamin C) 500 mg PO DAILY 12/23/21 sertraline 50 mg PO DAILY 12/23/21 amlodipine 2.5 mg PO DAILY #30 tab 12/26/21 diphenhydramine HCl [Banophen] 25 mg PO TID PRN PRN #0 cap 12/26/21 ferrous sulfate [FeroSul] 325 mg PO QODAY@1200 #0 tab 12/26/21 hydrocortisone 1 applic TOPICAL BID PRN PRN #0 g 12/26/21 pantoprazole [Protonix] 40 mg PO BID #30 ea 12/26/21 Hospital Course Operations None Procedures Colonoscopy and EGD Summary of Care Provided Minutes Spent on Discharge: 32 Hospital Course: Is an 86-year-old female presents with weight loss. Patient underwent an EGD that showed duodenal ulcers and colonoscopy showed severe diverticulosis. Patient did also have elevated liver transaminases and bilirubin. Patient did complain of pruritus. Ultrasound was negative for any acute cholestatic process causing the hyperbilirubinemia. Patient's statin will be discontinued as well as her herbal medications. Patient has been started on pantoprazole for her duodenal ulcers. Patient did have biopsies performed on the EGD. No biopsies were performed on the colonoscopy. Will need to have follow-up lab work as well in regards to monitoring her liver function tests. Patient had insurance authorization [facility] Medical Records Data Medical Nutrition Assessment Dietitian: Malnutrition Criteria Met Start: 12/23/21 17:01 Freq: Status: Active Protocol: Document 12/23/21 17:01 RMA (Rec: 12/23/21 17:01 RMA [id number]) Nutrition Malnutrition Evidence of Malnutrition Exists Yes Malnutrition (severe): Acute Illness/Injury Evidenced By Suboptimal Energy Intake ( Severe),Weight Loss (Severe), Physical Changes (Severe) Clinical Problem Acute Disease or Injury Related Malnutrition Etiology Severe protein-calorie malnutrition in the context of acute illness/FTT related to inadequate oral intake Signs/Symptoms as evidenced by severe muscle and fat wasting in the face, orbitals, clavicle, neck, arms and legs; ~24% wt loss x 12 months, ~19% wt loss x 4-6 months, BMI 18.3 and ongoing poor PO meeting less than 50% estimated nutrition needs x past 6-12 months Status Active Problem Recommendation Dietitian Recommendations/Changes Continue liberalized regular diet as ordered. Will add [place] Instant Breakfast with whole milk TID at meals (no chocolate flavor) . Will add ensure pudding BID w/ lunch and dinner--only vanilla. May need to consider TF support for protein/energy repletion if PO remains poor and inadequate. Weight / BMI Weight Weight: 50.5 kg Body Mass Index (BMI) 18.3 ABG / Lab / Microbiology Data Result Diagrams: 12/25/21 05:25 12/26/21 04:49 Laboratory: Laboratory Results - last 24 hr 12/24/21 10:47: Hepatitis A IgM Ab Negative, Hep Bs Antigen Negative, Hep B Core IgM Ab Negative, Hepatitis C Ab (EIA) <0.1 12/26/21 04:49: Sodium 139, Potassium 3.8, Chloride 110 H, Carbon Dioxide 21.0, Anion Gap 8, BUN 37 H, Creatinine 2.33 H, Estim Creat Clear Calc 14.33, Est GFR (MDRD) Af Amer 26 L, Est GFR (MDRD) Non-Af 21 L, BUN/Creatinine Ratio 15.9, Glucose 110 H, Calcium 9.0, Total Bilirubin 1.10 H, AST 143 H, ALT 255 H, Alkaline Phosphatase 271 H, Total Protein 6.4, Albumin 2.8 L, Globulin 3.6, Albumin/Globulin Ratio 0.8 L Microbiology: Microbiology 12/23/21 12:15 Urine, Clean Catch Urine Culture - Final Mixed Gram Positive Organisms Meaningful Use Info Meaningful Use Diagnoses (Choose all that apply): None applicable Discharge Plan Admission Admit Date/Time: 12/23/21 13:36 Primary Reason for Your Visit: weight loss Attending Provider: Meek Yates Primary Care Provider: Giovanni Forte Discharge Orders/Prescriptions Prescriptions: New diphenhydramine HCl [Banophen] 25 mg Capsule 25 mg PO TID PRN PRN (Reason: Itching) Qty: 0 RF: 0 ferrous sulfate [FeroSul] 325 mg (65 mg iron) Tablet 325 mg PO QODAY@1200 Qty: 0 RF: 0 hydrocortisone 2.5 % Cream 1 applic topical BID PRN PRN (Reason: Itching) Qty: 0 RF: 0 pantoprazole [Protonix] [address] for susp in packet 40 mg PO BID Qty: 30 RF: 0 amlodipine 2.5 mg tablet 2.5 mg PO DAILY Qty: 30 RF: 0 Continued losartan 50 mg tablet 50 mg PO DAILY Qty: 90 RF: 3 cholecalciferol (vitamin D3) 1,000 UNIT tablet 1,000 unit PO DAILY@1400 RF: 0 ascorbic acid (vitamin C) 500 mg Capsule, Extended Release 500 mg PO DAILY RF: 0 sertraline 50 mg tablet 50 mg PO DAILY RF: 0 metoprolol tartrate 25 mg tablet 12.5 mg PO BID RF: 0 multivitamin [Daily Multi-Vitamin] Tablet 1 tab PO QAM RF: 0 Discontinued simvastatin 20 MG tablet 20 mg PO QHS RF: 0 ferrous sulfate 325 mg (65 mg iron) Tablet 325 mg PO DAILY RF: 0 coenzyme Q10 [Co Q-10] 100 mg capsule 100 mg PO BID RF: 0 Referrals / Follow Up: Ok,DO Naeem [STAFF PHYSICIAN] - See Referral Note (in 1 year or sooner if needed. Call office for biopsy results. ) Giovanni Forte MD [Primary Care Provider] - Within 2 Weeks Disposition Disposition (needs filled in before D/C Order can be placed): Nursing Home Facility Charges/Coding Visit Charges Inpatient E&M: 84559 Disch Hosp
--- NOTE | 2021-12-26 18:49 | NURSING ---
Called report to [facility] on the [address] and SWICC
[2021-12-26 19:43] VITALS: BP 121/54; PULSE 87; RESP 18; TEMP 36.7; O2SAT 97
--- NOTE | 2021-12-26 19:54 | PCM.PROGNOTE ---
Subjective Subjective Patient has done well and eating without any problem. She is scheduled to go home today with follow-up. Objective Data Objective Data Vital Signs: Vital Signs Temp Pulse Resp BP Pulse Ox 98.1 F 87 18 121/54 H 97 12/26/21 19:43 12/26/21 19:43 12/26/21 19:43 12/26/21 19:43 12/26/21 19:43 Oxygen Delivery Method Room Air Weight: 111 lb 5.335 oz Body Mass Index (BMI) 18.3 Intake & Output: Intake and Output for Last 24 Hours 12/24/21 12/25/21 12/26/21 23:59 23:59 23:59 Intake Total 310 / 310 110 / 110 Balance 310 / 310 110 / 110 Medical Nutrition Assessment Dietitian: Malnutrition Criteria Met Start: 12/23/21 17:01 Freq: Status: Active Protocol: Document 12/23/21 17:01 RMA (Rec: 12/23/21 17:01 RMA [id number]) Nutrition Malnutrition Evidence of Malnutrition Exists Yes Malnutrition (severe): Acute Illness/Injury Evidenced By Suboptimal Energy Intake ( Severe),Weight Loss (Severe), Physical Changes (Severe) Clinical Problem Acute Disease or Injury Related Malnutrition Etiology Severe protein-calorie malnutrition in the context of acute illness/FTT related to inadequate oral intake Signs/Symptoms as evidenced by severe muscle and fat wasting in the face, orbitals, clavicle, neck, arms and legs; ~24% wt loss x 12 months, ~19% wt loss x 4-6 months, BMI 18.3 and ongoing poor PO meeting less than 50% estimated nutrition needs x past 6-12 months Status Active Problem Recommendation Dietitian Recommendations/Changes Continue liberalized regular diet as ordered. Will add [place] Instant Breakfast with whole milk TID at meals (no chocolate flavor) . Will add ensure pudding BID w/ lunch and dinner--only vanilla. May need to consider TF support for protein/energy repletion if PO remains poor and inadequate. Lab / Micro Data Result Diagrams: 12/25/21 05:25 12/26/21 04:49 Labs: Laboratory Results - last 24 hr 12/24/21 10:47: Hepatitis A IgM Ab Negative, Hep Bs Antigen Negative, Hep B Core IgM Ab Negative, Hepatitis C Ab (EIA) <0.1 12/26/21 04:49: Sodium 139, Potassium 3.8, Chloride 110 H, Carbon Dioxide 21.0, Anion Gap 8, BUN 37 H, Creatinine 2.33 H, Estim Creat Clear Calc 14.33, Est GFR (MDRD) Af Amer 26 L, Est GFR (MDRD) Non-Af 21 L, BUN/Creatinine Ratio 15.9, Glucose 110 H, Calcium 9.0, Total Bilirubin 1.10 H, AST 143 H, ALT 255 H, Alkaline Phosphatase 271 H, Total Protein 6.4, Albumin 2.8 L, Globulin 3.6, Albumin/Globulin Ratio 0.8 L Micro: Microbiology 12/26/21 18:00 Nasal Secretion SARS-CoV-2 Antigen (Rapid) - Final 12/23/21 12:15 Urine, Clean Catch Urine Culture - Final Mixed Gram Positive Organisms Physical Exam Const alert General Appearance: cooperative Orientation / Consciousness: oriented to person HEENT hearing grossly normal bilaterally Head and Scalp: normal to inspection Face and Sinus: face symmetric Nose: external nose normal Mouth: oral and palatal mucosa normal Eyes conjunctivae normal General Eye: normal appearance of both eyes Neck full ROM General: normal visual inspection Lymph Lymphatic: no lymphadenopathy noted Chest inspection of chest normal and palpation of chest normal Chest: symmetrical chest wall rise Resp normal respiratory effort Effort and Inspection: able to speak in complete sentences Cardio regular rate GI non-distended Percussion: normal to percussion Rectal Exam: deferred Neuro Speech: speech normal Gait (Neuro): normal gait Assessment & Plan Assessment/Plan (1) Cholestatic hepatitis: PLAN: Likely secondary to weight loss causing biliary stasis. There is no sign of stone disease or malignancy thus far and imaging and blood work. (2) Abnormal weight loss: PLAN: There was no sign of malignancy seen in upper and lower endoscopy. She can follow-up as an outpatient for capsule endoscopy as she also had anemia. Charges/Coding Visit Charges Inpatient E&M: 91529 Subs Hosp L2
== END 2021-12-26 21:02 | disposition skilled nursing facility (03) ==
LOC: ED 11:05 → MS3 14:03
PROVIDERS: Internal Medicine Gastroenterology; Admitting Provider Internal Medicine; Emergency Provider Emergency Medicine; PCP Family Medicine
PROC: 0DJD8ZZ Inspection of Lower Intestinal Tract, Via Natural or Artificial Opening Endoscopic (ICD-10-PCS; CPT 45378; principal; 2021-12-25 16:55)
DX: R62.7 Adult failure to thrive (principal); F03.90 Unspecified dementia, unspecified severity, without behavioral disturbance, psychotic disturbance, mood disturbance, and anxiety; N18.4 Chronic kidney disease, stage 4 (severe); I12.9 Hypertensive chronic kidney disease with stage 1 through stage 4 chronic kidney disease, or unspecified chronic kidney disease; I25.10 Atherosclerotic heart disease of native coronary artery without angina pectoris; R10.13 Epigastric pain; R79.89 Other specified abnormal findings of blood chemistry; F32.A Depression, unspecified; L29.9 Pruritus, unspecified; D50.9 Iron deficiency anemia, unspecified; K64.9 Unspecified hemorrhoids; G93.41 Metabolic encephalopathy; K26.9 Duodenal ulcer, unspecified as acute or chronic, without hemorrhage or perforation; K57.30 Diverticulosis of large intestine without perforation or abscess without bleeding; Z79.899 Other long term (current) drug therapy; Z68.1 Body mass index [BMI] 19.9 or less, adult; E55.9 Vitamin D deficiency, unspecified; K75.89 Other specified inflammatory liver diseases
CPT/HCPCS: 45380; 43239; 36415; 71045; 76705; 80053; 80074; 81001; 82140; 83735; 84443; 84484; 85025; 85610; 87086; 87088; 87426; 88305; 93005; 96361; 96365; 96366; 96372; 96375; 96376; 97162; 97166; 97530; 97535; 97802; 99218; 99251; 99285; J7030; J7120; A4216; G0378; G0463; J2405

== ENCOUNTER → 2022-01-06 | Outpatient (REF) | payer SELFPAY ==
[2022-01-06 09:25] LABS: Absolute Neutrophil Count 5.1 X10^3/uL (2.0-7.7); Basophil# 0.06 X10^3/uL; Basophil% 0.8 % (0-1); Eosinophil# 0.15 X10^3/uL; Eosinophils% 2.1 % (0-5); Hematocrit 35.9 % (37-47); Lymphocyte % 16.6 % (19-41); Mean Corp Hgb Conc 30.6 g/dL (32-36); Mean Corpuscular Hgb 27.6 pg (27.0-32.0); Mean Corpuscular Volume 90.2 fL (81-99); Monocyte# 0.67 X10^3/uL; Monocyte% 9.3 % (0-10); NRBC Flagged by Analyzer 0 % (0-5); Neutrophil # 5.12 X10^3/uL (2.7-7.7); Neutrophil % 70.8 % (47-70); Platelet Count 273 K/mm3 (150-450); RBC Distribution Width CV 14.3 % (11.6-14.6); RBC Distribution Width SD 47.2 fl (35.1-43.9); Red Blood Count 3.98 M/mm3 (4.2-5.4); White Blood Count 7.2 K/mm3 (4.4-11.0)
[2022-01-06 09:43] LABS: Anion Gap 6 (5-15); BUN 44 mg/dL (7-18); BUN/Creat Ratio 16.5 RATIO (10-20); Calcium,Total 9.6 mg/dL (8.5-10.1); Chloride 104 mmol/L (98-107); Creatinine, Serum 2.67 mg/dL (0.55-1.02); EST Glomerular Filtration Rate 18 mL/min (>60); Est Glom Filt Rate - Afr Amer 22 mL/min (>60); Glucose 95 mg/dL (74-106); Magnesium 2.4 mg/dL (1.6-2.6); Potassium 3.6 mmol/L (3.5-5.1); Sodium Level 138 mmol/L (136-145)
== END | disposition home or self-care (01) ==
LOC: OLS.SW1020 05:00
PROVIDERS: PCP Family Medicine; Visit Provider Internal Medicine
DX: R62.7 Adult failure to thrive (principal)
CPT/HCPCS: 36415; 80048; 83735; 85025

== ENCOUNTER → 2022-01-11 | Outpatient (REF) | payer SELFPAY ==
[2022-01-11 08:56] LABS: AST(SGOT) 91 U/L (15-37); Alanine Aminotransfer ALT/SGPT 125 U/L (13-56); Albumin, Serum 2.5 g/dL (3.2-5.0); Alkaline Phosphatase 276 U/L (45-117); Bilirubin, Direct 0.67 mg/dL (0.00-0.30); Globulin 3.6 g/dL (2.2-4.2); Protein, Total 6.1 g/dL (6.4-8.2)
== END | disposition home or self-care (01) ==
LOC: OLS.SW1020 04:00
PROVIDERS: PCP Family Medicine; Referring Provider Internal Medicine; Visit Provider Internal Medicine
DX: K71.0 Toxic liver disease with cholestasis (principal); R62.7 Adult failure to thrive
CPT/HCPCS: 36415; 80076

== ENCOUNTER → 2022-01-13 | Outpatient (REF) | payer SELFPAY ==
[2022-01-13 08:20] LABS: Absolute Lymphocyte Count 1.55 X10^3/uL (0.83-4.51); Absolute Neutrophil Count 5.3 X10^3/uL (2.0-7.7); Basophil# 0.09 X10^3/uL; Basophil% 1.2 % (0-1); Eosinophil# 0.15 X10^3/uL; Eosinophils% 1.9 % (0-5); Hematocrit 32.6 % (37-47); Hemoglobin 10.1 g/dL (12.0-15.0); Lymphocyte # 1.55 X10^3/ul (0.83-4.51); Lymphocyte % 19.9 % (19-41); Mean Corpuscular Hgb 27.8 pg (27.0-32.0); Mean Corpuscular Volume 89.8 fL (81-99); Mean Platelet Vol. 9.8 fl (6.2-12.0); Monocyte# 0.68 X10^3/uL; Monocyte% 8.7 % (0-10); NRBC Flagged by Analyzer 0 % (0-5); Neutrophil # 5.29 X10^3/uL (2.7-7.7); Neutrophil % 67.9 % (47-70); Platelet Count 279 K/mm3 (150-450); RBC Distribution Width CV 14.6 % (11.6-14.6); Red Blood Count 3.63 M/mm3 (4.2-5.4); White Blood Count 7.8 K/mm3 (4.4-11.0)
[2022-01-13 08:33] LABS: Anion Gap 6 (5-15); BUN 31 mg/dL (7-18); BUN/Creat Ratio 12.7 RATIO (10-20); Calcium,Total 8.7 mg/dL (8.5-10.1); Chloride 109 mmol/L (98-107); Creatinine, Serum 2.45 mg/dL (0.55-1.02); EST Glomerular Filtration Rate 20 mL/min (>60); Est Glom Filt Rate - Afr Amer 24 mL/min (>60); Glucose 82 mg/dL (74-106); Magnesium 2.1 mg/dL (1.6-2.6); Potassium 3.6 mmol/L (3.5-5.1); Sodium Level 142 mmol/L (136-145)
== END | disposition home or self-care (01) ==
LOC: OLS.SW1020 04:00
PROVIDERS: PCP Family Medicine; Referring Provider Internal Medicine; Visit Provider Internal Medicine
DX: K71.0 Toxic liver disease with cholestasis (principal)
CPT/HCPCS: 36415; 80048; 83735; 85025

== ENCOUNTER → 2022-01-18 | Outpatient (REF) | payer SELFPAY ==
[2022-01-18 08:41] LABS: AST(SGOT) 10 U/L (15-37); Alanine Aminotransfer ALT/SGPT 15 U/L (13-56); Albumin, Serum 3.8 g/dL (3.2-5.0); Alkaline Phosphatase 99 U/L (45-117); Bilirubin, Direct 0.08 mg/dL (0.00-0.30); Globulin 3.3 g/dL (2.2-4.2); Protein, Total 7.1 g/dL (6.4-8.2)
== END | disposition home or self-care (01) ==
LOC: OLS.SW1020 04:00
PROVIDERS: PCP Family Medicine; Visit Provider Internal Medicine
DX: K71.0 Toxic liver disease with cholestasis (principal)
CPT/HCPCS: 36415; 80076

== ENCOUNTER → 2022-02-01 | Outpatient (REF) | payer SELFPAY ==
[2022-02-01 07:35] LABS: Absolute Lymphocyte Count 1.34 X10^3/uL (0.83-4.51); Absolute Neutrophil Count 4.1 X10^3/uL (2.0-7.7); Basophil# 0.05 X10^3/uL; Basophil% 0.8 % (0-1); Eosinophil# 0.16 X10^3/uL; Eosinophils% 2.6 % (0-5); Hematocrit 30.3 % (37-47); Hemoglobin 9.5 g/dL (12.0-15.0); Lymphocyte # 1.34 X10^3/ul (0.83-4.51); Lymphocyte % 21.4 % (19-41); Mean Corp Hgb Conc 31.4 g/dL (32-36); Mean Corpuscular Hgb 29.1 pg (27.0-32.0); Mean Corpuscular Volume 92.7 fL (81-99); Mean Platelet Vol. 10.2 fl (6.2-12.0); Monocyte# 0.62 X10^3/uL; Monocyte% 9.9 % (0-10); NRBC Flagged by Analyzer 0 % (0-5); Neutrophil # 4.06 X10^3/uL (2.7-7.7); Neutrophil % 64.8 % (47-70); Platelet Count 241 K/mm3 (150-450); RBC Distribution Width CV 15.8 % (11.6-14.6); RBC Distribution Width SD 53.8 fl (35.1-43.9); Red Blood Count 3.27 M/mm3 (4.2-5.4); White Blood Count 6.3 K/mm3 (4.4-11.0)
[2022-02-01 07:48] LABS: ALB/GLOB Ratio 0.8 RATIO (0.9-2.4); AST(SGOT) 52 U/L (15-37); Alanine Aminotransfer ALT/SGPT 55 U/L (13-56); Albumin, Serum 2.4 g/dL (3.2-5.0); Alkaline Phosphatase 205 U/L (45-117); Anion Gap 5 (5-15); BUN 27 mg/dL (7-18); BUN/Creat Ratio 11.2 RATIO (10-20); Calcium,Total 8.7 mg/dL (8.5-10.1); Chloride 111 mmol/L (98-107); Creatinine, Serum 2.42 mg/dL (0.55-1.02); EST Glomerular Filtration Rate 20 mL/min (>60); Est Glom Filt Rate - Afr Amer 25 mL/min (>60); Globulin 3.1 g/dL (2.2-4.2); Glucose 78 mg/dL (74-106); Potassium 3.8 mmol/L (3.5-5.1); Protein, Total 5.5 g/dL (6.4-8.2); Sodium Level 141 mmol/L (136-145)
== END | disposition home or self-care (01) ==
LOC: OLS.SW1020 04:00
PROVIDERS: PCP Family Medicine; Visit Provider Internal Medicine
DX: K71.0 Toxic liver disease with cholestasis (principal); M18.4 Other bilateral secondary osteoarthritis of first carpometacarpal joints; R62.7 Adult failure to thrive; G93.41 Metabolic encephalopathy
CPT/HCPCS: 36415; 80053; 85025

== ENCOUNTER → 2022-02-08 | Outpatient (REF) | payer SELFPAY ==
[2022-02-08 07:33] LABS: Absolute Neutrophil Count 4.7 X10^3/uL (2.0-7.7); Basophil# 0.07 X10^3/uL; Eosinophil# 0.13 X10^3/uL; Eosinophils% 1.9 % (0-5); Hematocrit 29.4 % (37-47); Hemoglobin 9.1 g/dL (12.0-15.0); Lymphocyte % 20.1 % (19-41); Mean Corpuscular Volume 90.5 fL (81-99); Mean Platelet Vol. 9.9 fl (6.2-12.0); Monocyte# 0.66 X10^3/uL; Monocyte% 9.5 % (0-10); NRBC Flagged by Analyzer 0 % (0-5); Neutrophil # 4.66 X10^3/uL (2.7-7.7); Neutrophil % 67.1 % (47-70); Platelet Count 231 K/mm3 (150-450); RBC Distribution Width CV 15.8 % (11.6-14.6); RBC Distribution Width SD 52.8 fl (35.1-43.9); Red Blood Count 3.25 M/mm3 (4.2-5.4)
[2022-02-08 07:49] LABS: ALB/GLOB Ratio 0.8 RATIO (0.9-2.4); AST(SGOT) 47 U/L (15-37); Alanine Aminotransfer ALT/SGPT 55 U/L (13-56); Albumin, Serum 2.4 g/dL (3.2-5.0); Alkaline Phosphatase 202 U/L (45-117); Anion Gap 6 (5-15); BUN 29 mg/dL (7-18); BUN/Creat Ratio 12.1 RATIO (10-20); Calcium,Total 8.1 mg/dL (8.5-10.1); Chloride 110 mmol/L (98-107); Creatinine, Serum 2.39 mg/dL (0.55-1.02); EST Glomerular Filtration Rate 21 mL/min (>60); Est Glom Filt Rate - Afr Amer 25 mL/min (>60); Glucose 74 mg/dL (74-106); Potassium 3.6 mmol/L (3.5-5.1); Protein, Total 5.4 g/dL (6.4-8.2); Sodium Level 141 mmol/L (136-145)
== END | disposition home or self-care (01) ==
LOC: OLS.SW1020 04:00
PROVIDERS: PCP Family Medicine; Referring Provider Internal Medicine; Visit Provider Internal Medicine
DX: N18.4 Chronic kidney disease, stage 4 (severe) (principal)
CPT/HCPCS: 36415; 80053; 85025

== ENCOUNTER → 2022-02-15 | Outpatient (REF) | payer MEDICARE, SELFPAY ==
[2022-02-15 09:12] LABS: Absolute Lymphocyte Count 1.39 X10^3/uL (0.83-4.51); Absolute Neutrophil Count 5.3 X10^3/uL (2.0-7.7); Basophil# 0.07 X10^3/uL; Basophil% 0.9 % (0-1); Eosinophil# 0.13 X10^3/uL; Eosinophils% 1.7 % (0-5); Hematocrit 28.4 % (37-47); Lymphocyte # 1.39 X10^3/ul (0.83-4.51); Lymphocyte % 18.1 % (19-41); Mean Corp Hgb Conc 31.7 g/dL (32-36); Mean Corpuscular Hgb 28.8 pg (27.0-32.0); Monocyte# 0.72 X10^3/uL; Monocyte% 9.4 % (0-10); NRBC Flagged by Analyzer 0 % (0-5); Neutrophil # 5.32 X10^3/uL (2.7-7.7); Neutrophil % 69.4 % (47-70); Platelet Count 279 K/mm3 (150-450); RBC Distribution Width CV 15.9 % (11.6-14.6); RBC Distribution Width SD 52.6 fl (35.1-43.9); Red Blood Count 3.12 M/mm3 (4.2-5.4); White Blood Count 7.7 K/mm3 (4.4-11.0)
[2022-02-15 09:55] LABS: ALB/GLOB Ratio 0.8 RATIO (0.9-2.4); AST(SGOT) 42 U/L (15-37); Alanine Aminotransfer ALT/SGPT 48 U/L (13-56); Albumin, Serum 2.5 g/dL (3.2-5.0); Alkaline Phosphatase 213 U/L (45-117); Anion Gap 7 (5-15); BUN 33 mg/dL (7-18); BUN/Creat Ratio 12.6 RATIO (10-20); Calcium,Total 8.6 mg/dL (8.5-10.1); Chloride 110 mmol/L (98-107); Creatinine, Serum 2.61 mg/dL (0.55-1.02); EST Glomerular Filtration Rate 19 mL/min (>60); Est Glom Filt Rate - Afr Amer 22 mL/min (>60); Globulin 3.2 g/dL (2.2-4.2); Glucose 73 mg/dL (74-106); Potassium 3.6 mmol/L (3.5-5.1); Protein, Total 5.7 g/dL (6.4-8.2); Sodium Level 141 mmol/L (136-145)
== END | disposition home or self-care (01) ==
LOC: OLS.SW1020 04:00
PROVIDERS: PCP Family Medicine; Visit Provider Internal Medicine
DX: I12.9 Hypertensive chronic kidney disease with stage 1 through stage 4 chronic kidney disease, or unspecified chronic kidney disease (principal); R62.7 Adult failure to thrive; K71.0 Toxic liver disease with cholestasis; N18.9 Chronic kidney disease, unspecified
CPT/HCPCS: 36415; 80053; 85025

== ENCOUNTER → 2022-02-22 | Outpatient (REF) | payer SELFPAY ==
[2022-02-22 08:08] LABS: Absolute Lymphocyte Count 1.38 X10^3/uL (0.83-4.51); Absolute Neutrophil Count 4.5 X10^3/uL (2.0-7.7); Basophil# 0.07 X10^3/uL; Eosinophil# 0.19 X10^3/uL; Eosinophils% 2.8 % (0-5); Hematocrit 29.8 % (37-47); Hemoglobin 9.9 g/dL (12.0-15.0); Lymphocyte # 1.38 X10^3/ul (0.83-4.51); Lymphocyte % 20.5 % (19-41); Mean Corp Hgb Conc 33.2 g/dL (32-36); Mean Corpuscular Hgb 30.2 pg (27.0-32.0); Mean Corpuscular Volume 90.9 fL (81-99); Mean Platelet Vol. 9.6 fl (6.2-12.0); Monocyte# 0.59 X10^3/uL; Monocyte% 8.8 % (0-10); NRBC Flagged by Analyzer 0 % (0-5); Neutrophil # 4.45 X10^3/uL (2.7-7.7); Neutrophil % 66.3 % (47-70); Platelet Count 316 K/mm3 (150-450); RBC Distribution Width CV 15.5 % (11.6-14.6); RBC Distribution Width SD 51.8 fl (35.1-43.9); Red Blood Count 3.28 M/mm3 (4.2-5.4); White Blood Count 6.7 K/mm3 (4.4-11.0)
[2022-02-22 08:20] LABS: ALB/GLOB Ratio 0.8 RATIO (0.9-2.4); AST(SGOT) 59 U/L (15-37); Alanine Aminotransfer ALT/SGPT 60 U/L (13-56); Albumin, Serum 2.6 g/dL (3.2-5.0); Alkaline Phosphatase 244 U/L (45-117); Anion Gap 7 (5-15); BUN 31 mg/dL (7-18); BUN/Creat Ratio 12.4 RATIO (10-20); Calcium,Total 8.7 mg/dL (8.5-10.1); Chloride 110 mmol/L (98-107); EST Glomerular Filtration Rate 20 mL/min (>60); Est Glom Filt Rate - Afr Amer 24 mL/min (>60); Globulin 3.3 g/dL (2.2-4.2); Glucose 73 mg/dL (74-106); Protein, Total 5.9 g/dL (6.4-8.2); Sodium Level 142 mmol/L (136-145)
== END | disposition home or self-care (01) ==
LOC: OLS.SW1020 05:00
PROVIDERS: PCP Family Medicine; Visit Provider Internal Medicine
DX: N18.4 Chronic kidney disease, stage 4 (severe) (principal)
CPT/HCPCS: 36415; 80053; 85025

== ENCOUNTER → 2022-03-01 | Outpatient (REF) | payer SELFPAY ==
[2022-03-01 09:11] LABS: Absolute Lymphocyte Count 1.53 X10^3/uL (0.83-4.51); Absolute Neutrophil Count 4.4 X10^3/uL (2.0-7.7); Basophil% 1.5 % (0-1); Eosinophil# 0.14 X10^3/uL; Hematocrit 32.9 % (37-47); Hemoglobin 9.9 g/dL (12.0-15.0); Lymphocyte # 1.53 X10^3/ul (0.83-4.51); Lymphocyte % 22.4 % (19-41); Mean Corp Hgb Conc 30.1 g/dL (32-36); Mean Corpuscular Hgb 28.2 pg (27.0-32.0); Mean Corpuscular Volume 93.7 fL (81-99); Mean Platelet Vol. 9.9 fl (6.2-12.0); Monocyte# 0.59 X10^3/uL; Monocyte% 8.6 % (0-10); NRBC Flagged by Analyzer 0 % (0-5); Neutrophil # 4.44 X10^3/uL (2.7-7.7); Neutrophil % 65.1 % (47-70); Platelet Count 277 K/mm3 (150-450); RBC Distribution Width CV 15.3 % (11.6-14.6); RBC Distribution Width SD 52.8 fl (35.1-43.9); Red Blood Count 3.51 M/mm3 (4.2-5.4); White Blood Count 6.8 K/mm3 (4.4-11.0)
[2022-03-01 09:28] LABS: ALB/GLOB Ratio 0.9 RATIO (0.9-2.4); AST(SGOT) 44 U/L (15-37); Alanine Aminotransfer ALT/SGPT 49 U/L (13-56); Albumin, Serum 2.7 g/dL (3.2-5.0); Alkaline Phosphatase 214 U/L (45-117); Anion Gap 7 (5-15); BUN 29 mg/dL (7-18); BUN/Creat Ratio 11.3 RATIO (10-20); Calcium,Total 8.6 mg/dL (8.5-10.1); Chloride 106 mmol/L (98-107); Creatinine, Serum 2.57 mg/dL (0.55-1.02); EST Glomerular Filtration Rate 19 mL/min (>60); Est Glom Filt Rate - Afr Amer 23 mL/min (>60); Globulin 3.1 g/dL (2.2-4.2); Glucose 80 mg/dL (74-106); Potassium 3.9 mmol/L (3.5-5.1); Protein, Total 5.8 g/dL (6.4-8.2); Sodium Level 139 mmol/L (136-145)
== END | disposition home or self-care (01) ==
LOC: OLS.SW1020 04:00
PROVIDERS: PCP Family Medicine; Referring Provider Internal Medicine; Visit Provider Internal Medicine
DX: N18.4 Chronic kidney disease, stage 4 (severe) (principal)
CPT/HCPCS: 36415; 80053; 85025

== ENCOUNTER → 2022-03-15 | Outpatient (REF) | payer MEDICARE, SELFPAY ==
[2022-03-15 08:27] LABS: Absolute Lymphocyte Count 1.56 X10^3/uL (0.83-4.51); Absolute Neutrophil Count 3.7 X10^3/uL (2.0-7.7); Basophil# 0.09 X10^3/uL; Basophil% 1.5 % (0-1); Eosinophil# 0.19 X10^3/uL; Eosinophils% 3.1 % (0-5); Hematocrit 31.6 % (37-47); Hemoglobin 9.5 g/dL (12.0-15.0); Lymphocyte # 1.56 X10^3/ul (0.83-4.51); Lymphocyte % 25.2 % (19-41); Mean Corp Hgb Conc 30.1 g/dL (32-36); Mean Corpuscular Hgb 28.6 pg (27.0-32.0); Mean Corpuscular Volume 95.2 fL (81-99); Mean Platelet Vol. 10.1 fl (6.2-12.0); Monocyte# 0.68 X10^3/uL; NRBC Flagged by Analyzer 0 % (0-5); Neutrophil # 3.65 X10^3/uL (2.7-7.7); Platelet Count 225 K/mm3 (150-450); RBC Distribution Width CV 15.1 % (11.6-14.6); RBC Distribution Width SD 53.1 fl (35.1-43.9); Red Blood Count 3.32 M/mm3 (4.2-5.4); White Blood Count 6.2 K/mm3 (4.4-11.0)
[2022-03-15 08:46] LABS: ALB/GLOB Ratio 0.8 RATIO (0.9-2.4); AST(SGOT) 51 U/L (15-37); Alanine Aminotransfer ALT/SGPT 52 U/L (13-56); Albumin, Serum 2.7 g/dL (3.2-5.0); Alkaline Phosphatase 192 U/L (45-117); Anion Gap 8 (5-15); BUN 30 mg/dL (7-18); BUN/Creat Ratio 11.9 RATIO (10-20); Calcium,Total 8.3 mg/dL (8.5-10.1); Chloride 109 mmol/L (98-107); Creatinine, Serum 2.52 mg/dL (0.55-1.02); EST Glomerular Filtration Rate 19 mL/min (>60); Est Glom Filt Rate - Afr Amer 23 mL/min (>60); Globulin 3.3 g/dL (2.2-4.2); Glucose 72 mg/dL (74-106); Potassium 3.8 mmol/L (3.5-5.1); Sodium Level 141 mmol/L (136-145)
== END | disposition home or self-care (01) ==
LOC: OLS.SW1020 04:00
PROVIDERS: PCP Family Medicine; Referring Provider Internal Medicine; Visit Provider Internal Medicine
DX: N18.4 Chronic kidney disease, stage 4 (severe) (principal)
CPT/HCPCS: 36415; 80053; 85025

== ENCOUNTER → 2022-03-22 | Outpatient (REF) | payer MEDICARE, SELFPAY ==
[2022-03-22 08:43] LABS: Absolute Lymphocyte Count 1.31 X10^3/uL (0.83-4.51); Absolute Neutrophil Count 3.5 X10^3/uL (2.0-7.7); Basophil# 0.07 X10^3/uL; Basophil% 1.3 % (0-1); Eosinophil# 0.12 X10^3/uL; Eosinophils% 2.1 % (0-5); Hematocrit 30.5 % (37-47); Hemoglobin 9.4 g/dL (12.0-15.0); Lymphocyte # 1.31 X10^3/ul (0.83-4.51); Lymphocyte % 23.4 % (19-41); Mean Corp Hgb Conc 30.8 g/dL (32-36); Mean Corpuscular Hgb 29.1 pg (27.0-32.0); Mean Corpuscular Volume 94.4 fL (81-99); Mean Platelet Vol. 10.1 fl (6.2-12.0); Monocyte# 0.58 X10^3/uL; Monocyte% 10.4 % (0-10); NRBC Flagged by Analyzer 0 % (0-5); Neutrophil # 3.49 X10^3/uL (2.7-7.7); Neutrophil % 62.4 % (47-70); Platelet Count 230 K/mm3 (150-450); RBC Distribution Width SD 52.4 fl (35.1-43.9); Red Blood Count 3.23 M/mm3 (4.2-5.4); White Blood Count 5.6 K/mm3 (4.4-11.0)
[2022-03-22 09:02] LABS: ALB/GLOB Ratio 0.9 RATIO (0.9-2.4); AST(SGOT) 50 U/L (15-37); Alanine Aminotransfer ALT/SGPT 58 U/L (13-56); Albumin, Serum 2.8 g/dL (3.2-5.0); Alkaline Phosphatase 194 U/L (45-117); Anion Gap 8 (5-15); BUN 37 mg/dL (7-18); BUN/Creat Ratio 13.5 RATIO (10-20); Calcium,Total 8.9 mg/dL (8.5-10.1); Chloride 109 mmol/L (98-107); Creatinine, Serum 2.74 mg/dL (0.55-1.02); EST Glomerular Filtration Rate 18 mL/min (>60); Est Glom Filt Rate - Afr Amer 21 mL/min (>60); Globulin 3.1 g/dL (2.2-4.2); Glucose 85 mg/dL (74-106); Protein, Total 5.9 g/dL (6.4-8.2); Sodium Level 141 mmol/L (136-145)
== END | disposition home or self-care (01) ==
LOC: OLS.SW1020 05:00
PROVIDERS: PCP Family Medicine; Visit Provider Internal Medicine
DX: E78.5 Hyperlipidemia, unspecified (principal); N18.4 Chronic kidney disease, stage 4 (severe)
CPT/HCPCS: 36415; 80053; 85025

== ENCOUNTER → 2022-04-14 | Outpatient (REF) | payer MEDICARE, SELFPAY ==
[2022-04-14 09:57] LABS: Hematocrit 30.3 % (37-47); Hemoglobin 9.4 g/dL (12.0-15.0); Mean Corpuscular Hgb 29.4 pg (27.0-32.0); Mean Corpuscular Volume 94.7 fL (81-99); Platelet Count 220 K/mm3 (150-450); RBC Distribution Width CV 13.8 % (11.6-14.6); RBC Distribution Width SD 48.1 fl (35.1-43.9); White Blood Count 5.6 K/mm3 (4.4-11.0)
[2022-04-14 10:20] LABS: Vitamin B12 470 pg/mL (211-911)
[2022-04-14 10:38] LABS: ALB/GLOB Ratio 0.9 RATIO (0.9-2.4); AST(SGOT) 37 U/L (15-37); Alanine Aminotransfer ALT/SGPT 46 U/L (13-56); Albumin, Serum 2.6 g/dL (3.2-5.0); Alkaline Phosphatase 159 U/L (45-117); Anion Gap 8 (5-15); BUN 40 mg/dL (7-18); BUN/Creat Ratio 14.7 RATIO (10-20); Calcium,Total 8.7 mg/dL (8.5-10.1); Chloride 109 mmol/L (98-107); Creatinine, Serum 2.73 mg/dL (0.55-1.02); EST Glomerular Filtration Rate 18 mL/min (>60); Est Glom Filt Rate - Afr Amer 21 mL/min (>60); Ferritin 231 ng/mL (8-252); Globulin 2.8 g/dL (2.2-4.2); Glucose 84 mg/dL (74-106); Iron 45 ug/dL (50-170); Potassium 4.2 mmol/L (3.5-5.1); Protein, Total 5.4 g/dL (6.4-8.2); Sodium Level 141 mmol/L (136-145); Thyroid Stim Hormone (TSH) 0.78 uIU/mL (0.358-3.74)
== END | disposition home or self-care (01) ==
LOC: OLS.SWAL 05:00
PROVIDERS: PCP Family Medicine; Visit Provider Internal Medicine
DX: I12.9 Hypertensive chronic kidney disease with stage 1 through stage 4 chronic kidney disease, or unspecified chronic kidney disease (principal); N18.4 Chronic kidney disease, stage 4 (severe); I25.10 Atherosclerotic heart disease of native coronary artery without angina pectoris; K71.0 Toxic liver disease with cholestasis; E78.5 Hyperlipidemia, unspecified
CPT/HCPCS: 36415; 80053; 82607; 82728; 83540; 84443; 85027

== ENCOUNTER → 2022-09-28 | Outpatient (REF) | payer MEDICARE, SELFPAY ==
[2022-09-28 09:06] LABS: Anion Gap 8 (5-15); BUN 46 mg/dL (7-18); BUN/Creat Ratio 17.7 RATIO (10-20); Calcium,Total 8.6 mg/dL (8.5-10.1); Chloride 110 mmol/L (98-107); EST Glomerular Filtration Rate 19 mL/min (>60); Est Glom Filt Rate - Afr Amer 23 mL/min (>60); Glucose 85 mg/dL (74-106); Potassium 4.4 mmol/L (3.5-5.1); Sodium Level 142 mmol/L (136-145)
[2022-09-28 09:11] LABS: Absolute Lymphocyte Count 1.38 X10^3/uL (0.83-4.51); Absolute Neutrophil Count 3.5 X10^3/uL (2.0-7.7); Basophil# 0.06 X10^3/uL; Basophil% 1.1 % (0-1); Eosinophil# 0.13 X10^3/uL; Eosinophils% 2.3 % (0-5); Hemoglobin 10.7 g/dL (12.0-15.0); Lymphocyte # 1.38 X10^3/ul (0.83-4.51); Lymphocyte % 24.5 % (19-41); Mean Corp Hgb Conc 32.4 g/dL (32-36); Mean Corpuscular Hgb 29.3 pg (27.0-32.0); Mean Corpuscular Volume 90.4 fL (81-99); Mean Platelet Vol. 9.4 fl (6.2-12.0); Monocyte# 0.55 X10^3/uL; Monocyte% 9.8 % (0-10); NRBC Flagged by Analyzer 0 % (0-5); Neutrophil % 61.9 % (47-70); Platelet Count 197 K/mm3 (150-450); RBC Distribution Width CV 13.8 % (11.6-14.6); RBC Distribution Width SD 46.4 fl (35.1-43.9); Red Blood Count 3.65 M/mm3 (4.2-5.4); White Blood Count 5.6 K/mm3 (4.4-11.0)
[2022-09-28 09:24] LABS: Vitamin D,25 Hydroxy 73.7 ng/mL
== END ==
LOC: OLS.SWAL 05:00
PROVIDERS: PCP Family Medicine; Visit Provider Internal Medicine
DX: N18.4 Chronic kidney disease, stage 4 (severe) (principal); I12.9 Hypertensive chronic kidney disease with stage 1 through stage 4 chronic kidney disease, or unspecified chronic kidney disease; I25.10 Atherosclerotic heart disease of native coronary artery without angina pectoris; E78.5 Hyperlipidemia, unspecified
CPT/HCPCS: 36415; 80048; 82306; 85025

== ENCOUNTER → 2022-10-20 | Outpatient (REF) | payer MEDICARE, SELFPAY ==
[2022-10-20 08:49] LABS: CRP 7.78 mg/L (0.0-3.0); Uric Acid 5.8 mg/dL (2.6-6.0)
== END ==
LOC: OLS.SWAL 05:00
PROVIDERS: PCP Family Medicine; Visit Provider Internal Medicine
DX: R52 Pain, unspecified (principal)
CPT/HCPCS: 36415; 84550; 86140

== ENCOUNTER 2022-11-18 14:15 | Emergency (ER) | payer MEDICARE, SELFPAY ==
[2022-11-18 14:16] VITALS: BP 159/53; PULSE 61; RESP 15; TEMP 36.6; O2SAT 98; BMI 21.3
--- NOTE | 2022-11-18 14:32 | VDLE_ITS ---
Reason For Study: LEG SWELLING RIGHT LEFT CFV is compressible, spontaneous, phasic, GSV is normal. competent and demonstrates normal CFV is compressible, spontaneous, competent, augmentation. and demonstrates pulsatile venous flow. Procedure FV is compressible, spontaneous, competent This is a venous duplex using B-mode, color and demonstrates pulsatile venous flow. flow and spectral Doppler. POP V is compressible, spontaneous, competent Exam performed portable in ED. and demonstrates pulsatile venous flow. The exam was diagnostic. T/P Trunk is compressible. A preliminary report was called and/or faxed PTV is compressible. to Dr. Ochoa. LT PerV is compressible. VL/Venous Duplex US, Unilateral Interpretation Summary There is no evidence of left lower extremity deep vein thrombosis. Left great s aphenous vein appears patent and compressible segmentally. Pulsitile venous flow noted suggestive of proximal venous hypertension or obstructon--clinical correlation would be appropriate Normal flow pattens right common femoral vein Ordering Physician: Hernan Ochoa Referring Physician: Giovanni Forte Performed By: Raghavendra Kim RVT
--- NOTE | 2022-11-18 14:33 | EDS_ITS ---
HPI History of Present Illness Chief Complaint: Edema Narrative Narrative: Patient presents with left foot pain and left lower extremity edema for a few days. She does see podiatry she had recent x-rays of her left foot which were unremarkable she had x-rays of the right foot which showed 5th metatarsal fracture. No chest pain or shortness of breath. No fevers or chills. PFSH PFS Medical History Abnormal weight loss Adult failure to thrive Chronic kidney disease Chronic kidney disease, stage 3 (moderate) Chronic pain Debility Dementia Depression Essential (primary) hypertension GERD (gastroesophageal reflux disease) Hyperbilirubinemia Hyperlipidemia Kidney disease Left ventricular hypertrophy Near syncope Neuropathic pain Non-smoker Nonobstructive atherosclerosis of coronary artery Reflex sympathetic dystrophy RSD lower limb Syncope Vitamin D deficiency Wears hearing aid in both ears Home Medications cholecalciferol (vitamin D3) 25 mcg (1,000 unit) tablet 1,000 unit PO DAILY@1400 SUPPLEMENT 11/29/14 [History Last Taken 12/22/21] metoprolol tartrate 25 mg tablet 12.5 mg PO BID BP 03/21/20 [History Last Taken 12/22/21] multivitamin (Daily Multi-Vitamin tablet) 1 tab PO QAM supplement 06/06/20 [History Last Taken 12/22/21] losartan 50 mg tablet 50 mg PO DAILY #90 tabs 05/26/21 [Rx Last Taken 12/22/21] ascorbic acid (vitamin C) 500 mg capsule,extended release 500 mg PO DAILY SUPPLEMENT 12/23/21 [History Last Taken 12/22/21] sertraline 50 mg tablet 50 mg PO DAILY DEPRESSION 12/23/21 [History Last Taken 12/22/21] amlodipine 2.5 mg tablet 2.5 mg PO DAILY #30 tabs 12/26/21 [Rx Last Taken Unknown] diphenhydramine HCl 25 mg capsule (Banophen) 25 mg PO TID PRN PRN Itching #0 caps 12/26/21 [Rx Last Taken Unknown] ferrous sulfate 325 mg (65 mg iron) tablet (FeroSul) 325 mg PO QODAY@1200 #0 tabs 12/26/21 [Rx Last Taken Unknown] hydrocortisone 2.5 % topical cream 1 applic topical BID PRN PRN Itching #0 grams 12/26/21 [Rx Last Taken Unknown] pantoprazole 40 mg granules delayed-release for susp in packet (Protonix) 40 mg PO BID #30 ea 12/26/21 [Rx Last Taken Unknown] Allergy/AdvReac Type Severity Reaction Status Date / Time Gadolinium-MRI Contrast Allergy Hives Verified 11/18/22 14:26 Medium [CONTRAST] Latex, Natural Rubber Allergy Rash Verified 11/18/22 14:26 hydralazine AdvReac Intermediate Swelling Verified 11/18/22 14:26 amlodipine AdvReac dizziness Verified 11/18/22 14:26 codeine AdvReac drowsy Verified 11/18/22 14:26 tramadol [From Ultram] AdvReac Unknown Verified 11/18/22 14:26 Surgical History History of esophagogastroduodenoscopy (EGD) (12/2021) History of hysterectomy History of left heart catheterization (04/10/12) History of loop recorder (04/04/20) History of nasal septoplasty History of open reduction and internal fixation (ORIF) procedure History of repair of rotator cuff History of tonsillectomy History of total knee arthroplasty (06/2021) Hx of cholecystectomy Status post insertion of spinal cord stimulator Social History Smoking Status: Never smoker ROS ROS ED ROS Narrative Past medical history: Reviewed Medications: Reviewed Social history: Lives in an [facility] Review of systems: All systems negative except as indicated General: No fever Cardiovascular: No chest pain Respiratory: No shortness of breath or cough Gastrointestinal: No abdominal pain, nausea vomiting or diarrhea Genitourinary: No dysuria Musculoskeletal: As in HPI Skin: No rash Neurological: No memory loss, confusion or any focal weakness EXAM Physical Exam Narrative Exam Narrative: Physical exam General: She does not appear in any distress. She appears her stated age. Head: Normocephalic, Atraumatic Eyes: Conjunctiva not pale ENT: Moist mucous membranes Neck: Supple, Nontender, No lymphadenopathy Cardiovascular: Regular rate, Regular rhythm Respiratory: No distress, CTA bilaterally Abdomen: Soft, Nontender, Nondistended Back: Nontender, Normal Inspection. Negative for: CVA tenderness Extremities: Tenderness over the right fifth metatarsal region which is known. She has slight left lower extremity edema, no cellulitis. She has diffuse tenderness over the dorsum of the left foot. Skin: Normal color, No rash Neurological: Alert, Normal Strength, Normal Sensation Const Vital Signs: 11/18/22 14:16 Temperature 97.8 F Temperature Source Temporal Pulse Rate 61 Respiratory Rate 15 Blood Pressure 159/53 H Blood Pressure Mean 88 Pulse Ox 98 Oxygen Delivery Method Room Air MDM MDM MDM Narrative Medical decision making narrative: A. Problems addressed Patient has lower extremity edema which could have been occult blood clot, the venous ultrasound is negative. She also could have fallen because she does have pain in her foot, her x-ray was negative. B. Amount and/or complexity of the data (2 out of 3) 1. Any 3 I discussed the patient her son in the room Venous ultrasound was ordered and it was negative. 2. Independent interpretation of test Left foot x-ray interpreted by me as negative. C. Risk of complications and/or morbidity Patient is in an ECF, she does have some help she is wheelchair-bound. She has normal ultrasound and normal DVT ultrasound. She appears well. I believe she can be safely discharged home. If anything changes she is to return. Radiography Diagnostic Testing: Clinical Impression(s) from Imaging Studies Foot X-Ray 11/18/22 14:38 IMPRESSION: Degenerative changes. Calcaneal spurs. Electronically Signed: Cristobal Hair MD at 14:53 EST , Discharge Plan Triage Chief Complaint: Edema ED Provider: Hernan Ochoa Dx/Rx/DC Orders Clinical Impression: Acute foot pain, Edema of lower extremity Instructions: ED Lymphedema Prescriptions: No Action losartan 50 mg tablet 50 mg PO DAILY Qty: 90 3RF cholecalciferol (vitamin D3) 1,000 UNIT tablet 1,000 unit PO DAILY@1400 ascorbic acid (vitamin C) 500 mg Capsule, Extended Release 500 mg PO DAILY sertraline 50 mg tablet 50 mg PO DAILY Label Comments: TAKE 1/2 (ONE-HALF) TABLET BY MOUTH ONCE DAILY FOR 7 DAYS, THEN INCREASE TO 1 TABLET ONCE DAILY diphenhydramine HCl [Banophen] 25 mg Capsule 25 mg PO TID PRN PRN (Reason: Itching) Qty: 0 0RF ferrous sulfate [FeroSul] 325 mg (65 mg iron) Tablet 325 mg PO QODAY@1200 Qty: 0 0RF hydrocortisone 2.5 % Cream 1 applic topical BID PRN PRN (Reason: Itching) Qty: 0 0RF Protocol: *Topical Application Instructions APPLICATION INSTRUCTIONS: prn itching pantoprazole [Protonix] [address] for susp in packet 40 mg PO BID Qty: 30 0RF amlodipine 2.5 mg tablet 2.5 mg PO DAILY Qty: 30 0RF metoprolol tartrate 25 mg tablet 12.5 mg PO BID multivitamin [Daily Multi-Vitamin] Tablet 1 tab PO QAM Primary Care Provider: Giovanni Forte Referrals: Giovanni Forte MD [Primary Care Provider] - 2 Days Disposition Disposition: Home, Self Care
--- NOTE | 2022-11-18 14:38 | RAD_ITS ---
STUDY: X-RAY - LEFT FOOT CLINICAL: Female, 87 years old. 3 day history of swelling. No known injury. TECHNIQUE: 3 view(s) of the foot. COMPARISON: None. FINDINGS: There is an enthesophyte involving the posterior superior calcaneus at the site of insertion of the Achilles tendon. Plantar spur. Normal visualized subtalar, talonavicular, calcaneocuboid, tarsal and tarsometatarsal articulations. Normal metatarsi. There is degenerative arthrosis of the metatarsophalangeal joint of the hallux . Normal tibial and fibular sesamoid bones. Normal interphalangeal joint of the great toe. Normal phalanges of the great toe. Normal second through fifth metatarsophalangeal joints. Normal interphalangeal joints and phalanges of the lesser toes. The soft tissue structures are unremarkable. RAD/Foot min 3 Views IMPRESSION: Degenerative changes. Calcaneal spurs. Electronically Signed: Cristobal Hair MD at 14:53 EST ,
[2022-11-18 15:38] VITALS: RESP 17
== END 2022-11-18 15:47 | disposition home or self-care (01) ==
PROVIDERS: Emergency Provider Emergency Medicine; PCP Family Medicine; Visit Provider Emergency Medicine
DX: R60.0 Localized edema (principal); N18.30 Chronic kidney disease, stage 3 unspecified; I25.10 Atherosclerotic heart disease of native coronary artery without angina pectoris; I12.9 Hypertensive chronic kidney disease with stage 1 through stage 4 chronic kidney disease, or unspecified chronic kidney disease; E78.5 Hyperlipidemia, unspecified; M79.672 Pain in left foot
CPT/HCPCS: 73630; 93971; 99282

== ENCOUNTER 2022-12-22 13:02 | Emergency (ER) | payer MEDICARE, SELFPAY ==
[2022-12-22 13:03] VITALS: BP 158/61; PULSE 60; RESP 16; TEMP 36.3; O2SAT 98; BMI 19.3
--- NOTE | 2022-12-22 13:38 | ED.VIS.FALL ---
HPI HPI - Fall History of Present Illness Chief Complaint: Fall Detail of Chief Complaint: Fell getting out of bed this morning. Feet slipped out from under her. Informant: patient Occured/Mechanism Occurred: Today and Hours Mechanism/Context: Yes same level fall Usually ambulates: Without assistance Pain/Injury Pain Location: back Quality of Pain: Sharp Current Severity: Mild Maximum Severity: Moderate Associated Symptoms Associated Symptoms: Negative for Parasthesias, Weakness, Loss of function, Inability to ambulate, Loss of consciousness or Amnesia Narrative Narrative: 87-year-old female resides at [facility]. History of chronic kidney disease, anemia and restless leg syndrome for which she has implantable stimulators. States she was getting out of bed today. As she went to stand her feet slipped out from under her and she landed on her back on the floor. No LOC. She is on no blood thinners. Denies any head or neck pain. Complaining of mid back pain. Denies any weakness to her upper or lower extremities. No recent illness. Prior similar symptoms: No Recent Illness/Hospitalization: No PFSH PFS Medical History Abnormal weight loss Adult failure to thrive Chronic kidney disease Chronic kidney disease, stage 3 (moderate) Chronic pain Debility Dementia Depression Essential (primary) hypertension GERD (gastroesophageal reflux disease) Hyperbilirubinemia Hyperlipidemia Kidney disease Left ventricular hypertrophy Near syncope Neuropathic pain Non-smoker Nonobstructive atherosclerosis of coronary artery Reflex sympathetic dystrophy RSD lower limb Syncope Vitamin D deficiency Wears hearing aid in both ears Home Medications cholecalciferol (vitamin D3) 25 mcg (1,000 unit) tablet 1,000 unit PO DAILY@1400 SUPPLEMENT 11/29/14 [History Last Taken 12/22/21] metoprolol tartrate 25 mg tablet 12.5 mg PO BID BP 03/21/20 [History Last Taken 12/22/21] multivitamin (Daily Multi-Vitamin tablet) 1 tab PO QAM supplement 06/06/20 [History Last Taken 12/22/21] losartan 50 mg tablet 50 mg PO DAILY #90 tabs 05/26/21 [Rx Last Taken 12/22/21] ascorbic acid (vitamin C) 500 mg capsule,extended release 500 mg PO DAILY SUPPLEMENT 12/23/21 [History Last Taken 12/22/21] sertraline 50 mg tablet 50 mg PO DAILY DEPRESSION 12/23/21 [History Last Taken 12/22/21] amlodipine 2.5 mg tablet 2.5 mg PO DAILY #30 tabs 12/26/21 [Rx Last Taken Unknown] diphenhydramine HCl 25 mg capsule (Banophen) 25 mg PO TID PRN PRN Itching #0 caps 12/26/21 [Rx Last Taken Unknown] ferrous sulfate 325 mg (65 mg iron) tablet (FeroSul) 325 mg PO QODAY@1200 #0 tabs 12/26/21 [Rx Last Taken Unknown] hydrocortisone 2.5 % topical cream 1 applic topical BID PRN PRN Itching #0 grams 12/26/21 [Rx Last Taken Unknown] pantoprazole 40 mg granules delayed-release for susp in packet (Protonix) 40 mg PO BID #30 ea 12/26/21 [Rx Last Taken Unknown] Allergy/AdvReac Type Severity Reaction Status Date / Time Gadolinium-MRI Contrast Allergy Hives Verified 11/18/22 14:26 Medium [CONTRAST] Latex, Natural Rubber Allergy Rash Verified 11/18/22 14:26 hydralazine AdvReac Intermediate Swelling Verified 11/18/22 14:26 amlodipine AdvReac dizziness Verified 11/18/22 14:26 codeine AdvReac drowsy Verified 11/18/22 14:26 tramadol [From Ultram] AdvReac Unknown Verified 11/18/22 14:26 Surgical History History of esophagogastroduodenoscopy (EGD) (12/2021) History of hysterectomy History of left heart catheterization (04/10/12) History of loop recorder (04/04/20) History of nasal septoplasty History of open reduction and internal fixation (ORIF) procedure History of repair of rotator cuff History of tonsillectomy History of total knee arthroplasty (06/2021) Hx of cholecystectomy Status post insertion of spinal cord stimulator Social History Smoking Status: Never smoker ROS ROS ED ROS Narrative Patient denies any recent illness. Review of Systems ROS Unobtainable: Denies due to encephalopathy Constitutional Constitutional ED: Denies chills or fever(s) Eyes Eyes: Denies blurry vision ENT ENT ED: Denies ear pain Cardiovascular Cardiovascular: Denies chest pain Respiratory/Chest Respiratory/Chest: Denies cough or dyspnea Gastrointestinal Gastrointestinal: Denies abdominal pain Genitourinary Genitourinary ED: Denies dysuria Musculoskeletal Musculoskeletal: Reports back pain; Denies arthralgias or neck pain Integumentary Denies abscess Neurologic Neurologic: Denies headache(s) Psychiatric Psychiatric: Denies anxiety Endocrine Endocrinology: Denies polydipsia Hematologic/Lymphatic Hematologic/Lymphatic: Denies easy bleeding Allergic/Immunologic Allergic/Immunologic ED: Denies mouth swelling or tongue swelling EXAM Physical Exam Narrative Exam Narrative: 87-year-old female vital signs stable afebrile. H EENT exam unremarkable atraumatic. C-spine nontender. Lungs clear. Heart regular rhythm rate about 60. Chest wall and ribs nontender. Abdomen soft nontender. Pelvic girdle intact. Hips nontender. Moving all 4 extremities. Nontender. No deformity. 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 Normal dorsi plantarflexion. Back there is no signs of trauma to her back she has tenderness over her mid thoracic spine. There is no ecchymosis or bruising. Neurologically she is awake and alert. Moving all 4 extremities. Const Vital Signs: 12/22/22 13:03 12/22/22 13:25 Temperature 97.4 F L Temperature Source Temporal Pulse Rate 60 Respiratory Rate 16 Respiratory Effort Normal Non-Labored Respiratory Depth Normal Respiratory Pattern Normal Blood Pressure 158/61 H Blood Pressure Mean 93 Pulse Ox 98 Oxygen Delivery Method Room Air Room Air Positive well nourished and well developed; Negative for obese, cachectic, contractures or unkempt General Appearance ED: well developed and NAD; Negative for unkempt, cachectic or contractures Nutritional Appearance: Negative for cachectic or obese HEENT Reports normocephalic atraumatic; Negative for trauma or contusion Eyes PERRL and EOMs intact bilaterally General Eye ED: Negative for pale conjunctiva or scleral icterus Neck full ROM, no lymphadenopathy and supple General: Negative for tenderness Chest Wall inspection of chest normal and palpation of chest normal Chest: Negative for other Resp normal respiratory effort, no retractions and clear to auscultation bilaterally Effort and Inspection: Negative for pain with movement Auscultation: Negative for rales, rhonchi or wheezes Cardio regular rate, regular rhythm, S1 normal heart sound, S2 normal heart sound and no murmurs Rate: Negative for bradycardia or tachycardic Rhythm: Negative for abnormal rhythm Bruits: Negative for other GI non-tender, non-distended and no masses Inspection: Negative for abdominal distention Auscultation: normoactive bowel sounds Palpation: soft; Negative for guarding or rebound tenderness present Back/Spine no CVA tenderness Back/Spine Narrative: Tenderness to her mid thoracic spine. No signs of trauma to her back. Cervical and lumbar spine are nontender. No ecchymosis or bruising. General Back: Negative for CVA tenderness Cervical Spine: Negative for cervical spine tenderness Thoracic Spine / Upper Back: thoracic spinal tenderness Lumbar Spine / Lower Back: Negative for lumbar spinal tenderness Neuro oriented x3 Paradox Coma Scale: document GCS findings Spontaneous Obeys Commands Oriented 15 Sensorium / Orientation: alert Motor Exam: strength 5/5 throughout Psych mental status grossly normal and thought process normal Appearance: Negative for unkempt Attitude: No agitated Mood & Affect: Negative for depressed, anxious or tearful Skin Lesions: no lesions Rashes: no rashes MDM MDM MDM Narrative Medical decision making narrative: 87-year-old fell complaining of thoracic back pain. X-ray being obtained. She took 2 Tylenol at home. States she did not want thing for pain at this time. Repeat exam at 2:24 PM patient is doing well. Repeat exam of her back is unchanged. There is no bruising. She and I went over x-ray results. She will be given 1 [place] here for pain. Discharge back to [facility]. Radiography Diagnostic Testing: Thoracic spine x-ray, 2 views, interpreted by myself shows shows no acute abnormality. No compression fracture. She has stimulator wires that appear to be intact and in place. Discharge Plan Triage Chief Complaint: Fall ED Provider: Bartolo Cortez Dx/Rx/DC Orders Clinical Impression: Fall, Chronic kidney disease, stage 3 (moderate), Back contusion Instructions: ED Back Contusion Prescriptions: No Action losartan 50 mg tablet 50 mg PO DAILY Qty: 90 3RF cholecalciferol (vitamin D3) 1,000 UNIT tablet 1,000 unit PO DAILY@1400 ascorbic acid (vitamin C) 500 mg Capsule, Extended Release 500 mg PO DAILY sertraline 50 mg tablet 50 mg PO DAILY Label Comments: TAKE 1/2 (ONE-HALF) TABLET BY MOUTH ONCE DAILY FOR 7 DAYS, THEN INCREASE TO 1 TABLET ONCE DAILY diphenhydramine HCl [Banophen] 25 mg Capsule 25 mg PO TID PRN PRN (Reason: Itching) Qty: 0 0RF ferrous sulfate [FeroSul] 325 mg (65 mg iron) Tablet 325 mg PO QODAY@1200 Qty: 0 0RF hydrocortisone 2.5 % Cream 1 applic topical BID PRN PRN (Reason: Itching) Qty: 0 0RF Protocol: *Topical Application Instructions APPLICATION INSTRUCTIONS: prn itching pantoprazole [Protonix] [address] for susp in packet 40 mg PO BID Qty: 30 0RF amlodipine 2.5 mg tablet 2.5 mg PO DAILY Qty: 30 0RF metoprolol tartrate 25 mg tablet 12.5 mg PO BID multivitamin [Daily Multi-Vitamin] Tablet 1 tab PO QAM Primary Care Provider: Giovanni Forte Referrals: Giovanni Forte MD [Primary Care Provider] - 1 Week if not improving Activity Restrictions/Additional Instructions: Ice to the sore areas of your back to help decrease pain and swelling. Follow-up with your doctor if not improving. Disposition Disposition: Home, Self Care
--- NOTE | 2022-12-22 13:55 | RAD_ITS ---
STUDY: X-RAY - THORACIC SPINE REASON FOR EXAM: Female, 87 years old. Pain between the shoulder following a fall. TECHNIQUE: 2 view(s) of the thoracic spine were obtained. COMPARISON: Comparison is made with prior study 10/11/2020. FINDINGS: Normal kyphosis of the thoracic spine. There is no substantial scoliosis. There is demineralization of the thoracic spine with endplate spondylosis. There is multilevel disc space narrowing of the thoracic spine. Atherosclerotic calcification of the aortic arch. Electrodes from a TENS unit is seen at the T9-T10 level. A loop recorder device is seen overlying the left medial chest wall. RAD/Thoracic Spine 2 Views IMPRESSION: Demineralization and spondylosis. No compression fracture is seen. Electronically Signed: Cristobal Hair MD at 14:24 EST ,
[2022-12-22] MEDS: HYDROcodone Bitartrate/Apap 5/325 Tablet PO (14:33)
== END 2022-12-22 14:53 | disposition home or self-care (01) ==
PROVIDERS: Emergency Provider Emergency Medicine; PCP Family Medicine; Visit Provider Emergency Medicine
DX: S20.229A Contusion of unspecified back wall of thorax, initial encounter (principal); N18.30 Chronic kidney disease, stage 3 unspecified; I25.10 Atherosclerotic heart disease of native coronary artery without angina pectoris; E78.5 Hyperlipidemia, unspecified; I12.9 Hypertensive chronic kidney disease with stage 1 through stage 4 chronic kidney disease, or unspecified chronic kidney disease; W18.30XA Fall on same level, unspecified, initial encounter
CPT/HCPCS: 72070; 99282

== ENCOUNTER → 2023-02-07 | Outpatient (REF) | payer MEDICARE, SELFPAY ==
[2023-02-07 08:59] LABS: Hematocrit 33.9 % (37-47); Hemoglobin 10.7 g/dL (12.0-15.0); Mean Corp Hgb Conc 31.6 g/dL (32-36); Mean Corpuscular Hgb 29.1 pg (27.0-32.0); Mean Corpuscular Volume 92.1 fL (81-99); Mean Platelet Vol. 9.6 fl (6.2-12.0); Platelet Count 189 K/mm3 (150-450); RBC Distribution Width CV 13.1 % (11.6-14.6); RBC Distribution Width SD 44.4 fl (35.1-43.9); Red Blood Count 3.68 M/mm3 (4.2-5.4); White Blood Count 5.9 K/mm3 (4.4-11.0)
[2023-02-07 09:07] LABS: Albumin, Serum 3.1 g/dL (3.2-5.0); BUN 51 mg/dL (7-18); BUN/Creat Ratio 18.1 RATIO (10-20); Calcium,Total 8.5 mg/dL (8.5-10.1); Chloride 112 mmol/L (98-107); Creatinine, Serum 2.81 mg/dL (0.55-1.02); EST Glomerular Filtration Rate 17 mL/min (>60); Est Glom Filt Rate - Afr Amer 21 mL/min (>60); Glucose 89 mg/dL (74-106); Phosphorus 4.2 mg/dL (2.5-4.9); Potassium 4.1 mmol/L (3.5-5.1); Sodium Level 141 mmol/L (136-145)
[2023-02-07 09:18] LABS: Vitamin D,25 Hydroxy 70.5 ng/mL
[2023-02-07 09:22] LABS: PTHIN 67.8 pg/mL (18.4-80.1)
[2023-02-09 13:01] LABS: Protein, Urine (Random) 62.5 mg/dL (<11.9); Protein:Creat Ratio 933 mg/g CRE (0-200)
== END ==
LOC: OLS.SWAL 05:00
PROVIDERS: PCP Family Medicine; Visit Provider Internal Medicine Nephrology
DX: N18.4 Chronic kidney disease, stage 4 (severe) (principal)
CPT/HCPCS: 36415; 80069; 82306; 82570; 83970; 84156; 85027; 85049

== ENCOUNTER → 2023-04-05 | Outpatient (REF) | payer MEDICARE, SELFPAY ==
[2023-04-05 08:45] LABS: Absolute Lymphocyte Count 1.51 X10^3/uL (0.83-4.51); Absolute Neutrophil Count 3.5 X10^3/uL (2.0-7.7); Basophil# 0.04 X10^3/uL; Basophil% 0.7 % (0-1); Eosinophils% 1.8 % (0-5); Hematocrit 37.2 % (37-47); Hemoglobin 11.5 g/dL (12.0-15.0); Lymphocyte # 1.51 X10^3/ul (0.83-4.51); Lymphocyte % 26.9 % (19-41); Mean Corp Hgb Conc 30.9 g/dL (32-36); Mean Corpuscular Hgb 28.8 pg (27.0-32.0); Mean Platelet Vol. 9.3 fl (6.2-12.0); Monocyte# 0.51 X10^3/uL; Monocyte% 9.1 % (0-10); NRBC Flagged by Analyzer 0 % (0-5); Neutrophil # 3.45 X10^3/uL (2.7-7.7); Neutrophil % 61.3 % (47-70); Platelet Count 172 K/mm3 (150-450); White Blood Count 5.6 K/mm3 (4.4-11.0)
[2023-04-05 09:07] LABS: AST(SGOT) 30 U/L (15-37); Alanine Aminotransfer ALT/SGPT 30 U/L (13-56); Alkaline Phosphatase 67 U/L (45-117); Anion Gap 9 (5-15); BUN 46 mg/dL (7-18); BUN/Creat Ratio 15.6 RATIO (10-20); Calcium,Total 8.7 mg/dL (8.5-10.1); Chloride 110 mmol/L (98-107); Creatinine, Serum 2.94 mg/dL (0.55-1.02); EST Glomerular Filtration Rate 16 mL/min (>60); Est Glom Filt Rate - Afr Amer 20 mL/min (>60); Globulin 3.1 g/dL (2.2-4.2); Glucose 80 mg/dL (74-106); Potassium 4.1 mmol/L (3.5-5.1); Protein, Total 6.1 g/dL (6.4-8.2); Sodium Level 142 mmol/L (136-145)
[2023-04-05 10:45] LABS: Ferritin 255 ng/mL (8-252); Iron 59 ug/dL (50-170); Iron Binding Capacity,Total 208 ug/dL (250-450)
== END ==
LOC: OLS.SWAL 05:00
PROVIDERS: PCP Family Medicine; Visit Provider Internal Medicine
DX: N18.4 Chronic kidney disease, stage 4 (severe) (principal); K71.0 Toxic liver disease with cholestasis; E78.5 Hyperlipidemia, unspecified
CPT/HCPCS: 36415; 80053; 82728; 83540; 83550; 85025

== ENCOUNTER 2023-04-16 10:55 | Emergency (ER) | payer MEDICARE, SELFPAY ==
[2023-04-16 10:58] VITALS: TEMP 36.4; BMI 19.7
[2023-04-16 11:02] VITALS: BP 158/74; PULSE 60; RESP 18; O2SAT 99
--- NOTE | 2023-04-16 11:07 | ED.VIS.FALL ---
HPI HPI - Fall History of Present Illness Chief Complaint: Fall Detail of Chief Complaint: Complaining of tailbone pain. Informant: patient Occured/Mechanism Occurred: Yesterday Mechanism/Context: Yes same level fall Usually ambulates: Without assistance Pain/Injury Pain Location: back and other (Tailbone) Quality of Pain: Dull and Aching Current Severity: Moderate Maximum Severity: Moderate Narrative Narrative: 87-year-old female history of chronic kidney disease and dementia lives at [facility]. Yesterday she was getting out of bed when she lost her balance fell landing on her back and buttock. Complaining of tailbone pain. Did not hit her head. No history of blood thinners. Denies other complaints. No recent illness. Prior similar symptoms: No Recent Illness/Hospitalization: No PFSH PFSH Medical History Abnormal weight loss Adult failure to thrive Chronic kidney disease Chronic kidney disease, stage 3 (moderate) Chronic pain Debility Dementia Depression Essential (primary) hypertension GERD (gastroesophageal reflux disease) Hyperbilirubinemia Hyperlipidemia Kidney disease Left ventricular hypertrophy Near syncope Neuropathic pain Non-smoker Nonobstructive atherosclerosis of coronary artery Reflex sympathetic dystrophy RSD lower limb Syncope Vitamin D deficiency Wears hearing aid in both ears Home Medications cholecalciferol (vitamin D3) 25 mcg (1,000 unit) tablet 1,000 unit PO DAILY@1400 SUPPLEMENT 11/29/14 [History Last Taken 12/22/21] metoprolol tartrate 25 mg tablet 12.5 mg PO BID BP 03/21/20 [History Last Taken 12/22/21] multivitamin (Daily Multi-Vitamin tablet) 1 tab PO QAM supplement 06/06/20 [History Last Taken 12/22/21] losartan 50 mg tablet 50 mg PO DAILY #90 tabs 05/26/21 [Rx Last Taken 12/22/21] ascorbic acid (vitamin C) 500 mg capsule,extended release 500 mg PO DAILY SUPPLEMENT 12/23/21 [History Last Taken 12/22/21] sertraline 50 mg tablet 50 mg PO DAILY DEPRESSION 12/23/21 [History Last Taken 12/22/21] amlodipine 2.5 mg tablet 2.5 mg PO DAILY #30 tabs 12/26/21 [Rx Last Taken Unknown] diphenhydramine HCl 25 mg capsule (Banophen) 25 mg PO TID PRN PRN Itching #0 caps 12/26/21 [Rx Last Taken Unknown] ferrous sulfate 325 mg (65 mg iron) tablet (FeroSul) 325 mg PO QODAY@1200 #0 tabs 12/26/21 [Rx Last Taken Unknown] hydrocortisone 2.5 % topical cream 1 applic topical BID PRN PRN Itching #0 grams 12/26/21 [Rx Last Taken Unknown] pantoprazole 40 mg granules delayed-release for susp in packet (Protonix) 40 mg PO BID #30 ea 12/26/21 [Rx Last Taken Unknown] Allergy/AdvReac Type Severity Reaction Status Date / Time Gadolinium-MRI Contrast Allergy Hives Verified 11/18/22 14:26 Medium [CONTRAST] Latex, Natural Rubber Allergy Rash Verified 11/18/22 14:26 hydralazine AdvReac Intermediate Swelling Verified 11/18/22 14:26 amlodipine AdvReac dizziness Verified 11/18/22 14:26 codeine AdvReac drowsy Verified 11/18/22 14:26 tramadol [From Ultram] AdvReac Unknown Verified 11/18/22 14:26 Surgical History History of esophagogastroduodenoscopy (EGD) (12/2021) History of hysterectomy History of left heart catheterization (04/10/12) History of loop recorder (04/04/20) History of nasal septoplasty History of open reduction and internal fixation (ORIF) procedure History of repair of rotator cuff History of tonsillectomy History of total knee arthroplasty (06/2021) Hx of cholecystectomy Status post insertion of spinal cord stimulator Social History Smoking Status: Never smoker ROS ROS ED ROS Narrative No recent illness. Review of Systems ROS Unobtainable: Denies due to encephalopathy Constitutional Constitutional ED: Denies chills or fever(s) Eyes Eyes: Denies blurry vision ENT ENT ED: Denies ear pain Cardiovascular Cardiovascular: Denies chest pain Respiratory/Chest Respiratory/Chest: Denies cough or dyspnea Gastrointestinal Gastrointestinal: Denies abdominal pain Genitourinary Genitourinary ED: Denies dysuria or hematuria Musculoskeletal Musculoskeletal: Denies arthralgias Integumentary Denies abscess Neurologic Neurologic: Denies headache(s) Psychiatric Psychiatric: Denies anxiety or depression Endocrine Endocrinology: Denies polydipsia Hematologic/Lymphatic Hematologic/Lymphatic: Denies easy bleeding Allergic/Immunologic Allergic/Immunologic ED: Denies mouth swelling EXAM Physical Exam Narrative Exam Narrative: 87-year-old female no acute distress. Vital signs are stable afebrile. H EENT exam unremarkable atraumatic. Pupils round react light. C-spine nontender. Trachea midline. Lungs clear to auscultation. Heart regular rate and rhythm rate about 60. 3/6 systolic ejection murmur. Chest wall nontender. Abdomen soft nontender. Pelvic girdle intact. Upper extremities are nontender. 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 Normal range of motion. No deformity. Lower extremities have normal range of motion. Nontender. There is no shortening or rotation either hip. They are nontender. Back cervical and thoracic spine are nontender. Lumbar spine is nontender. The very distal tailbone or coccyx is tender. There is no bruise. Neurologically she is awake alert. Answering questions and following commands. No focal motor deficits. Const Vital Signs: 04/16/23 10:58 04/16/23 11:02 Temperature 97.5 F L Temperature Source Temporal Pulse Rate 60 Respiratory Rate 18 Blood Pressure 158/74 H Blood Pressure Mean 102 Pulse Ox 99 Oxygen Delivery Method Room Air Positive well nourished and well developed; Negative for obese, cachectic, contractures or unkempt General Appearance ED: well developed and NAD; Negative for unkempt, cachectic or contractures Nutritional Appearance: Negative for cachectic or obese HEENT Reports normocephalic atraumatic; Negative for trauma, contusion, hematoma or tenderness Eyes PERRL and EOMs intact bilaterally General Eye ED: Negative for pale conjunctiva Neck full ROM, no lymphadenopathy and supple General: Negative for tenderness Chest Wall inspection of chest normal and palpation of chest normal Chest: Negative for other Resp normal respiratory effort, no retractions and clear to auscultation bilaterally Effort and Inspection: Negative for pain with movement Auscultation: Negative for rales, rhonchi or wheezes Cardio regular rate, regular rhythm, S1 normal heart sound and S2 normal heart sound; Negative for no murmurs Cardio Narrative: 3/6 systolic ejection murmur. GI non-tender, non-distended and no masses Inspection: Negative for abdominal distention Auscultation: normoactive bowel sounds Palpation: soft; Negative for guarding Back/Spine no CVA tenderness Back/Spine Narrative: Only tenderness to her back is her very distal tailbone coccyx area. No bruising. No bony deformity. Skin intact. General Back: Negative for CVA tenderness Cervical Spine: Negative for cervical spine tenderness Neuro moves all extremities Roque Coma Scale: document GCS findings Spontaneous Obeys Commands Oriented 15 Sensorium / Orientation: alert, oriented to person and oriented to place Motor Exam: strength 5/5 throughout; Negative for general weakness Psych thought process normal; Negative for mental status grossly normal Appearance: Negative for unkempt Attitude: No agitated Mood & Affect: Negative for depressed, anxious or tearful Skin General Skin Exam: Negative for other Lesions: no lesions Rashes: no rashes Trauma: Negative for abrasion MDM MDM MDM Narrative Medical decision making narrative: 87-year-old fell at the alf yesterday. Landed on her buttock complaining of tailbone pain. Pelvis and coccyx x-ray being obtained. She has been given Tylenol for pain. Exam otherwise is benign. Repeat exam patient is doing well 11:48 AM. She and I discussed her x-ray results and the tailbone fracture. Basically ice to the area air donut and I would just use Tylenol. I think given her age and other medical history narcotic pain meds may be more problematic than beneficial. History & Record Review Discussion w/independent historian: Patient Radiography Diagnostic Testing: Pelvis x-ray single view shows no acute fracture. The hips are unremarkable. Interpreted by myself. Sacrum and coccyx x-ray shows a fracture of the mid sacrum. Minimally displaced. Again no pelvic fractures. Interpreted by myself. 3 views. Discharge Plan Triage Chief Complaint: Fall ED Provider: Bartolo Cortez Dx/Rx/DC Orders Clinical Impression: Fall, Closed fracture of coccyx, History of chronic kidney disease Instructions: ED Tailbone (Coccyx) Fracture Prescriptions: No Action losartan 50 mg tablet 50 mg PO DAILY Qty: 90 3RF cholecalciferol (vitamin D3) 1,000 UNIT tablet 1,000 unit PO DAILY@1400 ascorbic acid (vitamin C) 500 mg Capsule, Extended Release 500 mg PO DAILY sertraline 50 mg tablet 50 mg PO DAILY Label Comments: TAKE 1/2 (ONE-HALF) TABLET BY MOUTH ONCE DAILY FOR 7 DAYS, THEN INCREASE TO 1 TABLET ONCE DAILY diphenhydramine HCl [Banophen] 25 mg Capsule 25 mg PO TID PRN PRN (Reason: Itching) Qty: 0 0RF ferrous sulfate [FeroSul] 325 mg (65 mg iron) Tablet 325 mg PO QODAY@1200 Qty: 0 0RF hydrocortisone 2.5 % Cream 1 applic topical BID PRN PRN (Reason: Itching) Qty: 0 0RF Protocol: *Topical Application Instructions APPLICATION INSTRUCTIONS: prn itching pantoprazole [Protonix] [address] for susp in packet 40 mg PO BID Qty: 30 0RF amlodipine 2.5 mg tablet 2.5 mg PO DAILY Qty: 30 0RF metoprolol tartrate 25 mg tablet 12.5 mg PO BID multivitamin [Daily Multi-Vitamin] Tablet 1 tab PO QAM Primary Care Provider: Giovanni Forte Referrals: Giovanni Forte MD [Primary Care Provider] - As Needed Activity Restrictions/Additional Instructions: You have a broken tailbone. This should heal but will take weeks to months. This does not need to be surgically repaired and there is no way to casted. Ice to the area. Sit on a pillow or an air donut. Tylenol for pain. Disposition Disposition: Home, Self Care
[2023-04-16] MEDS: Acetaminophen 325 MG Tablet 650 MG PO (11:12)
--- NOTE | 2023-04-16 11:28 | RAD_ITS ---
HISTORY: fall. TECHNIQUE: XR Pelvis 1 or 2 Views. COMPARISON: 10/11/2020. FINDINGS: OSSEOUS STRUCTURES: No acute displaced fracture identified. Note that overlapping bowel shadows may obscure osseous detail. Mineralization unremarkable. JOINT SPACES: No dislocation. Degenerative changes of the hips. SOFT TISSUES: Electrode over the right iliac. RAD/Pelvis 1 or 2 Views IMPRESSION: No acute displaced fracture or dislocation identified. Electronically Signed: Sandra Meeks MD at 11:58 EDT ,
--- NOTE | 2023-04-16 11:28 | RAD_ITS ---
HISTORY: fall. TECHNIQUE: X-RAY - XR Sacrum/Coccyx Min 2 Views. COMPARISON: None. FINDINGS: SACRUM/COCCYX: Fracture of the coccyx with mild anterior displacement of the lateral view. Note that overlapping bowel shadows may however obscure fine detail in the frontal view. SACRO-ILIAC JOINTS: Unremarkable alignment with degenerative change noted. SOFT TISSUES: Pelvic phleboliths. RAD/Sacrum-Coccyx min 2 Views IMPRESSION: Mildly displaced fracture of the coccyx. Electronically Signed: Sandra Meeks MD at 11:59 EDT ,
--- NOTE | 2023-04-16 12:02 | ED.RN ---
Attempted to call report to voice Lloydmaisabel left.
--- NOTE | 2023-04-16 12:10 | NURSING ---
CALLED [facility], ETA IS 30 MIN
== END 2023-04-16 12:38 | disposition home or self-care (01) ==
PROVIDERS: Emergency Provider Emergency Medicine; PCP Family Medicine; Visit Provider Emergency Medicine
DX: S32.2XXA Fracture of coccyx, initial encounter for closed fracture (principal); F03.90 Unspecified dementia, unspecified severity, without behavioral disturbance, psychotic disturbance, mood disturbance, and anxiety; N18.30 Chronic kidney disease, stage 3 unspecified; E78.5 Hyperlipidemia, unspecified; I25.10 Atherosclerotic heart disease of native coronary artery without angina pectoris; I12.9 Hypertensive chronic kidney disease with stage 1 through stage 4 chronic kidney disease, or unspecified chronic kidney disease; W18.30XA Fall on same level, unspecified, initial encounter; Y92.122 Bedroom in nursing home as the place of occurrence of the external cause
CPT/HCPCS: 72170; 72220; 99284

== ENCOUNTER → 2023-07-05 | Outpatient (REF) | payer MEDICARE, SELFPAY ==
[2023-07-05 08:41] LABS: Absolute Lymphocyte Count 1.19 X10^3/uL (0.83-4.51); Absolute Neutrophil Count 3.7 X10^3/uL (2.0-7.7); Basophil# 0.06 X10^3/uL; Basophil% 1.1 % (0-1); Eosinophil# 0.17 X10^3/uL; Hematocrit 34.2 % (37-47); Hemoglobin 10.6 g/dL (12.0-15.0); Lymphocyte # 1.19 X10^3/ul (0.83-4.51); Lymphocyte % 21.1 % (19-41); Mean Corpuscular Hgb 28.6 pg (27.0-32.0); Mean Corpuscular Volume 92.2 fL (81-99); Mean Platelet Vol. 9.4 fl (6.2-12.0); Monocyte# 0.51 X10^3/uL; NRBC Flagged by Analyzer 0 % (0-5); Neutrophil # 3.69 X10^3/uL (2.7-7.7); Neutrophil % 65.3 % (47-70); Platelet Count 200 K/mm3 (150-450); RBC Distribution Width SD 43.8 fl (35.1-43.9); Red Blood Count 3.71 M/mm3 (4.2-5.4); White Blood Count 5.7 K/mm3 (4.4-11.0)
[2023-07-05 09:05] LABS: Anion Gap 4 (5-15); BUN 40 mg/dL (7-18); BUN/Creat Ratio 14.9 RATIO (10-20); Calcium,Total 8.6 mg/dL (8.5-10.1); Chloride 112 mmol/L (98-107); Cholesterol 208 mg/dL (200); Creatinine, Serum 2.68 mg/dL (0.55-1.02); EST Glomerular Filtration Rate 18 mL/min (>60); Est Glom Filt Rate - Afr Amer 22 mL/min (>60); Glucose 93 mg/dL (74-106); High Density Lipoprotein 71 mg/dL; Potassium 4.2 mmol/L (3.5-5.1); Sodium Level 141 mmol/L (136-145); Thyroid Stim Hormone (TSH) 1.06 uIU/mL (0.358-3.74); Triglycerides 105 mg/dL; Very Low Density Lipoprotein 21 mg/dL (5-40)
== END ==
LOC: OLS.SWAL 05:00
PROVIDERS: PCP Family Medicine; Visit Provider Internal Medicine
DX: R53.83 Other fatigue (principal); E78.5 Hyperlipidemia, unspecified; N18.4 Chronic kidney disease, stage 4 (severe)
CPT/HCPCS: 36415; 80048; 80061; 84443; 85025

== ENCOUNTER 2024-11-09 11:12 | Inpatient (IN) | payer MEDICARE, SELFPAY ==
[2024-11-09] VITALS (7 sets, daily range): BP systolic 143–185; BP diastolic 59–90; PULSE 77–86; RESP 16–20; TEMP 35.7–36.6; O2SAT 94–100; BMI 21.4; BMI 21.6
--- NOTE | 2024-11-09 11:46 | ED.VIS.BACK ---
HPI <SUNNI Bray - Last Filed: 11/09/24 15:21> History of Present Illness Chief Complaint: Back Narrative Narrative: 89-year-old female with PMH of HTN, CKD stage IV, chronic back pain presents with worsening lumbar pain x 2 days. She lives at [facility] living [facility] and ambulates with a rollator. Her son states she always sleeps in a recliner but last night one of the nurses helped her into bed. This morning she was partially hanging off the bed but had not fallen. She was able to get up and ambulate to the toilet but after sitting back down complained of worsening back pain and has been unable to walk since then. Son states there has been a viral illness going around the assisted living facility. She has not had a fever or upper respiratory symptoms that he noticed. He put Voltaren gel on her back without relief. He states she has old spinal stimulators that are not active. She had chronic pain in her legs from remote injury and RSD but does not take any pain relievers. She had no recent fall or trauma. She has no saddle anesthesia or bladder bowel incontinence. PFSH <SUNNI Bray - Last Filed: 11/09/24 15:21> [facility] Medical History Left ventricular hypertrophy Hyperbilirubinemia Nonobstructive atherosclerosis of coronary artery Wears hearing aid in both ears Depression Chronic pain Kidney disease Non-smoker Dementia Abnormal weight loss Adult failure to thrive Neuropathic pain Vitamin D deficiency Chronic kidney disease Debility Syncope Near syncope Essential (primary) hypertension RSD lower limb Chronic kidney disease, stage 3 (moderate) GERD (gastroesophageal reflux disease) Reflex sympathetic dystrophy Hyperlipidemia Home Medications ?Medication ?Instructions ?Recorded ?Last Taken ?Type cholecalciferol (vitamin D3) 25 1,000 unit PO DAILY@1400 SUPPLEMENT 11/29/14 12/22/21 History mcg (1,000 unit) tablet metoprolol tartrate 25 mg tablet 12.5 mg PO BID BP 03/21/20 12/22/21 History multivitamin (Daily Multi-Vitamin 1 tab PO QAM supplement 06/06/20 12/22/21 History tablet) losartan 50 mg tablet 50 mg PO DAILY #90 tabs 05/26/21 12/22/21 Rx ascorbic acid (vitamin C) 500 mg 500 mg PO DAILY SUPPLEMENT 12/23/21 12/22/21 History capsule,extended release sertraline 50 mg tablet 50 mg PO DAILY DEPRESSION 12/23/21 12/22/21 History amlodipine 2.5 mg tablet 2.5 mg PO DAILY #30 tabs 12/26/21 Unknown Rx diphenhydramine HCl 25 mg capsule 25 mg PO TID PRN PRN Itching #0 12/26/21 Unknown Rx (Banophen) caps ferrous sulfate 325 mg (65 mg 325 mg PO QODAY@1200 #0 tabs 12/26/21 Unknown Rx iron) tablet (FeroSul) hydrocortisone 2.5 % topical cream 1 applic topical BID PRN PRN 12/26/21 Unknown Rx Itching #0 grams pantoprazole 40 mg granules 40 mg PO BID #30 ea 12/26/21 Unknown Rx delayed-release for susp in packet (Protonix) Allergy/AdvReac Type Severity Reaction Status Date / Time Gadolinium-MRI Contrast Allergy Hives Verified 11/09/24 11:19 Medium (CONTRAST) Latex, Natural Rubber Allergy Rash Verified 11/09/24 11:19 hydralazine AdvReac Intermediate Swelling Verified 11/09/24 11:19 amlodipine AdvReac dizziness Verified 11/09/24 11:19 tramadol (From Ultram) AdvReac Unknown Verified 11/09/24 11:19 Surgical History History of total knee arthroplasty (06/2021) History of esophagogastroduodenoscopy (EGD) (12/2021) History of loop recorder (04/04/20) History of open reduction and internal fixation (ORIF) procedure Status post insertion of spinal cord stimulator History of nasal septoplasty History of tonsillectomy History of hysterectomy History of repair of rotator cuff Hx of cholecystectomy History of left heart catheterization (04/10/12) Social History Smoking Status: Never smoker EXAM <SUNNI Bray - Last Filed: 11/09/24 15:21> Physical Exam Narrative Exam Narrative: CONST: Patient sitting in no acute distress. EYES: Normal inspection. NECK: Normal inspection. RESP: No respiratory distress, CTAB. CVS: Regular rate and rhythm, no murmur, no gallop. ABD: Soft and nontender, no guarding or rebound, nondistended. Back: Normal inspection SKIN: Color normal, no rash, warm, dry, intact. EXTREMITIES: 1+ pitting edema both ankles. Generalized weakness with inability to lift legs off bed, able to dorsiflex and plantarflex, normal sensation, 2+ DP pulses. NEURO: Alert and answering questions appropriately. PSYCH: Normal affect. Const Vital Signs: 11/09/24 11:14 11/09/24 13:12 11/09/24 15:00 Temperature 97.9 F Temperature Source Oral Pulse Rate 82 84 77 Respiratory Rate 20 H 16 16 Blood Pressure 185/81 H 155/80 H 155/59 H Blood Pressure Mean 115 105 91 Pulse Ox 100 99 96 Oxygen Delivery Method Room Air Room Air Room Air <Dr. Meek Lee DO - Last Filed: 11/09/24 21:52> Physical Exam Const Vital Signs: 11/09/24 11:14 11/09/24 13:12 11/09/24 15:00 Temperature 97.9 F Temperature Source Oral Pulse Rate 82 84 77 Respiratory Rate 20 H 16 16 Blood Pressure 185/81 H 155/80 H 155/59 H Blood Pressure Mean 115 105 91 Pulse Ox 100 99 96 Oxygen Delivery Method Room Air Room Air Room Air MDM <SUNNI Bray - Last Filed: 11/09/24 15:21> [facility] Narrative Medical decision making narrative: History gathered from: Patient, son 89-year-old female was evaluated for atraumatic back pain causing inability to ambulate. She had no fall or injury but slept awkwardly in bed. She normally sleeps in a recliner. She is awake and alert in no distress. Vital signs stable. She has significantly limited movement secondary to her back pain. Lower extremities are neurovascularly intact. She has chronic symmetric ankle edema. Labs show normal white count of 7.4 and stable hemoglobin of 10.6. She has normal electrolytes, BUN 51, creatinine 3.72. She has a history of CKD. Urinalysis has 500 leukocyte esterase and 2+ bacteria. It was sent for culture. She also tested positive for COVID-19 which could be contributing to her musculoskeletal pain. She is not hypoxic; however she is too weak to ambulate. She lives in [facility] assisted living facility. I spoke with our social work professor who states they cannot arrange to get her to long term so she will require admission. Lab Data Attestation: I reviewed the patient's lab results. Labs: Laboratory Results - last 24 hr 11/09/24 11/09/24 12:42 13:24 WBC 7.4 RBC 3.63 L Hgb 10.6 L Hct 32.8 L MCV 90.4 MCH 29.2 MCHC 32.3 RDW Std Deviation 44.8 H RDW Coeff of Sonny 13.5 Plt Count 153 MPV 9.3 Immature Gran % (Auto) 0.300 Neut % (Auto) 75.9 H Lymph % (Auto) 8.1 L [place] % (Auto) 15.3 H Eos % (Auto) 0.0 Baso % (Auto) 0.4 Absolute Neuts (auto) 5.6 Absolute Lymphs (auto) 0.60 L Nucleated RBC % 0 Sodium 136 Potassium 4.2 Chloride 108 H Carbon Dioxide 20.0 L Anion Gap 9 BUN 51 H Creatinine 3.72 H Estim Creat Clear Calc 9.97 Est GFR (MDRD) Af Amer 15 L Est GFR (MDRD) Non-Af 12 L BUN/Creatinine Ratio 13.7 Glucose 104 Calcium 8.7 Urine Color Yellow Urine Clarity Clear Urine pH 6.0 Ur Specific [place] 1.015 Urine Protein 100 H Urine Glucose (UA) Normal Urine Ketones Negative Urine Occult Blood 50 H Urine Nitrite Negative Urine Bilirubin Negative Urine Urobilinogen Normal Ur Leukocyte Esterase 500 H Urine RBC 0 SEEN Urine WBC 0-5 SEEN Ur Squamous Epith Cells 0 SEEN Urine Bacteria 2+ Urine Mucus 0 SEEN <Dr. Meek Lee, DO - Last Filed: 11/09/24 21:52> [facility] Lab Data Labs: Laboratory Results - last 24 hr 11/09/24 11/09/24 12:42 13:24 WBC 7.4 RBC 3.63 L Hgb 10.6 L Hct 32.8 L MCV 90.4 MCH 29.2 MCHC 32.3 RDW Std Deviation 44.8 H RDW Coeff of Sonny 13.5 Plt Count 153 MPV 9.3 Immature Gran % (Auto) 0.300 Neut % (Auto) 75.9 H Lymph % (Auto) 8.1 L [place] % (Auto) 15.3 H Eos % (Auto) 0.0 Baso % (Auto) 0.4 Absolute Neuts (auto) 5.6 Absolute Lymphs (auto) 0.60 L Nucleated RBC % 0 Sodium 136 Potassium 4.2 Chloride 108 H Carbon Dioxide 20.0 L Anion Gap 9 BUN 51 H Creatinine 3.72 H Estim Creat Clear Calc 9.97 Est GFR (MDRD) Af Amer 15 L Est GFR (MDRD) Non-Af 12 L BUN/Creatinine Ratio 13.7 Glucose 104 Calcium 8.7 Urine Color Yellow Urine Clarity Clear Urine pH 6.0 Ur Specific [place] 1.015 Urine Protein 100 H Urine Glucose (UA) Normal Urine Ketones Negative Urine Occult Blood 50 H Urine Nitrite Negative Urine Bilirubin Negative Urine Urobilinogen Normal Ur Leukocyte Esterase 500 H Urine RBC 0 SEEN Urine WBC 0-5 SEEN Ur Squamous Epith Cells 0 SEEN Urine Bacteria 2+ Urine Mucus 0 SEEN Treatment and Re-Evaluation Narrative: I have personally performed a face to face assessment of the patient and have reviewed the YANDEL Note. I performed a substantive portion of the visit including all aspects of the following. My caraballo findings include: History: Patient presents with back pain that became worse today. Patient states it is gradually gotten worse. Patient states the pain is constant. Patient describes it as aching. Patient states it is mainly over the lower lumbar area. Patient denies any trauma or injury. Patient denies any radiation down her lower extremities. Patient denies any bowel or bladder changes. Patient denies any saddle anesthesia. Exam: Vital signs are stable except for an elevated blood pressure of 185/81. Patient is afebrile. Patient is in no acute distress. Musculoskeletal exam reveals tenderness of the lumbar spine and paraspinal muscles. Range of motion was limited in all motions of the lumbar spine secondary to pain. Sensation was intact to light touch bilaterally in the lower extremities. Patient is able to move her lower extremities but causes pain in her back. Abdomen is soft and nontender. Bowel sounds are normal. Heart was regular rate and rhythm. Lungs are clear and equal bilaterally. Medical Decision Making: Differential diagnosis includes musculoskeletal pain, anemia, urinary tract infection, and electrolyte abnormality. CBC will be obtained to assess for leukocytosis and anemia. Basic metabolic profile will be obtained to assess for electrolyte abnormality and renal function. Urinalysis will be obtained to assess for urinary tract infection and hematuria. COVID-19, influenza, and RSV PCR will be obtained to assess for viral illness. Urinalysis was reviewed. Leukocyte esterase was 500 with 2+ bacteria. There are 0-5 white blood cells however. Basic metabolic profile was reviewed. BUN was 51 and creatinine was 3.72. These are slightly worse than previous results. CBC was reviewed. There is a mild anemia with a hemoglobin of 10.6 and hematocrit 32.8. COVID-19 PCR was reviewed and was negative. Influenza PCR was reviewed and was negative for influenza A and influenza B. RSV PCR was reviewed and was negative. Patient was unable to move or ambulate. Because of this, we will contact hospitalist for admission for intractable pain. He will admit the patient to his service. Patient and family understood and were agreeable with the plan. All questions were answered. Discharge Plan Triage Chief Complaint: Back ED Midlevel Provider: Kelley Waite ED Provider: Meek Lee Dx/Rx/DC Orders Clinical Impression: Low back pain, Chronic kidney disease, COVID-19, Unable to ambulate Primary Care Provider: Giovanni Forte
[2024-11-09] MEDS: Acetaminophen 325 MG Tablet 650 MG PO (12:03)
[2024-11-09] MEDS: Ondansetron 4 MG/2 ML Vial IV (12:42)
[2024-11-09] MEDS: Lidocaine 5% Patch 1 PATCH TOPICAL (12:42)
[2024-11-09] MEDS: Morphine 2 MG/ML Syringe IV (12:42)
[2024-11-09 12:54] LABS: Absolute Neutrophil Count 5.6 X10^3/uL (2.0-7.7); Basophil# 0.03 X10^3/uL; Basophil% 0.4 % (0-1); Hematocrit 32.8 % (37-47); Hemoglobin 10.6 g/dL (12.0-15.0); Lymphocyte % 8.1 % (19-41); Mean Corp Hgb Conc 32.3 g/dL (32-36); Mean Corpuscular Hgb 29.2 pg (27.0-32.0); Mean Corpuscular Volume 90.4 fL (81-99); Mean Platelet Vol. 9.3 fl (6.2-12.0); Monocyte# 1.13 X10^3/uL; Monocyte% 15.3 % (0-10); NRBC Flagged by Analyzer 0 % (0-5); Neutrophil # 5.61 X10^3/uL (2.7-7.7); Neutrophil % 75.9 % (47-70); POSITIVE DIFFERENTIAL YES; Platelet Count 153 K/mm3 (150-450); RBC Distribution Width CV 13.5 % (11.6-14.6); RBC Distribution Width SD 44.8 fl (35.1-43.9); Red Blood Count 3.63 M/mm3 (4.2-5.4); White Blood Count 7.4 K/mm3 (4.4-11.0)
[2024-11-09 13:06] LABS: Anion Gap 9 (5-15); BUN 51 mg/dL (7-18); BUN/Creat Ratio 13.7 RATIO (10-20); Calcium,Total 8.7 mg/dL (8.5-10.1); Chloride 108 mmol/L (98-107); Creatinine, Serum 3.72 mg/dL (0.55-1.02); EST Glomerular Filtration Rate 12 mL/min (>60); Est Glom Filt Rate - Afr Amer 15 mL/min (>60); Estimated Creatinine Clearance 9.97 ml/min; Glucose 104 mg/dL (74-106); Potassium 4.2 mmol/L (3.5-5.1); Sodium Level 136 mmol/L (136-145)
--- NOTE | 2024-11-09 13:15 | CM.ED ---
Social work This SW identified patient needed patient's advance directives validated. This SW entered patient's room, introducing self and role at [facility]. Patient was asleep in bed, but patient's son, Mason, was bedside. Patient's son stated patient's , Talib, in December 2023. Patient's son verified that he (Manas) is patient's sole HCPOA. Patient's son confirmed Dr. Forte's office at the [facility] has updated HCPOA papers and patient's son confirmed ability to bring them in to put on patient's chart. Fannie Molina, INTENSIVE CARE UNIT REGISTERED NURSE, FOOD PROCESSING CHEMIST
[2024-11-09 13:48] LABS: Mucous, Urine 0 SEEN /hpf (<or=2+); Red Blood Cells-Urine 0 SEEN /hpf (0-5); Squamous Epithelial Cells - UA 0 SEEN /hpf (5-10)
[2024-11-09 13:59] LABS: Color, Urine Yellow (Yellow); Glucose, Dipstick Normal (Normal); Ketone-Dipstick Negative (Negative); Leukocyte Esterase-Dipstick 500 /ul (Negative); Nitrite-Dipstick Negative (Negative); Occult Blood-Urine 50 /ul (Negative); Protein-Dipstick 100 mg/dl (Negative); Specific Gravity, Urine 1.015 (1.002-1.030); Urine Bilirubin Dipstick Negative (Negative); Urine Clarity Clear (Clear); Urine Urobilinogen Normal (Normal)
[2024-11-09 14:15] LABS: Bacteria 2+ /hpf (None Seen); White Blood Cells 0-5 SEEN /hpf (0-5)
--- NOTE | 2024-11-09 14:49 | CM.ED ---
Social work Per patient's son Mason while outside patient's room, patient's reportedly in December 2023. Patient's was removed as a contact on patient's chart and patient's HCPOA/son Mason was moved to the next of kin position on patient's contacts. Fannie Molina, HEAT TREAT PULLER, FOOD SAFETY OFFICER
--- NOTE | 2024-11-09 15:55 | PCM.HP.STD ---
HPI - General General Date of Admission: 11/09/24 Date of Service: 11/09/24 Chief Complaint: Back pain HPI Narrative SYEDA CHILD, is a 89 F who presents with worsening back pain. This is an 89-year-old female who resides in assisted living and has a history of back pain and spinal stimulators. Has been feeling rundown as of late and has been sleeping in bed. This is actually atypical for her as she normally sleeps in a recliner. Apparently patient was found sleeping awkwardly in the bed at an odd position was lowered to the ground and then replaced back in bed but since then she has been having worsening back pain in the lumbar region. There was no fall or any kind of injury that was noted. Patient was brought to the hospital and evaluated was positive for COVID-19. But given her back pain, the hospitalist service was contacted for admission. [facility] Medical History Left ventricular hypertrophy Hyperbilirubinemia Nonobstructive atherosclerosis of coronary artery Wears hearing aid in both ears Depression Chronic pain Kidney disease Non-smoker Dementia Abnormal weight loss Adult failure to thrive Neuropathic pain Vitamin D deficiency Chronic kidney disease Debility Syncope Near syncope Essential (primary) hypertension RSD lower limb Chronic kidney disease, stage 3 (moderate) GERD (gastroesophageal reflux disease) Reflex sympathetic dystrophy Hyperlipidemia Home Medications ?Medication ?Instructions ?Recorded ?Last Taken ?Type cholecalciferol (vitamin D3) 25 1,000 unit PO DAILY@1400 SUPPLEMENT 11/29/14 12/22/21 History mcg (1,000 unit) tablet metoprolol tartrate 25 mg tablet 12.5 mg PO BID BP 03/21/20 12/22/21 History multivitamin (Daily Multi-Vitamin 1 tab PO QAM supplement 06/06/20 12/22/21 History tablet) losartan 50 mg tablet 50 mg PO DAILY #90 tabs 05/26/21 12/22/21 Rx ascorbic acid (vitamin C) 500 mg 500 mg PO DAILY SUPPLEMENT 12/23/21 12/22/21 History capsule,extended release sertraline 50 mg tablet 50 mg PO DAILY DEPRESSION 12/23/21 12/22/21 History amlodipine 2.5 mg tablet 2.5 mg PO DAILY #30 tabs 12/26/21 Unknown Rx diphenhydramine HCl 25 mg capsule 25 mg PO TID PRN PRN Itching #0 12/26/21 Unknown Rx (Banophen) caps ferrous sulfate 325 mg (65 mg 325 mg PO QODAY@1200 #0 tabs 12/26/21 Unknown Rx iron) tablet (FeroSul) hydrocortisone 2.5 % topical cream 1 applic topical BID PRN PRN 12/26/21 Unknown Rx Itching #0 grams pantoprazole 40 mg granules 40 mg PO BID #30 ea 12/26/21 Unknown Rx delayed-release for susp in packet (Protonix) Allergy/AdvReac Type Severity Reaction Status Date / Time Gadolinium-MRI Contrast Allergy Hives Verified 11/09/24 11:19 Medium (CONTRAST) Latex, Natural Rubber Allergy Rash Verified 11/09/24 11:19 hydralazine AdvReac Intermediate Swelling Verified 11/09/24 11:19 amlodipine AdvReac dizziness Verified 11/09/24 11:19 tramadol (From Ultram) AdvReac Unknown Verified 11/09/24 11:19 Surgical History History of total knee arthroplasty (06/2021) History of esophagogastroduodenoscopy (EGD) (12/2021) History of loop recorder (04/04/20) History of open reduction and internal fixation (ORIF) procedure Status post insertion of spinal cord stimulator History of nasal septoplasty History of tonsillectomy History of hysterectomy History of repair of rotator cuff Hx of cholecystectomy History of left heart catheterization (04/10/12) Social History Smoking Status: Never smoker TARAN Anguiano Has been coughing chronically. Nonproductive. Has recently strained her abdomen from coughing. All review of systems were negative except as mentioned above in the history of present illness and the other review of systems. Vital Signs Vital Signs Vital Signs: 11/09/24 11:14 11/09/24 13:12 11/09/24 15:00 Temperature 36.6 C Temperature Source Oral Pulse Rate 82 84 77 Respiratory Rate 20 H 16 16 Blood Pressure 185/81 H 155/80 H 155/59 H Blood Pressure Mean 115 105 91 Pulse Ox 100 99 96 Oxygen Delivery Method Room Air Room Air Room Air Weight Weight: 60.373 kg Body Mass Index (BMI) 21.4 Physical Exam Const alert, no apparent distress and healthy appearing Constitutional Narrative: Extremely hard of hearing General Appearance: cooperative HEENT normocephalic and head/scalp atraumatic Eyes Eyes Narrative: No icterus Resp normal respiratory effort, no retractions, no use of accessory muscles and clear to auscultation bilaterally Cardio regular rate, regular rhythm, S1 normal heart sound and S2 normal heart sound GI normal to inspection, nondistended, normoactive bowel sounds, soft to palpation and non-distended GI Narrative: Tender right-sided abdominal wall muscle. No rebound. Extremity normal to inspection and full ROM Extremity Narrative: Reproducible lumbar paraspinal tenderness bilaterally but more so on the left. Neuro moves all extremities and no focal motor deficits Sensorium / Orientation: awake and alert Psych affect normal Results Lab / Micro Data 11/09/24 12:42 11/09/24 12:42 Labs: Laboratory Results - last 24 hr 11/09/24 12:42: WBC 7.4, RBC 3.63 L, Hgb 10.6 L, Hct 32.8 L, MCV 90.4, MCH 29.2, MCHC 32.3, RDW Std Deviation 44.8 H, RDW Coeff of Sonny 13.5, Plt Count 153, MPV 9.3, Immature Gran % (Auto) 0.300, Neut % (Auto) 75.9 H, Lymph % (Auto) 8.1 L, [place] % (Auto) 15.3 H, Eos % (Auto) 0.0, Baso % (Auto) 0.4, Absolute Neuts (auto) 5.6, Absolute Lymphs (auto) 0.60 L, Nucleated RBC % 0, Sodium 136, Potassium 4.2, Chloride 108 H, Carbon Dioxide 20.0 L, Anion Gap 9, BUN 51 H, Creatinine 3.72 H, Estim Creat Clear Calc 9.97, Est GFR (MDRD) Af Amer 15 L, Est GFR (MDRD) Non-Af 12 L, BUN/Creatinine Ratio 13.7, Glucose 104, Calcium 8.7 11/09/24 13:24: Urine Color Yellow, Urine Clarity Clear, Urine pH 6.0, Ur Specific [place] 1.015, Urine Protein 100 H, Urine Glucose (UA) Normal, Urine Ketones Negative, Urine Occult Blood 50 H, Urine Nitrite Negative, Urine Bilirubin Negative, Urine Urobilinogen Normal, Ur Leukocyte Esterase 500 H, Urine RBC 0 SEEN, Urine WBC 0-5 SEEN, Ur Squamous Epith Cells 0 SEEN, Urine Bacteria 2+, Urine Mucus 0 SEEN Micro: Microbiology 11/09/24 12:54 Mucosa - Nose SARS-CoV-2, Influenza & RSV (PCR) - Final SARS-CoV-2 (COVID 19 PCR) Assessment & Plan Assessment/Plan (1) Low back pain: PLAN: Due to paraspinal muscle strain likely from sleeping awkwardly in bed. No fall so I do not feel any additional imaging of her back is necessary at this time. No radicular symptoms. Supportive management. Will add Lidoderm patches as well as scheduled acetaminophen and as needed oxycodone. PT OT to evaluate and treat (2) COVID-19: PLAN: Severe as patient's pulse ox dropped down to 93% on room air with good waveforms. Given her CKD, she is not a candidate for remdesivir so we will initiate dexamethasone. PLAN: Plan Chronic conditions CKD 4: Creatinine is actually worse at this point in time. Though we do not have any labs available since June 2023. Patient takes losartan at home which we will discontinue. Will give the patient a liter of IV fluids and evaluate. Patient sees Dr. Tlyer of nephrology. No need for renal replacement therapy at this time. Patient previously has declined dialysis. Hypertension: Stable. Continue with amlodipine and metoprolol tartrate Depression: Continue sertraline VTE prophylaxis with subcu heparin CODE STATUS: From assisted living. Patient is full code. Case discussed with the patient's son at bedside. Charges/Coding Visit Charges Inpatient E&M: 37547 Init Hosp L2
[2024-11-09] MEDS: dexAMETHasone 4 MG Tablet 6 MG PO (18:16)
[2024-11-09] MEDS: 0.9% Normal Saline (1000mL) 1,000 ML 150 ML IV (18:16)
[2024-11-09] MEDS: oxyCODONE 5 MG Tablet PO (18:16)
[2024-11-09] MEDS: 0.9% Saline Lock 10 ML Syringe IV (18:16)
[2024-11-09] MEDS: Metoprolol Tartrate 25 MG Tablet 12.5 MG PO (21:50)
[2024-11-09] MEDS: Acetaminophen 500 MG Tablet 1000 MG PO (21:50)
[2024-11-09] MEDS: Pantoprazole Sodium 40 MG Tablet PO (21:51)
[2024-11-09] MEDS: Heparin Injection (Vial) 5,000 UNIT/ML VIAL 5000 UNIT SC (21:53)
[2024-11-10 04:06] VITALS: BP 127/60; PULSE 70; RESP 16; TEMP 36.2; O2SAT 95
[2024-11-10] MEDS: oxyCODONE 5 MG Tablet PO ×2 (04:09→11:01)
[2024-11-10] MEDS: Acetaminophen 500 MG Tablet 1000 MG PO ×3 (06:52→20:42)
[2024-11-10 08:08] LABS: Anion Gap 9 (5-15); BUN 57 mg/dL (7-18); BUN/Creat Ratio 14.7 RATIO (10-20); Calcium,Total 8.4 mg/dL (8.5-10.1); Chloride 112 mmol/L (98-107); Creatinine, Serum 3.87 mg/dL (0.55-1.02); EST Glomerular Filtration Rate 12 mL/min (>60); Est Glom Filt Rate - Afr Amer 14 mL/min (>60); Estimated Creatinine Clearance 9.59 ml/min; Glucose 114 mg/dL (74-106); Potassium 5.1 mmol/L (3.5-5.1); Sodium Level 139 mmol/L (136-145)
[2024-11-10 10:00] VITALS: BP 166/72; PULSE 68; RESP 18; TEMP 36.6; O2SAT 98
[2024-11-10 11:00] VITALS: BP 166/72; PULSE 98
[2024-11-10] MEDS: Heparin Injection (Vial) 5,000 UNIT/ML VIAL 5000 UNIT SC ×2 (11:00→20:39)
[2024-11-10] MEDS: Metoprolol Tartrate 25 MG Tablet PO ×2 (11:00→20:42)
[2024-11-10] MEDS: dexAMETHasone 4 MG Tablet 6 MG PO (11:00)
[2024-11-10] MEDS: amLODIPine 5 MG Tablet PO (11:00)
[2024-11-10] MEDS: Sertraline 50 MG Tablet PO (11:00)
[2024-11-10] MEDS: Pantoprazole Sodium 40 MG Tablet PO ×2 (11:00→20:42)
[2024-11-10] MEDS: Lidocaine 5% Patch 1 PATCH TOPICAL (11:01)
--- NOTE | 2024-11-10 12:11 | CASEMGMT ---
Social Work SW reviewed chart. Pt is having some confusion at this time. SW called son Mason who is listed as POA. His voicemail is full. SW will follow up again later today w/son in regard to discharge plan. Pt is here from [facility], and it is anticipated pt may need SNF at discharge. SAMMY Bran
--- NOTE | 2024-11-10 12:45 | CASEMGMT ---
Addendum entered by Divya Buchanan 11/10/24 15:39: Social Work [facility] accepted pt and will start precert. SW will follow up on Tuesday. SAMMY Bran Original Note: Social Work SW received a call back from son Mason Silveira. We spoke about discharge plan, as pt is confused at present. Son confirms pt is from [facility] and he would like pt to go to [facility] for rehab at discharge. He declined a list of retirement facilities at this time. SW explained will make the referral today, and will need precert so pt will be here through the weekend. SW made referral in [facility] to [facility], will follow up on Tuesday. SAMMY Bran
--- NOTE | 2024-11-10 17:03 | PN_ITS ---
Subjective Subjective Patient seen and examined. She complains of generalized pain and malaise. Review of systems otherwise negative. She has otherwise remained hemodynamically stable. Objective Data Objective Data Vital Signs: Vital Signs Temp Pulse Resp BP Pulse Ox O2 Del Method 97.9 F 98 18 166/72 H 98 Room Air 11/10/24 10:00 11/10/24 11:00 11/10/24 10:00 11/10/24 11:00 11/10/24 10:00 11/10/24 11:00 Oxygen Delivery Method Room Air Weight: 134 lb Body Mass Index (BMI) 21.6 Intake & Output: Intake and Output for Last 24 Hours 11/08/24 11/09/24 11/10/24 23:59 23:59 23:59 Intake Total 22.5 / 22.5 1157.5 / 1157.5 Output Total 950 / 950 Balance 22.5 / -377.5 207.5 / 207.5 Lab / Micro Data 11/09/24 12:42 11/10/24 07:28 Labs: Laboratory Results - last 24 hr 11/10/24 07:28: Sodium 139, Potassium 5.1, Chloride 112 H, Carbon Dioxide 18.0 L , Anion Gap 9, BUN 57 H, Creatinine 3.87 H, Estim Creat Clear Calc 9.59, Est GFR (MDRD) Af Amer 14 L, Est GFR (MDRD) Non-Af 12 L, BUN/Creatinine Ratio 14.7, G lucose 114 H, Calcium 8.4 L Micro: Microbiology 11/09/24 13:24 Urine, Midstream Urine Culture - Preliminary Presumptive E. coli 11/09/24 12:54 Mucosa - Nose SARS-CoV-2, Influenza & RSV (PCR) - Final SARS-CoV-2 (COVID 19 PCR) Physical Exam Narrative refused physical examination due to generalised pain Const alert and oriented x3 Constitutional Narrative: in moderate distress due to generalised pain. Assessment & Plan Assessment/Plan (1) COVID-19: (2) Low back pain: PLAN: Plan #Intractable low back pain * patient now having generalised body pain * Does have a history of low back pain and has spinal stimulators in place * Continue current pain meds. * PT OT on board. Fall precautions. * #COVID-19 infection: * Currently on room air. She was hypoxic when she was admitted but now on room air. On dexamethasone. Not a candidate for remdesivir #UTI: * Urinalysis showed negative nitrites but elevated leucocyte esterase and 2+ bacteria. * Will start on IV ceftriaxone and get urine cultures and adjust antibiotics as needed. * #CKD stage IV: * Creatinine was 3.72 on admission is now up to 3.87 * Baseline creatinine from June 2023 was 2.68. * This could likely be a progression of her CKD versus SHASHI on CKD * Hydrate gently with IV fluids and trend creatinine #Hypertension: On amlodipine and metoprolol #Depression: On sertraline DVT prophylaxis: Heparin Charges/Coding Visit Charges Inpatient E&M: 30830 Subs Hosp L2
[2024-11-10] MEDS: 0.9% Normal Saline (1000mL) 1,000 ML 125 ML IV (17:58)
[2024-11-10] MEDS: 0.9% Saline Lock 10 ML Syringe IV (17:58)
[2024-11-10 18:00] VITALS: BP 150/71; PULSE 68; RESP 18; TEMP 36.7; O2SAT 97
[2024-11-10 20:36] VITALS: BP 156/67; PULSE 71; RESP 16; TEMP 36.4; O2SAT 96
[2024-11-10 20:42] VITALS: BP 156/67; PULSE 71
[2024-11-11] VITALS (8 sets, daily range): BP systolic 150–169; BP diastolic 60–79; PULSE 61–72; RESP 18; TEMP 36.3–36.6; O2SAT 94–100
[2024-11-11] MEDS: 0.9% Normal Saline (1000mL) 1,000 ML 125 ML IV (02:13)
[2024-11-11] MEDS: oxyCODONE 5 MG Tablet PO (02:26)
[2024-11-11 02:47] LABS: Urine Sodium 61 mmol/L (Not Establ.)
[2024-11-11] MEDS: Acetaminophen 500 MG Tablet 1000 MG PO ×3 (05:55→21:13)
[2024-11-11 07:13] LABS: Absolute Lymphocyte Count 0.64 X10^3/uL (0.83-4.51); Absolute Neutrophil Count 3.9 X10^3/uL (2.0-7.7); Hematocrit 30.5 % (37-47); Hemoglobin 9.7 g/dL (12.0-15.0); Lymphocyte # 0.64 X10^3/ul (0.83-4.51); Lymphocyte % 12.1 % (19-41); Mean Corp Hgb Conc 31.8 g/dL (32-36); Mean Corpuscular Hgb 29.3 pg (27.0-32.0); Mean Corpuscular Volume 92.1 fL (81-99); Mean Platelet Vol. 8.9 fl (6.2-12.0); Monocyte# 0.76 X10^3/uL; Monocyte% 14.4 % (0-10); NRBC Flagged by Analyzer 0 % (0-5); Neutrophil # 3.85 X10^3/uL (2.7-7.7); Neutrophil % 72.7 % (47-70); Platelet Count 151 K/mm3 (150-450); RBC Distribution Width CV 13.6 % (11.6-14.6); RBC Distribution Width SD 46.3 fl (35.1-43.9); Red Blood Count 3.31 M/mm3 (4.2-5.4); White Blood Count 5.3 K/mm3 (4.4-11.0)
[2024-11-11 07:34] LABS: Anion Gap 7 (5-15); BUN 65 mg/dL (7-18); BUN/Creat Ratio 16.7 RATIO (10-20); Chloride 116 mmol/L (98-107); Creatinine, Serum 3.89 mg/dL (0.55-1.02); EST Glomerular Filtration Rate 12 mL/min (>60); Est Glom Filt Rate - Afr Amer 14 mL/min (>60); Estimated Creatinine Clearance 9.54 ml/min; Glucose 97 mg/dL (74-106); Potassium 4.8 mmol/L (3.5-5.1); Sodium Level 140 mmol/L (136-145)
[2024-11-11] MEDS: dexAMETHasone 4 MG Tablet 6 MG PO (09:39)
[2024-11-11] MEDS: Heparin Injection (Vial) 5,000 UNIT/ML VIAL 5000 UNIT SC ×2 (09:42→21:10)
[2024-11-11] MEDS: Lidocaine 5% Patch 1 PATCH TOPICAL (09:42)
[2024-11-11] MEDS: Metoprolol Tartrate 25 MG Tablet PO ×2 (09:42→21:12)
[2024-11-11] MEDS: Pantoprazole Sodium 40 MG Tablet PO ×2 (09:43→21:12)
[2024-11-11] MEDS: Sertraline 50 MG Tablet PO (09:43)
[2024-11-11] MEDS: amLODIPine 5 MG Tablet PO (09:43)
--- NOTE | 2024-11-11 13:04 | PN_ITS ---
Subjective Subjective Patient seen and examined. Still complaining of generalized weakness and tiredness. She had no other active complaints. Review of symptoms otherwise negative. Objective Data Objective Data Vital Signs: Vital Signs Temp Pulse Resp BP Pulse Ox O2 Del Method 98 F 62 18 160/68 H 98 Room Air 11/11/24 08:30 11/11/24 09:42 11/11/24 08:45 11/11/24 09:42 11/11/24 08:45 11/11/24 08:45 Oxygen Delivery Method Room Air Weight: 134 lb Body Mass Index (BMI) 21.6 Intake & Output: Intake and Output for Last 24 Hours 11/09/24 11/10/24 11/11/24 23:59 23:59 23:59 Intake Total 22.5 / 22.5 1777.5 / 1777.5 1100 / 1100 Output Total 1250 / 1250 700 / 700 Balance 22.5 / -377.5 527.5 / 527.5 400 / 400 Lab / Micro Data 11/11/24 07:02 11/11/24 07:02 Labs: Laboratory Results - last 24 hr 11/11/24 02:25: Ur Random Sodium 61, Urine Creatinine 42.20 11/11/24 07:02: WBC 5.3, RBC 3.31 L, Hgb 9.7 L, Hct 30.5 L, MCV 92.1, MCH 29.3, MCHC 31.8 L, RDW Std Deviation 46.3 H, RDW Coeff of Sonny 13.6, Plt Count 151, MPV 8.9, Immature Gran % (Auto) 0.800, Neut % (Auto) 72.7 H, Lymph % (Auto) 12.1 L, [place]kin % (Auto) 14.4 H, Eos % (Auto) 0.0, Baso % (Auto) 0.0, Absolute Neuts (auto) 3.9, Absolute Lymphs (auto) 0.64 L, Nucleated RBC % 0, Sodium 140, Potassium 4.8, Chloride 116 H, Carbon Dioxide 16.0 L, Anion Gap 7, BUN 65 H, Creatinine 3.89 H, Estim Creat Clear Calc 9.54, Est GFR (MDRD) Af Amer 14 L, Est GFR (MDRD) Non-Af 12 L, BUN/Creatinine Ratio 16.7, Glucose 97, Calcium 8.0 L Micro: Microbiology 11/09/24 13:24 Urine, Midstream Urine Culture - Final Presumptive E. coli 11/09/24 12:54 Mucosa - Nose SARS-CoV-2, Influenza & RSV (PCR) - Final SARS-CoV-2 (COVID 19 PCR) Physical Exam Const alert, oriented x3 and no apparent distress Constitutional Narrative: looks weak General Appearance: cooperative HEENT normocephalic, head/scalp atraumatic and moist oral mucous membranes Eyes PERRL and EOMs intact bilaterally Neck no lymphadenopathy and supple Lymph Lymphatic: no lymphadenopathy noted Resp normal respiratory effort, normal air movement and clear to auscultation bilaterally Cardio regular rate, regular rhythm, S1 normal heart sound, S2 normal heart sound and no murmurs GI normal to inspection, nondistended, normoactive bowel sounds, soft to palpation, non-tender and non-distended Extremity normal capillary refill, no clubbing, cyanosis or edema and no calf tenderness General Extremity: no tenderness to palpation of joints or extremities Skin General Skin Exam: no breakdown Neuro CN's II-XII intact bilaterally, no focal motor deficits and no sensory deficits noted Motor Exam: strength 5/5 throughout and general weakness Psych thought process normal and cooperative Appearance: appropriate Assessment & Plan Assessment/Plan (1) COVID-19: (2) Low back pain: PLAN: Plan #Intractable low back pain * feels a bit better today * Does have a history of low back pain and has spinal stimulators in place * Continue current pain meds. * PT OT on board. Fall precautions. * #COVID-19 infection: * Currently on room air. * She was hypoxic when she was admitted but now on room air. On dexamethasone. * Not a candidate for remdesivir #UTI: * Urinalysis showed negative nitrites but elevated leucocyte esterase and 2+ bacteria. * on IV ceftriaxone * urine cultures growing E coli which is pansensitive. * * #CKD stage IV: * Creatinine today is even further up to 3.89 from 3.87 yesterday. * Baseline creatinine from June 2023 was 2.68. * This could likely be a progression of her CKD versus SHASHI on CKD * Hydrate gently with IV fluids and trend creatinine * Will get CT of the abdomen and pelvis showed atrophy of the kidneys and small calcification on the left with no hydronephrosis and colonic diverticulosis without any evidence of obstruction. * consult nephrology #Hypertension: On amlodipine and metoprolol #Depression: On sertraline DVT prophylaxis: Heparin Charges/Coding Visit Charges Inpatient E&M: 13265 Subs Hosp L2
--- NOTE | 2024-11-11 13:15 | CT_ITS ---
STUDY: CT ABDOMEN AND PELVIS WITHOUT CONTRAST REASON FOR EXAM: Female, 89 years old. SHASHI on CKD RADIATION DOSAGE (If Supplied By Facility): CTDIvol = ( 7.12 ) mGy, DLP = ( 359.54 ) mGycm TECHNIQUE: Transaxial images were obtained from the dome of the diaphragm to the symphysis pubis without oral contrast, and without intravenous contrast. Sagittal and coronal images were reconstructed. Individualized dose optimization techniques were used for this CT. COMPARISON: None. FINDINGS: There is lower lung atelectasis. There are small pleural effusions. There are coronary artery calcifications. Normal liver. There are surgical clips in the gallbladder fossa consistent with a prior cholecystectomy. Normal spleen. Normal pancreas. Normal bilateral adrenal glands. There is moderate atrophy of the right kidney. There is moderate atrophy of the left kidney. There are cysts measuring up to 3.2 cm. There is a 0.3 cm calcification of the left kidney. There is no hydronephrosis. Normal visualized stomach. Normal small intestine. There are multiple colonic diverticula consistent with diverticulosis. There is non-visualization of the appendix. There is diffuse atherosclerotic calcification of the abdominal aorta, without a demonstrated aneurysm. Normal inferior vena cava. Normal retroperitoneum. Normal urinary bladder. There is absence of the uterus consistent with a prior hysterectomy. There is no fluid in the abdomen or pelvis. Normal abdominal wall. There is arthritic change of the spine. There is stimulator device with leads extending to the thoracic region. CT/Abdomen/Pelvis without Cont IMPRESSION: Atrophy of the kidneys. Small calcification on the left. No hydronephrosis. Colonic diverticulosis. No obstruction. Electronically Signed: Rafi Tracy MD at 14:07 EST ,
[2024-11-11] MEDS: Ferrous Sulfate 325 MG Tablet PO (14:16)
[2024-11-11] MEDS: Ceftriaxone 1 GM/50 ML BAG IV (20:19)
[2024-11-11] MEDS: 0.9% Normal Saline (100mL Bag) 100 ML 15 ML IV (20:19)
[2024-11-11] MEDS: 0.9% Saline Lock 10 ML Syringe IV ×2 (20:19→21:03)
[2024-11-11] MEDS: Lactated Ringers 1,000 ML 100 ML IV (21:05)
[2024-11-12] VITALS (9 sets, daily range): BP systolic 148–204; BP diastolic 73–100; PULSE 61–76; RESP 18; TEMP 36.1–37.1; O2SAT 97–100
[2024-11-12] MEDS: oxyCODONE 5 MG Tablet PO (02:59)
[2024-11-12] MEDS: Acetaminophen 500 MG Tablet 1000 MG PO ×3 (05:09→20:54)
[2024-11-12] MEDS: Lactated Ringers 1,000 ML 100 ML IV (06:47)
[2024-11-12 09:54] LABS: Absolute Lymphocyte Count 1.37 X10^3/uL (0.83-4.51); Absolute Neutrophil Count 4.1 X10^3/uL (2.0-7.7); Basophil# 0.01 X10^3/uL; Basophil% 0.2 % (0-1); Hemoglobin 11.6 g/dL (12.0-15.0); Lymphocyte # 1.37 X10^3/ul (0.83-4.51); Mean Corp Hgb Conc 32.2 g/dL (32-36); Mean Corpuscular Hgb 29.7 pg (27.0-32.0); Mean Corpuscular Volume 92.1 fL (81-99); Mean Platelet Vol. 9.7 fl (6.2-12.0); Monocyte# 0.69 X10^3/uL; Monocyte% 11.1 % (0-10); NRBC Flagged by Analyzer 0 % (0-5); Neutrophil # 4.09 X10^3/uL (2.7-7.7); Neutrophil % 65.6 % (47-70); Platelet Count 196 K/mm3 (150-450); RBC Distribution Width SD 47.5 fl (35.1-43.9); Red Blood Count 3.91 M/mm3 (4.2-5.4); White Blood Count 6.2 K/mm3 (4.4-11.0)
[2024-11-12] MEDS: dexAMETHasone 4 MG Tablet 6 MG PO (10:03)
[2024-11-12] MEDS: Lidocaine 5% Patch 1 PATCH TOPICAL (10:03)
[2024-11-12] MEDS: Heparin Injection (Vial) 5,000 UNIT/ML VIAL 5000 UNIT SC ×2 (10:04→20:55)
[2024-11-12] MEDS: Sertraline 50 MG Tablet PO (10:04)
[2024-11-12] MEDS: Pantoprazole Sodium 40 MG Tablet PO ×2 (10:05→20:53)
[2024-11-12] MEDS: amLODIPine 5 MG Tablet PO (10:05)
[2024-11-12] MEDS: Metoprolol Tartrate 25 MG Tablet PO ×2 (10:28→20:54)
[2024-11-12 11:07] LABS: Anion Gap 5 (5-15); BUN 61 mg/dL (7-18); BUN/Creat Ratio 16.5 RATIO (10-20); Calcium,Total 8.3 mg/dL (8.5-10.1); Chloride 116 mmol/L (98-107); EST Glomerular Filtration Rate 12 mL/min (>60); Est Glom Filt Rate - Afr Amer 15 mL/min (>60); Estimated Creatinine Clearance 10.03 ml/min; Glucose 82 mg/dL (74-106); Potassium 5.7 mmol/L (3.5-5.1); Sodium Level 136 mmol/L (136-145)
--- NOTE | 2024-11-12 11:22 | PN_ITS ---
Subjective Subjective Patient seen. She had no complaints. SHe wouldnt really answer questions and did not want to be examined. Unable to do review of systems as she is not cooperating much. She has remained hemodynamically stable. Objective Data Objective Data Vital Signs: Vital Signs Temp Pulse Resp BP Pulse Ox O2 Del Method 98 F 68 18 189/73 H 100 Room Air 11/12/24 10:31 11/12/24 10:31 11/12/24 10:31 11/12/24 10:31 11/12/24 10:31 11/12/24 10:49 Oxygen Delivery Method Room Air Weight: 134 lb Body Mass Index (BMI) 21.6 Intake & Output: Intake and Output for Last 24 Hours 11/10/24 11/11/24 11/12/24 23:59 23:59 23:59 Intake Total 1777.5 / 1777.5 3050.75 / 3050.75 970 / 970 Output Total 1250 / 1250 1300 / 1300 425 / 425 Balance 527.5 / 527.5 1750.75 / 1750.75 545 / 545 Lab / Micro Data 11/12/24 09:44 11/12/24 09:44 Labs: Laboratory Results - last 24 hr 11/12/24 09:44: WBC 6.2, RBC 3.91 L, Hgb 11.6 L, Hct 36.0 L, MCV 92.1, MCH 29.7, MCHC 32.2, RDW Std Deviation 47.5 H, RDW Coeff of Sonny 14.0, Plt Count 196, MPV 9.7, Immature Gran % (Auto) 1.100 H, Neut % (Auto) 65.6, Lymph % (Auto) 22.0, M cain % (Auto) 11.1 H, Eos % (Auto) 0.0, Baso % (Auto) 0.2, Absolute Neuts (auto) 4.1, Absolute Lymphs (auto) 1.37, Nucleated RBC % 0, Sodium 136, Potassium 5.7 H , Chloride 116 H, Carbon Dioxide 16.0 L, Anion Gap 5, BUN 61 H, Creatinine 3.70 H, Estim Creat Clear Calc 10.03, Est GFR (MDRD) Af Amer 15 L, Est GFR (MDRD) Non-Af 12 L, BUN/Creatinine Ratio 16.5, Glucose 82, Calcium 8.3 L Micro: Microbiology 11/09/24 13:24 Urine, Midstream Urine Culture - Final Presumptive E. coli 11/09/24 12:54 Mucosa - Nose SARS-CoV-2, Influenza & RSV (PCR) - Final SARS-CoV-2 (COVID 19 PCR) Radiography Diagnostic Testing: Radiology Impression Abdomen/Pelvis CT 11/11/24 13:15 IMPRESSION: Atrophy of the kidneys. Small calcification on the left. No hydronephrosis. Colonic diverticulosis. No obstruction. Electronically Signed: Rafi Tracy MD at 14:07 EST Reading Location ID and State: [id number] [place] [address] , Service support , Physical Exam Const alert and oriented x3 Constitutional Narrative: looks frail and uncomfortable. General Appearance: cooperative HEENT normocephalic, head/scalp atraumatic, moist oral mucous membranes and oropharynx normal Eyes PERRL and EOMs intact bilaterally Neck no lymphadenopathy and supple Lymph Lymphatic: no lymphadenopathy noted and no lymphedema noted Resp normal respiratory effort, normal air movement, no retractions, no use of accessory muscles and clear to auscultation bilaterally Cardio regular rate, regular rhythm, S1 normal heart sound, S2 normal heart sound and no murmurs GI normal to inspection, nondistended, normoactive bowel sounds, soft to palpation, non-tender and non-distended GI Narrative: Tender right-sided abdominal wall muscle. No rebound. Extremity normal to inspection, full ROM, normal capillary refill, no clubbing, cyanosis or edema and no calf tenderness General Extremity: no tenderness to palpation of joints or extremities Skin General Skin Exam: no breakdown Neuro CN's II-XII intact bilaterally, moves all extremities, no focal motor deficits and no sensory deficits noted Sensorium / Orientation: awake and alert Motor Exam: strength 5/5 throughout and general weakness Psych thought process normal, cooperative and affect normal Mood & Affect: flat affect Assessment & Plan Assessment/Plan (1) COVID-19: (2) Low back pain: PLAN: Plan #Intractable low back pain * Does have a history of low back pain and has spinal stimulators in place * Continue current pain meds. * PT OT on board. Fall precautions. * #COVID-19 infection: * Currently on room air. * She was hypoxic when she was admitted but now on room air. On dexamethasone. * Not a candidate for remdesivir #UTI: * Urinalysis showed negative nitrites but elevated leucocyte esterase and 2+ bacteria. * on IV ceftriaxone * urine cultures growing E coli which is pansensitive. * * #CKD stage V with nonanion gap metabolic acidosis * Cr today is 3.7, down from 3.89 yesterday * potassium is 5.7 and bicarb is 16. * potassium hemolysed so that is likely what is causing the hyperkalemia * consult nephrology as I think this is a progression of her CKD. * bicarb is 16 today, with anion gap of 5 * CT of the abdomen and pelvis showed atrophy of the kidneys and small calcification on the left with no hydronephrosis and colonic diverticulosis without any evidence of obstruction. * consult nephrology #Hypertension: On amlodipine and metoprolol #Depression: On sertraline DVT prophylaxis: Heparin Charges/Coding Visit Charges Inpatient E&M: 27184 Subs Hosp L2
--- NOTE | 2024-11-12 14:21 | CASEMGMT ---
Discharge Planning Updated clinicals sent to [facility]. Thelma Mishra DC Planning Asst.
--- NOTE | 2024-11-12 16:20 | CASEMGMT ---
Social Work- SW met with pt, who shared concerns about pt progression of cognitive decline, as well as increased cough. SW actively and empathetically listened to pt son concerns. SW provided supportive education of impact of UTI, change of location, and covid on cognition. SW noted pt son concerns to share with physician. Pt son had appropriate questions regarding SNF process with insurance; SW provided information and education. Physician arrived and joined discussion with pt son. Pt son expressed understanding of information physician provided. SW met with pt following discussion. Pt observed to be expressing disconnected and incoherent thought patterns. Pt oriented to self. SW will remain available to follow. Plan: PIPPA; pend precert TRELL Shanks
--- NOTE | 2024-11-12 16:28 | CON.PCM.RE_ITS ---
Assessment & Plan Assessment/Plan (1) CKD (chronic kidney disease) stage 5, GFR less than 15 ml/min: PLAN: Cr around 3.7. reviewed old records. slow progression of kidney disease over last several years. has about [address] abd with atrophic kidneys. doubt there will be much recovery in renal function Acidosis. mostly non gap. could be related to CKD. add oral bicarbonate Hyperkalemia. ? hemolyzed sample. repeat for now HPI Consult Data Date of Consult: 11/12/24 HPI Narrative Reason for Consultation: CKD 4 HPI Narrative: SYEDA CHILD, is a 89 F who presents to the hospital with UTI/COVID +. renal consulted for CKD vs SHASHI. patient is a poor historian. not really able to give much history. says she came in because she is sick. denies any urinary complaints. ongoing events include UTI. [facility] Medical History Left ventricular hypertrophy Hyperbilirubinemia Nonobstructive atherosclerosis of coronary artery Wears hearing aid in both ears Depression Chronic pain Kidney disease Non-smoker Dementia Abnormal weight loss Adult failure to thrive Neuropathic pain Vitamin D deficiency Chronic kidney disease Debility Syncope Near syncope Essential (primary) hypertension RSD lower limb Chronic kidney disease, stage 3 (moderate) GERD (gastroesophageal reflux disease) Reflex sympathetic dystrophy Hyperlipidemia Home Medications ?Medication ?Instructions ?Recorded ?Last Taken ?Type cholecalciferol (vitamin D3) 25 1,000 unit PO DAILY@1400 SUPPLEMENT 11/29/14 12/22/21 History mcg (1,000 unit) tablet metoprolol tartrate 25 mg tablet 25 mg PO BID BP 03/21/20 12/22/21 History multivitamin (Daily Multi-Vitamin 1 tab PO QAM supplement 06/06/20 12/22/21 History tablet) ascorbic acid (vitamin C) 500 mg 500 mg PO DAILY SUPPLEMENT 12/23/21 12/22/21 History capsule,extended release sertraline 50 mg tablet 50 mg PO DAILY DEPRESSION 12/23/21 12/22/21 History amlodipine 2.5 mg tablet 2.5 mg PO DAILY #30 tabs 12/26/21 Unknown Rx ferrous sulfate 325 mg (65 mg 325 mg PO QODAY@1200 #0 tabs 12/26/21 Unknown Rx iron) tablet (FeroSul) hydrocortisone 2.5 % topical cream 1 applic topical BID PRN PRN 12/26/21 Unknown Rx Itching #0 grams amlodipine 5 mg tablet 5 mg PO DAILY bp 11/10/24 Unknown History Allergy/AdvReac Type Severity Reaction Status Date / Time Gadolinium-MRI Contrast Allergy Hives Verified 11/09/24 11:19 Medium (CONTRAST) Latex, Natural Rubber Allergy Rash Verified 11/09/24 11:19 hydralazine AdvReac Intermediate Swelling Verified 11/09/24 11:19 amlodipine AdvReac dizziness Verified 11/09/24 11:19 tramadol (From Ultram) AdvReac Unknown Verified 11/09/24 11:19 Surgical History History of total knee arthroplasty (06/2021) History of esophagogastroduodenoscopy (EGD) (12/2021) History of loop recorder (04/04/20) History of open reduction and internal fixation (ORIF) procedure Status post insertion of spinal cord stimulator History of nasal septoplasty History of tonsillectomy History of hysterectomy History of repair of rotator cuff Hx of cholecystectomy History of left heart catheterization (04/10/12) Social History Smoking Status: Never smoker ROS ROS Narrative negative except above Physical Exam Narrative no pallor no icterus no JVD s1s2 no murmurs lungs clear abdomen soft no organomegaly no edema no cyanosis Lab / Micro Data 11/12/24 09:44 11/12/24 09:44 Labs: Laboratory Results - last 24 hr 11/12/24 09:44: WBC 6.2, RBC 3.91 L, Hgb 11.6 L, Hct 36.0 L, MCV 92.1, MCH 29.7, MCHC 32.2, RDW Std Deviation 47.5 H, RDW Coeff of Sonny 14.0, Plt Count 196, MPV 9.7, Immature Gran % (Auto) 1.100 H, Neut % (Auto) 65.6, Lymph % (Auto) 22.0, M cain % (Auto) 11.1 H, Eos % (Auto) 0.0, Baso % (Auto) 0.2, Absolute Neuts (auto) 4.1, Absolute Lymphs (auto) 1.37, Nucleated RBC % 0, Sodium 136, Potassium 5.7 H , Chloride 116 H, Carbon Dioxide 16.0 L, Anion Gap 5, BUN 61 H, Creatinine 3.70 H, Estim Creat Clear Calc 10.03, Est GFR (MDRD) Af Amer 15 L, Est GFR (MDRD) Non-Af 12 L, BUN/Creatinine Ratio 16.5, Glucose 82, Calcium 8.3 L
[2024-11-12] MEDS: Sodium Bicarbonate 650 MG Tablet 1300 MG PO (18:14)
[2024-11-12] MEDS: Ciprofloxacin 500 MG Tablet PO (20:53)
[2024-11-12] MEDS: 0.9% Saline Lock 10 ML Syringe IV ×2 (21:46→23:16)
[2024-11-12] MEDS: hydrALAZINE 20 MG/ML Vial 10 MG IV (23:16)
[2024-11-13 01:57] VITALS: BP 175/86; PULSE 71; RESP 18; TEMP 36.3; O2SAT 97
[2024-11-13] MEDS: oxyCODONE 5 MG Tablet PO (03:33)
[2024-11-13] MEDS: Sodium Bicarbonate 650 MG Tablet 1300 MG PO (06:25)
[2024-11-13] MEDS: Menthol/Lanolin/Calamine/Znox 113 GM Tube 1 APPLIC TOPICAL ×2 (06:25→11:02)
[2024-11-13] MEDS: Acetaminophen 500 MG Tablet 1000 MG PO (06:25)
[2024-11-13 07:35] LABS: Absolute Lymphocyte Count 1.62 X10^3/uL (0.83-4.51); Absolute Neutrophil Count 4.9 X10^3/uL (2.0-7.7); Basophil# 0.01 X10^3/uL; Basophil% 0.1 % (0-1); Hematocrit 35.5 % (37-47); Hemoglobin 11.1 g/dL (12.0-15.0); Lymphocyte # 1.62 X10^3/ul (0.83-4.51); Lymphocyte % 21.6 % (19-41); Mean Corp Hgb Conc 31.3 g/dL (32-36); Mean Corpuscular Hgb 28.8 pg (27.0-32.0); Mean Platelet Vol. 9.3 fl (6.2-12.0); Monocyte# 0.89 X10^3/uL; Monocyte% 11.9 % (0-10); NRBC Flagged by Analyzer 0 % (0-5); Neutrophil # 4.86 X10^3/uL (2.7-7.7); Neutrophil % 64.8 % (47-70); Platelet Count 183 K/mm3 (150-450); RBC Distribution Width CV 14.2 % (11.6-14.6); Red Blood Count 3.86 M/mm3 (4.2-5.4); White Blood Count 7.5 K/mm3 (4.4-11.0)
[2024-11-13 08:21] LABS: Anion Gap 9 (5-15); BUN 64 mg/dL (7-18); BUN/Creat Ratio 16.9 RATIO (10-20); Calcium,Total 8.5 mg/dL (8.5-10.1); Chloride 116 mmol/L (98-107); Creatinine, Serum 3.78 mg/dL (0.55-1.02); EST Glomerular Filtration Rate 12 mL/min (>60); Est Glom Filt Rate - Afr Amer 15 mL/min (>60); Estimated Creatinine Clearance 9.82 ml/min; Glucose 80 mg/dL (74-106); Potassium 5.2 mmol/L (3.5-5.1); Sodium Level 138 mmol/L (136-145)
--- NOTE | 2024-11-13 09:18 | CASEMGMT ---
[facility] has obtained auth to admit. SW updated. Thelma Mishra DC Planning Asst.
[2024-11-13 10:43] VITALS: BP 186/78; PULSE 65; RESP 18; TEMP 37; O2SAT 98
--- NOTE | 2024-11-13 10:44 | TREXTCAR_ITS ---
Diet Diet Order/Speech Therapy: 11/09/24 17:23 Diet: Regular - General Food consistency:: Regular Liquid Consistency:: Regular/Thin Type of Dietary Supplement:: Ensure Plus High Protein Diet Comments: 4 oz tid w/ meals Routine Orders/Code Status Enema Type: Fleetz Enema Frequency: Daily PRN Suppository Type: Dulcolax 10mg Suppository Frequency: Daily PRN DC O2, CPAP, BIPAP needs Home O2 Discharge instructions: No Therapies Weight Bearing: Weight bearing as tolerated Occupational Therapy: Eval and Treat Speech Therapy: Eval and Treat Problem/Diagnosis (1) CKD (chronic kidney disease) stage 5, GFR less than 15 ml/min: Status: Chronic Code(s): N18.5 - Chronic kidney disease, stage 5 Plan #Intractable low back pain * Does have a history of low back pain and has spinal stimulators in place * Continue current pain meds. * PT OT on board. Fall precautions. * #COVID-19 infection: * Currently on room air. * She was hypoxic when she was admitted but now on room air. On dexamethasone. * Not a candidate for remdesivir #UTI: * Urinalysis showed negative nitrites but elevated leucocyte esterase and 2+ bacteria. * on IV ceftriaxone * urine cultures growing E coli which is pansensitive. * * #CKD stage V with nonanion gap metabolic acidosis * Cr today is 3.7, down from 3.89 yesterday * potassium is 5.7 and bicarb is 16. * potassium hemolysed so that is likely what is causing the hyperkalemia * consult nephrology as I think this is a progression of her CKD. * bicarb is 16 today, with anion gap of 5 * CT of the abdomen and pelvis showed atrophy of the kidneys and small calcification on the left with no hydronephrosis and colonic diverticulosis without any evidence of obstruction. * consult nephrology #Hypertension: On amlodipine and metoprolol #Depression: On sertraline DVT prophylaxis: Heparin Allergies/Procedures Done in Hospital Allergies Gadolinium-MRI Contrast Medium (CONTRAST) Allergy (Verified 11/09/24 11:19) Hives Latex, Natural Rubber Allergy (Verified 11/09/24 11:19) Rash hydralazine Adverse Reaction (Intermediate, Verified 11/09/24 11:19) Swelling amlodipine Adverse Reaction (Verified 11/09/24 11:19) dizziness tramadol (From [facility]) Adverse Reaction (Verified 11/09/24 11:19) Unknown Procedures: None Type of Care/Length of Stay Estimated LOS: Convalescent Care Less Than 30 days Type of Care Needed: Skilled Rehab Potential: Fair Prognosis: Fair Additional Orders/Day of Discharge Day of Discharge: 11/13/24 Dietary and Speech Recommendations Dietitian Recommendations/Changes: Will continue liberal regular diet d/t suspected signs and symptoms of malnutrition Will order 4 oz ensure plus high protein tid w/ meals for increased nutrition if consumed Will continue to follow and monitor for changes in pt nutritional status and make additional rec as indicated Discharge Plan Admission Admit Date/Time: 11/09/24 15:49 Primary Reason for Your Visit: UTI, COVID, debility and weakness Attending Provider: Mana Alexandra Primary Care Provider: Giovanni Forte Consulting Providers: Meek Yates; Nikita Lange Instructions Patient Instructions: Coronavirus Disease 2019 (COVID-19): Overview, Coronavirus Disease 2019 (COVID-19): Caring for Yourself or Others, ED UTI Fem Ch Discharge Orders/Prescriptions Prescriptions: New sodium bicarbonate 650 mg Tablet 1,300 mg PO TID 30 Days Qty: 180 3RF cefdinir 300 mg capsule 300 mg PO DAILY Qty: 5 0RF Continued cholecalciferol (vitamin D3) 1,000 UNIT tablet 1,000 unit PO DAILY@1400 ascorbic acid (vitamin C) 500 mg Capsule, Extended Release 500 mg PO DAILY sertraline 50 mg tablet 50 mg PO DAILY Patient Comments: TAKE 1/2 (ONE-HALF) TABLET BY MOUTH ONCE DAILY FOR 7 DAYS, THEN INCREASE TO 1 TABLET ONCE DAILY ferrous sulfate [FeroSul] 325 mg (65 mg iron) Tablet 325 mg PO QODAY@1200 Qty: 0 0RF hydrocortisone 2.5 % Cream 1 applic topical BID PRN PRN (Reason: Itching) Qty: 0 0RF Protocol: *Topical Application Instructions APPLICATION INSTRUCTIONS: prn itching amlodipine 2.5 mg tablet 2.5 mg PO DAILY Qty: 30 0RF amlodipine 5 mg tablet 5 mg PO DAILY metoprolol tartrate 25 mg tablet 25 mg PO BID multivitamin [Daily Multi-Vitamin] Tablet 1 tab PO QAM Referrals / Follow Up: Giovanni Forte MD [Primary Care Provider] - Within 1 Week Disposition Disposition (needs filled in before D/C Order can be placed): [facility] Facility
--- NOTE | 2024-11-13 10:44 | DS.PCM_ITS ---
Providers Date of Admission: 11/09/24 Primary Care Physician: Dr. Giovanni Forte MD Consultations 11/12/24 11:33 Consult: Nephrology Routine Consulting Provider: Nikita Lange Reason for Consult: worsening CKD IV EMERGENT Consult: No MD Notified: Yes Date Notified: 11/12/24 Time Notified: 11:33 Method of Notification: Text Reason For Visit: BACK PAIN Diagnosis Discharge Diagnosis (1) CKD (chronic kidney disease) stage 5, GFR less than 15 ml/min: Status: Chronic Code(s): N18.5 - Chronic kidney disease, stage 5 Plan #Intractable low back pain * Does have a history of low back pain and has spinal stimulators in place * Continue current pain meds. * PT OT on board. Fall precautions. * #COVID-19 infection: * Currently on room air. * She was hypoxic when she was admitted but now on room air. On dexamethasone. * Not a candidate for remdesivir #UTI: * Urinalysis showed negative nitrites but elevated leucocyte esterase and 2+ bacteria. * on IV ceftriaxone * urine cultures growing E coli which is pansensitive. * * #CKD stage V with nonanion gap metabolic acidosis * Cr today is 3.7, down from 3.89 yesterday * potassium is 5.7 and bicarb is 16. * potassium hemolysed so that is likely what is causing the hyperkalemia * consult nephrology as I think this is a progression of her CKD. * bicarb is 16 today, with anion gap of 5 * CT of the abdomen and pelvis showed atrophy of the kidneys and small calcification on the left with no hydronephrosis and colonic diverticulosis without any evidence of obstruction. * consult nephrology #Hypertension: On amlodipine and metoprolol #Depression: On sertraline DVT prophylaxis: Heparin Medications at Discharge Home Medications cholecalciferol (vitamin D3) 25 mcg (1,000 unit) tablet 1,000 unit PO DAILY@1400 SUPPLEMENT 11/29/14 metoprolol tartrate 25 mg tablet 25 mg PO BID BP 03/21/20 multivitamin (Daily Multi-Vitamin tablet) 1 tab PO QAM supplement 06/06/20 ascorbic acid (vitamin C) 500 mg capsule,extended release 500 mg PO DAILY SUPPLEMENT 12/23/21 sertraline 50 mg tablet 50 mg PO DAILY DEPRESSION 12/23/21 amlodipine 2.5 mg tablet 2.5 mg PO DAILY #30 tabs 12/26/21 ferrous sulfate 325 mg (65 mg iron) tablet (FeroSul) 325 mg PO QODAY@1200 #0 tabs 12/26/21 hydrocortisone 2.5 % topical cream 1 applic topical BID PRN PRN Itching #0 grams 12/26/21 amlodipine 5 mg tablet 5 mg PO DAILY bp 11/10/24 cefdinir 300 mg capsule 300 mg PO DAILY #5 caps 11/13/24 sodium bicarbonate 650 mg tablet 1,300 mg (2 x 650 mg) PO TID 30 days #180 tabs 11/13/24 Weight / BMI Weight Weight: 134 lb Body Mass Index (BMI) 21.6 ABG / Lab / Microbiology Data 11/13/24 06:49 11/13/24 06:49 Laboratory: Laboratory Results - last 24 hr 11/12/24 09:44: Sodium 136, Potassium 5.7 H, Chloride 116 H, Carbon Dioxide 16.0 L, Anion Gap 5, BUN 61 H, Creatinine 3.70 H, Estim Creat Clear Calc 10.03, Est GFR (MDRD) Af Amer 15 L, Est GFR (MDRD) Non-Af 12 L, BUN/Creatinine Ratio 16.5, Glucose 82, Calcium 8.3 L 11/13/24 06:49: WBC 7.5, RBC 3.86 L, Hgb 11.1 L, Hct 35.5 L, MCV 92.0, MCH 28.8, MCHC 31.3 L, RDW Std Deviation 48.0 H, RDW Coeff of Sonny 14.2, Plt Count 183, MPV 9.3, Immature Gran % (Auto) 1.600 H, Neut % (Auto) 64.8, Lymph % (Auto) 21.6, M cain % (Auto) 11.9 H, Eos % (Auto) 0.0, Baso % (Auto) 0.1, Absolute Neuts (auto) 4.9, Absolute Lymphs (auto) 1.62, Nucleated RBC % 0, Sodium 138, Potassium 5.2 H , Chloride 116 H, Carbon Dioxide 14.0 L, Anion Gap 9, BUN 64 H, Creatinine 3.78 H, Estim Creat Clear Calc 9.82, Est GFR (MDRD) Af Amer 15 L, Est GFR (MDRD) Non- Af 12 L, BUN/Creatinine Ratio 16.9, Glucose 80, Calcium 8.5 Microbiology: Microbiology 11/09/24 13:24 Urine, Midstream Urine Culture - Final Presumptive E. coli 11/09/24 12:54 Mucosa - Nose SARS-CoV-2, Influenza & RSV (PCR) - Final SARS-CoV-2 (COVID 19 PCR) D/C Instructions DC O2, CPAP, BIPAP Needs Home O2 Discharge instructions: No Meaningful Use Info Ischemic Stroke Statin Dosing Therapy Reference: STATIN DOSE THERAPY REFERENCE: * Patients > 75 years receive moderate or high dose statin therapy. * Patients 75 years or YOUNGER should receive HIGH intensity statin dose unless contraindicated. You will be required to document reason for non-treatment if statin daily dose does not meet guidelines. HIGH DOSE STATIN THERAPY DAILY Atorvastatin > than or = to 40 mg Rosuvastatin > than or = to 20 mg Amlodipine + Atorvastatin > than or = to 2.5/40 mg Ezetimibe + Simvastatin 10/80 mg Simvastatin 80mg Discharge Plan Admission Admit Date/Time: 11/09/24 15:49 Primary Reason for Your Visit: UTI, COVID, debility and weakness Attending Provider: Mana Alexandra Primary Care Provider: Giovanni Forte Consulting Providers: Meek Yates; Nikita Lange Instructions Patient Instructions: Coronavirus Disease 2019 (COVID-19): Overview, Coronavirus Disease 2019 (COVID-19): Caring for Yourself or Others, ED UTI Fem Ch Discharge Orders/Prescriptions Prescriptions: New sodium bicarbonate 650 mg Tablet 1,300 mg PO TID 30 Days Qty: 180 3RF cefdinir 300 mg capsule 300 mg PO DAILY Qty: 5 0RF Continued cholecalciferol (vitamin D3) 1,000 UNIT tablet 1,000 unit PO DAILY@1400 ascorbic acid (vitamin C) 500 mg Capsule, Extended Release 500 mg PO DAILY sertraline 50 mg tablet 50 mg PO DAILY Patient Comments: TAKE 1/2 (ONE-HALF) TABLET BY MOUTH ONCE DAILY FOR 7 DAYS, THEN INCREASE TO 1 TABLET ONCE DAILY ferrous sulfate [FeroSul] 325 mg (65 mg iron) Tablet 325 mg PO QODAY@1200 Qty: 0 0RF hydrocortisone 2.5 % Cream 1 applic topical BID PRN PRN (Reason: Itching) Qty: 0 0RF Protocol: *Topical Application Instructions APPLICATION INSTRUCTIONS: prn itching amlodipine 2.5 mg tablet 2.5 mg PO DAILY Qty: 30 0RF amlodipine 5 mg tablet 5 mg PO DAILY metoprolol tartrate 25 mg tablet 25 mg PO BID multivitamin [Daily Multi-Vitamin] Tablet 1 tab PO QAM Referrals / Follow Up: Giovanni Forte MD [Primary Care Provider] - Within 1 Week Disposition Disposition (needs filled in before D/C Order can be placed): [facility]
--- NOTE | 2024-11-13 10:44 | PCM.DC.SUM ---
Providers Date of Admission: 11/09/24 Date of Discharge: 11/13/24 Primary Care Physician: Dr. Giovanni Forte MD Consultations 11/12/24 11:33 Consult: Nephrology Routine Consulting Provider: Nikita Lange Reason for Consult: worsening CKD IV EMERGENT Consult: No MD Notified: Yes Date Notified: 11/12/24 Time Notified: 11:33 Method of Notification: Text Reason For Visit: BACK PAIN Diagnosis Discharge Diagnosis (1) CKD (chronic kidney disease) stage 5, GFR less than 15 ml/min: Status: Chronic Code(s): N18.5 - Chronic kidney disease, stage 5 Plan #Intractable low back pain Does have a history of low back pain and has spinal stimulators in place Continue current pain meds. PT OT on board. Fall precautions. #COVID-19 infection: Currently on room air. She was hypoxic when she was admitted but now on room air. On dexamethasone. Not a candidate for remdesivir #UTI: Urinalysis showed negative nitrites but elevated leucocyte esterase and 2+ bacteria. on IV ceftriaxone urine cultures growing E coli which is pansensitive. #CKD stage V with nonanion gap metabolic acidosis Cr today is 3.7, down from 3.89 yesterday potassium is 5.7 and bicarb is 16. potassium hemolysed so that is likely what is causing the hyperkalemia consult nephrology as I think this is a progression of her CKD. bicarb is 16 today, with anion gap of 5 CT of the abdomen and pelvis showed atrophy of the kidneys and small calcification on the left with no hydronephrosis and colonic diverticulosis without any evidence of obstruction. consult nephrology #Hypertension: On amlodipine and metoprolol #Depression: On sertraline DVT prophylaxis: Heparin Medications at Discharge Home Medications cholecalciferol (vitamin D3) 25 mcg (1,000 unit) tablet 1,000 unit PO DAILY@1400 SUPPLEMENT 11/29/14 metoprolol tartrate 25 mg tablet 25 mg PO BID BP 03/21/20 multivitamin (Daily Multi-Vitamin tablet) 1 tab PO QAM supplement 06/06/20 ascorbic acid (vitamin C) 500 mg capsule,extended release 500 mg PO DAILY SUPPLEMENT 12/23/21 sertraline 50 mg tablet 50 mg PO DAILY DEPRESSION 12/23/21 amlodipine 2.5 mg tablet 2.5 mg PO DAILY #30 tabs 12/26/21 ferrous sulfate 325 mg (65 mg iron) tablet (FeroSul) 325 mg PO QODAY@1200 #0 tabs 12/26/21 hydrocortisone 2.5 % topical cream 1 applic topical BID PRN PRN Itching #0 grams 12/26/21 amlodipine 5 mg tablet 5 mg PO DAILY bp 11/10/24 cefdinir 300 mg capsule 300 mg PO DAILY #5 caps 11/13/24 sodium bicarbonate 650 mg tablet 1,300 mg (2 x 650 mg) PO TID 30 days #180 tabs 11/13/24 Hospital Course Operations None Procedures None Summary of Care Provided Minutes Spent on Discharge: 55 Hospital Course: Patient is an 89-year-old female with a past medical history as outlined was admitted from her assisted living facility on 11/09/2024 with a complaint of back pain which was worsening. She did have a history of chronic back pain and had spinal stimulators in place. However she had felt weak and lethargic and had been sleeping in bed. She was therefore brought into the ED due to the worsening back pain in the lethargic. On admission COVID test done was positive though she was on room air and did not require any oxygen throughout her admission. She was admitted and managed for intractable back pain in the setting of chronic back pain as well as asymptomatic COVID-19 infection. She was started on Decadron as she was hypoxic when she came in though she subsequently remained on room air. PT OT was consulted. Urinalysis did show evidence of UTI so she was started on IV ceftriaxone. Urine cultures grew E. coli which was pansensitive so she was placed on IV ceftriaxone. She did have known CKD stage IV but her kidney function was worsening and creatinine trended upwards. It was unclear whether this was a new baseline though these were all suspected so nephrology was consulted. She did have CT of the abdomen and pelvis which showed atrophic kidneys.. Nephrology they doubted they will be much recovery in renal function. She also had a known anion gap acidosis which was felt to be due to the worsening CKD which was not CKD stage V. She was therefore started on oral bicarb. Per nephrology she was not a candidate for dialysis in general. PT OT worked with patient and patient was [facility]. She was given a prescription for p.o. cefdinir 300 mg daily for 5 days to treat the UTI. She was also discharged on oral bicarbonate 1300mg tid daily. She is follow-up with her primary care doctor and follow-up with nephrology on outpatient basis. Patient seen and examined prior to discharge. She felt well and had no complaints. Review of systems otherwise negative. Labs and vitals reviewed. Home medication reviewed and reconciled. Of note her dexamethasone was discontinued at discharge as patient had remained on room air and was asymptomatic from COVID standpoint. Physical Exam Const alert, oriented x3, no apparent distress and healthy appearing Constitutional Narrative: frail General Appearance: cooperative Orientation / Consciousness: awake Exam Limitations: no limitations HEENT normocephalic, head/scalp atraumatic, hearing grossly normal bilaterally, moist oral mucous membranes and oropharynx normal Mouth: oral and palatal mucosa normal Eyes PERRL, EOMs intact bilaterally and conjunctivae normal Neck no lymphadenopathy and supple Lymph Lymphatic: no lymphadenopathy noted and no lymphedema noted Resp normal respiratory effort, normal air movement, no retractions, no use of accessory muscles and clear to auscultation bilaterally Cardio regular rate, regular rhythm, S1 normal heart sound, S2 normal heart sound and no murmurs GI normal to inspection, nondistended, normoactive bowel sounds, soft to palpation, non-tender and non-distended Extremity normal to inspection, full ROM, normal capillary refill, no clubbing, cyanosis or edema and no calf tenderness General Extremity: no tenderness to palpation of joints or extremities Skin no rashes or lesions noted General Skin Exam: no breakdown Neuro CN's II-XII intact bilaterally, moves all extremities, no focal motor deficits and no sensory deficits noted Sensorium / Orientation: awake and alert Motor Exam: strength 5/5 throughout and general weakness Psych thought process normal, cooperative and affect normal Appearance: appropriate Mood & Affect: flat affect Weight / BMI Weight Weight: 134 lb Body Mass Index (BMI) 21.6 ABG / Lab / Microbiology Data 11/13/24 06:49 11/13/24 06:49 Laboratory: Laboratory Results - last 24 hr 11/13/24 06:49: WBC 7.5, RBC 3.86 L, Hgb 11.1 L, Hct 35.5 L, MCV 92.0, MCH 28.8, MCHC 31.3 L, RDW Std Deviation 48.0 H, RDW Coeff of Sonny 14.2, Plt Count 183, MPV 9.3, Immature Gran % (Auto) 1.600 H, Neut % (Auto) 64.8, Lymph % (Auto) 21.6, [place] % (Auto) 11.9 H, Eos % (Auto) 0.0, Baso % (Auto) 0.1, Absolute Neuts (auto) 4.9, Absolute Lymphs (auto) 1.62, Nucleated RBC % 0, Sodium 138, Potassium 5.2 H, Chloride 116 H, Carbon Dioxide 14.0 L, Anion Gap 9, BUN 64 H, Creatinine 3.78 H, Estim Creat Clear Calc 9.82, Est GFR (MDRD) Af Amer 15 L, Est GFR (MDRD) Non-Af 12 L, BUN/Creatinine Ratio 16.9, Glucose 80, Calcium 8.5 Microbiology: Microbiology 11/09/24 13:24 Urine, Midstream Urine Culture - Final Presumptive E. coli 11/09/24 12:54 Mucosa - Nose SARS-CoV-2, Influenza & RSV (PCR) - Final SARS-CoV-2 (COVID 19 PCR) D/C Instructions Discharge Diet: Low fat / Low cholesterol Discharge Activity: Return to Normal Activity Weight Bearing Status: Weight bearing as tolerated Call your doctor if you observe: Fever of 101 or Higher, Shortness of breath, Dizziness, Swelling in the ankles and Chest pain DC O2, CPAP, BIPAP Needs Home O2 Discharge instructions: No DC home with Oxygen: No Meaningful Use Info Meaningful Use Meaningful Use Diagnoses (Choose all that apply): None applicable Ischemic Stroke Statin Dosing Therapy Reference: STATIN DOSE THERAPY REFERENCE: * Patients > 75 years receive moderate or high dose statin therapy. * Patients 75 years or YOUNGER should receive HIGH intensity statin dose unless contraindicated. You will be required to document reason for non-treatment if statin daily dose does not meet guidelines. HIGH DOSE STATIN THERAPY DAILY Atorvastatin > than or = to 40 mg Rosuvastatin > than or = to 20 mg Amlodipine + Atorvastatin > than or = to 2.5/40 mg Ezetimibe + Simvastatin 10/80 mg Simvastatin 80mg Discharge Plan Admission Admit Date/Time: 11/09/24 15:49 Primary Reason for Your Visit: UTI, COVID, debility and weakness Attending Provider: Mana Alexandra Primary Care Provider: Giovanni Forte Consulting Providers: Meek Yates; Nikita Lange Instructions Patient Instructions: Coronavirus Disease 2019 (COVID-19): Overview, Coronavirus Disease 2019 (COVID-19): Caring for Yourself or Others, ED UTI Fem Ch Discharge Orders/Prescriptions Prescriptions: New sodium bicarbonate 650 mg Tablet 1,300 mg PO TID 30 Days Qty: 180 3RF cefdinir 300 mg capsule 300 mg PO DAILY Qty: 5 0RF Continued cholecalciferol (vitamin D3) 1,000 UNIT tablet 1,000 unit PO DAILY@1400 ascorbic acid (vitamin C) 500 mg Capsule, Extended Release 500 mg PO DAILY sertraline 50 mg tablet 50 mg PO DAILY Patient Comments: TAKE 1/2 (ONE-HALF) TABLET BY MOUTH ONCE DAILY FOR 7 DAYS, THEN INCREASE TO 1 TABLET ONCE DAILY ferrous sulfate [FeroSul] 325 mg (65 mg iron) Tablet 325 mg PO QODAY@1200 Qty: 0 0RF hydrocortisone 2.5 % Cream 1 applic topical BID PRN PRN (Reason: Itching) Qty: 0 0RF Protocol: *Topical Application Instructions APPLICATION INSTRUCTIONS: prn itching amlodipine 2.5 mg tablet 2.5 mg PO DAILY Qty: 30 0RF amlodipine 5 mg tablet 5 mg PO DAILY metoprolol tartrate 25 mg tablet 25 mg PO BID multivitamin [Daily Multi-Vitamin] Tablet 1 tab PO QAM Referrals / Follow Up: Giovanni Forte MD [Primary Care Provider] - Within 1 Week Disposition Disposition (needs filled in before D/C Order can be placed): [facility] Charges/Coding Visit Charges Inpatient E&M: 47688 Disch Hosp >30min
[2024-11-13] MEDS: Lidocaine 5% Patch 1 PATCH TOPICAL (10:59)
--- NOTE | 2024-11-13 10:59 | CASEMGMT ---
Social Work- SW met with pt son to advise of precert being obtained. SW will remain available to follow. Plan: [facility]; skilled level of care
[2024-11-13 11:00] VITALS: BP 185/74; PULSE 74
[2024-11-13] MEDS: Sodium Polystyrene Sulfonate 15 GM/60 ML UDC 30 GM PO (11:00)
[2024-11-13] MEDS: amLODIPine 5 MG Tablet PO (11:00)
[2024-11-13] MEDS: Metoprolol Tartrate 25 MG Tablet PO (11:00)
[2024-11-13] MEDS: Heparin Injection (Vial) 5,000 UNIT/ML VIAL 5000 UNIT SC (11:01)
[2024-11-13] MEDS: Pantoprazole Sodium 40 MG Tablet PO (11:01)
--- NOTE | 2024-11-13 11:01 | CASEMGMT ---
Social Work- Precert has been obtained.? Physician updated and pt is ready for discharge today.? 7000 convalescent form completed in [facility]. Transport forms completed. [facility] notified of discharge. Final discharge arrangements and notification to patient/family as per discharge financial planning analyst.? Disposition: [facility], skilled level of care TRELL Shanks
[2024-11-13] MEDS: Ferrous Sulfate 325 MG Tablet PO (11:02)
[2024-11-13] MEDS: Sertraline 50 MG Tablet PO (11:02)
--- NOTE | 2024-11-13 12:27 | PCM.PN.REN ---
Subjective Subjective no new events Objective Data Objective Data Vital Signs: Vital Signs Temp Pulse Resp BP Pulse Ox O2 Del Method 98.6 F 74 18 185/74 H 98 Room Air 11/13/24 10:43 11/13/24 11:00 11/13/24 10:43 11/13/24 11:00 11/13/24 10:43 11/13/24 11:00 Oxygen Delivery Method Room Air Weight: 60.781 kg Body Mass Index (BMI) 21.6 Intake & Output: Intake and Output for Last 24 Hours 11/11/24 11/12/24 11/13/24 23:59 23:59 23:59 Intake Total 3050.75 / 3050.75 3370 / 3370 400 / 400 Output Total 1300 / 1300 425 / 425 Balance 1750.75 / 1750.75 2945 / 2945 400 / 400 Lab / Micro Data 11/13/24 06:49 11/13/24 06:49 Labs: Laboratory Results - last 24 hr 11/13/24 06:49: WBC 7.5, RBC 3.86 L, Hgb 11.1 L, Hct 35.5 L, MCV 92.0, MCH 28.8, MCHC 31.3 L, RDW Std Deviation 48.0 H, RDW Coeff of Sonny 14.2, Plt Count 183, MPV 9.3, Immature Gran % (Auto) 1.600 H, Neut % (Auto) 64.8, Lymph % (Auto) 21.6, [place] % (Auto) 11.9 H, Eos % (Auto) 0.0, Baso % (Auto) 0.1, Absolute Neuts (auto) 4.9, Absolute Lymphs (auto) 1.62, Nucleated RBC % 0, Sodium 138, Potassium 5.2 H, Chloride 116 H, Carbon Dioxide 14.0 L, Anion Gap 9, BUN 64 H, Creatinine 3.78 H, Estim Creat Clear Calc 9.82, Est GFR (MDRD) Af Amer 15 L, Est GFR (MDRD) Non-Af 12 L, BUN/Creatinine Ratio 16.9, Glucose 80, Calcium 8.5 Micro: Microbiology 11/09/24 13:24 Urine, Midstream Urine Culture - Final Presumptive E. coli 11/09/24 12:54 Mucosa - Nose SARS-CoV-2, Influenza & RSV (PCR) - Final SARS-CoV-2 (COVID 19 PCR) Physical Exam Narrative no pallor no icterus no JVD s1s2 no murmurs lungs clear abdomen soft no organomegaly no edema no cyanosis Assessment & Plan Assessment/Plan (1) CKD (chronic kidney disease) stage 5, GFR less than 15 ml/min: PLAN: Cr around 3.7. reviewed old records. slow progression of kidney disease over last several years. has about [address] abd with atrophic kidneys. doubt there will be much recovery in renal function Acidosis. mostly non gap. could be related to CKD. added oral bicarbonate Hyperkalemia. ? hemolyzed sample. Repeat potassium better at 5.2 Possible discharge today. Continue oral bicarbonate. Not a candidate for dialysis in general. Will arrange follow-up after discharge.
--- NOTE | 2024-11-13 12:54 | CASEMGMT ---
Discharge Planning Discharge orders, signed med list, and transport time sent to [facility] via [facility]. Physicians will transport patient by cot at 1:30. Nursing, SW, pt, and her son (Mason) updated. Thelma Mishra DC Planning Asst.
--- NOTE | 2024-11-13 14:44 | CHAPLAIN ---
Type of Pastoral Visit ___ Initial Visit ___ Follow-up Visit ___ On-call Visit ___ General Patient Visit ___ Spiritual Assessment ___ Family Conference ___ Bereavement ___ Rapid Response ___ Code Blue ___ Other (describe below) Pastoral Care Referral From ___ Patient ___ Family ___ Nurse ___ Physician ___ Service Person ___ Glaze Grinder ___ Other (describe below) Sacrament/Intervention ___ Active listening ___ Anointing ___ Shinto ___ Bereavement ___ Communion ___ Gabby exploration ___ ___ Life review ___ Prayer ___ Reconciliation ___ Sacrament of Sick ___ Supportive presence ___ Wedding ___ Other (describe below) Pastoral Comments patient was discharged before this retail mortgage banker was able to make a visit
== END 2024-11-13 13:28 | disposition skilled nursing facility (03) | DRG 178 ==
LOC: ED 15:07 → MS3 15:39
PROVIDERS: Internal Medicine; Physician Assistant; Emergency Provider Emergency Medicine; PCP Family Medicine; Visit Provider Student in an Organized Health Care Education/Training Program
DX: U07.1 COVID-19 (principal); E87.20 Acidosis, unspecified; I12.0 Hypertensive chronic kidney disease with stage 5 chronic kidney disease or end stage renal disease; N18.5 Chronic kidney disease, stage 5; N39.0 Urinary tract infection, site not specified; F32.A Depression, unspecified; M54.50 Low back pain, unspecified; E78.5 Hyperlipidemia, unspecified; I25.10 Atherosclerotic heart disease of native coronary artery without angina pectoris; K21.9 Gastro-esophageal reflux disease without esophagitis; E87.5 Hyperkalemia; B96.20 Unspecified Escherichia coli [E. coli] as the cause of diseases classified elsewhere; G89.29 Other chronic pain; R09.02 Hypoxemia; Z90.710 Acquired absence of both cervix and uterus; Z79.899 Other long term (current) drug therapy; Z96.659 Presence of unspecified artificial knee joint; Z90.49 Acquired absence of other specified parts of digestive tract; Z96.82 Presence of neurostimulator
CPT/HCPCS: 36415; 74176; 80048; 81001; 82570; 84300; 85025; 87086; 87088; 87186; 87631; 97110; 97116; 97163; 97165; 97530; 99285; P9612; A4216; J2405

== ENCOUNTER 2024-11-19 03:38 | Emergency (ER) | payer MEDICARE, SELFPAY ==
[2024-11-19 03:41] VITALS: BP 65/50; PULSE 103; PULSE 99; RESP 25; RESP 26; TEMP 34.9; O2SAT 80; BMI 19.5
--- NOTE | 2024-11-19 03:58 | EDS_ITS ---
HPI History of Present Illness Chief Complaint: Alt LOC [facility] Medical History Left ventricular hypertrophy Hyperbilirubinemia Nonobstructive atherosclerosis of coronary artery Wears hearing aid in both ears Depression Chronic pain Kidney disease Non-smoker Dementia Abnormal weight loss Adult failure to thrive Neuropathic pain Vitamin D deficiency Chronic kidney disease Debility Syncope Near syncope Essential (primary) hypertension RSD lower limb Chronic kidney disease, stage 3 (moderate) GERD (gastroesophageal reflux disease) Reflex sympathetic dystrophy Hyperlipidemia Home Medications ?Medication ?Instructions ?Recorded ?Last Taken ?Type cholecalciferol (vitamin D3) 25 1,000 unit PO DAILY@1400 SUPPLEMENT 11/29/14 12/22/21 History mcg (1,000 unit) tablet metoprolol tartrate 25 mg tablet 25 mg PO BID BP 03/21/20 12/22/21 History multivitamin (Daily Multi-Vitamin 1 tab PO QAM supplement 06/06/20 12/22/21 History tablet) ascorbic acid (vitamin C) 500 mg 500 mg PO DAILY SUPPLEMENT 12/23/21 12/22/21 History capsule,extended release sertraline 50 mg tablet 50 mg PO DAILY DEPRESSION 12/23/21 12/22/21 History amlodipine 2.5 mg tablet 2.5 mg PO DAILY #30 tabs 12/26/21 Unknown Rx ferrous sulfate 325 mg (65 mg 325 mg PO QODAY@1200 #0 tabs 12/26/21 Unknown Rx iron) tablet (FeroSul) hydrocortisone 2.5 % topical cream 1 applic topical BID PRN PRN 12/26/21 Unknown Rx Itching #0 grams amlodipine 5 mg tablet 5 mg PO DAILY bp 11/10/24 Unknown History cefdinir 300 mg capsule 300 mg PO DAILY #5 caps 11/13/24 Unknown Rx sodium bicarbonate 650 mg tablet 1,300 mg (2 x 650 mg) PO TID 30 11/13/24 Unknown Rx days #180 tabs Allergy/AdvReac Type Severity Reaction Status Date / Time Gadolinium-MRI Contrast Allergy Hives Verified 11/19/24 03:40 Medium (CONTRAST) Latex, Natural Rubber Allergy Rash Verified 11/19/24 03:40 hydralazine AdvReac Intermediate Swelling Verified 11/19/24 03:40 amlodipine AdvReac dizziness Verified 11/19/24 03:40 tramadol (From Ultram) AdvReac Unknown Verified 11/19/24 03:40 Surgical History History of total knee arthroplasty (06/2021) History of esophagogastroduodenoscopy (EGD) (12/2021) History of loop recorder (04/04/20) History of open reduction and internal fixation (ORIF) procedure Status post insertion of spinal cord stimulator History of nasal septoplasty History of tonsillectomy History of hysterectomy History of repair of rotator cuff Hx of cholecystectomy History of left heart catheterization (04/10/12) Social History Smoking Status: Never smoker EXAM Physical Exam Const Vital Signs: 11/19/24 03:41 11/19/24 03:41 11/19/24 04:14 Temperature 94.9 F L Temperature Source Temporal Pulse Rate 103 H 99 99 Respiratory Rate 26 H 25 H 27 H Blood Pressure 65/50 L 54/36 L Blood Pressure Mean 55 42 Pulse Ox 80 Oxygen Delivery Method Non-Rebreather Nasal Cannula Oxygen Flow Rate (L/min) 15 3.5 11/19/24 05:00 Temperature Temperature Source Pulse Rate 68 Respiratory Rate 18 Blood Pressure 48/24 L Blood Pressure Mean 32 Pulse Ox Oxygen Delivery Method Nasal Cannula Oxygen Flow Rate (L/min) 3.5 MDM MDM MDM Narrative Medical decision making narrative: HISTORY OF PRESENT ILLNESS: 89-year-old female presents from care home with concern for being less responsive and having altered mental status. She is accompanied by her son. Her son who is her power of civil attorney states the patient did not want any heroic measures done at end-of-life and would like to pass peacefully. He states she presented to the emergency department because the care home has a policy that they have to do CPR any patient that appears to be unconscious or loses pulses. The son states this is against the patient's wishes. He brought her to the ED to undergo end-of-life care. REVIEW OF SYSTEMS: Unable to obtain review of system secondary to the patient's altered mental status. PHYSICAL EXAM: Nursing triage notes reviewed, Vital signs reviewed Constitutional: please see mdm HENT: M dry oral mucosa Eyes: Pupils sluggishly reactive Neck: No stridor Lungs: Coarse breath sounds and crackles throughout Heart: Regular rate, no murmurs Abdomen: Soft, no apparent tenderness : No CVAT Extremities: No edema Neuro: Obtunded, possible respirations, appears to retracted painful stimuli Skin: No rash or lesions noted MEDICAL DECISION MAKING: Chief Complaint: Altered mental status External records reviewed: Reviewed prior ED notes Factors affecting care: End-stage renal disease, hypertension, CAD, viral hepatitis Social determinants of health: n elderly, care home patient History obtained from others: Patient's son (POA) Consults: None [facility] Narrative: Patient was initially hypotensive, tachycardic, tachypneic, hypothermic initially present on nonrebreather. After discussion with the patient's son, UMAIR he noted the patient's wishes were to pass peacefully. He noted she would not want any labs, images, invasive procedures done. He wanted to make her DNR CC. In accordance with the POA's report and her wishes we adopted a care over cure mantra. We will try to keep the patient as comfortable as possible. She was taken off the monitor. We will consult hospice in the morning to try to arrange inpatient hospice and end-of-life care. Patient unfortunately at 5:32 AM on 11/19/2024 On examination there were no heart tones present. There were no breath sounds or spontaneous aspiration appreciated over either lung field. There was no palpable carotid pulse the pupils are fixed and dilated. There were no spontaneous movements present. There was no response to verbal tactile or noxious stimuli. Next of kin was present or notified. Laser Beam Machine Operator and postmortem services were offered. The snack steward's office was notified. Total critical care time today provided was at least 0 minutes. This excludes separately billable procedures. Critical care time (if documented) is secondary to the patient having high probability of clinically significant/life threaten ing deterioration in the patient's condition which required my urgent intervention. Impression: 1. Altered mental status 2. End-stage renal disease 3. Hypotension 4. Dispo: [place] This note was generated with [employer] dictation software. It may contain incorrect words, spelling, and punctuation that were not noted in review of the chart prior to signing. Discharge Plan Triage Chief Complaint: Alt LOC ED Provider: Gerry Quinonez Dx/Rx/DC Orders Prescriptions: No Action cholecalciferol (vitamin D3) 1,000 UNIT tablet 1,000 unit PO DAILY@1400 ascorbic acid (vitamin C) 500 mg Capsule, Extended Release 500 mg PO DAILY sertraline 50 mg tablet 50 mg PO DAILY Patient Comments: TAKE 1/2 (ONE-HALF) TABLET BY MOUTH ONCE DAILY FOR 7 DAYS, THEN INCREASE TO 1 TABLET ONCE DAILY ferrous sulfate [FeroSul] 325 mg (65 mg iron) Tablet 325 mg PO QODAY@1200 Qty: 0 0RF hydrocortisone 2.5 % Cream 1 applic topical BID PRN PRN (Reason: Itching) Qty: 0 0RF Protocol: *Topical Application Instructions APPLICATION INSTRUCTIONS: prn itching amlodipine 2.5 mg tablet 2.5 mg PO DAILY Qty: 30 0RF amlodipine 5 mg tablet 5 mg PO DAILY sodium bicarbonate 650 mg Tablet 1,300 mg PO TID 30 Days Qty: 180 3RF cefdinir 300 mg capsule 300 mg PO DAILY Qty: 5 0RF metoprolol tartrate 25 mg tablet 25 mg PO BID multivitamin [Daily Multi-Vitamin] Tablet 1 tab PO QAM Primary Care Provider: Giovanni Forte Referrals: Giovanni Forte MD [Primary Care Provider] - Print Language: [place]an Disposition Disposition: Date/Time: 11/19/24 05:32
[2024-11-19] MEDS: oxyCODONE 5 MG Tablet PO (04:12)
[2024-11-19] MEDS: LORazepam 0.5 MG Tablet PO (04:12)
[2024-11-19 04:14] VITALS: BP 54/36; PULSE 99; RESP 27
[2024-11-19 05:00] VITALS: BP 48/24; PULSE 68; RESP 18
--- NOTE | 2024-11-19 05:37 | ED.RN ---
Pt in asystole, ultrasound confirmed by Dr. Quinonez. Time of called at 0532 at bedside, by Dr. Quinonez.
--- NOTE | 2024-11-19 06:00 | ED.RN ---
Pt son, Mason, remains at bedside.
--- NOTE | 2024-11-19 06:39 | ED.RN ---
Protein Scientist at bedside with son at this time.
== END 2024-11-19 07:28 ==
PROVIDERS: Emergency Provider Emergency Medicine; PCP Family Medicine; Visit Provider Emergency Medicine
DX: R41.82 Altered mental status, unspecified (principal); I12.0 Hypertensive chronic kidney disease with stage 5 chronic kidney disease or end stage renal disease; N18.6 End stage renal disease; I95.9 Hypotension, unspecified; I25.10 Atherosclerotic heart disease of native coronary artery without angina pectoris; K21.9 Gastro-esophageal reflux disease without esophagitis; E78.5 Hyperlipidemia, unspecified; B19.9 Unspecified viral hepatitis without hepatic coma; Z66 Do not resuscitate
CPT/HCPCS: 99284